=== PATIENT | male | born 1955 | race Caucasian/White ===

== ENCOUNTER 2016-09-02 18:46 | Emergency (ER) | payer OTHER ==
[~2016-09-02] VITALS: Ht 182.9 cm; Wt 95.1 kg
[~2016-09-02 18:46] MED LIST: EFFSR150 PO
[2016-09-02 18:52] VITALS: TEMP 36.8; Ht 182.9 cm; Wt 95.1 kg
[2016-09-02] MEDS ORDERED: VENL75CA73 PO (19:24)
[2016-09-02] MEDS ORDERED: GLCSR/500 PO (19:24)
[2016-09-02] MEDS ORDERED: IBUP-1050 PO (19:25)
--- NOTE | 2016-09-02 20:07 | DIAGNOSTIC IMAGING REPORT ---
RIGHT RIBS UNILATERAL WITH PA CHEST CLINICAL HISTORY: right posterior rib pain, injury Right COMPARISON STUDY: None. FINDINGS: No acute fractures within the right ribs. Old, healed right anterior ninth and 10th rib fractures. Bibasilar linear densities favor subsegmental atelectasis or scarring. The heart is borderline enlarged. No focal lung consolidations to suggest pneumonia. No evidence for pulmonary edema. No pleural effusions. No pneumothorax. IMPRESSION: No acute rib fractures. No pneumothorax. Electronically signed by: Hansel Willis M.D. 09/02/2016 8:06 PM Dictated Date/Time: 09/02/2016 8:04 PM
[2016-09-02] MEDS ORDERED: OXYCODONE HCL IR 5 MG TAB (IMMEDIATE RELEASE) PO STA (20:20)
[2016-09-02] MEDS ORDERED: OXYCODONE IR HOME PACK PO ONE (21:00)
[2016-09-02] MEDS ORDERED: OXYC1TAB3 PO (21:04)
--- NOTE | 2016-09-02 21:05 | EMERGENCY ROOM VISIT NOTE ---
History First contact with patient: 18:53 Chief Complaint: FLANK PAIN Stated Complaint: RIGHT SIDE, BAD PAIN History of Present Illness The patient is a 61 year old male who presents to the Emergency Room with complaints of right rib pain. The patient states that 2 days ago, a piece of steel slipped and hit him in the right side. He reports that he has had persistent pain since then. He states the pain increases with sneezing, coughing or laughing. The pain also increases with movement. He rates the discomfort an 8/10. He denies any difficulty breathing or abdominal pain. Review of Systems A complete 10 point review of systems was reviewed with the patient with pertinent positives and negatives as per history of present illness. All else were negative. Social History Smoking Status: Never Smoker Alcohol Use: none Marital Status: single Occupation Status: employed Current/Historical Medications Scheduled Hctz/Losartan (Hyzaar 25MG/100MG), 1 TAB PO DAILY Ibuprofen (Advil), 800 MG PO BID Metformin HCl (Metformin HCl ER), 500 MG PO DAILY Venlafaxine Hcl (Venlafaxine Extended Rel), 75 MG PO DAILY Scheduled PRN Oxycodone Ir (Roxicodone Ir), 1-2 TAB PO Q4H PRN for Pain Allergies Coded Allergies: Prochlorperazine (Unverified Allergy, Unknown, INCREASES ANXIETY, 04/12/09) Physical Exam Vital Signs Date Time Temp Pulse Resp B/P (MAP) Pulse Ox O2 Delivery O2 Flow Rate FiO2 09/02/16 21:14 72 18 149/90 98 09/02/16 18:52 36.8 78 16 156/93 97 Room Air Physical Exam VITALS: Vitals are noted on the nurse's note and reviewed by myself. Vital signs stable. GENERAL: This is a 61-year-old male, in no acute distress, nondiaphoretic, well- developed well-nourished. SKIN: No ecchymosis noted. HEART: Regular rate and rhythm without murmurs gallops or rubs. LUNGS: Clear to auscultation bilaterally without wheezes, rales or rhonchi. No retractions or accessory muscle use. ABDOMEN: Soft, nontender to palpation. MUSCULOSKELETAL: There is tenderness to palpation of the right lower posterior ribs. NEURO: Patient was alert and oriented to person place and time. Medical Decision & Procedures ER Provider Diagnostic Interpretation: RIGHT RIBS UNILATERAL WITH PA CHEST CLINICAL HISTORY: right posterior rib pain, injury Right COMPARISON STUDY: None. FINDINGS: No acute fractures within the right ribs. Old, healed right anterior ninth and 10th rib fractures. Bibasilar linear densities favor subsegmental atelectasis or scarring. The heart is borderline enlarged. No focal lung consolidations to suggest pneumonia. No evidence for pulmonary edema. No pleural effusions. No pneumothorax. IMPRESSION: No acute rib fractures. No pneumothorax. Medications Administered Medications (Trade) Dose Ordered Sig/Summer Route Start Time Stop Time Status Last Admin Dose Admin Oxycodone HCl (Roxicodone Immediate Rel Tab) 5 mg NOW STAT PO 09/02/16 20:20 09/02/16 20:21 DC 09/02/16 20:24 5 MG Oxycodone HCl (Roxicodone Immediate Rel 5MG Home Pack) 1 homepack UD ONCE PO 09/02/16 21:00 09/02/16 21:01 DC 09/02/16 21:10 1 HOMEPACK Medical Decision Differential diagnosis includes rib fracture, rib contusion, pneumothorax, hemothorax, pulmonary embolism, among others. The patient was evaluated as above. He presents with right rib pain after an injury a few days ago. Rib x-ray was performed and read by radiology with no acute findings. Conservative measures were discussed with the patient. He received 1 tablet of OxyIR in the emergency department for pain with relief of his symptoms. He will be discharged home with a prescription for OxyIR and to follow-up with primary care provider. The patient verbalized understanding of my assessment and treatment plan and was discharged home in good condition. Blood Pressure Screening: Patient was found to have a slightly elevated blood pressure due to circumstances. I do not believe that the patient requires hypertension monitoring. Medication reconciliation: I attest that I have personally reviewed the patient 's current medication list. [place] Drug Monitoring Program Search Results: patient reviewed within database, no issues identified Impression Primary Impression: Contusion of rib on right side Departure Information Dispostion Home / Self-Care Condition GOOD Prescriptions Oxycodone Ir (Roxicodone Ir) 5 Mg Tab 1-2 TAB PO Q4H Y for Pain, #15 TAB For Initial Treatment Prov: Amber Dawson ., LUZ-Cheli 09/02/16 Referrals Patrick Zhao M.D. (PCP) Patient Instructions My [facility] Additional Instructions You have been treated in the Emergency Department for Rib contusion. You have received pain medicine in the emergency department which impairs your ability to operate a vehicle. It is illegal for you to drive after receiving these medicines. You have been prescribed OxyIR to be used for pain control. This is a narcotic medication. You cannot drive or consume alcohol while on this medicine. This medicine should only be used for pain that cannot be controlled with over-the- counter pain medicines. For pain control, you can use the following [id number] medicines (if >12 yo): - Regular strength (325mg/tab) Tylenol (acetaminophen) 2 tabs every 4-6 hours as needed. Do not exceed 12 tablets in a 24 hour period. Avoid taking more than 4 grams (4000 mg) of Tylenol per day. This includes any other sources of acetaminophen you may take on a regular basis. - Regular strength (200 mg/tab) Advil (ibuprofen) 1-2 tabs every 4-6 hours as needed. Do not exceed a dose of 3200 mg per day. If this is an acute injury, ice can be applied to the area of pain for the first 3 days to help decrease pain and inflammation. After the first 3 days, a heating pad can be used over the area for continued soothing relief. To minimize your discomfort, you can hug a pillow while coughing or sneezing. Additionally, you should continue to force yourself to take nice, deep breaths. Full expansion of the lungs is necessary to prevent the accumulation of fluid in the lung tissue and development of pneumonia. You should schedule a follow-up appointment in 2-3 days with your Primary Care Provider for further evaluation and treatment of your back pain. Return to the Emergency Department if your current symptoms worsen despite treatment course outlined above, or if you develop any of the following symptoms : intractable pain despite aforementioned treatment course, development of a wet cough, bloody cough, fever, chills, or increased shortness of breath. Problem Qualifiers Primary Impression: Contusion of rib on right side Encounter type: initial encounter Qualified Codes: S20.211A - Contusion of right front wall of thorax, initial encounter
[2016-09-02 21:14] VITALS: BP 149/90; PULSE 72; O2SAT 98
[2016-09-02] MEDS ORDERED: HYZ/10015 PO (22:26)
== END 2016-09-02 21:23 | disposition home or self-care (01) ==
LOC: C.EDB 18:47 → C.EDA 21:23
DX: S20.211A Contusion of right front wall of thorax, initial encounter (principal); W01.0XXA Fall on same level from slipping, tripping and stumbling without subsequent striking against object, initial encounter; Z79.84 Long term (current) use of oral hypoglycemic drugs; Z79.899 Other long term (current) drug therapy; Z88.8 Allergy status to other drugs, medicaments and biological substances

== ENCOUNTER 2017-01-22 06:29 | Inpatient (IN) | payer OTHER ==
--- NOTE | 2017-01-21 14:07 | DIAGNOSTIC IMAGING REPORT ---
CHEST 2 VIEWS ROUTINE CLINICAL HISTORY: PRE OP TESTING COMPARISON STUDY: 09/02/2016 FINDINGS: The cardiac and mediastinal contours are normal. There is no evidence of focal pulmonary consolidation. There is no evidence of failure. No pleural effusions are visualized.[There are linear by basilar areas of atelectasis/scarring. IMPRESSION: No active disease in the chest. Electronically signed by: Ramon Brandon M.D. 01/21/2017 2:05 PM Dictated Date/Time: 01/21/2017 2:05 PM
[2017-01-21 14:46] LABS: BASO % 0.2 %; BASO ABS # 0.01 K/uL (0-0.2); COMPLETE YES; EOS % 0.9 %; HEMATOCRIT 37.4 % (42-52); IG% 0.3 %; LYMPH % 25.9 %; MEAN CELL VOLUME 92.8 fL (80-100); MEAN CORPUSCULAR HGB CONC 33.4 g/dl (32-36); MEAN PLATELET VOLUME 8.7 fL (7.4-10.4); MONO % 8.7 %; PLATELET COUNT 270 K/uL (130-400); RED BLOOD COUNT 4.03 M/uL (4.7-6.1); WHITE BLOOD COUNT 6.57 K/uL (4.8-10.8)
[2017-01-21 14:54] LABS: URINE APPEARANCE CLEAR (CLEAR); URINE BILIRUBIN NEG (NEG); URINE COLOR YELLOW; URINE NITRITE NEG (NEG); URINE PH 5.5 (4.5-7.5); URINE SPECIFIC GRAVITY 1.023 (1.000-1.030); UROBILINOGEN NEG (NEG)
[2017-01-21 14:57] LABS: INR 0.9 (0.9-1.1); PROTHROMBIN TIME (PATIENT) 10.1 SECONDS (9.0-12.0)
[2017-01-21 15:04] LABS: MANUAL MICROSCOPIC REQUIRED? NO; REVIEW REQ? NO
[2017-01-21 15:12] LABS: BLOOD UREA NITROGEN 18 mg/dl (7-18); BUN/CREATININE RATIO 18.4 (10-20); CALCIUM 9.4 mg/dl (8.5-10.1); CARBON DIOXIDE 27 mmol/L (21-32); CHLORIDE 103 mmol/L (98-107); GLUCOSE 122 mg/dl (70-99); POTASSIUM 4.1 mmol/L (3.5-5.1); SODIUM 139 mmol/L (136-145)
[2017-01-21 15:37] VITALS: BMI 28.0
[2017-01-22] VITALS (7 sets, daily range): BP systolic 112–137; BP diastolic 68–87; PULSE 76–106; TEMP 36.4–36.9; O2SAT 99–100; Ht 180.3 cm; Wt 90.9 kg
[~2017-01-22] VITALS: Ht 180.3 cm; Wt 90.9 kg
[2017-01-22 05:39] LABS: ESTIMATED AVERAGE GLUCOSE 154 mg/dl; HA1C FLAG Normal (Normal)
[~2017-01-22 06:29] MED LIST changes: +ACETAMINOPHEN 500 MG TAB PO SCH; +BUPIVACAINE 0.25% 30 ML VIAL ONE; +BUPIVACAINE 0.5 % 5 MG/1 ML PF 10ML VIAL ONE; +CEFAZOLIN 1000MG IV PUSH 5 ML IV SCH; +CEFAZOLIN 2000MG IV PUSH 10 ML IV SCH; +CeleBREX 200 MG CAP PO SCH; +DEXAMETHASONE 4 MG TAB PO SCH; -EFFSR150 PO; +FAMOTIDINE 20 MG TAB PO SCH; +GABAPENTIN 300 MG CAP PO SCH; +GLCSR/500 PO; +HYZ/10015 PO; +IBUP-1050 PO; +LACTATED RINGER'S 1000ML 1,000 ML IV SCH; +LACTATED RINGER'S 1000ML 500 ML IV ONE; +LACTATED RINGER'S 1000ML IV SCH; +METOCLOPRAMIDE HCL 10 MG TAB PO SCH; +PATIENT'S HEIGHT AND/OR WEIGHT NEEDED SCH; +ROPIVACAINE 5MG/ML 30 ML 150 MG, BUPIVACAINE 0.5% MPF INJ 30 ML, EpINEphrine HCL INJ 0.... INFIL SCH; +VENL75CA73 PO; +VNTHFA/IN INH
[2017-01-22] MEDS ORDERED: MIDAZOLAM HCL 1 MG/ML 2ML VIAL ONE ×2 (06:32→08:54)
[2017-01-22] MEDS ORDERED: FENTANYL CITRATE INJ 50 MCG/1 ML 2 ML VIAL ONE (06:32)
--- NOTE | 2017-01-22 07:30 | History & Physical Bridge Note ---
H&P Re-Evaluation Bridge Note: I have examined the patient, reviewed the History & Physical and in the interval since the performance of the History & Physical I have noted the following changes of clinical significance: No changes noted
--- NOTE | 2017-01-22 09:02 | History and Physical ---
History & Physical Date Jan 22, 2017. Chief Complaint Right knee pain History of Present Illness The patient is a 61 year old male with complaints of Additional History Hepatic Disease: No Endocrine Disorder: No Kidney Disease: No Hypertension: No Heart Disease: No Bleeding Tendencies: No Infectious Diseases: No Allergies Coded Allergies: Prochlorperazine (Unverified Allergy, Unknown, INCREASES ANXIETY, 01/21/17 ) Home Medications Scheduled Albuterol Hfa (Ventolin Hfa), 2 PUFFS INH PRN Hctz/Losartan (Hyzaar 25MG/100MG), 1 TAB PO QAM Ibuprofen (Advil), 800 MG PO PRN Metformin HCl (Metformin HCl ER), 500 MG PO BID Venlafaxine Hcl (Venlafaxine Extended Rel), 150 MG PO QAM Diagnosis DJD R knee ASA Classification: ASA Class I Plan of Treatment Right tka
[2017-01-22] MEDS ORDERED: ORTHO JOINT ANESTHETIC ONE (09:32)
[2017-01-22] MEDS ORDERED: BACITRACIN 50000 UNIT VIAL ONE (09:33)
[2017-01-22] MEDS ORDERED: POVIDONE-IODINE OP SOLN 30 ML BTL ONE (09:33)
--- NOTE | 2017-01-22 10:51 | [facility] Post Operative Brief Note ---
Immediate Operative Summary Operative Date Jan 22, 2017. Pre-Operative Diagnosis Right knee degenerative joint disease Post-Operative Diagnosis Right knee degenerative joint disease Procedure(s) Performed Right total knee arthroplasty Surgeon Dr. Harris Radiator Core Tester Surgeon(s) Bibi Canchola PA-C Estimated Blood Loss 10cc Findings OA Specimens A) right knee- bone & tissue Complication(s) None Disposition Recovery Room / PACU
[2017-01-22] MEDS ORDERED: ONDANSETRON INJ 2 MG/ML 2 ML VIAL IV PRN ×2 (11:15→11:30)
[2017-01-22] MEDS ORDERED: FENTANYL CITRATE INJ 50 MCG/1 ML 2 ML VIAL IV PRN (11:15)
[2017-01-22] MEDS ORDERED: LABETALOL HCL IV 5 MG/ML 20ML IV PRN (11:15)
[2017-01-22] MEDS ORDERED: MEPERIDINE HCL 25 MG/ML CARP IV PRN (11:15)
[2017-01-22] MEDS ORDERED: EpHEDrine SULFATE INJ 50 MG/ML AMP IV PRN (11:15)
[2017-01-22] MEDS ORDERED: ATROPINE SULFATE 0.1 MG/ML 5ML SYR IV PRN (11:15)
[2017-01-22] MEDS ORDERED: HYDROmorphone INJ 1 MG/ML SYR IV PRN (11:15)
[2017-01-22] MEDS ORDERED: OXYCODONE HCL IR 5 MG TAB (IMMEDIATE RELEASE) PO PRN (11:30)
[2017-01-22] MEDS ORDERED: BISACODYL 10 MG SUPP PR PRN (11:30)
[2017-01-22] MEDS ORDERED: MoRPHine SULFATE 2 MG/ML CARP IV PRN (11:30)
[2017-01-22] MEDS ORDERED: TAMSULOSIN HCL 0.4 MG CAP PO PRN (11:30)
[2017-01-22] MEDS ORDERED: ALUMINUM/MAGNESIUM/SIMETH (MAALOX MAX) 30 ML UDC PO PRN (11:30)
[2017-01-22] MEDS ORDERED: ALBUTEROL HFA 8 GM INHALER INH PRN (11:30)
[2017-01-22] MEDS ORDERED: MAGNESIUM HYDROXIDE SUSP 30 ML UDC PO PRN (11:30)
[2017-01-22] MEDS ORDERED: TRAMADOL HCL 50 MG TAB PO PRN (11:30)
--- NOTE | 2017-01-22 11:56 | Anesthesiology Progress Note ---
Anesthesia Post Op Note Date & Time Jan 22, 2017 at 11:56 Vital Signs Pain Intensity: 0 Vital Signs Past 12 Hours Date Time Temp Pulse Resp B/P (MAP) Pulse Ox O2 Delivery O2 Flow Rate FiO2 01/22/17 11:45 75 18 114/83 100 Oxymask 10 01/22/17 11:35 36. 63 18 119/79 100 Oxymask 10 01/22/17 11:25 36. 75 18 108/74 100 Oxymask 10 01/22/17 06:45 36.9 85 18 136/87 Notes Mental Status: alert / awake / arousable, participated in evaluation Pt Amnestic to Procedure: Yes Nausea / Vomiting: adequately controlled Pain: adequately controlled Airway Patency, RR, SpO2: stable & adequate BP & HR: stable & adequate Hydration State: stable & adequate Neuraxial Anesthesia: was administered, sensory block is resolving Anesthetic Complications: no major complications apparent
--- NOTE | 2017-01-22 12:05 | DIAGNOSTIC IMAGING REPORT ---
R KNEE 1 OR 2 VIEWS ROUTINE CLINICAL HISTORY: 61 years-old Male presenting with AP/LATERAL IN PACU RIGHT KNEE. TECHNIQUE: Frontal and lateral views of the right knee were obtained. COMPARISON: 12/17/2013. FINDINGS: There has been interval total right knee arthroplasty with patellar resurfacing. Intra-articular and soft tissue emphysema noted. Surgical drain in place. No malalignment. No acute fracture. No gross hardware complication. Degenerative related calcifications noted along the medial knee. Several screw tracks apparent in the proximal tibial metaphysis. IMPRESSION: Expected postsurgical appearance status post total right knee arthroplasty with patellar resurfacing. Electronically signed by: Rocky Dyson M.D. 01/22/2017 12:04 PM Dictated Date/Time: 01/22/2017 12:03 PM
[2017-01-22] MEDS ORDERED: MoRPHine SULFATE 10 MG/ML CARP/VIAL IV PRN (12:45)
[2017-01-22] MEDS ORDERED: MoRPHine SULFATE 4 MG/ML 1 ML CARP\\VIAL IV PRN (12:45)
[2017-01-22] MEDS: TRANEXAMIC ACID INJ 1,000 MG in SYRINGE 0 ML IV SCH ×2 (12:51→12:53)
[2017-01-22] MEDS ORDERED: GLUCOSE 40% GEL 15 GM TUBE PO PRN (13:00)
[2017-01-22] MEDS ORDERED: GLUCOSE 10 TABS/TUBE PO PRN (13:00)
[2017-01-22] MEDS ORDERED: DEXTROSE 50% 50 ML SYR IV PRN (13:00)
[2017-01-22] MEDS ORDERED: GLUCAGON FOR INJ 1 MG VIAL SQ PRN (13:00)
[2017-01-22] MEDS ORDERED: INFLUENZA ADMINISTRATION CHARGE ONE (14:45)
[2017-01-22] MEDS ORDERED: INFLUENZA VIRUS QUAD VACCINE 0.5 ML SYR IM. ONE (14:45)
[2017-01-22] MEDS: ACETAMINOPHEN 500 MG TAB PO SCH ×2 (17:03→23:26)
[2017-01-22] MEDS ORDERED: PHARMACY GLYCEMIC MGMT CONSULT SCH (17:58)
[2017-01-22] MEDS ORDERED: LANTUS PER UNIT CHARGE SQ ONE (18:15)
[2017-01-22] MEDS: INSULIN ASPART 100 UNITS/ML 3 ML PEN SC SCH (18:40)
[2017-01-22] MEDS: KETOROLAC TROMETHAMINE 30 MG/ML VIAL IV. SCH ×2 (18:42→23:26)
[2017-01-22] MEDS ORDERED: INSULIN IV INFUSION PROTOCOL SCH (18:52)
[2017-01-22] MEDS: CEFAZOLIN IV 2,000 MG in SYRINGE 0 ML IV SCH (18:54)
[2017-01-22] MEDS: FERROUS GLUCONATE 324 MG TAB PO SCH (18:54)
[2017-01-22] MEDS ORDERED: MODERATE STRESS LEVEL ONE (19:00)
[2017-01-22] MEDS ORDERED: INSULIN PROTOCOL GOAL RANGE ONE (19:00)
--- NOTE | 2017-01-22 19:01 | Pharmacy Progress Note ---
Glycemic Control Intl Consult Date of Service Jan 22, 2017. Scope Glycemic Pharmacist consulted by Lan NARANJO on 01/22/17 for glycemic control and to write orders per [facility] inpatient glycemic control protocol Objective Weight (Kilograms): 90.91 Accuchecks BSG (last 24hrs): Test 01/22/17 06:53 01/22/17 11:56 01/22/17 17:13 01/22/17 17:14 Bedside Glucose 128 mg/dl (70-99) 147 mg/dl (70-99) 360 mg/dl (70-99) 384 mg/dl (70-99) HbA1c Test 01/21/17 13:13 Hemoglobin A1c 7.0 % (4.5-5.6) H Recent Pertinent Medications Outpatient Anti-diabetic Regimen: * Metformin ER 500mg BID * A1c = 7 % 01/22/17 Risk Factors for Insulin Resistance: * Steroids: Dexamethasone 8mg PO pre-op x1; Dexamethasone 4mg in huy-articular injection x1 * Recent Surgery: POD # 0 s/p R TKA * Diet: ordered T2DM diet and tolerating dinner today Assessment & Plan ASSESSMENT: 01/22/17 * Well controlled type 2 diabetic admitted today for elective R TKA * A1c 7.0% on metformin monotherapy. Metformin currently on hold in the post- op setting until renal fxn assessed and patient tolerating diet * Patient states he is well controlled and rarely see's BSGs above 180's * Post-op hyperglycemia observed, BSGs in the 380's currently. Given infectious risks associated with severe hypoglycemia post-op, I feel it is best we initiate therapy w/ a IV insulin infusion to quickly and safely gain control of hyperglycemia. This plan was discussed and approved with on-call surgeon, Dr Moreno. Hospitalist has also been consulted. * Will give a single STAT dose of Lantus SQ on top of the insulin drip with hopes that this may help us transition off the drip overnight and possibly tomorrow. Dose will be based upon severe stress level and weight. * Will check PRP tonight to screen for e-lyte abnormalities while on insulin infusion, drip should be stopped if significant hypokalemia present (K < 3.3) * May be able to resume metformin tomorrow if renal fxn and diet permit. PLAN FOR INPATIENT GLYCEMIC CONTROL: * Starting IV insulin infusion per moderate stress protocol * Goal Range 120 - 200 mg/dl * Holding outpatient oral diabetes medications * Basal insulin with LANTUS 46 units SQ x 1 tonight * Please note that the plan above was derived based on current level of insulin resistance and hospital stress. These recommendations are appropriate for inpatient admission only. Plan of care upon discharge will need to be reassessed to avoid potential outpatient hypo/hyperglycemia. Thank you.
[2017-01-22] MEDS: SODIUM CHLORIDE 0.9% 1000ML 1,000 ML IV SCH ×2 (19:42→22:34)
[2017-01-22] MEDS: INSULIN REGULAR 250 UNITS in SODIUM CHLORIDE 0.9% 250ML 250 ML IV SCH ×2 (19:46→21:08)
[2017-01-22] MEDS ORDERED: SENNA 8.6 MG TAB PO SCH (21:00)
[2017-01-22] MEDS ORDERED: INSULIN ASPART 100 UNITS/ML 3 ML PEN SC SCH (21:00)
[2017-01-22] MEDS: ASPIRIN 81 MG ECTAB PO SCH (21:19)
[2017-01-22] MEDS: DOCUSATE SODIUM 100 MG CAP PO SCH (21:20)
[2017-01-22 22:36] LABS: BUN/CREATININE RATIO 20.6 (10-20); CALCIUM 8.2 mg/dl (8.5-10.1); CREATININE 1.25 mg/dl (0.60-1.40); POTASSIUM 3.9 mmol/L (3.5-5.1)
[2017-01-23] MEDS: INSULIN REGULAR 250 UNITS in SODIUM CHLORIDE 0.9% 250ML 250 ML IV SCH (01:09)
[2017-01-23] MEDS: CEFAZOLIN IV 2,000 MG in SYRINGE 0 ML IV SCH (02:27)
[2017-01-23 03:33] VITALS: BP 150/81; PULSE 80; TEMP 36.5; O2SAT 98
[2017-01-23] MEDS: SODIUM CHLORIDE 0.9% 1000ML 1,000 ML IV SCH ×2 (05:22→08:34)
[2017-01-23] MEDS: KETOROLAC TROMETHAMINE 30 MG/ML VIAL IV. SCH ×2 (05:23→11:44)
[2017-01-23] MEDS ORDERED: NURSING VERBAL MED ORDER ONE (05:30)
[2017-01-23 08:06] LABS: BUN/CREATININE RATIO 23.9 (10-20); CREATININE 0.92 mg/dl (0.60-1.40); POTASSIUM 3.9 mmol/L (3.5-5.1)
--- NOTE | 2017-01-23 08:12 | Orthopedic Progress Note ---
Orthopedic Progress Note Date of Service Jan 23, 2017. Subjective Post OP Day: 1 Reports: feeling well, Denies: chest pain, SOB, nausea / vomiting, light headedness, calf pain Objective calves soft nontender, N/V intact, capillary refill less than 2 sec., dressing C /D/I, A&O x3, toes mobile, hemovac drainage (100/150cc per shift) Date Time Temp Pulse Resp B/P (MAP) Pulse Ox O2 Delivery O2 Flow Rate FiO2 01/23/17 03:33 36.5 80 16 150/81 (104) 98 Room Air 01/22/17 23:34 36.5 94 16 121/68 (85) 99 Room Air 01/22/17 23:15 Room Air 01/22/17 19:17 36.9 90 18 137/77 (97) 99 Room Air 01/22/17 15:30 Room Air 01/22/17 15:02 36.6 106 18 129/80 (96) 99 Room Air 01/22/17 14:05 101 16 133/81 (98) 100 01/22/17 13:25 99 16 130/81 (97) 100 01/22/17 12:30 Nasal Cannula 2.0 01/22/17 12:05 Nasal Cannula 2.0 01/22/17 12:05 Nasal Cannula 01/22/17 12:05 36.4 76 18 112/76 (88) 99 Nasal Cannula 2.0 01/22/17 11:45 75 18 114/83 100 Oxymask 10 01/22/17 11:35 36. 63 18 119/79 100 Oxymask 10 01/22/17 11:25 36. 75 18 108/74 100 Oxymask 10 Laboratory Results 24 Hours: Test 01/23/17 06:49 Assessment & Plan Assessment: POD#1 sp right TKA Plan: PT/OT DVT PROPH- ASA 81MG BID PAIN MANAGEMENT- MAGEN, TYLENOL DC PLANNING- HOME TODAY WITH ADVANTAGE. KEEP DRESSING/DRAIN.
[2017-01-23] MEDS ORDERED: ASPEC81 PO (08:17)
[2017-01-23] MEDS ORDERED: SENN1TAB80 PO (08:17)
[2017-01-23] MEDS ORDERED: CLB200 PO (08:17)
[2017-01-23] MEDS ORDERED: RXC5 PO (08:17)
[2017-01-23] MEDS ORDERED: ONDA8TAB6 PO (08:17)
[2017-01-23] MEDS ORDERED: ACET-24 PO (08:17)
--- NOTE | 2017-01-23 08:19 | Discharge Instructions ---
Discharge Instructions Date of Service Jan 23, 2017. Admission Reason for Admission: Right Knee Osteoarthritis Discharge Discharge Diagnosis / Problem: SP RIGHT TKA Discharge Goals Goal(s): Decrease discomfort, Improve function, Increase independence Activity Recommendations Activity Limitations: per Instructions/Follow-up section . Instructions / Follow-Up Instructions / Follow-Up ACTIVITY RECOMMENDATIONS: SELF CARE INSTRUCTIONS AFTER TOTAL KNEE REPLACEMENT A. You may need to continue a physical therapy program after discharge from the hospital. There are several options available to you. Your doctor will assist you in selecting the best one for you. 1. An out-patient facility 2 to 3 times a week for therapy or home therapy. 2. Continue working on all exercises taught to you in the hospital. Your goals should be to increase bending of your knee to 90 degrees and beyond and to fully straighten your knee. B. You may progress at your own pace from walking with a walker or crutches to a cane; then to no assistive devices. C. Make walking a part of your daily routine. Be up as much as comfortable with rest periods throughout the day. Rest with leg elevation is very important. Use the ice wrap frequently for the first 3-4 weeks. D. There are no restrictions on activities. You may ride in a car, shop, participate in baby attendant and all social activities. E. Wear the long elastic stockings (IRAJ hose) 20 hours a day for 2 weeks after surgery. They can be removed several times a day for laundering and for a bath. F. You may shower, no tub baths until cleared by your doctor. SPECIAL CARE INSTRUCTIONS: VERY IMPORTANT TO READ AND REVIEW A. There are a few signs you need to watch for after you are home. Call [facility] if you notice any of the followin. Increased severe knee pain. Some pain is expected especially when you exercise. 2. Increased swelling in your leg or knee; pain or swelling of the calf muscle in either lower leg. 3. Any fluid drainage from the incision. 4. Shortness of breath or chest pain. B. Please call [facility] at if you have any concerns or questions about your operation or recovery. The doctor or his nurse will return your call promptly. C. You must take antibiotics before dental work, bladder, bowel or other surgery. Your doctor will provide you with a permanent care to carry describing this precaution. IMPORTANT: * REMEMBER TO TAKE ASPIRIN, 81 MG, TWICE DAILY FOR 4 WEEKS UNLESS OTHERWISE DIRECTED. THIS IS YOUR BLOOD THINNER. * HIGH RISK PATIENTS MAY BE PRESCRIBED A STRONGER BLOOD THINNER. THIS WILL BE PROVIDED AT DISCHARGE. * CALL IF INCREASED PAIN, REDNESS, DRAINAGE OR FEVER GREATER THAT 101. * WEAR IRAJ HOSE 20 HOURS PER DAY FOR 2 WEEKS. * YOU HAVE A ZIPLINE CLOSURE. THIS IS IN PLACE OF [place]. DO NOT REMOVE. YOU MAY COVER WITH A LIGHT DRESSING TO PREVENT SNAGGING. THIS WILL BE RMEOVED AT YOUR 2 WEEK VISIT. SURGICAL DRESSING AND DRAIN WILL BE REMOVED ON WEDNESDAY BY HOME NURSING. FOLLOW UP VISIT: If appointment is not already scheduled: Please call [facility] to make a follow-up appointment for 2 weeks after your surgery at . Current Hospital Diet Patient's current hospital diet: Diabetes Type 2 Diet Discharge Diet Recommended Diet: Regular Diet Procedures Procedures Performed: Right total knee arthroplasty Pending Studies Studies pending at discharge: no Laboratory Results Hemoglobin A1c Test 01/21/17 13:13 Range/Units Estimated Average Glucose 154 mg/dl Hemoglobin A1c 7.0 H 4.5-5.6 % Medical Emergencies . Who to Call and When: Medical Emergencies: If at any time you feel your situation is an emergency, please call 911 immediately. . Non-Emergent Contact Non-Emergency issues call your: Surgeon . "Provider Documentation" section prepared by Mayi Calhoun. . VTE Core Measure Inpt VTE Proph given/why not?: Other Anticoagulation, T.E.D. Stockings, SCD's
[2017-01-23] MEDS: FERROUS GLUCONATE 324 MG TAB PO SCH ×2 (08:43→12:54)
[2017-01-23] MEDS: ACETAMINOPHEN 500 MG TAB PO SCH (08:43)
[2017-01-23] MEDS: DOCUSATE SODIUM 100 MG CAP PO SCH (08:44)
[2017-01-23] MEDS: ASPIRIN 81 MG ECTAB PO SCH (08:44)
[2017-01-23] MEDS ORDERED: METFORMIN HCL 500 MG TABCR PO ONE (08:45)
[2017-01-23] MEDS: INSULIN ASPART 100 UNITS/ML 3 ML PEN SC SCH ×2 (08:54→12:00)
[2017-01-23] MEDS ORDERED: PANTOprazole SOD 40 MG TAB PO SCH (09:00)
[2017-01-23] MEDS ORDERED: LOSARTAN/HCTZ 50-12.5 EA TAB PO SCH (09:00)
[2017-01-23] MEDS ORDERED: VENLAFAXINE HCL XR 150 MG CAPXR PO SCH (09:00)
[2017-01-23] MEDS ORDERED: MULTIVITAMIN TAB PO SCH (09:00)
[2017-01-23 09:27] LABS: HEMATOCRIT 24.7 % (42-52); MEAN CELL VOLUME 90.8 fL (80-100); MEAN CORPUSCULAR HEMOGLOBIN 30.9 pg (25-34); MEAN PLATELET VOLUME 8.1 fL (7.4-10.4); PLATELET COUNT 224 K/uL (130-400); RED BLOOD COUNT 2.72 M/uL (4.7-6.1); WHITE BLOOD COUNT 9.95 K/uL (4.8-10.8)
[2017-01-23 10:28] VITALS: BP 150/81; PULSE 80; TEMP 36.5; O2SAT 98
[2017-01-23] MEDS ORDERED: METFORMIN HCL 500 MG TABCR PO SCH (17:45)
[2017-01-23] MEDS ORDERED: CeleBREX 200 MG CAP PO SCH (21:00)
--- NOTE | 2017-01-25 13:50 | DISCHARGE SUMMARY ---
DISCHARGE DIAGNOSIS: Degenerative joint disease, right knee. CONSULTATIONS: None. COMPLICATIONS: None. PROCEDURES: Right total knee arthroplasty performed by Dr. Harris on 01/22/2017. BRIEF HISTORY: As dictated in history and physical. HOSPITAL SUMMARY: The patient was admitted on the above noted date and had the above-noted surgery performed which he tolerated well. On the first postoperative day, he was feeling well and had no complaints. Calves were soft and nontender. Neurovascularly intact. Capillary refill was less than 2 seconds. Dressings were clean, dry and intact. Toes were mobile. Vital signs were stable. He was afebrile and hemoglobin was 8.4. He was otherwise remaining stable and progressing well with his physical therapy and by 01/23/2017, it was felt he could be discharged to home. For further review, please see chart. LABORATORY AND X-RAY DATA: As per chart. DISCHARGE INSTRUCTIONS: The patient was discharged to home in satisfactory condition on 01/23/2017. DIET: Diabetic. ACTIVITY: Follow TK instruction sheets and special care instructions as noted. Follow up with Dr. Harris in 2 weeks. The patient to call for appointment if one has not been made for you. DISCHARGE MEDICATIONS: Acetaminophen 1000 mg p.o. q. 8 hours for 30 days, aspirin 81 mg p.o. b.i.d. for 30 days, Celebrex 200 mg p.o. b.i.d., Zofran 8 mg p.o. q. 8 hours p.r.n. nausea, oxycodone 5-10 mg p.o. q. 4 hours p.r.n., senna laxative 17.2 mg at bedtime. Resume home meds as listed and stop taking ibuprofen.
--- NOTE | 2017-03-02 07:08 | OPERATIVE REPORT ---
DATE OF OPERATION: PREOPERATIVE DIAGNOSIS: Osteoarthritis, right knee. POSTOPERATIVE DIAGNOSIS: Osteoarthritis, right knee. PROCEDURE: Right total knee arthroplasty. SURGEON: Dr. Harris. STRIPER MACHINE: Alexandre Canchola PA-C. ANESTHESIA: Spinal. COMPLICATIONS: None. IMPLANTS USED: Femoral size 6, tibia size 6, patella size 39, tibial insert none. OPERATION AND FINDINGS: Following induction of spinal anesthesia, the patient's right leg was prepped and draped in the usual sterile manner. Limb was exsanguinated with an Esmarch bandage and tourniquet was inflated to 350 mmHg. A longitudinal incision was made anteriorly. Subcutaneous tissue was sharply dissected. Electrocautery was used for hemostasis. Prepatellar bursa was incised and median parapatellar incision was performed. Patella was everted and the knee was flexed. Fat pad was removed to aid in visualization and the anterior and posterior cruciate ligaments were removed. The medial face of the tibia was cleared of soft tissue first with a Bovie and a Morelos elevator. This tissue was retracted posteriorly using a blunt Hohmann. A Rodríguez retractor was used to expose the synovium above on the anterior aspect of the femur and this was removed down to bone. The PSI guide was placed on the distal femur and two pins were placed anteriorly and kept in position and two additional pins were placed distally and removed. The distal femoral cutting block was placed in position and the distal femoral cut was used in the +0 setting. Next, the cutting block was removed and the femoral 6 block was placed in the distal end of the femur. Care was taken to ensure appropriate external rotation and feeler gauge was used to ensure no notching would occur. The femoral block was centered on the distal femur and in the medial and lateral direction and was fixed using two bone screws. The gold pins were then removed. The oscillating saw was used to create the bone cuts and the distal femoral cutting block was removed and the reciprocating saw was used to further trim the femoral cuts as well as a deep in the area for the trochlear groove. Next, posterior condyle remnants were removed. Following this, a meniscal clamp and knife were utilized to remove the anterior portion of both medial and lateral meniscus. The proximal tibia PSI guide was placed into position and the proximal tibial cutting guide was screwed into position. The extra medullary alignment guide was utilized to ensure appropriate alignment. The proximal tibia was cut and the proximal tibial cutting block was removed and this bone fragment was removed. The appropriate guide was used to perform the notch cut on the distal femur and a lamina arterial embalmer and a cochlear knife were utilized to finish both medial and lateral meniscectomies to remove any remnants of the posterior or anterior cruciate ligaments. Following this, the distal femoral component was impacted into position and blunt Brandon was used to sublux the tibia anteriorly. The proximal tibia was sized and a size 6 tibial tray was chosen as the size to be used. This was put into position and appropriate external rotation and a double check with extramedullary alignment guide was performed. The canal for the tibial stem was prepared first with a 17 mm drill and then the punch and a mallet and the trial tibial poly was placed. A patella size 39 was chosen the size to be used. It was brought to extension and the patella was prepared with the patellar reamer. A component was chosen the size to be used. The trial component was placed and knee was taken through a full range of motion and there was found to be no lateral subluxation of the tibia. No lateral release was required. The trials were all removed. The final components were obtained and assembled. Cement was mixed. The knee was thoroughly irrigated and the ortho mix was injected about the knee joint. The final components were cemented into position. After thoroughly suctioning and drying the bone ends, all excess cement was removed. The knee was held in extension while the cement hardened. The wound was irrigated and closed over a Hemovac drain. #1 Vicryl was used to close the extensor mechanism. Subcutaneous tissues closed using 0 Dexon. Skin was closed with edgardo. Sterile dressing of Adaptic, 4 x 4's, sterile Webril, and Juvencio was applied. The patient tolerated the procedure well. Due to the complex nature of the procedure, the entire surgery was performed with the operational assistance of Alexandre Canchola PA-C. The kindergarten instructional assistant, under direct supervision, was involved in the actual performance of all aspects of the surgical procedure including hemostasis, tissue retraction and incision, instrument management, patient positioning, and wound closure. DISPOSITION: Recovery room stable. I attest to the content of the Intraoperative Record and any orders documented therein. Any exceptions are noted below. JAZ
== END 2017-01-23 15:00 | disposition home health service (06) | DRG 470 ==
LOC: C.ACU 06:29 → C.3E 11:29 → ENRESERV 11:44
PROC: 0SRC0J9 Replacement of Right Knee Joint with Synthetic Substitute, Cemented, Open Approach (ICD-10-PCS; principal; 2017-01-22 09:05)
DX: M17.11 Unilateral primary osteoarthritis, right knee (principal); E11.9 Type 2 diabetes mellitus without complications; I10 Essential (primary) hypertension; F32.9 Major depressive disorder, single episode, unspecified; Z79.84 Long term (current) use of oral hypoglycemic drugs; Z79.899 Other long term (current) drug therapy

== ENCOUNTER 2024-05-17 20:36 | Inpatient (IN) ==
[2024-05-17] MEDS: SODIUM CHLORIDE 0.9% 1,000 ML IV ONE (21:09)
[2024-05-17] MEDS: ONDANSETRON INJ 2 MG/ML 2 ML VIAL IV STA (21:26)
--- NOTE | 2024-05-17 21:31 | Emergency Department Note ---
Impression & Plan Pneumonia, Influenza A, Nausea & vomiting ED Provider Note NAME: TRINIDAD GAMBOA AGE: 68 SEX: M : 1955 ARRIVES VIA: Walk-In INFORMANT: Patient, ED PROVIDER(S): Elvin Pinedo DO CHIEF COMPLAINT: Vomiting HPI: The patient is a 68-year-old male who presented to the emergency department for an evaluation of nausea vomiting. The patient has had flu symptoms over the course the last week. He complains of headache and just not feeling well. He notices a sore throat as well as a cough. He then started having nausea and vomiting today. The patient was seen at an urgent care and diagnosed with pneumonia. He was sent home on antibiotics but he decided to come to the emergency department because of the vomiting and he just was not feeling much better. ROS: See above HPI for pertinent positives & negatives. A total of 10 systems reviewed and were otherwise negative. PAST MEDICAL HISTORY: See Below PAST SURGICAL HISTORY: See Below FAMILY HISTORY: See Below SOCIAL HISTORY: See Below HOME MEDICATIONS: See Below ALLERGIES: See Below VITALS: See Below PHYSICAL EXAMINATION: GENERAL: Patient is awake alert in no acute distress patient is resting comfortably and showing no signs of anxiety EYES: The conjunctivae are clear. The pupils are round and reactive. EARS, NOSE, MOUTH AND THROAT: The nose is without any evidence of any deformity. NECK: The neck is nontender and supple. RESPIRATORY: The breath sounds are noted at the right base. There is no tachypnea or conversational dyspnea. CARDIOVASCULAR: Regular rate and rhythm noted there no murmurs rubs or gallops normal S1 normal S2. GASTROINTESTINAL: The abdomen is soft. Abdomen is nontender. MUSCULOSKELETAL/EXTREMITIES: There is no evidence of gross deformity full range of motion is noted in the hips and shoulders. SKIN: There is no obvious evidence of any rash. There are no petechiae, pallor or cyanosis noted. NEUROLOGIC: Patient is awake alert and oriented x3 MEDICAL DECISION MAKING: The patient is a 68-year-old male who presented to the emergency department for an evaluation of difficulty breathing. He started having nausea and vomiting as well. The patient was found to have influenza positive. He also may have a chest x-ray that shows a possible left-sided infiltrate. The patient was treated with IV fluids IV antiemetics and IV antibiotics. He was reevaluated multiple times. He continued to have episodes of tachycardia as well as tachypnea. Oxygen saturation was acceptable but borderline. Given his findings I discussed his condition with the on-call [facility] hospitalist. I do feel the patient would be a better candidate for inpatient management. Triage Nursing notes reviewed. Prior medical records reviewed Vital Signs: reviewed and remarkable for tachycardia cardia. Differential diagnosis: Gastroenteritis, food borne illness, infections, appendicitis, diverticulitis, inflammatory bowel disease, obstruction, GI bleed, biliary pathology, volvulus, as well as other pathologies. ER treatment provided: See below Diagnostics interpreted by me: ECG: EKG was obtained in the emergency department. My interpretation is normal sinus rhythm at 102 bpm. There is no ectopy. Early transition was noted with nonspecific ST abnormalities. This was compared to a tracing from February 23, 2019. No changes were noted. Cardiac Monitoring: An order was placed for continuous cardiac monitoring. The monitor shows a rate of 115 bpm with sinus tachycardia. Laboratory studies: As stated above and show below. Imaging studies: See below. Radiographic imaging was reviewed by myself Consultation(s): I discussed this case with Dr. Brooke who is on-call for the [facility] hospitalist group. Past Med/Surg History Problem List (Updated 05/17/24 @ 23:42 by Elvin Pinedo DO) Nausea & vomiting (Acute) Influenza A (Acute) Pneumonia (Acute) Multiple myeloma (Chronic) High cholesterol Diabetes HTN (hypertension) No pertinent past surgical history Contusion of rib on right side (Acute) Corneal abrasion, left (Acute) Knee pain (Acute) Knee pain (Acute) Right knee DJD Medical History Diverticulitis Depression Migraines Surgical History History of total right knee replacement (TKR) Hx of appendectomy Family History Father Cancer Lung cancer Uncle Cancer Mother Diabetes Other Family history non-contributory Social History Smoking Status: Former smoker Tobacco Type: Cigarettes and Smokeless Tobacco (Dip or Chew) Hx Alcohol Use: No Hx Substance Use: No Preferred Language: Guyanese Beliefs That Will Affect Care: None marital status: Single Current Living Situation: Alone current occupational status: employed 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 Feels Safe at Home: Yes during the past year weight has: remained stable Assistive Devices: Glasses Allergies Allergies Allergy/AdvReac Type Severity Reaction Status Date / Time prochlorperazine Allergy Unknown INCREASES Unverified 06/29/23 14:27 ANXIETY Home Meds Home Medications Medication Instructions Recorded Confirmed famotidine 20 mg tablet 20 mg PO DAILY PRN Heartburn 03/04/23 05/17/24 lorazepam 1 mg tablet 1 mg PO HS 03/04/23 05/17/24 semaglutide 0.25 mg or 0.5 mg (2 0.5 mg subcut WK 03/04/23 05/17/24 mg/3 mL) subcutaneous pen injector (OzReSnap) atorvastatin 20 mg tablet 20 mg PO DAILY 03/22/23 05/17/24 calcium 600 mg (as 1 tab PO BID 12/31/23 05/17/24 carbonate)-vitamin D3 10 mcg (400 unit) tablet (Calcium with Vitamin D) loperamide 2 mg capsule (Imodium 2 mg PO QID PRN Diarrhea 12/31/23 05/17/24 A-D) loratadine 10 mg tablet (Claritin) 10 mg PO QAM 12/31/23 05/17/24 olmesartan 40 mg tablet 40 mg PO QAM 12/31/23 05/17/24 ondansetron HCl 8 mg tablet 8 mg PO Q8H PRN Nausea 12/31/23 05/17/24 acyclovir 800 mg tablet 800 mg PO AMHS 05/17/24 05/17/24 albuterol sulfate 90 mcg/actuation 2 puff inhalation Q4 PRN DYPNEA OR 05/17/24 05/17/24 aerosol inhaler WHEEZING aspirin 81 mg capsule 81 mg PO QAM 05/17/24 05/17/24 azithromycin 250 mg tablet 0 mg PO .COMPLEX 05/17/24 05/17/24 oseltamivir 75 mg capsule (Tamiflu) 75 mg PO UD 05/17/24 05/17/24 prednisone 20 mg tablet 20 mg PO UD 05/17/24 05/17/24 propranolol 20 mg tablet 20 mg PO TID 05/17/24 05/17/24 sertraline 50 mg tablet 25 mg PO QAM 05/17/24 05/17/24 Results & Data (ED) Vital Signs Vital Signs - 24 hr 05/17/24 20:39 05/17/24 21:51 05/17/24 22:11 Temperature 36.6 C Temperature Source Oral Pulse Rate 99 H 110 H Pulse Rate [Apical] 115 H Respiratory Rate 20 26 H Respiratory Effort / Characteristics Non-Labored Spontaneous Respiratory Depth Normal Respiratory Pattern Regular Blood Pressure 141/60 H Blood Pressure [Right Arm] 131/86 Blood Pressure Mean 87 Blood Pressure Mean [Right Arm] 101 Blood Pressure Position Sitting Blood Pressure Position [Right Arm] Semi-fowlers Pulse Oximetry 96 92 Oxygen Delivery Method Room Air Room Air Sepsis Recent Fever Within 48 Hours Yes Sepsis New/Unexplained Change in Mental Status N/A Sepsis Action Taken by Nursing No Action Required Home Medications Current Medication List: was personally reviewed by me Laboratory Data Attestation: I reviewed the patient's lab results. 05/17/24 21:05 05/17/24 21:05 Lab Results 05/17/24 05/17/24 Range/Units 21:05 22:40 WBC 7.53 (4.8-10.8) K/ul RBC 3.86 L (4.70-6.10) M/uL Hgb 12.4 L (14.0-18.0) g/dl Hct 35.2 L (42.0-52.0) % MCV 91.2 (80.0-100.0) fL MCH 32.1 (25.0-34.0) pg MCHC 35.2 (32.0-36.0) g/dL RDW Std Deviation 46.0 (36.4-46.3) fL RDW Coeff of Audie 13.8 (11.5-14.5) % Plt Count 117 L (130-400) K/uL MPV 8.8 L (9.4-12.4) fL Immature Gran % (Auto) 0.4 % Neut % (Auto) 73.7 % Lymph % (Auto) 13.9 % Martin % (Auto) 10.2 % Eos % (Auto) 1.5 % Baso % (Auto) 0.3 % Neut # (Auto) 5.55 (1.40-6.50) K/uL Lymph # (Auto) 1.05 L (1.20-3.40) K/uL Martin # (Auto) 0.77 H (0.11-0.59) K/uL Eos # (Auto) 0.11 (0.00-0.50) K/uL Baso # (Auto) 0.02 (0.00-0.20) K/uL Immature Gran # (Auto) 0.03 (0.01-0.20) K/uL Sodium 138 (136-145) mmol/L Potassium 3.9 (3.5-5.1) mmol/L Chloride 106 (98-107) mmol/L Carbon Dioxide 19 L (21-32) mmol/L Anion Gap 13 H (3-11) BUN 15 (6-23) mg/dl Creatinine 1.14 (0.6-1.4) mg/dl Est Cr Clr Drug Dosing 74.0 ml/min eGFR 70.49 BUN/Creatinine Ratio 13.2 (10-20) Glucose 198 H (70-99(Fasting)) mg/dl Calcium 9.9 (8.6-10.3) mg/dl Total Bilirubin 0.6 (0.2-1.0) mg/dl AST 17 (13-39) U/L ALT 28 (7-52) U/L Alkaline Phosphatase 68 (34-104) U/L Troponin I High Sens < 2.3 (0-20) pg/ml Total Protein 7.4 (6.0-8.3) gm/dl Albumin 4.6 (3.4-5.0) gm/dl Globulin 2.8 (2.5-4.0) gm/dl Albumin/Globulin Ratio 1.6 (0.9-2) Lipase 15 (11-82) U/L Procalcitonin 0.14 (0-0.5) ng/ml Urine Color Yellow Urine Appearance Clear (Clear) Urine pH 5.0 (4.5-7.5) Ur Specific Haywood 1.020 (1.000-1.030) Urine Protein 1+ H (Negative) Urine Glucose (UA) 2+ H (Negative) Urine Ketones 2+ H (Negative) Urine Blood Negative (Negative) Urine Nitrite Negative (Negative) Urine Bilirubin Negative (Negative) Urine Urobilinogen Negative (Negative) Ur Leukocyte Esterase Negative (Negative) Urine WBC (Auto) 0-5 (0-5) /hpf Urine RBC (Auto) 0-2 (0-2) /hpf U Hyaline Cast (Auto) 0-2 (0-2) /lpf U Epithel Cells (Auto) 0-2 (0-2) /hpf Urine Bacteria (Auto) None Seen (None Seen) Adenovirus (PCR) Not Detected (NotDetected) B. pertussis DNA (PCR) Not Detected (NotDetected) B.parapertussis DNA PCR Not Detected (NotDetected) C. pneumoniae DNA (PCR) Not Detected (NotDetected) Coronavirus OC43 (PCR) Not Detected (NotDetected) Coronavirus HKU1 (PCR) Not Detected (NotDetected) Coronavirus 229E (PCR) Not Detected (NotDetected) SARS-CoV-2 (PCR) Not Detected (NotDetected) Coronavirus NL63 (PCR) Not Detected (NotDetected) Human Metapneumovir PCR Not Detected (NotDetected) Influenza A (H3) PCR DETECTED A (NotDetected) Influenza Type B (PCR) Not Detected (NotDetected) M. pneumoniae (PCR) Not Detected (NotDetected) Parainfluenza 1 (PCR) Not Detected (NotDetected) Parainfluenza 2 (PCR) Not Detected (NotDetected) Parainfluenza 3 (PCR) Not Detected (NotDetected) Parainfluenza 4 (PCR) Not Detected (NotDetected) RSV (PCR) Not Detected (NotDetected) Entero/Rhino (PCR) Not Detected (NotDetected) Administered Medications Discontinued Medications Sodium Chloride (Nss) 1,000 mls @ 999 mls/hr IV .Q1H1M ONE Stop: 05/17/24 21:54 Last Infusion: 05/17/24 22:11 Dose: Infused Documented By: Admin: 05/17/24 21:09 Dose: 999 mls/hr Documented By: LORENA Ceftriaxone Sodium (Rocephin) 2,000 mg in 50 mls @ 100 mls/hr IV NOW STA Stop: 05/17/24 22:49 Last Admin: 05/17/24 22:50 Dose: 100 mls/hr Documented By: LORENA Sodium Chloride (Nss) 500 mls @ 999 mls/hr IV .Q31M ONE Stop: 05/17/24 22:50 Last Admin: 05/17/24 22:44 Dose: 999 mls/hr Documented By: EMB Ondansetron HCl (Ondansetron Inj 2 Mg/Ml 2 Ml Vial) 4 mg IV NOW STA Stop: 05/17/24 20:55 Last Admin: 05/17/24 21:26 Dose: 4 mg Documented By: CTK Imaging Data Attestation: I personally reviewed and interpreted this imaging study as follows: My Impression: KUB was obtained in the emergency department. My interpretation is no free air or signs of bowel obstruction, final report pending. X-ray of the chest was obtained in the emergency department. My interpretation is no free air. There is a questionable left-sided infiltrate noted. Final report pending. Discharge Plan Visit Data Chief Complaint: Flu Like Symptoms Stated Complaint: REF BY URGENT CARE FOR FLU AND PNEUMONIA ED Provider: Elvin Pinedo Discharge Problem: Pneumonia, Influenza A, Nausea & vomiting Patient Disposition: Being Evaluated by Hospitalist Forms Stand Alone Forms: [facility] Prescriptions Prescriptions: No Action Ozempic 0.25 mg or 0.5 mg (2 mg/3 mL) pen injector 0.5 mg subcut WK famotidine 20 mg tablet 20 mg PO DAILY PRN (Reason: Heartburn) lorazepam 1 mg tablet 1 mg PO HS Rx Instructions: MAY TAKE 1/2-1 TAB DURING DAY IF NEEDED olmesartan 40 mg tablet 40 mg PO QAM calcium carbonate-vitamin D3 [Calcium with Vitamin D] 600 mg-10 mcg (400 unit) tablet 1 tab PO BID loperamide [Imodium A-D] 2 mg capsule 2 mg PO QID PRN (Reason: Diarrhea) loratadine [Claritin] 10 mg tablet 10 mg PO QAM atorvastatin 20 mg tablet 20 mg PO DAILY ondansetron HCl 8 mg tablet 8 mg PO Q8H PRN (Reason: Nausea) propranolol 20 mg Tablet 20 mg PO TID sertraline 50 mg tablet 25 mg PO QAM Rx Instructions: WEANING OFF...HAS 1 WEEK LEFT ON 25 MG HOPEFULLY albuterol sulfate 90 mcg/actuation HFA aerosol inhaler 2 puff INHALATION Q4 PRN (Reason: DYPNEA OR WHEEZING) acyclovir 800 mg tablet 800 mg PO AMHS aspirin 81 mg Capsule 81 mg PO QAM prednisone 20 mg tablet 20 mg PO UD Rx Instructions: ORDERED 05/17/24 Q AM FOR 5 DAYS BUT PT HAS NOT STARTED YET oseltamivir [Tamiflu] 75 mg Capsule 75 mg PO UD Rx Instructions: ORDERED 05/17/24 AMHS BUT HAS NOT STARTED YET azithromycin 250 mg Tablet 0 mg PO .COMPLEX Rx Instructions: For 250 mg dose pack: take 500 mg today (day 1), then 250 mg for 4 days (days 2-5) HAS NOT STARTED YET ORDERED ON 05/17/24 Referrals Referrals: Patrick Zhao MD [Primary Care Provider] -
[2024-05-17 21:41] LABS: Alanine Aminotransferase 28 U/L (7-52); Albumin Globulin Ratio 1.6 (0.9-2); Albumin Level 4.6 gm/dl (3.4-5.0); Alkaline Phosphatase 68 U/L (34-104); Anion Gap 13 (3-11); Aspartate Aminotransferase 17 U/L (13-39); BUN Creatinine Ratio 13.2 (10-20); Bilirubin,Total 0.6 mg/dl (0.2-1.0); Blood Urea Nitrogen 15 mg/dl (6-23); Calcium 9.9 mg/dl (8.6-10.3); Carbon Dioxide 19 mmol/L (21-32); Chloride 106 mmol/L (98-107); Globulin 2.8 gm/dl (2.5-4.0); Glucose 198 mg/dl (70-99(Fasting)); Lipase 15 U/L (11-82); Potassium 3.9 mmol/L (3.5-5.1); Sodium 138 mmol/L (136-145); Total Protein 7.4 gm/dl (6.0-8.3)
[2024-05-17 21:42] LABS: Basophils # (auto) 0.02 K/uL (0.00-0.20); Basophils % (auto) 0.3 %; Eosinophils # (auto) 0.11 K/uL (0.00-0.50); Eosinophils % (auto) 1.5 %; Hematocrit (blood only) 35.2 % (42.0-52.0); Hemoglobin 12.4 g/dl (14.0-18.0); Immature Granulocytes # (auto) 0.03 K/uL (0.01-0.20); Immature Granulocytes % (auto) 0.4 %; Lymphocytes # (auto) 1.05 K/uL (1.20-3.40); Lymphocytes % (auto) 13.9 %; Mean Corpuscular Hemoglobin 32.1 pg (25.0-34.0); Mean Corpuscular Hgb Conc 35.2 g/dL (32.0-36.0); Mean Corpuscular Volume 91.2 fL (80.0-100.0); Mean Platelet Volume 8.8 fL (9.4-12.4); Monocytes # (auto) 0.77 K/uL (0.11-0.59); Monocytes % (auto) 10.2 %; Neutrophils # (auto) 5.55 K/uL (1.40-6.50); Neutrophils % (auto) 73.7 %; Platelet Count 117 K/uL (130-400); RDW Coefficient of Variation 13.8 % (11.5-14.5); Red Blood Count 3.86 M/uL (4.70-6.10); White Blood Count 7.53 K/ul (4.8-10.8)
[2024-05-17 21:47] LABS: Troponin I High Sensitivity < 2.3 pg/ml (0-20)
[2024-05-17 22:40] LABS: Adenovirus PCR Not Detected (NotDetected); Bordetella parapertussis PCR Not Detected (NotDetected); Bordetella pertussis PCR Not Detected (NotDetected); Chlamydia pneumoniae PCR Not Detected (NotDetected); Coronavirus 229E PCR Not Detected (NotDetected); Coronavirus CoV-2 (COVID19)PCR Not Detected (NotDetected); Coronavirus HKU1 PCR Not Detected (NotDetected); Coronavirus NL63 PCR Not Detected (NotDetected); Coronavirus OC43PCR Not Detected (NotDetected); Human Metapneumovirus PCR Not Detected (NotDetected); Influenza A (H3) PCR DETECTED (NotDetected); Influenza B PCR Not Detected (NotDetected); Mycoplasma pneumoniae PCR Not Detected (NotDetected); Parainfluenza Virus 1 PCR Not Detected (NotDetected); Parainfluenza Virus 2 PCR Not Detected (NotDetected); Parainfluenza Virus 3 PCR Not Detected (NotDetected); Parainfluenza Virus 4 PCR Not Detected (NotDetected); Respiratory Syncytial VirusPCR Not Detected (NotDetected); Rhinovirus/Enterovirus PCR Not Detected (NotDetected)
[2024-05-17] MEDS: SODIUM CHLORIDE 0.9% 500 ML IV ONE (22:44)
[2024-05-17] MEDS: cefTRIAXone SODIUM 2,000 MG/50 ML BAG IV STA (22:50)
[2024-05-17 23:12] LABS: Appearance Urine Clear (Clear); Bacteria Urine Automated None Seen (None Seen); Bilirubin Urine Negative (Negative); Blood Urine Negative (Negative); Cast Urine Automated 0-2 /lpf (0-2); Color Urine Yellow; Epithelial Cell Urine Auto 0-2 /hpf (0-2); Glucose Urine UA 2+ (Negative); Ketones Urine 2+ (Negative); Leukocyte Esterase Urine Negative (Negative); Nitrite Urine Negative (Negative); Protein Urine 1+ (Negative); RBC Urine Automated 0-2 /hpf (0-2); Urobilinogen Urine Negative (Negative); WBC Urine Automated 0-5 /hpf (0-5)
--- NOTE | 2024-05-17 23:47 | XRay Report ---
Exam(s): XR CXR 1 VIEW EXAM: XR Chest, 1 View CLINICAL HISTORY: Reason for exam: Fever. TECHNIQUE: Frontal view of the chest. COMPARISON: 01/21/2017. FINDINGS: There is a poor inspiratory effort. Lungs: There are some increased opacity at the lung bases.. Pleural space: No pleural effusion is seen No pneumothorax. Heart: The heart is normal in size.. Mediastinum: Unremarkable.. IMPRESSION: Poor inspiratory effort. There is some mild infiltrate and/or atelectasis at the lung bases. Electronically signed by: Marcio Odell MD 05/17/24 23:46 PM
--- NOTE | 2024-05-17 23:49 | XRay Report ---
Exam(s): XR KUB EXAM: XR Abdomen, 1 View CLINICAL HISTORY: Reason for exam: vomiting. TECHNIQUE: Frontal supine views of the abdomen/pelvis. COMPARISON: No relevant prior studies available. FINDINGS: Gastrointestinal tract: There is an unremarkable bowel gas pattern.. Intra-abdominal: Surgical clips are seen. Bones/joints: There are degenerative changes in the spine.. IMPRESSION: Unremarkable bowel gas pattern.. Electronically signed by: Marcio Odell MD 05/17/24 23:48 PM
[2024-05-17] MEDS: LIDOCAINE VISCOUS 2% 15 ML UDC MT ONE (23:50)
[2024-05-17] MEDS: COUGH DROP (SUGAR FREE) LOZ 24 LOZ/1 BOX BUCCAL STA (23:50)
[2024-05-18] MEDS: ACETAMINOPHEN 1,000 MG/100 ML VIAL IV STA (00:07)
[2024-05-18] MEDS: KETOROLAC TROMETHAMINE 15 MG/ML VIAL IV ONE (00:08)
[2024-05-18 00:59] LABS: C Reactive Protein 7.27 mg/dl (0-0.5)
--- NOTE | 2024-05-18 04:04 | History & Physical Report ---
Date of Service May 18, 2024 Assessment & Plan (1) Influenza A: Plan: 68-year-old male with past medical history significant for type 2 diabetes, hyperlipidemia, hypertension, chemotherapy-induced diarrhea, cervicalgia, history of schwannoma of cranial nerve, migraine, benign paroxysmal positional vertigo, chemotherapy-induced peripheral neuropathy, history of multiple myeloma, history of autologous stem cell transplant, mucositis due to chemotherapy, diverticulitis, anxiety and depression, presents with not feeling well and found to have flu and possible pneumonia. Patient was having cough, sore throat, chest pain from cough, dizziness, imbalance and runny nose and went to urgent care and was positive for flu and chest x-ray showed possible pneumonia he was prescribed Tamiflu and azithromycin and short course of steroids but patient has not started taking them. As the symptoms are getting worse and was feeling weak and not able to walk today came to the ER. In the ER he was saturating 89% on room air and requiring oxygen. Patient states he is feeling somewhat better now. Shortness of breath symptoms improved. Had abdominal pain but that is improved now. Vision is somewhat blurry. Had several episodes of vomiting today. Denies diarrhea. Micturating okay. No rash. Currently resting comfortably. Somewhat hard of hearing. Influenza A Hypoxia Presents with runny nose sore throat cough dizziness Requiring oxygen Will place on Tamiflu Droplet precautions Supportive care Possible pneumonia Chest x-ray done as outpatient Will follow CTA chest Empiric Rocephin and doxycycline History of multiple myeloma Patient received radiation therapy to left third rib area Status post chemotherapy Patient Also Underwent High-Dose Chemotherapy Followed by stem cell transplant on 07/2023 Was on Revlimid maintenance but was recently discontinued and closely following with heme-onc Diabetes Hold Ozempic Sliding scale Will monitor Hyperlipidemia On statin Hypertension On olmesartan and propranolol Will monitor Diarrhea chemo induced/ Patient thinks Zoloft causing it Will hold Zoloft for now Thrombocytopenia Platelets 117 We will follow labs DVT prophylaxis Lovenox Monitor platelets Disposition Medical floor Full code History of Present Illness Chief Complaint: Influenza and possible pneumonia Primary Care Provider: Patrick Zhao MD 68-year-old male with past medical history significant for type 2 diabetes, hyperlipidemia, hypertension, chemotherapy-induced diarrhea, cervicalgia, history of schwannoma of cranial nerve, migraine, benign paroxysmal positional vertigo, chemotherapy-induced peripheral neuropathy, history of multiple myeloma, history of autologous stem cell transplant, mucositis due to chemotherapy, diverticulitis, anxiety and depression, presents as was not feeling well and found to have flu and possible pneumonia. Patient was having cough, sore throat, chest pain from cough, dizziness, imbalance and runny nose and went to urgent care and was positive for flu and chest x-ray showed possible pneumonia he was prescribed Tamiflu and azithromycin and short course of steroids but patient has not started taking them. As the symptoms are getting worse and was feeling weak and not able to walk today came to the ER. In the ER he was saturating 89% on room air and requiring oxygen. Patient states he is feeling somewhat better now. Shortness of breath symptoms improved. Had abdominal pain but that is improved now. Vision is somewhat blurry. Had several episodes of vomiting today. Denies diarrhea. Micturating okay. No rash. Currently resting comfortably. Somewhat hard of hearing. Past medical history. As mentioned above Past surgical history. Right total knee arthroplasty. Colonoscopy. Had surgery. IR biopsy. Appendectomy. Social history. No smoking. No alcohol use. No drug use. Family history. Mother had diabetes, hypertension. Father had lung cancer. Sister has arthritis. Allergies Allergy/AdvReac Type Severity Reaction Status Date / Time prochlorperazine Allergy Unknown INCREASES Unverified 06/29/23 14:27 ANXIETY Home Medications Medication Instructions Recorded Confirmed Type famotidine 20 mg tablet 20 mg PO DAILY PRN Heartburn 03/04/23 05/17/24 History lorazepam 1 mg tablet 1 mg PO HS 03/04/23 05/17/24 History semaglutide 0.25 mg or 0.5 mg (2 0.5 mg subcut WK 03/04/23 05/17/24 History mg/3 mL) subcutaneous pen injector (Ozempic) atorvastatin 20 mg tablet 20 mg PO DAILY 03/22/23 05/17/24 History calcium 600 mg (as 1 tab PO BID 12/31/23 05/17/24 History carbonate)-vitamin D3 10 mcg (400 unit) tablet (Calcium with Vitamin D) loperamide 2 mg capsule (Imodium 2 mg PO QID PRN Diarrhea 12/31/23 05/17/24 History A-D) loratadine 10 mg tablet (Claritin) 10 mg PO QAM 12/31/23 05/17/24 History olmesartan 40 mg tablet 40 mg PO QAM 12/31/23 05/17/24 History ondansetron HCl 8 mg tablet 8 mg PO Q8H PRN Nausea 12/31/23 05/17/24 History acyclovir 800 mg tablet 800 mg PO AMHS 05/17/24 05/17/24 History albuterol sulfate 90 mcg/actuation 2 puff inhalation Q4 PRN DYPNEA OR 05/17/24 05/17/24 History aerosol inhaler WHEEZING aspirin 81 mg capsule 81 mg PO QAM 05/17/24 05/17/24 History azithromycin 250 mg tablet 0 mg PO .COMPLEX 05/17/24 05/17/24 History oseltamivir 75 mg capsule (Tamiflu) 75 mg PO UD 05/17/24 05/17/24 History prednisone 20 mg tablet 20 mg PO UD 05/17/24 05/17/24 History propranolol 20 mg tablet 20 mg PO TID 05/17/24 05/17/24 History sertraline 50 mg tablet 25 mg PO QAM 05/17/24 05/17/24 History Past Med/Surg History Problem List (Updated 05/17/24 @ 23:42 by Elvin Pinedo DO) Nausea & vomiting (Acute) Influenza A (Acute) Pneumonia (Acute) Multiple myeloma (Chronic) High cholesterol Diabetes HTN (hypertension) No pertinent past surgical history Contusion of rib on right side (Acute) Corneal abrasion, left (Acute) Knee pain (Acute) Knee pain (Acute) Right knee DJD Medical History Diverticulitis Depression Migraines Surgical History History of total right knee replacement (TKR) Hx of appendectomy Family History Father Cancer Lung cancer Uncle Cancer Mother Diabetes Other Family history non-contributory Social History Smoking Status: Former smoker Tobacco Type: Smokeless Tobacco (Dip or Chew) Hx Alcohol Use: No Hx Substance Use: No Preferred Language: Ukrainian Communication Ability: Effective Bus Girl Required: No Beliefs That Will Affect Care: None marital status: Single Current Living Situation: Alone current occupational status: employed 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 Head- atraumatic Eyes- PERRL. ENT- oropharynx clear Neck- supple, no JVD. Lungs- clear to auscultation no wheezing or crackles. Heart- regular rhythm; no murmur, no gallop. Abdomen- normal bowel sounds, soft, nontender, no distension Extremities- no pretibial edema, no erythema seen Neuro- alert, oriented PERRL, no facial palsy; no dysarthria; moves extremities Results & Data Results & Data Vital Signs (Past 12 Hours) Vital Signs Temp Pulse Pulse Resp BP BP Pulse Ox 05/18/24 02:46 05/18/24 02:46 36.8 C 104 H 24 147/106 H 97 05/18/24 02:03 36.8 C 108 H 24 139/90 95 05/18/24 01:43 110 H 05/18/24 01:00 89 L 05/18/24 00:00 119 H 22 137/103 H 97 05/17/24 22:11 115 H 26 H 131/86 92 05/17/24 21:51 110 H 05/17/24 20:39 36.6 C 99 H 20 141/60 H 96 O2 Del Method O2 Flow Rate 05/18/24 02:46 Nasal Cannula 1.5 05/18/24 02:46 Nasal Cannula 1.5 05/18/24 02:03 Nasal Cannula 1.5 05/18/24 01:43 05/18/24 01:00 Room Air, Nasal Cannula 0 05/18/24 00:00 Room Air 05/17/24 22:11 Room Air 05/17/24 21:51 05/17/24 20:39 Room Air Diagnostic Findings Laboratory Results WBC 7.53 K/ul (4.8-10.8) 05/17/24 21:05 RBC 3.86 M/uL (4.70-6.10) L 05/17/24 21:05 Hgb 12.4 g/dl (14.0-18.0) L 05/17/24 21:05 Hct 35.2 % (42.0-52.0) L 05/17/24 21: MCV 91.2 fL (80.0-100.0) 05/17/24 21: MCH 32.1 pg (25.0-34.0) 05/17/24 21: MCHC 35.2 g/dL (32.0-36.0) 05/17/24: RDW Std Deviation 46.0 fL (36.4-46.3) 05/17/24 21: RDW Coeff of Audie 13.8 % (11.5-14.5) 05/17/24: Plt Count 117 K/uL (130-400) L 05/17/24: MPV 8.8 fL (9.4-12.4) L 05/17/24 21: Immature Gran % (Auto) 0.4 % 05/17/24: Neut % (Auto) 73.7 % 05/17/24 21: Lymph % (Auto) 13.9 % 05/17/24 21: [place] % (Auto) 10.2 % 05/17/24 21: Eos % (Auto) 1.5 % 05/17/24 21: Baso % (Auto) 0.3 % 05/17/24: Neut # (Auto) 5.55 K/uL (1.40-6.50) 05/17/24 21: Lymph # (Auto) 1.05 K/uL (1.20-3.40) L 05/17/24: [place] # (Auto) 0.77 K/uL (0.11-0.59) H 05/17/24 21:05 Eos # (Auto) 0.11 K/uL (0.00-0.50) 05/17/24: Baso # (Auto) 0.02 K/uL (0.00-0.20) 05/17/24 21: Immature Gran # (Auto) 0.03 K/uL (0.01-0.20) 05/17/24 21: Sodium 138 mmol/L (136-145) 05/17/24 21: Potassium 3.9 mmol/L (3.5-5.1) 05/17/24 21:05 Chloride 106 mmol/L (98-107) 05/17/24 21:05 Carbon Dioxide 19 mmol/L (21-32) L 05/17/24 21:05 Anion Gap 13 (3-11) H 05/17/24 21:05 BUN 15 mg/dl (6-23) 05/17/24 21:05 Creatinine 1.14 mg/dl (0.6-1.4) 05/17/24 21:05 Est Cr Clr Drug Dosing 74.0 ml/min 05/17/24 21:05 eGFR 70.49 05/17/24 21:05 BUN/Creatinine Ratio 13.2 (10-20) 05/17/24 21:05 Glucose 198 mg/dl (70-99(Fasting)) H 05/17/24 21:05 Lactate 0.8 mmol/L (0.4-2.0) 05/17/24 23:54 Calcium 9.9 mg/dl (8.6-10.3) 05/17/24 21:05 Total Bilirubin 0.6 mg/dl (0.2-1.0) 05/17/24 21:05 AST 17 U/L (13-39) 05/17/24 21:05 ALT 28 U/L (7-52) 05/17/24 21:05 Alkaline Phosphatase 68 U/L (34-104) 05/17/24 21:05 Troponin I High Sens < 2.3 pg/ml (0-20) 05/17/24 21:05 C-Reactive Protein 7.27 mg/dl (0-0.5) H 05/17/24 21:05 Total Protein 7.4 gm/dl (6.0-8.3) 05/17/24 21:05 Albumin 4.6 gm/dl (3.4-5.0) 05/17/24 21:05 Globulin 2.8 gm/dl (2.5-4.0) 05/17/24 21:05 Albumin/Globulin Ratio 1.6 (0.9-2) 05/17/24 21:05 Lipase 15 U/L (11-82) 05/17/24 21:05 Procalcitonin 0.14 ng/ml (0-0.5) 05/17/24 21:05 Urine Color Yellow 05/17/24 22:40 Urine Appearance Clear (Clear) 05/17/24 22:40 Urine pH 5.0 (4.5-7.5) 05/17/24 22:40 Ur Specific [place] 1.020 (1.000-1.030) 05/17/24 22:40 Urine Protein 1+ (Negative) H 05/17/24 22:40 Urine Glucose (UA) 2+ (Negative) H 05/17/24 22:40 Urine Ketones 2+ (Negative) H 05/17/24 22:40 Urine Blood Negative (Negative) 05/17/24 22:40 Urine Nitrite Negative (Negative) 05/17/24 22:40 Urine Bilirubin Negative (Negative) 05/17/24 22:40 Urine Urobilinogen Negative (Negative) 05/17/24 22:40 Ur Leukocyte Esterase Negative (Negative) 05/17/24 22:40 Urine WBC (Auto) 0-5 /hpf (0-5) 05/17/24 22:40 Urine RBC (Auto) 0-2 /hpf (0-2) 05/17/24 22:40 U Hyaline Cast (Auto) 0-2 /lpf (0-2) 05/17/24 22:40 U Epithel Cells (Auto) 0-2 /hpf (0-2) 05/17/24 22:40 Urine Bacteria (Auto) None Seen (None Seen) 05/17/24 22:40 Adenovirus (PCR) Not Detected (NotDetected) 05/17/24 21:05 B. pertussis DNA (PCR) Not Detected (NotDetected) 05/17/24 21:05 B.parapertussis DNA PCR Not Detected (NotDetected) 05/17/24 21:05 C. pneumoniae DNA (PCR) Not Detected (NotDetected) 05/17/24 21:05 Coronavirus OC43 (PCR) Not Detected (NotDetected) 05/17/24 21:05 Coronavirus HKU1 (PCR) Not Detected (NotDetected) 05/17/24 21:05 Coronavirus 229E (PCR) Not Detected (NotDetected) 05/17/24 21:05 SARS-CoV-2 (PCR) Not Detected (NotDetected) 05/17/24 21:05 Coronavirus NL63 (PCR) Not Detected (NotDetected) 05/17/24 21:05 Human Metapneumovir PCR Not Detected (NotDetected) 05/17/24 21:05 Influenza A (H3) PCR DETECTED (NotDetected) A 05/17/24 21:05 Influenza Type B (PCR) Not Detected (NotDetected) 05/17/24 21:05 M. pneumoniae (PCR) Not Detected (NotDetected) 05/17/24 21:05 Parainfluenza 1 (PCR) Not Detected (NotDetected) 05/17/24 21:05 Parainfluenza 2 (PCR) Not Detected (NotDetected) 05/17/24 21:05 Parainfluenza 3 (PCR) Not Detected (NotDetected) 05/17/24 21:05 Parainfluenza 4 (PCR) Not Detected (NotDetected) 05/17/24 21:05 RSV (PCR) Not Detected (NotDetected) 05/17/24 21:05 Entero/Rhino (PCR) Not Detected (NotDetected) 05/17/24 21:05 Impressions Chest X-Ray 05/17/24 20:54 Exam(s): XR CXR 1 VIEW EXAM: XR Chest, 1 View CLINICAL HISTORY: Reason for exam: Fever. TECHNIQUE: Frontal view of the chest. COMPARISON: 01/21/2017. FINDINGS: There is a poor inspiratory effort. Lungs: There are some increased opacity at the lung bases.. Pleural space: No pleural effusion is seen No pneumothorax. Heart: The heart is normal in size.. Mediastinum: Unremarkable.. IMPRESSION: Poor inspiratory effort. There is some mild infiltrate and/or atelectasis at the lung bases. Electronically signed by: Marcio Odell MD 05/17/24 23:46 PM KUB X-Ray 05/17/24 20:54 Exam(s): XR KUB EXAM: XR Abdomen, 1 View CLINICAL HISTORY: Reason for exam: vomiting. TECHNIQUE: Frontal supine views of the abdomen/pelvis. COMPARISON: No relevant prior studies available. FINDINGS: Gastrointestinal tract: There is an unremarkable bowel gas pattern.. Intra-abdominal: Surgical clips are seen. Bones/joints: There are degenerative changes in the spine.. IMPRESSION: Unremarkable bowel gas pattern.. Electronically signed by: Marcio Odell MD 05/17/24 23:48 PM ECG Additional Comments: ECG. Sinus tachycardia with first-degree AV block rate of 102. No significant changes found. Code Status & VTE Plan VTE Prophylaxis Plan VTE Prophylaxis will be ordered: Yes
[2024-05-18] MEDS ORDERED: GLUCOSE 40% GEL 15 GM TUBE PO PRN (04:56)
[2024-05-18] MEDS ORDERED: GLUCAGON FOR INJ 1 MG VIAL SQ PRN (04:56)
[2024-05-18] MEDS ORDERED: GLUCOSE 10 TAB/TUBE PO PRN (04:56)
[2024-05-18] MEDS ORDERED: FAMOTIDINE 20 MG TAB PO PRN (04:56)
[2024-05-18] MEDS ORDERED: ALBUT/IPRATROP 3MG/0.5MG NEB 3 ML VIAL NEB PRN (04:56)
[2024-05-18] MEDS ORDERED: DEXTROSE 50% 50 ML SYRINGE IV PRN (04:56)
[2024-05-18] MEDS ORDERED: CARBOHYDRATES FOR HYPOGLYCEMIA PO PRN (04:56)
[2024-05-18] MEDS ORDERED: ALBUTEROL HFA 8 GM INHALER INH PRN (04:56)
[2024-05-18] MEDS: OPTIRAY 320 125ml IV ONE (05:45)
[2024-05-18] MEDS: SODIUM CHLORIDE 0.9% 1,000 ML IV SCH (05:54)
--- NOTE | 2024-05-18 07:07 | CT Scan Report ---
EXAM: CT angio chest PE protocol CLINICAL HISTORY: PE. TECHNIQUE: Contiguous 3.[address] angiographic images of the chest were acquired with the administration of intravenous contrast. Coronal and sagittal reconstructions were obtained.18 ml Optiray 320 was administered for post-contrast images. One of these 3D techniques was utilized: Maximum Intensity Pixel (MIP), 3D Reconstructed Images, Volume Rendered Images, Surface Shaded Rendering. One of the following dose reduction techniques were utilized for this exam: Automated exposure control, adjustment of the mA and/or kV according to patient size, and use of iterative reconstruction. COMPARISON: 10/19/2023 and 03/09/2023 CT. FINDINGS: Aorta: The thoracic aorta is normal in caliber. No evidence of aneurysm, dissection, or significant atherosclerotic changes. Aortic arch and descending thoracic aorta are unremarkable. Pulmonary Arteries: Pulmonary arteries are normal in size and opacification. No evidence of pulmonary embolism. No stenosis or filling defects. Superior Vena Cava (SVC) : Normal opacification and caliber. No evidence of thrombus or obstruction. Mediastinum: No mediastinal mass or lymphadenopathy. Normal appearance of the thymus. Heart: Normal size and morphology of the heart. No pericardial effusion. Lungs: Right lower lobe consolidtive patches, and to a lesser extent involving both lung rush Bilateral thickened parenchymal bands, reticulations with secondary architectural distortion and traction bronchiectasis seen at left upper lobeLungs are clear with no evidence of consolidation, nodules, or masses. No pleural effusion or thickening. Bones: Lytic expansile lesion involving left 3rd rib anterior T6 and T9 vertebral body mixed lytic and sclerotic lesions with reduced T6 vertebral height seen Normal alignment and bone density. Soft Tissues: Normal appearance of the visualized soft tissues. No abnormal masses or fluid collections. IMPRESSION: 1. No evidence of pulmonary embolism. 2. Right lower lobe consolidative patches, and to a lesser extent involving both lung rush (new finding), could be infectious. 3. Bilateral thickened parenchymal bands, reticulations with secondary architectural distortion and traction bronchiectasis seen at left upper lobe (unchanged). 4. Lytic expansile lesion involving left 3rd rib anterior (unchanged). 5. T6 and T9 vertebral body mixed lytic and sclerotic lesions with reduced T6 vertebral height seen (unchanged). Electronically signed by Neftaly Mcdonnell 05-18-2024 07:06 AM
--- OUTSIDE RECORDS SUMMARY | 2024-05-18 07:14 | External Medical Summary | Summary of Care ---
Author Name Unknown Organization [facility] Address [address] [place] [address] Phone [phone] Care Team Providers Care Camera Assembler Name Role Phone Patrick Zhao MD Primary Care Provider [phone] Reason for Visit * Reason Onset Date Comments Test Results 05/17/2024 Unexpected or In determinate Result Encounter Details Date Type Department Care Team (Late st Contact Info) Description 05/17/2024 Telephone Laboratory, [place] [address] [place] [address] Jose Antonio Benavides PA-C [address] [place] [id number] Test Results (Unexpected or Indeterminate ... Allergies Active Allergy Reactions Criticality Noted Date Comments Celecoxib Medium 02/01/2017 Metformin Diarrhea 02/18/2023 Prochlorperazine 11/18/1998 Intol,compazine documented as of this encounter (statuses as of 05/17/2024) Medications OneTouch Delica Plus [id number] USE TO TEST BLOOD SUGAR 2 TIMES DAILY DX E11.9 200 Each 3 12/05/19 23 Active Calcium Carb-Cholecalcifer ol 600-20 MG-MCG Oral Tablet (Calcium 600+D3) Take by mouth 2 times a day. Patient reported Active Loperamide HCl 2 MG Oral Tablet (Imodium A-D) Take 1 Tablet by mouth 4 times a day as needed for Diarrhea. 30 Tablet 08/07/19 24 Active Ondansetron HCl 8 MG Oral Tablet (Zofran) Take 1 Tablet by mouth every 8 hours as needed for Nausea. 30 Tablet 2 08/09/19 24 Active Aspirin 81 MG Oral Capsule Take by mouth. Activ e Polyethylene Glycol 3350 17 GM Oral Packet (MiraLax) Take 1 Packet by mouth in the morning. Active Olmesartan Medoxomil 40 MG Oral Tablet (Benicar) Take 1 Tablet by mouth in the morning. 90 Tablet 3 10/13/19 24 Active Acyclovir 800 MG Oral Tablet (Zovirax)Indicatio ns:Multiple myeloma in remission (HCC),History of autologous stem cell transplant (HCC) Take 1 Tablet by mouth in the morning and 1 Tablet before bedtime. 180 Tablet 1 03/04/2024 8:58 AM EST 12/16/19 24 Active OneTouch Verio In Vitro Strip (Glucose Blood)Indications: Type 2 diabetes mellitus with hemoglobin A1c goal of less than 7.0% ([facility]) USE TO TEST BLOOD SUGAR 2 TIMES DAILY DX E11.9 200 Strip 3 12/17/19 24 Active Zoster Vac Recomb Adjuvanted 50 MCG/0.5ML Intramuscular Suspension Reconstituted (Shingrix)Indicati ons:History of autologous stem cell transplant (HCC),Multiple myeloma not having achieved remission (HCC) Inject 0.5 mL into a large muscle now and repeat dose in 60 to 180 days 0.5 mL 01/21/20 24 Active Additional Information Patient not taking.Reported on 02/28/2024 Ozempic (0.25 or 0.5 MG/DOSE) 2 MG/3ML Solution Pen-injector (Semaglutide(0.25 or 0.5MG/DOS))Indicat ions:Type 2 diabetes mellitus with hemoglobin A1c goal of less than 7.0% ([facility]) INJECT 0.25 MG UNDER THE SKIN ONCE A WEEK. THEN INCREASE TO 0.5 MG IF TOLERATED. 9 mL 3 01/31/20 24 Active Famotidine 20 MG Oral Tablet (Pepcid)Indication s:Gastroesophageal reflux disease, unspecified whether esophagitis present TAKE 1 TABLET BY MOUTH EVERY DAY 30 Tablet 5 02/18/20 24 Active Loratadine 10 MG Oral Tablet (Claritin) Take 1 Tablet by mouth in the morning. 12/31/19 24 Active Triamcinolone Acetonide 0.1 % External Cream (Aristocort)Indica tions:Eczema, unspecified type Apply topically to affected area 2 times a day. To affected area. 453 g 3 02/21/20 24 Active Hydrocortisone 2.5 % External CreamIndications:E czema, unspecified type Apply topically to affected area 3 times a day. To affected area. 84 g 3 02/21/20 24 Active NovoFine Plus Pen Needle 32G X 4 MM (Insulin Pen Needle) Use to inject Ozempic once weekly 100 Each 3 02/25/20 24 Active traZODone HCl 50 MG Oral Tablet (Desyrel)Indicatio ns:Insomnia, unspecified type Take 1 Tablet by mouth at bedtime. 30 Tablet 2 03/09/19 25 Active Additional Information Patient not taking.Reported on 05/15/2024 Propranolol HCl 20 MG Oral Tablet (Inderal)Indicatio ns:Primary hypertension,Tremo r,Anxiety and depression Take 1 Tablet by mouth in the morning and 1 Tablet before bedtime. 03/22/19 25 Active Zoster Vac Recomb Adjuvanted 50 MCG/0.5ML Intramuscular Suspension Reconstituted (Shingrix)Indicati ons:History of autologous stem cell transplant ([facility]) Inject 0.5 mL into a large muscle now and repeat dose in 60 to 180 days 0.5 mL 03/22/2024 2:47 PM EST 03/22/19 25 Active Sertraline HCl 50 MG Oral Tablet (Zoloft)Indication s:Anxiety Take 1 Tablet by mouth in the morning. 30 Tablet 3 03/23/19 25 Active BD Pen Needle Yecenia U/F 32G X 4 MM (Insulin Pen Needle)Indications :Type 2 diabetes mellitus with hemoglobin A1c goal of less than 7.0% ([facility]) Use to inject Ozempic once weekly 100 Each 3 03/28/19 25 Active LORazepam 1 MG Oral Tablet (Ativan)Indication s:Anxiety state,Insomnia, unspecified type Take one at bedtime . May take 1/2- 1 tab during day as needed 45 Tablet 1 04/13/19 25 Active Atorvastatin Calcium 20 MG Oral Tablet (Lipitor)Indicatio ns:Other hyperlipidemia TAKE 1 TABLET BY MOUTH EVERY DAY 100 Tablet 1 04/14/19 25 Active predniSONE 20 MG Oral Tablet (Deltasone)Indicat ions:Viral URI with cough Take 1 Tablet by mouth in the morning for 5 days. 5 Tablet 05/18/19 25 025 Active Albuterol Sulfate HFA 108 (90 Base) MCG/ACT Inhalation Aerosol SolutionIndication s:Viral URI with cough Inhale 2 Puffs by mouth every 4 hours as needed for Dyspnea or Wheezing. 6.7 g 05/18/19 25 Active Azithromycin 250 MG Oral Tablet (Zithromax Z-Ej)Indications: Pneumonia of left upper lobe due to infectious organism Take two tablets by mouth on first day, then 1 tablet daily until gone 6 Tablet 05/18/19 25 Active documented as of this encounter (statuses as of 05/17/2024) Active Problems Patient Care Coordination No te Formatting of this note migh t be different from the original. Date of Admission: 07/20/23 Date of Transplant: 07/21/23 Total to be infused: 2.56 CD34+Cells/kg(x10e6) in 6 bags to be reinfused. Chemotherapy: Melphalan 200mg/m2 Transplant Physician: Dr. Moore Problem Noted Date Diagnosed Date Chemotherapy-induced peripheral neuropathy 05/15 Abrasion of left cornea 05/10/2024 Acute chest wall pain 05/10/2024 Benign paroxysmal positional vertigo 05/10/2024 Contusion of rib on right side 05/10/2024 Diverticulitis 05/10/2024 Fall 05/10/2024 Fracture of multiple ribs 05/10/2024 History of total right knee replacement (TKR) Hx of appendectomy 05/10/2024 Osteoarthritis of right knee 05/10/2024 Anxiety and depression 09/14/2023 Migraine without status migrainosus, not intract able 08/17/2023 Antineoplastic chemotherapy induced pancytopenia 07/31/2023 CINV (chemotherapy-induced nausea and vomiting) 07/31/2023 Mucositis due to chemotherapy 07/31/2023 Chemotherapy induced diarrhea 07/31/2023 Constipation due to slow transit 07/24/2023 Encounter for antineoplastic chemotherapy 2023 History of autologous stem cell transplant 07/20 Overview (07/21/2023): Date of Admission: 07/20/23 Date of Transplant: 07/21/23 Total to be infused: 2.56 CD34+Cells/kg(x10e6) in 6 bags reinfused. Chemotherapy: Melphalan 200mg/m2 Transplant Physician: Dr. 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 Other secondary cataract, bilateral 06/28/2020 Double vision with both eyes open 03/03/2019 Pseudophakia 12/20/2018 Other hyperlipidemia 10/27/2017 Rosacea 06/01/2017 Primary hypertension 01/24/2017 Type 2 diabetes mellitus wit h hemoglobin A1c goal of less than 7.0% 06/12/2016 ACUTE STRESS 07/21/2004 Cervicalgia 06/13/2001 BACKACHE NOS 06/13/2001 Enthesopathy of knee 06/13/2001 Elevated blood pressure, situational 03/15/2001 PLANTAR FASCIITIS 08/18/1999 DIVERTICULITIS SM INTEST documented as of this encounter (statuses as of 05/17/2024) Resolved Problems Problem Noted Date Diagnosed Date Resolved Date Stem cell transplant candidate 05/07/2023 07/21/2023 Migraine 02/05/2023 02/05/2023 ADVANCE DIRECTIVE INFORMATION 09/22/2004 01/10/2024 Overview (09/22/2004): No, Advance Directive brochure given to patient. Major depressive disorder, r ecurrent episode, moderate 07/21/2004 02/05/2023 ACUTE SINUSITIS NOS 03/15/2001 04/26/19 09 Overview (04/26/2008): Resolved per Benign Acute Dxs Protocol #3 ACUTE URI NOS 03/15/2001 04/26/2008 Overview (04/26/2008): Resolved per Benign Acute Dxs Protocol #3 Sunburn 08/18/1999 07/10/2022 PAIN IN FOOT 08/18/1999 12/15/2022 Major depressive disorder 01/08/1999 Overview (12/29/2016): ICD-10 update of inactive term Anxiety 12/17/1998 09/22/2023 documented as of this encounter (statuses as of 05/17/2024) Immunizations Name Administration Dates Next Due COVID-19 mRNA, LNP-s, No Pre serve, 2-Dose Series (Moderna) 07/23/2020,06/18/2020 COVID-19 mRNA, LNP-s, No Pre serve, 2-Dose Series (Pfizer) 03/03/2021 Diptheria/Tetanus (Adult) 05/06/1998 HEPATITIS B VACCINE, RECOMB, 20 MCG/ML, ADULT (HEPLISAV-B) 03/22/2024,01/21/2024 HIB Booster (Hiberix) 03/22/2024,01/21/2024 Pneumococcal Conjugate Vacc, 13 Valent (Prevnar) 03/16/2019 Pneumococcal Conjugate Vacci ne, 20-valent ([id number]) 03/22/2024,01/21/2024,02/08/2023(Defe rred: Patient Refused - Pt thinks he already had this; will discuss with his PCP.) Pneumococcal Polysaccharide PPV23 (Pneumovax) 07/09/2016 Seasonal Influenza Vac., MDV , IM, 0.5 mL (Fluzone) 02/20/2017,01/08/1999 Seasonal Influenza, High Dos e, Trivalent, PF, IM (Fluzone HD) 11/17/2023 Seasonal Influenza, PF, 6 M & above, IM , (FluLaval or Fluzone) 01/10/2021,12/05/2019,02/08/2019,02/0502/02/2019 Seasonal Influenza, Quadriva lent Hd (Fluzone Hd) 11/25/2022,12/26/2021 TDAP (age 10 and older)(Boostrix) 12/06/2014 Zoster Vaccine Recombinant (Shingrix) ,01/21/2024,08/09/2019,04/08 documented as of this encounter Social History Tobacco Use Types Packs/Day Years Used Date Smoking Tobacco: Never Passive Smoke Exposure: Never Smokeless Tobacco: Former Snuff Alcohol Use Standard Drinks/Week Comments Not Currently 0 (1 standard drink = 0.6 oz pur e alcohol) PHQ-2 Answer Date Recorded PHQ Adult Total Score 11 09/13/2023 Hunger Vital Sign Answer Date Recorded Within the past 12 months, y ou worried that your food would run out before you got the money to buy more. Never true 09/13/19 24 Within the past 12 months, t he food you bought just didn't last and you didn't have money to get more. Never true 09/13/2023 Childcare Answer Date Recorded Do you feel overwhelmed with taking care of a child, family member or friend? No 09/13/2023 Does your family need help f inding childcare? (Household - for ages 0-17 years) Not on file 09/13/2023 Clothing Answer Date Recorded Have you been unable to get clothing when it was really needed? No 09/13/2023 Is your family able to get c lothes or diapers when needed? (Household - for ages 0-17 years) Not on file 09/13/2023 Personal Safety Answer Date Recorded Do you feel unsafe or have concerns for your saf ety? No 09/13/2023 Do you have concerns for you r family's safety? (Household - for ages 0-17 years) Not on file 09/13/2023 Utilities Answer Date Recorded Do you have trouble paying y our heating, water, or electric bill? No 09/13/2023 Is your family able to pay t he heat, water, or electric bill? (Household - for ages 0-17 years) Not on file 09/13/2023 Does your family have access to good internet? (Household - for ages 0-17 years) Not on file 09/13/2023 Employment Status Answer Date Recorded Are you unemployed or without regular income? No 09/13/2023 Does the household have a re gular source of income? (Household - for ages 0-17 years) Not on file 09/13/2023 Social Connections Answer Date Recorded How often do you feel lonely or isolated from those around you? Sometimes 09/13/2023 Financial Resource Strain Answer Date R ecorded Do you have any trouble payi ng for your medications, or do you think you might in the future? No 09/13/2023 Does your family have troubl e paying for medicine? (Household - for ages 0-17 years) Not on file 09/13/2023 Transportation Needs Answer Date Record ed READ ONLY Do you have troubl e getting a ride to medical visits or work? Never True 09/13/2023 Does your family have a hard time getting a ride to doctors visits? (Household - for ages 0-17 years) Not on file 09/13/2023 Has lack of transportation k ept you from medical appointments, meetings, work, or from getting things needed for daily living? Check all that apply. No 09/13/2023 Do you (or your family) have trouble finding or paying for a ride (transportation)? (Household - for ages 0-17 years) Not on file 09/13/2023 Housing Stability Answer Date Recorded Do you currently live in a s helter or have no steady place to sleep at night? No 09/13/2023 READ ONLY Do you think you a re at risk of becoming homeless? No 09/13/2023 Does your family worry about paying for your home or becoming homeless? (Household - for ages 0-17 years) Not on file 0 09/13/2023 Are you homeless or worried that you might be in the future? No 09/13/2023 Are you (or your family) jeanne eless or worried that you might be in the future? (Household - for ages 0-17 years) Not on file Food Insecurity Answer Date Recorded Do you need food for this week? No 09/13/2023 Are you able to get enough f ood for your family? (Household - for ages 0-17 years) Not on file 09/13/2023 Does your family need food t his week? (Household - for ages 0-17 years) Not on file 09/13/2023 Do you always have enough fo od for your family? (Household - for ages 0-17 years) Not on file 09/13/2023 Food Insecurity Answer Date Recorded Within the past 12 months, y ou worried that your food would run out before you got the money to buy more. Never true 09/13/19 24 Within the past 12 months, t he food you bought just didn't last and you didn't have money to get more. Never true 09/13/2023 Do you need food for this week? No 09/13/2023 Sex and Gender Information Value Date Recorded Sex Assigned at Male 08/02/2018 7:28 AM EDT Legal Sex Male 5:11 AM EST Gender Identity Male 08/02/2018 7:28 AM EDT Sexual Orientation Straight 08/02/2018 7: 28 AM EDT documented as of this encounter Functional Status * Are you deaf or do you have serious difficulty hearing? Answer Date of Assessment Author No 07/20/2023 8:11 AM EDT Melinda Vargas RN * Are you blind or do you have serious difficulty seeing, even when wearing glasses? Answer Date of Assessment Author No 07/20/2023 8:11 AM EDT Melinda Vargas RN * Do you have serious difficulty walking or climbing stairs? (5 years old or older) Answer Date of Assessment Author No 07/20/2023 8:11 AM EDT Melinda Vargas RN * Do you have difficulty dressing or bathing? (5 years old or older) Answer Date of Assessment Author No 07/20/2023 8:11 AM EDT Melinda Vargas RN * Because of a physical, mental, or emotional condition, do you have difficulty doing errands alone such as visiting a doctors office or shopping? (15 years old or older) Answer Date of Assessment Author No 07/20/2023 8:11 AM EDT Melinda Vargas RN documented as of this encounter Mental Status * Because of a physical, mental, or emotional condition, do you have serious difficulty concentrating, remembering, or making decisions? (5 years old or older) Answer Entry Date Author No 07/20/2023 8:11 AM EDT Melinda Vargas RN documented in this encounter Miscellaneous Notes * Addendum Note - Jose Antonio Benavides PA-C - 05/17/2024 2:08 PM EDTAddended by: JOSE ANTONIO BENAVIDES on: 05/17/2024 02:08 PM Modules accepted: Orders * Telephone Encounter - Jose Antonio Benavides PA-C - 05/17/2024 2:07 PM EDT Thank you. Sent abx. Pt aware via MyG * Telephone Encounter - Li Mclean OSA - 05/17/2024 11:34 AM EDT Hello- The radiologist discovered an unexpected or indeterminate finding on Hernan Rodriguez ([id number]) and asksthat you review the following report. IMPRESSION IMPRESSION 1. Left upper lobe consolidation concerning for pneumonia. Follow-up two view chest radiography in 6-12 weeks recommended. 2. If there is at least 20 pack years smoking history, consider counseling with regards to low doselung cancer screening CT. Lung cancer screening CT exams are typically provided free or at low costto qualifying patients. 3. Additional findings as above. Study Type: XR CHEST 2 VIEWS Date of Study: 05/17/2024 Please respond to this encounter to acknowledge receipt of this message and take responsibility to ensure this report is reviewed. Thank you, RUSS Wang Client Service Rep [facility] documented in this encounter Plan of Treatment Upcoming Encounters Date Type Department Care Team (Late st Contact Info) Description 05/22/2024 8:00 AM EDT Laboratory Laboratory, [facility] [address] [facility] [place] [facility] [place] [phone] [facility] [address] [place] [address] 05/24/2024 9:00 AM EDT Telemedicine Psychology [facility], [place] [address] [place] [address] Quentin Gupta PsyD [address] [place] [address] 05/24/2024 10:00 AM EDT Immunization/Injection Hematology/Oncology Treatment, [place] [address] [place] [phone] Kandice, Chair 10 Hem Onc [facility] [address] [place] [place] [address] 06/07/2024 8:00 AM EDT Laboratory Laboratory, [facility] [address] [place] [phone] [facility] [address] [place] [address] 06/12/2024 10:00 AM EDT Office Visit Hematology/Oncology [facility] [address] [facility] [place] [phone] Rae Berrios MD [address] [facility] [place] [address] 06/22/2024 8:20 AM EDT Office Visit [facility], [place] [address] [place] [phone] Patrick Zhao MD [address] [facility] [place] [address] 07/20/2024 10:30 AM EDT Office Visit Hematology Oncology [facility] [address] [place] [phone] Nick Moore MD [address] [place] [address] 07/20/2024 11:00 AM EDT Immunization/Injection Hematology Oncology [facility] [address] [place] [address] Nurse, Med [address] [place], [place] [id number] 08/15/2024 7:00 AM EDT Office Visit Neurology [facility] [address] [place] [address] Yvonne Panchal PA-C [address] [facility] [place] [address] 08/25/2024 9:00 AM EDT Office Visit Pharmacy, [address] [place] [address] [place] [address] 09/05/2024 10:20 AM EDT Office Visit Dermatology, [place] [facility] [facility] [place] [phone] Linda Mejia PA-C [address] [place] [address] [place] [address] 01/15/2025 9:00 AM EST Office Visit Nephrology, [address] [place] [phone] Addison Salas MD [address] [place] [address] [place] [address] Health Maintenance Due Date Last Done Comments Cologuard 2001 Fecal Occult Blood Test 2001 Sigmoidoscopy 2001 Adult Wellness Visit 2022 COVID-19 Vaccine ( season) 2023 03/03/2021, 07/23/2020, 06/18/2020 Albumin/Creatinine Ratio 01/20/2024 023, 01/05/2022, 02/02/2018 HbA1c 08/07/2024 02/07/2024, 10/06, 05/19/2023, Additional history exists Diabetic Eye Exam 08/26/2024 08/27/2023 (Do ne elsewhere), 12/16/2022, 03/10/2021, Additional history exists Depression Monitoring 09/12/2024 09/13/2023 Diabetic Foot Exam 09/13/2024 09/14/2023, 0 05/02/2020, 02/08/2019, Additional history exists DTap/Tdap Vaccines (2 - Td or Tdap) 12/06/2024 12/06/2014, 05/06/1998 GFR 04/25/2025 04/25/2024, 04/08, 04/04/2024, Additional history exists Colonoscopy 03/11/2028 03/11/2018 Colorectal Cancer Screening 03/11/2028 Lipid Panel 10/24/2028 10/25/2023, 01/06, 01/05/2022, Additional history exists Hepatitis B Vaccine Completed 03/22/2024, Pneumococcal Vaccine: 50+ Years Completed 03/22/2024, 01/21/2024, 03/16/2019, Additional history exists Zoster Vaccines Completed 03/22/2024, 01/06, 08/09/2019, Additional history exists HPV (Gardasil) Vaccine Aged Out No lo nger eligible based on patient's age to complete this topic MENINGOCOCCAL (MENACTRA/MENVEO) Aged Out No longer eligible based on patient's age to complete this topic Meningitis B Vaccine (Bexsero/Trumemba) Aged Out No longer eligible based on patient's age to complete this topic documented as of this encounter Medical Devices Not on filedocumented as of this encounter Visit Diagnoses Diagnosis Pneumonia of left upper lobe due to infectious organism- Primary documented in this encounter Advance Directives * Full Code (Latest Code Status on File) Date Activated Date Inactivated Comments 07/20/2023 8:15 AM 08/05/2023 5:03 PM This order r eflects the patients wishes and were consensually agreed upon. Question Answer Comments Discussion of Advance Directives occurred with: Patient Healthcare Agents on File Name Relationship Healthcare Agent Relationshi p Communication Dori Hoover Adult Child Health Care Repr esentative (appointed verbally by patient or by statute hierarchy) Care Teams Camera Assembler Relationship Specialty Start Date End Date Patrick Zhao MD [address] [place] [id number] PCP - General Family Medicine 02/28/24 documented as of this encounter
--- OUTSIDE RECORDS SUMMARY | 2024-05-18 07:14 | External Medical Summary | Summary of Care ---
Author Name Unknown Organization [facility] Address [address] [facility] [place] [address] Phone [phone] Care Team Providers Care Investigator Internal Affairs Name Role Phone Patrick Zhao MD Primary Care Provider [phone] Reason for Visit * Reason Onset Date Comments Sinus Problem Cough Congestion Sore Throat Respiratory Infection 05/17/2024 Encounter Details Date Type Department Care Team (Latest Contact Info) Description 05/17/2024 10:10 AM EDT Convenient Care Visit [facility] [address] [place] [phone] Jose Antonio Le PA-C [address] [place] [address] Viral URI with cough* Allergies Active Allergy Reactions Criticality Noted Date Comments Celecoxib Medium 02/01/2017 Metformin Diarrhea 02/18/2023 Prochlorperazine 11/18/1998 Intol,compazine documented as of this encounter (statuses as of 05/17/2024) Medications OneTouch Delica Plus [id number] USE TO TEST BLOOD SUGAR 2 TIMES [...] Tablet 1 03/04/2024 8:58 AM EST 12/16/19 Active OneTouch Verio In Vitro Strip (Glucose Blood)Indications: Type 2 diabetes mellitus with hemoglobin A1c goal of less than 7.0% ([facility]) USE TO TEST BLOOD SUGAR 2 TIMES DAILY DX E11.9 200 Strip 3 12/17/19 Active Zoster Vac Recomb Adjuvanted 50 MCG/0.5ML Intramuscular Suspension Reconstituted (Shingrix)Indicati ons:History of autologous stem cell transplant (HCC),Multiple myeloma not having achieved remission (HCC) Inject 0.5 mL into a large muscle now and repeat dose in 60 to 180 days 0.5 mL 01/21/20 Active Additional Information Patient not taking.Reported on 02/28/2024 Ozempic (0.25 or 0.5 MG/DOSE) 2 MG/3ML Solution Pen-injector (Semaglutide(0.25 or 0.5MG/DOS))Indicat ions:Type 2 diabetes mellitus with hemoglobin A1c goal of less than 7.0% ([facility]) INJECT 0.25 MG UNDER THE SKIN ONCE [...] (Shingrix)Indicati ons:History of autologous stem cell transplant ([facility]) Inject 0.5 mL into a large muscle [...] hemoglobin A1c goal of less than 7.0% ([facility]) Use to inject Ozempic once weekly 100 [...] or Wheezing. 6.7 g 05/18/19 25 Active documented as of this [...] (Prevnar) 03/16/2019 Pneumococcal Conjugate Vacci ne, 20-valent ([id number]) 03/22/2024,01/21/2024,02/08/2023(Defe rred: Patient Refused - Pt thinks [...] AM EDT documented as of this encounter Last Filed Vital Signs Vital Sign Reading Time Taken Comments Blood Pressure 122/78 05/17/2024 10:10 AM EDT Pulse 101 05/17/2024 10:10 AM EDT Temperature 37 C (98.6 F) 05/17/2024 10: 10 AM EDT Respiratory Rate 20 05/17/2024 10:1 0 AM EDT Oxygen Saturation 94% 05/17/2024 10: 10 AM EDT Inhaled Oxygen Concentration - - Weight 90.2 kg (198 lb 14.4 oz) 025 10:10 AM EDT Height 177.8 cm (5' 10") 05/17/2024 10: 10 AM EDT Body Mass Index 28.54 05/17/2024 10:10 AM EDT documented in this encounter Functional Status * Are you deaf or do you have serious difficulty hearing? Answer Date of Assessment Author No 07/20/2023 8:11 AM EDT VargasMelinda RN * Are you blind or do [...] Assessment Author No 07/20/2023 8:11 AM EDT VargasMelinda RN * Because of a physical, mental, or emotional condition, do you have difficulty doing errands alone such as visiting a doctors office or shopping? (15 years old or older) Answer Date of Assessment Author No 07/20/2023 8:11 AM EDT VargasMelinda RN documented as of this encounter Mental Status * Because of a physical, mental, or emotional condition, do you have serious difficulty concentrating, remembering, or making decisions? (5 years old or older) Answer Entry Date Author No 07/20/2023 8:11 AM EDT Melinda Vargas RN documented in this encounter Patient Instructions * Patient Instructions* Jose Antonio Le PA-C - 05/17/2024 10:53 AM EDT Start a daily nasal spray such as Flonase, Nasacort, OR Nasonex. They work best if used consistently. In addition to one of these medicated nasal sprays use saline nasal spray to avoid dryness and thinout mucous Over the Counter (OTC) antihistamine (claritin, zyrtec, xyzal or melo) can also be helpful for sinus symptoms. OTC decongestants: Sudafed, Mucinex-D (may have to get from behind pharmacy counter; you have to show your ID) can be used for nasal/sinus congestion for just a few days. If you have high blood pressure, you can use Coricidin. OTC cough suppressants as needed, including delsym, robitussin, cough drops, honey. Continue supportive measures: Increase clear, non-sugary fluid intake. Get plenty of rest Use a cool mist vaporizer or humidifier daily and you can take hot showers for steam therapy. Do warm salt water gargles and/or chloraseptic throat spray, throat lozenges (Cepacol) for any sorethroat. Honey, if not concerned about diabetes or elevated blood sugar levels, can also be very helpful forsorethroat. You may also use ibuprofen or acetaminophen OTC for relief of pain or fevers. If you had a negative rapid strep test, we will inform you if your PCR ("the send out") comes back positive, and start you on antibiotics. Otherwise, you may assume the PCR was also negative. If you had a viral swab (e.g. COVID, Flu, RSV, or otherwise), we will notify you if you test positive. If you do not hear from us, assume your test was negative. Follow up with PCP or return if no improvement in a week, or sooner if worse. Go to the ED if any severe symptoms appear acutely documented in this encounter Progress Notes * Jose Atnonio Le PA-C - 05/17/2024 10:50 AM EDT Nursing Notes: Tamy Porter LPN 05/17/24 1012 Signed Hernan Rodriguez is a 68 year old male who presents to walk-in clinic today complaining of Chief Complaint Patient presents with Sinus Problem Cough Congestion Sore Throat Brief history:sinus sx, cough, congestion,sore throat Onset/duration: 2 days. OTC treatments tried:robitussin, tylenol Patient is accompanied by no one for today's visit. Hernan Rodriguez is a 68 year old male with a PMH of DM2, Mult Myeloma in remission, h/o stem cell transplant, who presents with upper and lower respiratory symptoms for 2 day(s) Patient was accompanied by Self. HPI Severity of Symptoms: Moderate Modifying Factors (what was done since onset of symptoms): see nurse note Timing (how often does it occur): constant Quality (feels like): wheezing today, sinus, cough Other associated Signs and Symptoms: nc, rhinorrhea, pnd, st, cough, malaise, fatigue, body aches. Was a little SOB today. Was wheezy today. Denies n/v/d/c Denies CP, Palp ROS See HPI HISTORY Past Medical History: Diagnosis Date Depression Diverticulitis of small intestine HTN (hypertension) Migraine without aura Past Surgical History: Procedure Laterality Date ARTHROPLASTY KNEE TOTAL Right COLONOSCOPY, DIAGNOSTIC (RECTUM) 03/11/2018 COLONOSCOPY FLEXIBLE PROXIMAL DIAGNOSTIC performed by Nicole Olvera DO at ENDOSCOPY [facility] HEAD SURGERY PROCEDURE NEC Cluster headache nerve/blood vessel seperation INSERTION OF LENS PROSTHESIS Bilateral IR BIOPSY 02/08/2023 IR BIOPSY 06/28/2023 IR BIOPSY 10/25/2023 IR VENOUS ACCESS NON-MEDIPORT 07/12/2023 IR VENOUS ACCESS NON-MEDIPORT 08/09/2023 KNEE ARTHROSCOPY/SURGERY Right OTHER right knee surgery OTHER surgery for cluster headaches REMOVAL OF APPENDIX Social History Tobacco Use Smoking status: Never Passive exposure: Never Smokeless tobacco: Former Types: Snuff Substance Use Topics Alcohol use: Not Currently Vaping/E-Cigarette Use Vaping/E-Cigarette Use Never User Vaping/E-Cigarette Substances Vaping/E-Cigarette Devices Current Outpatient Medications Medication Sig Dispense Refill OneTouch Delica Plus [id number] USE TO TEST BLOOD SUGAR 2 TIMES DAILY DX E11.9 200 Each 3 Calcium Carb-Cholecalciferol 600-20 MG-MCG Oral Tablet (Calcium 600+D3) Take by mouth 2 times a day. Patient reported Loperamide HCl 2 MG Oral Tablet (Imodium A-D) Take 1 Tablet by mouth 4 times a day as needed for Diarrhea. 30 Tablet 0 Ondansetron HCl 8 MG Oral Tablet (Zofran) Take 1 Tablet by mouth every 8 hours as needed for Nausea. 30 Tablet 2 Aspirin 81 MG Oral Capsule Take by mouth. Olmesartan Medoxomil 40 MG Oral Tablet (Benicar) Take 1 Tablet by mouth in the morning. 90 Tablet 3 Acyclovir 800 MG Oral Tablet (Zovirax) Take 1 Tablet by mouth in the morning and 1 Tablet before bedtime. 180 Tablet 1 OneTouch Verio In Vitro Strip (Glucose Blood) USE TO TEST BLOOD SUGAR 2 TIMES DAILY DX E11.9 200 Strip 3 Ozempic (0.25 or 0.5 MG/DOSE) 2 MG/3ML Solution Pen-injector (Semaglutide(0.25 or 0.5MG/DOS)) INJECT 0.25 MG UNDER THE SKIN ONCE A WEEK. THEN INCREASE TO 0.5 MG IF TOLERATED. 9 mL 3 Famotidine 20 MG Oral Tablet (Pepcid) TAKE 1 TABLET BY MOUTH EVERY DAY 30 Tablet 5 Loratadine 10 MG Oral Tablet (Claritin) Take 1 Tablet by mouth in the morning. Triamcinolone Acetonide 0.1 % External Cream (Aristocort) Apply topically to affected area 2 times a day. To affected area. 453 g 3 Hydrocortisone 2.5 % External Cream Apply topically to affected area 3 times a day. To affected area. 84 g 3 NovoFine Plus Pen Needle 32G X 4 MM (Insulin Pen Needle) Use to inject Ozempic once weekly 100 Each3 Propranolol HCl 20 MG Oral Tablet (Inderal) Take 1 Tablet by mouth in the morning and 1 Tablet before bedtime. Zoster Vac Recomb Adjuvanted 50 MCG/0.5ML Intramuscular Suspension Reconstituted (Shingrix) Inject 0.5 mL into a large muscle now and repeat dose in 60 to 180 days 0.5 mL 0 Sertraline HCl 50 MG Oral Tablet (Zoloft) Take 1 Tablet by mouth in the morning. 30 Tablet 3 BD Pen Needle Yecenia U/F 32G X 4 MM (Insulin Pen Needle) Use to inject Ozempic once weekly 100 Each 3 LORazepam 1 MG Oral Tablet (Ativan) Take one at bedtime . May take 1/2- 1 tab during day as needed 45 Tablet 1 Atorvastatin Calcium 20 MG Oral Tablet (Lipitor) TAKE 1 TABLET BY MOUTH EVERY DAY 100 Tablet 1 predniSONE 20 MG Oral Tablet (Deltasone) Take 1 Tablet by mouth in the morning for 5 days. 5 Tablet0 Albuterol Sulfate HFA 108 (90 Base) MCG/ACT Inhalation Aerosol Solution Inhale 2 Puffs by mouth every 4 hours as needed for Dyspnea or Wheezing. 6.7 g 0 Polyethylene Glycol 3350 17 GM Oral Packet (MiraLax) Take 1 Packet by mouth in the morning. (Patient not taking: Reported on 05/15/2024) Zoster Vac Recomb Adjuvanted 50 MCG/0.5ML Intramuscular Suspension Reconstituted (Shingrix) Inject 0.5 mL into a large muscle now and repeat dose in 60 to 180 days (Patient not taking: Reported on 02/28/2024) 0.5 mL 0 traZODone HCl 50 MG Oral Tablet (Desyrel) Take 1 Tablet by mouth at bedtime. (Patient not taking: Reported on 05/15/2024) 30 Tablet 2 No current facility-administered medications for this visit. Review of patient's allergies indicates: Allergen Reactions Celecoxib Metformin Diarrhea Prochlorperazine Intol,compazine Family History Problem Relation Name Age of Onset Hypertension Mother Diabetes Mother Lung cancer Father Arthritis Sister neck No Known Problems Daughter No Known Problems Daughter OBJECTIVE BP 122/78 | Pulse 101 | Temp 37 C (98.6 F) (Tympanic) | Resp 20 | Ht 1.778 m (5' 10") | Wt 90.2kg (198 lb 14.4 oz) | SpO2 94% | BMI 28.54 kg/m | BSA 2.11 m Wt Readings from Last 1 Encounters: 05/17/24 90.2 kg (198 lb 14.4 oz) General Appearance: awake, alert, no apparent distress HEENT: perrl and eomi tms - clear, normal light reflex, no erythema + red and irritated pharynx No sinus tenderness or facial pain to percussion + turbinate engorgement and discharge Neck: normal, supple, no adenopathy Respiratory: clear to auscultation, no rhonchi, no wheezes, and no crackles Heart: regular rhythm, no murmurs , no rubs, no gallops, and +tachycardia Skin: skin color, texture, turgor are normal, no rashes or significant lesions Patient Instructions Start a daily nasal spray such as Flonase, Nasacort, OR Nasonex. They work best if used consistently. In addition to one of these medicated nasal sprays use saline nasal spray to avoid dryness and thinout mucous Over the Counter (OTC) antihistamine (claritin, zyrtec, xyzal or melo) can also be helpful for sinus symptoms. OTC decongestants: Sudafed, Mucinex-D (may have to get from behind pharmacy counter; you have to show your ID) can be used for nasal/sinus congestion for just a few days. If you have high blood pressure, you can use Coricidin. OTC cough suppressants as needed, including delsym, robitussin, cough drops, honey. Continue supportive measures: Increase clear, non-sugary fluid intake. Get plenty of rest Use a cool mist vaporizer or humidifier daily and you can take hot showers for steam therapy. Do warm salt water gargles and/or chloraseptic throat spray, throat lozenges (Cepacol) for any sorethroat. Honey, if not concerned about diabetes or elevated blood sugar levels, can also be very helpful forsorethroat. You may also use ibuprofen or acetaminophen OTC for relief of pain or fevers. If you had a negative rapid strep test, we will inform you if your PCR ("the send out") comes back positive, and start you on antibiotics. Otherwise, you may assume the PCR was also negative. If you had a viral swab (e.g. COVID, Flu, RSV, or otherwise), we will notify you if you test positive. If you do not hear from us, assume your test was negative. Follow up with PCP or return if no improvement in a week, or sooner if worse. Go to the ED if any severe symptoms appear acutely ASSESSMENT AND PLAN Viral URI with cough (Primary) - XR CHEST 2 VIEWS - predniSONE 20 MG Oral Tablet (Deltasone); Take 1 Tablet by mouth in the morning for 5 days. - Albuterol Sulfate HFA 108 (90 Base) MCG/ACT Inhalation Aerosol Solution; Inhale 2 Puffs by mouth every 4 hours as needed for Dyspnea or Wheezing. - INFLUENZA A/B RSV SARS-COV2,PCR Suspicious for Left sided consolidation. Patient notes "I always have this, because I had radiationwith my MM." Will follow radiologist read Consistent with viral etiology u Follow Up: Return for Patient to follow up with Primary Care Provider as directed. | For: Patient to follow up with Primary Care Provider as directed Patient goals for plan of care were discussed Jose Antonio Le PA-C [facility] [address] [facility] [phone] documented in this encounter Nursing Notes * Tamy Porter LPN - 05/17/2024 10:09 AM EDT Hernan Rodriguez is a 68 year old male who presents to walk-in clinic today complaining of Chief Complaint Patient presents with Sinus Problem Cough Congestion Sore Throat Brief history:sinus sx, cough, congestion,sore throat Onset/duration: 2 days. OTC treatments tried:robitussin, tylenol Patient is accompanied by no one for today's visit. documented in this encounter Plan of Treatment Upcoming Encounters Date Type Department Care Team (Late st Contact Info) Description 05/22/2024 8:00 AM EDT Laboratory Laboratory, [facility] [address] [place] [phone] Mohan Hernandez [address] [address] 05/24/2024 9:00 AM EDT Telemedicine [address] [address] Quentin Gupta PsyD [address] [place] [address] 05/24/2024 10:00 AM EDT Immunization/Injection Hematology/Oncology Treatment, [place] [address] [place] [phone] Kandice, Chair 10 Hem Onc [facility] [address] [facility] [place] [address] 06/07/2024 8:00 AM EDT Laboratory Laboratory, [address] [phone] [place], [address] [phone] 06/12/2024 10:00 AM EDT Office Visit Hematology/Oncology [facility] [address] [facility] [place] [phone] Rae Berrios MD [address] [facility], [place] [phone] 06/22/2024 8:20 AM EDT Office Visit [facility], [address] [phone] Patrick Zhao MD [address] [place] [address] 07/20/2024 10:30 AM EDT Office Visit [facility]ology [facility] [place] [address] [place] [address] Nick Moore MD [address], [place] [id number] 07/20/2024 11:00 AM EDT Immunization/Injection Hematology Oncology [facility] [address] [place], [place] [id number] Nurse, Med 4 [address] [facility] [address] 08/15/2024 7:00 AM EDT Office Visit Neurology [facility] [place] [address] [facility] [place] [address] Yvonne Panchal, PAKaileyC [address] [facility] [place] [phone] 08/25/2024 9:00 AM EDT Office Visit Pharmacy, [address] [place] [address] [address] [place] [address] 09/05/2024 10:20 AM EDT Office Visit Dermatology, [facility] [address] [facility] [address] Linda Mejia PA-C [address] [place] [address] [place] [address] 01/15/2025 9:00 AM EST Office Visit Nephrology, [facility] 200 [facility] [place] [address] Addison Salas MD [address] [facility] [place] [phone] Health Maintenance Due Date Last Done Comments Cologuard 2001 Fecal Occult Blood Test 2001 Sigmoidoscopy 2001 Adult Wellness Visit 2022 COVID-19 Vaccine ( season) 2023 03/03/2021, 07/23/2020, 06/18/2020 Albumin/Creatinine Ratio 01/20/202401/19/ 023, 01/05/2022, 02/02/2018 HbA1c 08/07/2024 02/07/2024, 10/06, [...] Not on filedocumented as of this encounter Procedures Procedure Name Priority Date/Time Associated Diagnosis Comments INFLUENZA A/B RSV SARS-COV2,PCR STAT 05/17/2024 11:12 AM EDT Viral URI with cough XR CHEST 2 VIEWS STAT 05/17/2024 11:0 8 AM EDT Viral URI with cough documented in this encounter Results * (ABNORMAL) INFLUENZA A/B RSV SARS-COV2,PCR (05/17/2024 11:12 AM EDT) Pathologist [facility] [place] SARS-CoV-2 (COVID-19) Result Negative Negative 05/17/2024 3:08 PM EDT [facility] Comment: No SARS-CoV2 Coronavirus RNA detected by PCR (amplified probe). This express test was developed and its performance characteristics determined by [facility]. It has not been cleared or approved by the U.S. Food and Drug Administration (FDA). FDA does not require this test to go thru premarket FDA review. This test is used for clinical purposes. It should not be regarded as investigational or for research. This laboratory is certified under the Clinical Laboratory Improvement Amendments (CLIA) as qualified to perform high complexity clinical laboratory testing. This test is a nucleic acid amplification test (NAAT), a reverse transcriptase polymerase chain reaction (RT-PCR) test, or a Centers for Disease Control- acceptable equivalent. The test is performed in a high complexity Clinical Laboratory Improvement Amendments-(CLIA) certified laboratory. The test is acceptable for SARS-CoV-2 diagnosis, surveillance, and travel within the [place] [facility] and to most countries. Please check with local testing authorities about requirements before travel. The validation of bronchial specimens, tracheal aspirates, and sputum for this assay was developed and performance characteristics determined by [facility]. The validation of alternate specimen types has not been cleared or approved by the U.S. Food and Drug Administration (FDA). It has been determined that such clearance is not necessary. Influenza A PCR Result Positive(A) Negative 05/17/2024 3:08 PM EDT [facility] Comment:Influenza A RNA dete cted by PCR (amplified probe). Test results reported to [facility]. Influenza B PCR Result Negative Negative 05/17/2024 3:08 PM EDT [facility] Comment:No Influenza B RNA d etected by PCR (amplified probe) RSV PCR Result Negative Negative 05/17/2024 3:08 PM EDT [facility] Comment:No Respiratory Syncy tial Virus RNA detected by PCR (amplified probe) Upper Respiratory Mid-turbinate nasal swab / Unknown Non-blood Collection / Unknown 05/17/2024 11:12 AM EDT 05/17/2024 11:12 AM EDT Jose Antonio Le PA-C LAB MICRO - GENERAL ORDERABLES Final Result [facility] [address] [place] [address] * XR CHEST 2 VIEWS (05/17/2024 11:08 AM EDT) Anatomical Region Laterality Modality Chest Digital Radiogra phy 05/17/2024 11:3 0 AM EDT Impressions 05/17/2024 11:28 AM EDT IMPRESSION 1. Left upper lobe consolidation concerning for pneumonia. Follow-up two view chest radiography in 6-12 weeks recommended. 2. If there is at least 20 pack years smoking history, consider counseling with regards to low dose lung cancer screening CT. Lung cancer screening CT exams are typically provided free or at low cost to qualifying patients. 3. Additional findings as above. Added to radiology results pathway communication system in accordance with [place] ACT 112 at 11:28 am on 05/17/2024. Narrative 05/17/2024 11:28 AM EDT EXAM XR CHEST 2 VIEWS-05/17/2024 11:08 am HISTORY wheezing, sob, r/o PNA COMPARISON No Comparison. TECHNIQUE Radiography of the chest. XR CHEST 2 VIEWS FINDINGS Left upper lobe consolidation concerning for pneumonia. Follow-up two view chest radiography in 6-12 weeks recommended. No pneumothorax or pleural effusion observed. Unremarkable cardiomediastinal silhouette.No acute osseous abnormality. Procedure Note Scott Arias MD - 05/17/2024 EXAM XR CHEST 2 VIEWS-05/17/2024 11:08 am HISTORY wheezing, sob, r/o PNA COMPARISON No Comparison. TECHNIQUE Radiography of the chest. XR CHEST 2 VIEWS FINDINGS Left upper lobe consolidation concerning for pneumonia. Follow-up twoview chest radiography in 6-12 weeks recommended. No pneumothorax orpleural effusion observed. Unremarkable cardiomediastinal silhouette.Noacute osseous abnormality. IMPRESSION IMPRESSION 1. Left upper lobe consolidation concerning for pneumonia. Follow-up twoview chest radiography in 6-12 weeks recommended. 2. If there is at least 20 pack years smoking history, consider counselingwith regards to low dose lung cancer screening CT. Lung cancer screeningCT exams are typically provided free or at low cost to qualifyingpatients. 3. Additional findings as above. Added to radiology results pathway communication system in accordance withPA ACT 112 at 11:28 am on 05/17/2024. Jose Antonio Le PA-C RADIOLOGY (RAD GENER AL) Final Result documented in this encounter Visit Diagnoses Diagnosis Viral URI with cough- Primary Acute upper respiratory infections of unspecified site documented in this encounter Advance Directives * [...] patient or by statute hierarchy) Care Teams Investigator Internal Affairs Relationship Specialty Start Date End Date Patrick Zhao MD [address] [facility] [place] [address] PCP - General Family Medicine 02/28/24 documented as of this encounter
--- OUTSIDE RECORDS SUMMARY | 2024-05-18 07:14 | External Medical Summary | Summary of Care ---
Author Name Unknown Organization [facility] Address [address] [place] [address] Phone [phone] Care Team Providers Care Donkey Doctor Name Role Phone Patrick Zhao MD Primary Care Provider [phone] Reason for Visit * Reason Onset Date Comments Test Results 05/17/2024 Unexpected or In determinate Result Encounter Details Date Type Department Care Team (Late st Contact Info) Description 05/17/2024 Telephone Laboratory, [place] [address] [place] [address] Jose Antonio Benavides PA-C [address] [place] [address] Test Results (Unexpected or Indeterminate ... Allergies Active Allergy Reactions Criticality Noted Date Comments Celecoxib Medium 02/01/2017 Metformin Diarrhea 02/18/2023 Prochlorperazine 11/18/1998 Intol,compazine documented as of this encounter (statuses as of 05/17/2024) Medications OneTouch Delica Plus [id number] USE TO TEST BLOOD SUGAR 2 TIMES [...] hemoglobin A1c goal of less than 7.0% ([facility]) USE TO TEST BLOOD SUGAR 2 TIMES [...] hemoglobin A1c goal of less than 7.0% ([facility]) INJECT 0.25 MG UNDER THE SKIN ONCE [...] (Shingrix)Indicati ons:History of autologous stem cell transplant ([facility]) Inject 0.5 mL into a large muscle [...] hemoglobin A1c goal of less than 7.0% ([facility]) Use to inject Ozempic once weekly 100 [...] (Prevnar) 03/16/2019 Pneumococcal Conjugate Vacci ne, 20-valent ([id number]) 03/22/2024,01/21/2024,02/08/2023(Defe rred: Patient Refused - Pt thinks [...] unexpected or indeterminate finding on Hernan Rodriguez ([id number]) and asksthat you review the following report. [...] Thank you, RUSS Wang Client Service Rep [facility] documented in this encounter Plan of Treatment Upcoming Encounters Date Type Department Care Team (Late st Contact Info) Description 05/22/2024 8:00 AM EDT Laboratory Laboratory, [facility] 226 [facility] [place] [phone] [facility] [address] [place] [address] 05/24/2024 9:00 AM EDT Telemedicine Psychology [facility], [place] [address] [place] [address] Quentin Gupta PsyD [address] [place] [address] 05/24/2024 10:00 AM EDT Immunization/Injection Hematology/Oncology Treatment, [place] 200 [place] [phone] Kandice, Chair 10 Hem Onc [facility] [address] [place] [address] 06/07/2024 8:00 AM EDT Laboratory Laboratory, Mary [place] [address] [place] [phone] [facility] [address] [place] [address] 06/12/2024 10:00 AM EDT Office Visit Hematology/Oncology [facility] 200 [place] [address] Rae Berrios MD 200 [facility] [place] [address] 06/22/2024 8:20 AM EDT Office Visit [facility], Mary [place] [address] [place] [address] Patrick Zhao MD 226 [facility] [place] [address] 07/20/2024 10:30 AM EDT Office Visit Hematology Oncology [facility] [address] [place] [phone] Nick Moore MD [address] [place] [address] 07/20/2024 11:00 AM EDT Immunization/Injection Hematology Oncology [facility] [address] [place] [address] Nurse, Med 4 [address] [place], [place] [address] 08/15/2024 7:00 AM EDT Office Visit Neurology [facility] [address] [place] [address] Yvonne Panchal PA-C [facility] [place] [address] 08/25/2024 9:00 AM EDT Office Visit Pharmacy, [address] [place] [address] [place] [address] 09/05/2024 10:20 AM EDT Office Visit Dermatology, [place] [facility] [address] [facility] [place] [phone] Linda Mejia PA-C [address] [place] [address] [place] [address] 01/15/2025 9:00 AM EST Office Visit Nephrology, [address] [place] [address] Addison Salas MD [address] [place] [address] [place] [address] Health Maintenance Due Date Last Done Comments [...] patient or by statute hierarchy) Care Teams Donkey Doctor Relationship Specialty Start Date End Date Patrick Zhao MD [address] [place] [address] PCP - General Family Medicine 02/28/24 documented as of this encounter
--- OUTSIDE RECORDS SUMMARY | 2024-05-18 07:15 | External Medical Summary | Summary of Care ---
Author Name Unknown Organization [facility] Address [address] [facility] [place] [address] Phone [phone] Care Team Providers Care Loom Repairer Name Role Phone Patrick Zhao MD Primary Care Provider [phone] Reason for Visit * Reason Onset Date Comments Advice 05/17/2024 Encounter Details Date Type Department Care Team (Late st Contact Info) Description 05/17/2024 Telephone Hematology/Oncology [facility] [place] [address] [place] [address] Rae Berrios MD [address] [place] [address] Advice Allergies Active Allergy Reactions Criticality Noted Date Comments Celecoxib Medium 02/01/2017 Metformin Diarrhea 02/18/2023 Prochlorperazine 11/18/1998 Intol,compazine documented as of this encounter (statuses as of 05/17/2024) Medications OneTouch Delica Plus [id number] USE TO TEST BLOOD SUGAR 2 TIMES [...] goal of less than 7.0% ([facility]) USE TO TEST BLOOD SUGAR 2 TIMES [...] goal of less than 7.0% ([facility]) INJECT 0.25 MG UNDER THE SKIN ONCE [...] (Shingrix)Indicati ons:History of autologous stem cell transplant (HCC) Inject 0.5 mL into a large [...] goal of less than 7.0% ([facility]) Use to inject Ozempic once weekly 100 [...] DAY 100 Tablet 1 04/14/19 25 Active documented as of this encounter [...] No Pre serve, 2-Dose Series (Pfizer) 03/03/2021 HEPATITIS B VACCINE, RECOMB, 20 MCG/ML, ADULT (HEPLISAV-B) 03/22/2024,01/21/2024 HIB Booster (Hiberix) 03/22/2024,01/21/2024 Pneumococcal Conjugate Vacc, 13 Valent (Prevnar) 03/16/2019 Pneumococcal Conjugate Vacci ne, 20-valent ([id number]) 03/22/2024,01/21/2024,02/08/2023(Defe rred: Patient Refused - Pt thinks he already had this; will discuss with his PCP.) Pneumococcal Polysaccharide PPV23 (Pneumovax) 07/09/2016 Seasonal Influenza Vac., MDV , IM, 0.5 mL (Fluzone) 02/20/2017 Seasonal Influenza, High Dos e, Trivalent, PF, [...] No 09/13/2023 Does the household have a [facility] source of income? (Household - for ages [...] documented in this encounter Miscellaneous Notes * Telephone Encounter - Hansel Walton RN - 05/17/2024 8:19 AM EDT Called patient back, states that his temp this morning was 99.5, he took 2 tylenol and some robitussin to help with cough. Denies shortness of breath but can "feel phlegm in my lungs." Advised him to call PCP office to make an appointment and or to be seen at urgent care for evaluation. He was agreeable to this. If he has any worsening shortness of breath, uncontrolled fevers, or worsening dizziness- should goto ER. Pt agreeable to this if this occurs. * Telephone Encounter - Chris Shepherd OSA - 05/17/2024 7:15 AM EDT Pt calling stating he is having runny nose, sore throat, hurts in chest when he coughs, and coughing up mucus. Pt states he had a stem cell transplant. Pt is worried because his symptoms are getting worse. Pt is asking medication can be prescribed. Pt also asking if he should go to the ER. Please advise pt at [phone]. Or call pt's sister Zuleyka Page at [phone] documented in this encounter Plan of Treatment Upcoming Encounters Date Type Department Care Team (Late st Contact Info) Description 05/22/2024 8:00 AM EDT Laboratory Laboratory, [address] [place] [phone] Mary Laboratory [address] [place] [address] 05/24/2024 9:00 AM EDT Telemedicine Psychology [facility] [address] [place], [place] [phone] Quentin Gupta [facility] [address] [place] [address] 05/24/2024 10:00 AM EDT Immunization/Injection Hematology/Oncology Treatment, [place] [facility] [address] Kandice, Chair 10 Hem Onc [facility] 200 [facility] [place] [address] 06/07/2024 8:00 AM EDT Laboratory Laboratory, [address] [place] [phone] Mary [facility] [address] [place] [address] 06/12/2024 10:00 AM EDT Office Visit Hematology/Oncology [facility] [place] 200 [facility] [place] [address] Rae Berrios MD 200 [facility] [place] [address] 06/22/2024 8:20 AM EDT Office Visit Family Mary [place] [address] [place] [phone] Patrick Zhao MD 226 [facility] [place] [address] 07/20/2024 10:30 AM EDT Office Visit Hematology Oncology [facility], [place] [address] [place] [address] Nick Moore MD [address] [place] [address] 07/20/2024 11:00 AM EDT Immunization/Injection Hematology Oncology [facility] [address] [place], [place] [phone] Nurse, [facility] [address] [place], [place] [phone] 08/15/2024 7:00 AM EDT Office Visit Neurology [facility] 200 [facility] [place] [address] Yvonne Panchal PA-C 21 [place] [address] 08/25/2024 9:00 AM EDT Office Visit Pharmacy, [address] [place] [address] [place] [address] 09/05/2024 10:20 AM EDT Office Visit [place]atology, [place] [address] [place] [address] Linda Mejia PA-C [address] [place] [address] [place] [address] 01/15/2025 9:00 AM EST Office Visit Nephrology, [facility] [address] [facility] [place] [address] Addison Salas MD [address] [place] [place] [address] [place] [address] Health Maintenance Due Date Last Done Comments [...] Not on filedocumented as of this encounter Advance Directives * Full Code [...] patient or by statute hierarchy) Care Teams Loom Repairer Relationship Specialty Start Date End Date Patrick Zhao MD [address] [facility] [place] [address] PCP - General Family Medicine 02/28/24 documented as of this encounter
--- OUTSIDE RECORDS SUMMARY | 2024-05-18 07:15 | External Medical Summary | Summary of Care ---
Author Name Unknown Organization [facility] Address [address] [facility] [address] Phone [phone] Care Team Providers Care Fixed Wing Pilot Name Role Phone Patrick Zhao MD Primary Care Provider [phone] Reason for Visit * Reason Onset Date Comments [facility]: Screening 05/10/2024 Encounter Details Date Type Department Care Team (Late st Contact Info) Description 05/10/2024 Telephone [facility], [facility] [address] [address] Caryn Denney, [employer] LIVESTOCK FARM MANAGER [address] [place] [address] [facility]: Screening Allergies Active Allergy Reactions Criticality Noted Date Comments Celecoxib Medium 02/01/2017 Metformin Diarrhea 02/18/2023 Prochlorperazine 11/18/1998 Intol,compazine documented as of this encounter (statuses as of 05/10/2024) Medications OneTouch Delica Plus [id number] USE TO TEST BLOOD SUGAR 2 TIMES [...] bedtime. 30 Tablet 2 03/09/19 25 Active Propranolol HCl 20 MG Oral Tablet (Inderal)Indicatio [...] as of this encounter (statuses as of 05/10/2024) Active Problems Patient Care Coordination No te Formatting of this note migh t be different from the original. Date of Admission: 07/20/23 Date of Transplant: 07/21/23 Total to be infused: 2.56 CD34+Cells/kg(x10e6) in 6 bags to be reinfused. Chemotherapy: Melphalan 200mg/m2 Transplant Physician: Dr. Moore Problem Noted Date Diagnosed Date Abrasion of left cornea 05/10/2024 Acute chest [...] as of this encounter (statuses as of 05/10/2024) Resolved Problems Problem Noted Date Diagnosed Date [...] as of this encounter (statuses as of 05/10/2024) Immunizations Name Administration Dates Next Due COVID-19 mRNA, LNP-s, No Pre serve, 2-Dose Series (Moderna) 07/23/2020,06/18/2020 COVID-19 mRNA, LNP-s, No Pre serve, 2-Dose Series (Pfizer) 03/03/2021 HEPATITIS B VACCINE, RECOMB, 20 MCG/ML, ADULT (HEPLISAV-B) 03/22/2024,01/21/2024 HIB Booster (Hiberix) 03/22/2024,01/21/2024 Pneumococcal Conjugate Vacc, 13 Valent (Prevnar) 03/16/2019 Pneumococcal Conjugate Vacci ne, 20-valent ([id number]) 03/22/2024,01/21/2024,02/08/2023(Defe rred: Patient Refused - Pt thinks [...] 09/13/2023 Does the household have a re lar source of income? (Household - for ages [...] encounter Miscellaneous Notes * Telephone Encounter - Caryn Denney LPN - 05/10/2024 11:55 AM EST Hernan Rodriguez was referred as a potential candidate for enrollment for [facility]. A review of this chart was completed and: Hernan does not meet criteria for enrollment into [facility]. Referral Source: Monthly Proactive Eligibility List Criteria for Ineligibility: Not Located in Service Area Referring care team was notified via : [facility] communication Patient is located in service area however does not have the multiple chronic conditions needed forGAH enrollment documented in this encounter Plan of Treatment Upcoming Encounters Date Type Department Care Team (Late st Contact Info) Description 05/22/2024 8:00 AM EDT Laboratory Laboratory, Mary [place] [address] [place] [address] Mohan Hernandez [address] [place] [address] 05/24/2024 9:00 AM EDT Telemedicine Psychology [address] [phone] Quentin Gupta PsyD [address] [place] [address] 05/24/2024 10:00 AM EDT Immunization/Injection Hematology/Oncology [facility], [place] 200 [place] [address] Kandice, Chair 10 Hem Onc [facility] 200 [place] [address] 06/07/2024 8:00 AM EDT Laboratory Laboratory, [facility] 226 [place] [address] [facility], [facility] 226 [place] [address] 06/12/2024 10:00 AM EDT Office Visit Hematology/Oncology [facility] 200 [facility] [place] [address] Rae Berrios MD 200 [facility] [place] [address] 06/22/2024 8:20 AM EDT Office Visit Family Practice, [place] [place] [address] [place] [address] Patrick Zhao MD 226 [place] [address] 07/20/2024 10:30 AM EDT Office Visit Hematology Oncology [facility] [address] [place] [phone] Nick Moore MD [address] [place], [place] [phone] 07/20/2024 11:00 AM EDT Immunization/Injection Hematology Oncology [facility] [address] [place] [address] Nurse, Med [address] [place], [place] [address] 08/15/2024 7:00 AM EDT Office Visit Neurology [facility] [place] [address] [facility] [address] [place] [address] Yvonne Panchal PA-C [facility] [place] [address] 08/25/2024 9:00 AM EDT Office Visit Pharmacy, [address] [place] [address] [place] [address] 09/05/2024 10:20 AM EDT Office Visit Dermatology, [facility] [address] Linda Mejia PA-C [address] [place] [address] [place] [address] 01/15/2025 9:00 AM EST Office Visit Nephrology, [facility] 200 [facility] [place] [address] Addison Salas MD 400 [facility] [place] [address] Health Maintenance Due Date Last Done Comments [...] patient or by statute hierarchy) Care Teams Fixed Wing Pilot Relationship Specialty Start Date End Date Patrick Zhao MD [address] [place] [address] PCP - General Family Medicine 02/28/24 documented as of this encounter
--- OUTSIDE RECORDS SUMMARY | 2024-05-18 07:15 | External Medical Summary | Summary of Care ---
Author Name Unknown Organization [facility] Address [address] [facility] [place] [address] Phone [phone] Care Team Providers Care Hospitality Manager Name Role Phone Patrick Zhao MD Primary Care Provider [phone] Reason for Visit * Reason Comments Medication Administration Xgeva * Episode Based Medications (Routine) - Authorized Specialty Diagnoses / Procedures Referred By Contjacinda t Referred To Contact Diagnoses Multiple myeloma not having achieved remission (HCC) Procedures UT DENOSUMAB INJECTION Li Yip CRNP 400 [facility] [place] [address] Phone: tel: fax: Hematology/Oncology Treatment, [address] [place] [address] Phone: tel: fax: Referral ID Status Reason Start Date Expiration Date V isits Requested Visits Authorized [id number] Authorized 04/14/2024 04/15/[phone] Encounter Details Date Type Department Care Team (Late st Contact Info) Description 04/26/2024 10:00 AM EST Immunization/I njection Hematology/Oncology Treatment, [address] [place] [address] Multiple myeloma not having achieved remission (HCC)* Allergies Active Allergy Reactions Criticality Noted Date Comments Celecoxib Medium 02/01/2017 Metformin Diarrhea 02/18/2023 Prochlorperazine 11/18/1998 Intol,compazine documented as of this encounter (statuses as of 04/26/2024) Medications OneTouch Delica Plus [id number] USE TO TEST BLOOD SUGAR 2 TIMES [...] 03/04/2024 8:58 AM EST 12/16/19 24 Active IshmaelTouch Verio In Vitro Strip (Glucose Blood)Indications: Type 2 diabetes mellitus with hemoglobin A1c goal of less than 7.0% ([facility]) USE TO TEST BLOOD SUGAR 2 TIMES [...] hemoglobin A1c goal of less than 7.0% ([facility]) INJECT 0.25 MG UNDER THE SKIN ONCE [...] hemoglobin A1c goal of less than 7.0% ([facility]) Use to inject Ozempic once weekly 100 Each 3 03/28/19 25 Active LORazepam 1 MG Oral Tablet (Ativan)Indication s:Anxiety state,Insomnia, unspecified type Take one at bedtime . May take 1/2- 1 tab during day as needed 45 Tablet 1 04/13/19 Active Atorvastatin Calcium 20 MG Oral Tablet (Lipitor)Indicatio ns:Other hyperlipidemia TAKE 1 TABLET BY MOUTH EVERY DAY 100 Tablet 1 04/14/19 Active documented as of this encounter (statuses as of 04/26/2024) Active Problems Patient Care Coordination No te Formatting of this note migh t be different from the original. Date of Admission: 07/20/23 Date of Transplant: 07/21/23 Total to be infused: 2.56 CD34+Cells/kg(x10e6) in 6 bags to be reinfused. Chemotherapy: Melphalan 200mg/m2 Transplant Physician: Dr. 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 Pseudophakia 12/20/2018 Other hyperlipidemia 10/27/2017 Rosacea 06/01/2017 Primary hypertension 01/24/2017 Type 2 diabetes mellitus wit h hemoglobin A1c goal of less than 7.0% 06/12/2016 ACUTE STRESS 07/21/2004 Cervicalgia 06/13/2001 BACKACHE NOS 06/13/2001 Enthesopathy of knee 06/13/2001 Elevated blood pressure, situational 03/15/2001 PLANTAR FASCIITIS 08/18/1999 DIVERTICULITIS SM INTEST documented as of this encounter (statuses as of 04/26/2024) Resolved Problems Problem Noted Date Diagnosed Date [...] as of this encounter (statuses as of 04/26/2024) Immunizations Name Administration Dates Next Due COVID-19 mRNA, LNP-s, No Pre serve, 2-Dose Series (Moderna) 07/23/2020,06/18/2020 COVID-19 mRNA, LNP-s, No Pre serve, 2-Dose Series (Pfizer) 03/03/2021 HEPATITIS B VACCINE, RECOMB, 20 MCG/ML, ADULT (HEPLISAV-B) 03/22/2024,01/21/2024 HIB Booster (Hiberix) 03/22/2024,01/21/2024 Pneumococcal Conjugate Vacc, 13 Valent (Prevnar) 03/16/2019 Pneumococcal Conjugate Vacci ne, 20-valent ([id number]) 03/22/2024,01/21/2024,02/08/2023(Defe rred: Patient Refused - Pt thinks [...] Melinda Vargas RN documented in this encounter Nursing Notes * Liberty Anna RN - 04/26/2024 10:51 AM EST Chair 2. Patient here for xgeva injection. Phos 2.5, Calcium 9.2 on 04/24/24. Denies jaw pain and recent/upcoming dental work. Continues to take calcium and vit D supplement at home. Xgeva given into R posterior upper arm. Patient denies further needs. Ambulatory from treatment room in stable condition. documented in this encounter Plan of Treatment Upcoming Encounters Date Type Department Care Team (Late st Contact Info) Description 05/22/2024 8:00 AM EDT Laboratory Laboratory, Mary Hebert 226 [place] [phone] Mary Laboratory 226 [facility] [place] [address] 05/24/2024 9:00 AM EDT Telemedicine Psychology [place] [address] [place] [address] Quentin Gupta PsyD [address] [place] [address] 05/24/2024 10:00 AM EDT Immunization/Injection Hematology/Oncology Treatment, [place] [address] [place], [place] [address] Kandice, Chair 10 Hem Onc [facility] 200 [facility] [place] [address] 06/07/2024 8:00 AM EDT Laboratory Laboratory, [place] [address] [place] [address] [place], Laboratory [facility] [place] [address] 06/12/2024 10:00 AM EDT Office Visit Hematology/Oncology [facility] Kandice [place] [address] [place] [phone] Rae Berrios MD 200 [facility] [place], [place] [address] 06/22/2024 8:20 AM EDT Office Visit Family Practice, [place] 226 [place] [address] Patrick Zhao MD 226 [place] [address] 07/20/2024 10:30 AM EDT Office Visit Hematology Oncology [place] [address] [place] [address] Nick Moore MD [address] [place] [address] 07/20/2024 11:00 AM EDT Immunization/Injection Hematology Oncology [place] [address] [place] [address] Nurse, Med 4 [address] [place] [address] 08/15/2024 7:00 AM EDT Office Visit Neurology [facility] [place] 200 [facility] [place] [address] Yvonne Panchal PA-C 21 [facility] [place] [address] 08/25/2024 9:00 AM EDT Office Visit Pharmacy, [address] [place] [address] [place] [address] 09/05/2024 10:20 AM EDT Office Visit Dermatology, [facility] 226 [facility] [place] [address] Linda Mejia PA-C [address] [place] [address] [place] [address] 01/15/2025 9:00 AM EST Office Visit Nephrology, [facility] 200 [facility] [place] [address] Addison Salas MD 400 [facility] [place] [address] Health Maintenance Due Date Last Done Comments Cologuard 2001 Fecal Occult Blood Test 2001 Sigmoidoscopy 2001 Adult Wellness Visit 2022 COVID-19 Vaccine ( season) 2023 03/03/2021, 07/23/2020, 06/18/2020 Albumin/Creatinine Ratio 01/20/202401/19/2 023, 01/05/2022, 02/02/2018 HbA1c 08/07/2024 02/07/2024, 10/06, [...] as of this encounter Visit Diagnoses Diagnosis Multiple myeloma not having achieved remission (HCC)- Primary Multiple myeloma, without mention of having achieved remission documented in this encounter Administered Medications Inactive Administered Medications - up to 3 most recent administrations Medication Order MAR Action Action Date Dose Rate Site Denosumab (Xgeva) subcut inj 120 mg 120 mg, Subcutaneous, ONCE, On Wed04/26/24 at 1115, For 1 doseIndications:Multiple myeloma not having achieved remission (HCC) Given 04/26/2024 10:36 AM EST 120 mg Arm Right Upper documented in this encounter Advance Directives * [...] patient or by statute hierarchy) Care Teams Hospitality Manager Relationship Specialty Start Date End Date Patrick Zhao MD [address] [facility] [place] [address] PCP - General Family Medicine 02/28/24 documented as of this encounter
--- OUTSIDE RECORDS SUMMARY | 2024-05-18 07:15 | External Medical Summary | Summary of Care ---
Author Name Unknown Organization [facility] Address [address] [facility] [place] [address] Phone [phone] Care Team Providers Care Character Artist Name Role Phone Patrick Zhao MD Primary Care Provider [phone] Reason for Visit * Reason Comments Follow Up Was recently started on Zoloft by Dr. Berrios's office (started feeling worsening depression, more jittery) , also wants to discuss his Ozempic dose (blurry vision, dizziness, nausea) Encounter Details Date Type Department Care Team (Late st Contact Info) Description 05/15/2024 4:20 PM EDT Office Visit [facility] [address] [address] Anthony Obando MD [address] [phone] Type 2 diabetes mellitus with hemoglobin A1c goal of less than 7.0% ([facility])*; Anxiety and depression; Type 2 diabetes mellitus with diabetic dermatitis, without long-term current use of insulin (HCC); Chemotherapy-induced peripheral neuropathy (HCC); Migraine without status migrainosus, not intractable, unspecified migraine type; Other hyperlipidemia Allergies Active Allergy Reactions Criticality Noted Date Comments Celecoxib Medium 02/01/2017 Metformin Diarrhea 02/18/2023 Prochlorperazine 11/18/1998 Intol,compazine documented as of this encounter (statuses as of 05/16/2024) Medications OneTouch Delica Plus [id number] USE TO TEST BLOOD SUGAR 2 TIMES [...] 1 Tablet before bedtime. 180 Tablet 1 4 8:58 AM EST 12/16/19 24 Active IshmaelTouch Verio In Vitro Strip (Glucose Blood)Indications: Type 2 diabetes mellitus with hemoglobin A1c goal of less than 7.0% ([facility]) USE TO TEST BLOOD SUGAR 2 TIMES [...] hemoglobin A1c goal of less than 7.0% ([facility]) INJECT 0.25 MG UNDER THE SKIN ONCE [...] (Shingrix)Indicati ons:History of autologous stem cell transplant ([facility]) Inject 0.5 mL into a large muscle now and repeat dose in 60 to 180 days 0.5 mL 5 2:47 PM EST 03/22/19 25 Active Sertraline HCl 50 MG Oral Tablet (Zoloft)Indication s:Anxiety Take 1 Tablet by mouth in the morning. 30 Tablet 3 03/23/19 25 Active BD Pen Needle Yecenia U/F 32G X 4 MM (Insulin Pen Needle)Indications :Type 2 diabetes mellitus with hemoglobin A1c goal of less than 7.0% ([facility]) Use to inject Ozempic once weekly 100 [...] DAY 100 Tablet 1 04/14/19 25 Active Haemophilus B Polysac Conj Vac 10 MCG Injection Solution Reconstituted (Hiberix)Indicatio ns:History of autologous stem cell transplant (HCC),Multiple myeloma not having achieved remission (HCC) Inject 0.5 mL into a large muscle once for 1 dose. 0.5 mL 01/21/20 025 Discontin ued(Medic ation List Clean Up) Haemophilus B Polysac Conj Vac 10 MCG Injection Solution Reconstituted (Hiberix)Indicatio ns:History of autologous stem cell transplant (HCC) Inject 0.5 mL into a large muscle once for 1 dose. 0.5 mL 5 2:47 PM EST 03/22/19 025 Discontin ued(Medic ation List Clean Up) documented as of this encounter (statuses as of 05/16/2024) Active Problems Patient Care Coordination No te [...] as of this encounter (statuses as of 05/16/2024) Resolved Problems Problem Noted Date Diagnosed Date [...] as of this encounter (statuses as of 05/16/2024) Immunizations Name Administration Dates Next Due COVID-19 mRNA, LNP-s, No Pre serve, 2-Dose Series (Moderna) 07/23/2020,06/18/2020 COVID-19 mRNA, LNP-s, No Pre serve, 2-Dose Series (Pfizer) 03/03/2021 HEPATITIS B VACCINE, RECOMB, 20 MCG/ML, ADULT (HEPLISAV-B) 03/22/2024,01/21/2024 HIB Booster (Hiberix) 03/22/2024,01/21/2024 Pneumococcal Conjugate Vacc, 13 Valent (Prevnar) 03/16/2019 Pneumococcal Conjugate Vacci ne, 20-valent ([id number]) 03/22/2024,01/21/2024,02/08/2023(Defe rred: Patient Refused - Pt thinks [...] Sign Reading Time Taken Comments Blood Pressure 152/92 05/15/2024 4:04 PM EDT Pulse 70 05/15/2024 4:04 PM EDT Temperature 36.5 C (97.7 F) 05/15/2024 4:04 PM ED T Respiratory Rate 16 05/15/2024 4:04 PM EDT Oxygen Saturation - - Inhaled Oxygen Concentration - - Weight 90.3 kg (199 lb) 05/15/2024 4:04 PM EDT Height - - Body Mass Index 28.55 02/21/2024 7:27 AM EST documented in this encounter Functional Status * [...] Melinda Vargas RN documented in this encounter Progress Notes * Anthony Obando MD - 05/15/2024 4:31 PM EDT Images from the original note were not included. Subjective Hernan Rodriguez is a 68 year old male that presents for Follow Up (Was recently started on Zoloft by Dr. Berrios's office (started feeling worsening depression, more jittery) , also wants to discuss his Ozempic dose (blurry vision, dizziness, nausea) ) History of Present Illness A 68-year-old patient with a past medical history of type two diabetes, migraine, multiple myeloma,anxiety, and depression presents for a follow-up visit. The patient reports experiencing dizziness,diarrhea, and increased anxiety, which he attributes to his current medications, Zoloft and Ozempic. The patient also mentions having tremors, for which he is taking propranolol. The patient has beenon Zoloft for six weeks and has been experiencing side effects such as dizziness and diarrhea. The patient also reports that his tremors have worsened since starting Zoloft. The patient has been on Ozempic for his diabetes but reports having issues with this medication as well. The patient is consid ering stopping Zoloft and Ozempic due to the side effects and is open to trying metformin for his diabetes. Objective BP 152/92 | Pulse 70 | Temp 97.7 F (36.5 C) | Resp 16 | Wt 199 lb (90.3 kg) | BMI 28.55 kg/m | BSA 2.11 m Physical Exam Physical Exam Vitals reviewed. Constitutional: General: He is not in acute distress. Pulmonary: Effort: Pulmonary effort is normal. No respiratory distress. Neurological: Mental Status: He is alert. Comments: Restring tremor. Results LABS HbA1c: 6.8% Assessment and Plan Assessment & Plan Anxiety and Depression Sertraline ineffective with adverse effects. Lorazepam used cautiously due to dependency risk. Sensitivity to medications noted. - Taper sertraline: 25 mg daily until Wednesday, then discontinue. - Continue lorazepam as needed, monitor for dependency. - Consider increasing propranolol for tremors post-sertraline. Type 2 Diabetes Mellitus Ozempic discontinued due to adverse effects. Transition to metformin discussed next week per patient preference. He will continue to monitor blood sugars daily. A1c at 6.8 indicates good control. - Discontinue Ozempic. - Start metformin 500 mg extended release daily post-sertraline. - Monitor blood glucose daily. - Hold Ozempic if metformin not tolerated. Multiple Myeloma Not on chemotherapy due to rash and itching. Bone-strengthening injection scheduled. Cost concerns noted. - Proceed with bone-strengthening injection. Migraine No issues or changes discussed. Follow-up Monitor condition and blood sugar post-sertraline discontinuation. Consider metformin if tolerated. - Send message next week to report condition and blood sugar levels. - Consider metformin if sertraline discontinuation well tolerated. 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 Text in this note was generated using an [employer] documentation service. I discussed the use of a device to record and summarize our discussion today. All persons present during the encounter consented to its use. documented in this encounter Nursing Notes * Marilyn Carroll LPN - 05/15/2024 4:04 PM EDT The patient has been properly identified by confirmation of name and date of . Chief Complaint Patient presents with Follow Up Was recently started on Zoloft by Dr. Berrios's office (started feeling worsening depression, more jittery) , also wants to discuss his Ozempic dose (blurry vision, dizziness, nausea) documented in this encounter Plan of Treatment Upcoming Encounters Date Type Department Care Team (Late st Contact Info) Description 05/22/2024 8:00 AM EDT Laboratory Laboratory, Mary Hebert [address] [phone] Mary [facility] [address] [address] 05/24/2024 9:00 AM EDT Telemedicine Psychology [facility] [address], [place] [phone] Qunetin Gupta [facility] [address] [place] [address] 05/24/2024 10:00 AM EDT Immunization/Injection Hematology/Oncology Treatment, [place] [address] [facility] [phone] Kandice, Chair 10 Hem Onc [facility] 200 [facility] [place] [address] 06/07/2024 8:00 AM EDT Laboratory Laboratory, Mary Hebert [address] [address] Mary [facility] [address] [address] 06/12/2024 10:00 AM EDT Office Visit Hematology/Oncology [facility] Kandice [place] 200 [facility] [place] [phone] Rae Berrios MD [address] [place] [address] 06/22/2024 8:20 AM EDT Office Visit Family PracticeMary [address] [address] Patrick Zhao MD 226 [place] [address] 07/20/2024 10:30 AM EDT Office Visit Hematology Oncology [facility] [place] [address] [place] [address] Nick Moore MD [address] [place] [address] 07/20/2024 11:00 AM EDT Immunization/Injection Hematology Oncology [facility] [address] [place] [address] Nurse, Med [address] [place] [address] 08/15/2024 7:00 AM EDT Office Visit Neurology [facility] 200 [facility] [place] [address] Yvonne Panchal PA-C [address] [facility] [place] [address] 08/25/2024 9:00 AM EDT Office Visit Pharmacy, [address] [place] [address] [place] [address] 09/05/2024 10:20 AM EDT [facility] 226 [facility] [place] [address] Linda Mejia PA-C [address] [place] [address] [place] [address] 01/15/2025 9:00 AM EST Office Visit Nephrology, [facility] 200 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
--- OUTSIDE RECORDS SUMMARY | 2024-05-18 07:15 | External Medical Summary ---
Author Name Unknown Address Unknown Organization K01:LABORATORY [facility] - [address] [facility] [address] Laboratory Report Ordering Provider Test Date Status KENNEDY CAZARES 05/17/2024 11:12:02 Final Observation Date Value Abnormality Reference (Units ) Status SARS Coronavirus 2 05/17/2024 11:12:02 Negative N egative Final No SARS-CoV2 Coronavirus RNA detected by PCR (amplified probe).
This express test was developed and its performance characteristics determined by [facility]. It has not been cleared or approved [...] (RT-PCR) test, or a Centers for Disease Control-acceptable equivalent. The test is performed in a high complexity Clinical Laboratory Improvement Amendments-(CLIA) certified laboratory. The test is acceptable for SARS-CoV-2 diagnosis, surveillance, and travel within the [facility] and to most countries. Please check with local testing authorities about requirements before travel.

The validation of bronchial specimens, tracheal aspirates, and sputum for this assay was developed and performance characteristics determined by [facility]. The validation of alternate specimen types has not been cleared or approved by the U.S. Food and Drug Administration (FDA). It has been determined that such clearance is not necessary. Influenza virus A RNA [Prese nce] in Specimen by [facility] with probe detection 05/17/2024 11:12:02 Positive Abnormal Negative Final Influenza A RNA detected by PCR (amplified probe). Test results reported to [facility]. Influenza virus B RNA [Prese nce] in Specimen by [facility] with probe detection 05/17/2024 11:12:02 Negative Negative Final No Influenza B RNA detected by PCR (amplified probe) Respiratory syncytial virus RNA [Identifier] in Specimen by [facility] with probe detection 05/17/2024 11:12:02 Negative Negative Final No Respiratory Syncytial Vir us RNA detected by PCR (amplified probe) Performing Location LABORATORY [address] Chirag Mckeon. [facility] [address]
--- OUTSIDE RECORDS SUMMARY | 2024-05-18 07:15 | External Medical Summary | Summary of Care ---
Author Name Unknown Organization [facility] Address [address] [place] [facility] [place] [address] Phone [phone] Care Team Providers Care [facility] Name Role Phone Patrick Zhao MD Primary Care Provider [phone] Reason for Visit * Reason Comments Medication Administration Xgeva * Episode Based Medications (Routine) - Authorized Specialty Diagnoses / Procedures Referred By Contjacinda t Referred To Contact Diagnoses Multiple myeloma not having achieved remission (HCC) Procedures GA DENOSUMAB INJECTION Li Yip CRNP 400 [facility] [place] [address] Phone: tel: fax: Hematology/Oncology Treatment, [address] [place] [address] Phone: tel: fax: Referral ID Status Reason Start Date Expiration Date V isits Requested Visits Authorized [id number] Authorized 04/14/2024 04/15/2025 [id number] Encounter Details Date Type Department Care Team (Late st Contact Info) Description 04/26/2024 10:00 AM EST Immunization/I njection Hematology/Oncology Treatment, [address] [place] [address] Multiple myeloma not having achieved remission (HCC)* Allergies Active Allergy Reactions Criticality Noted Date Comments Celecoxib Medium 02/01/2017 Metformin Diarrhea 02/18/2023 Prochlorperazine 11/18/1998 Intol,compazine documented as of this encounter (statuses as of 05/15/2024) Medications OneTouch Delica Plus [id number] USE TO TEST BLOOD SUGAR 2 TIMES [...] hemoglobin A1c goal of less than 7.0% ([facility]) USE TO TEST BLOOD SUGAR 2 [...] hemoglobin A1c goal of less than 7.0% ([facility]) INJECT 0.25 MG UNDER THE SKIN [...] hemoglobin A1c goal of less than 7.0% ([facility]) Use to inject Ozempic once weekly [...] (Hiberix)Indicatio ns:History of autologous stem cell transplant ([facility]) Inject 0.5 mL into a large muscle once for 1 dose. 0.5 mL 2:47 PM EST 03/22/19 025 Discontin ued(Medic ation List Clean Up) documented as of this encounter (statuses as of 05/15/2024) Active Problems Patient Care Coordination No te [...] as of this encounter (statuses as of 05/15/2024) Resolved Problems Problem Noted Date Diagnosed Date [...] as of this encounter (statuses as of 05/15/2024) Immunizations Name Administration Dates Next Due COVID-19 mRNA, LNP-s, No Pre serve, 2-Dose Series (Moderna) 07/23/2020,06/18/2020 COVID-19 mRNA, LNP-s, No Pre serve, 2-Dose Series (Pfizer) 03/03/2021 HEPATITIS B VACCINE, RECOMB, 20 MCG/ML, ADULT (HEPLISAV-B) 03/22/2024,01/21/2024 HIB Booster (Hiberix) 03/22/2024,01/21/2024 Pneumococcal Conjugate Vacc, 13 Valent (Prevnar) 03/16/2019 Pneumococcal Conjugate Vacci ne, 20-valent ([id number]) 03/22/2024,01/21/2024,02/08/2023(Defe rred: Patient Refused - Pt thinks [...] 07/20/2023 8:11 AM EDT VargasMelinda RN * Do you have serious difficulty [...] Laboratory, Mary [facility]bert [address] [phone] Mohan Hernandez [address] [phone] 05/24/2024 9:00 AM EDT Telemedicine Psychology [place] [address] [place] [address] [place] [address] [place], [place] [phone] 05/24/2024 10:00 AM EDT Immunization/Injection Hematology/Oncology Treatment, [place] [facility] [address] Kandice, Chair 10 Hem Onc [facility] 200 [facility] [place] [address] 06/07/2024 8:00 AM EDT Laboratory Laboratory, Mary Hebert [address] [address] Mary Laboratory [address] [address] 06/12/2024 10:00 AM EDT Office Visit Hematology/Oncology [facility] Kandice [place] 200 [facility] [place] [address] Rae Berrios MD 200 [facility] [place] [address] 06/22/2024 8:20 AM EDT Office Visit Family [facility], Mary Martinez [address] [address] Patrick Zhao MD [address] [address] 07/20/2024 10:30 AM EDT Office Visit Hematology Oncology [facility] [place] [address] [place] [address] Nick Moore MD [address] [place] [address] 07/20/2024 11:00 AM EDT Immunization/Injection Hematology Oncology [facility] [place] [address] [place] [address] Nurse, Med 4 [address] [place], [place] [phone] 08/15/2024 7:00 AM EDT Office Visit Neurology [facility] [place] 200 [facility] [place] [address] Yvonne Panchal PA-C 21 [facility] [place] [address] 08/25/2024 9:00 AM EDT Office Visit Pharmacy, [address] [place] [address] [place] [address] 09/05/2024 10:20 AM EDT [facility] [address] [facility] [place] [phone] Linda Mejia PA-C [address] [place] [address] [place] [address] 01/15/2025 9:00 AM EST Office Visit Nephrology, [facility] 200 [facility] [place] [address] Addison Salas MD 400 [facility] [phone] Health Maintenance Due Date Last Done Comments [...] patient or by statute hierarchy) Care Teams [facility] Relationship Specialty Start Date End Date Patrick Zhao MD [address] [address] PCP - General Family Medicine 02/28/24 documented as of this encounter
--- OUTSIDE RECORDS SUMMARY | 2024-05-18 07:15 | External Medical Summary | Summary of Care ---
Author Name Unknown Organization [facility] Address [address] [facility] [place] [address] Phone [phone] Care Team Providers Care Flooring Installer Name Role Phone Patrick Zhao MD Primary Care Provider [phone] Reason for Visit * Reason Onset Date Comments Sinus Problem Cough Congestion Sore Throat Respiratory Infection 05/17/2024 Encounter Details Date Type Department Care Team (Latest Contact Info) Description 05/17/2024 10:10 AM EDT [facility] [place] [phone] Jose Antonio Le PA-C [address] [employer] [place] [address] Viral URI with cough* Allergies Active Allergy Reactions Criticality Noted Date Comments Celecoxib Medium 02/01/2017 Metformin Diarrhea 02/18/2023 Prochlorperazine 11/18/1998 Intol,compazine documented as of this encounter (statuses as of 05/17/2024) Medications OneTouch Delica Plus [id number] USE TO TEST BLOOD SUGAR 2 TIMES [...] hemoglobin A1c goal of less than 7.0% ([facility]) USE TO TEST BLOOD SUGAR 2 TIMES [...] hemoglobin A1c goal of less than 7.0% ([facility]) INJECT 0.25 MG UNDER THE SKIN ONCE [...] (Shingrix)Indicati ons:History of autologous stem cell transplant ([facility]) Inject 0.5 mL into a large muscle [...] hemoglobin A1c goal of less than 7.0% ([facility]) Use to inject Ozempic once weekly 100 [...] (Prevnar) 03/16/2019 Pneumococcal Conjugate Vacci ne, 20-valent ([id number]) 03/22/2024,01/21/2024,02/08/2023(Defe rred: Patient Refused - Pt thinks [...] in this encounter Progress Notes * Jose Antonio Le PA-C - 05/17/2024 10:50 AM EDT [...] performed by Nicole Olvera DO at [facility] HEAD SURGERY PROCEDURE NEC Cluster headache nerve/blood [...] Medication Sig Dispense Refill OneTouch Delica Plus [id number] USE TO TEST BLOOD SUGAR 2 TIMES [...] care were discussed Jose Antonio Le PA-C [facility] 226 [facility] [address] documented in this encounter Nursing Notes * [...] Laboratory Laboratory, Mary Hebert [address] [phone] Mohan Hernandez [address] [address] 05/24/2024 9:00 AM EDT Telemedicine [address] [address] Quentin Gupta PsyD [address] [place] [address] 05/24/2024 10:00 AM EDT Immunization/Injection Hematology/Oncology Treatment, [place] [address] [place] [phone] Kandice, Chair 10 Hem Onc [facility] 200 [place] [address] 06/07/2024 8:00 AM EDT Laboratory Laboratory, [address] [address] [place], [address] [id number] 06/12/2024 10:00 AM EDT Office Visit Hematology/Oncology [facility] 200 [place] [phone] Rae Berrios MD 200 [facility], [place] [phone] 06/22/2024 8:20 AM EDT Office Visit [facility][1], [address] [address] Patrick Zhao MD 226 [place] [address] 07/20/2024 10:30 AM EDT Office Visit Hematology Oncology [place] [address] [place] [address] Nick Moore MD [address] [place], [place] [phone] 07/20/2024 11:00 AM EDT Immunization/Injection Hematology Oncology [facility] [place] [address] [place], [place] [phone] Nurse, Med 4 [address] [facility] [place] [address] 08/15/2024 7:00 AM EDT Office Visit Neurology [facility] 200 [facility] [place] [address] Yvonne Panchal, SUNNI [facility] [place] [phone] 08/25/2024 9:00 AM EDT Office Visit Pharmacy, [address] [place] [address] [place] [address] 09/05/2024 10:20 AM EDT Office Visit Dermatology, [facility] 226 [place] [address] Linda Mejia PA-C [address] [place] [address] [place] [address] 01/15/2025 9:00 AM EST Office Visit Nephrology, [facility] 200 [facility] [place] [address] Addison Salas MD 400 [facility] [place] [phone] Pending Results Name Type Priority Associated Diagnoses Date /Time INFLUENZA A/B RSV SARS-COV2,PCR Lab STAT Viral URI with cough 05/17/2024 11:12 AM EDT Health Maintenance Due Date Last Done Comments [...] Procedure Name Priority Date/Time Associated Diagnosis Comments XR CHEST 2 VIEWS STAT 05/17/2024 11:0 8 AM EDT Viral URI with cough documented in this encounter Results * XR CHEST 2 VIEWS (05/17/2024 11:08 [...] patient or by statute hierarchy) Care Teams Flooring Installer Relationship Specialty Start Date End Date Patrick Zhao MD [address] [facility] [place] [address] PCP - General Family Medicine 02/28/24 documented as of this encounter
--- OUTSIDE RECORDS SUMMARY | 2024-05-18 07:16 | External Medical Summary ---
Author Name Unknown Address Unknown Organization K01:LABORATORY [facility] [place] - [address] [place] [address] Laboratory Report Ordering Provider Test Date Status ADALBERTO ALEGRE 04/25/2024 07:38:09 Final Observation Date Value Abnormality Reference (Units ) Status Bilirubin, Direct 04/25/2024 07:38:09 0.1 0. 0-0.3 (mg/dL) Final Performing Location LABORATORY C - [address] [place] [address]
--- OUTSIDE RECORDS SUMMARY | 2024-05-18 07:16 | External Medical Summary | Summary of Care ---
Author Name Unknown Organization [facility] Address [address] [place] [place] [address] Phone [phone] Care Team Providers Care Financial Management Name Role Phone Patrick Zhao MD Primary Care Provider [phone] Encounter Details Date Type Department Care Team (Late st Contact Info) Description 04/24/2024 Orders Only Hematology/Oncology Treatment, [place] [address] [place] [address] Rae Berrios MD [address] [place] [address] Multiple myeloma not having achieved remission (HCC)*; Thrombocytopenia, congenital and hereditary (HCC); Erythrocytosis Allergies Active Allergy Reactions Criticality Noted Date Comments Celecoxib Medium 02/01/2017 Metformin Diarrhea 02/18/2023 Prochlorperazine 11/18/1998 Intol,compazine documented as of this encounter (statuses as of 04/24/2024) Medications OneTouch Delica Plus [id number] USE TO TEST BLOOD SUGAR 2 TIMES [...] as of this encounter (statuses as of 04/24/2024) Active Problems Patient Care Coordination No te [...] as of this encounter (statuses as of 04/24/2024) Resolved Problems Problem Noted Date Diagnosed Date [...] as of this encounter (statuses as of 04/24/2024) Immunizations Name Administration Dates Next Due COVID-19 mRNA, LNP-s, No Pre serve, 2-Dose Series (Moderna) 07/23/2020,06/18/2020 COVID-19 mRNA, LNP-s, No Pre serve, 2-Dose Series (Pfizer) 03/03/2021 HEPATITIS B VACCINE, RECOMB, 20 MCG/ML, ADULT (HEPLISAV-B) 03/22/2024,01/21/2024 HIB Booster (Hiberix) 03/22/2024,01/21/2024 Pneumococcal Conjugate Vacc, 13 Valent (Prevnar) 03/16/2019 Pneumococcal Conjugate Vacci ne, 20-valent ([id number]) 03/22/2024,01/21/2024,02/08/2023(Defe rred: Patient Refused - Pt thinks [...] Melinda Vargas RN documented in this encounter Plan of Treatment Upcoming Encounters Date Type Department Care Team (Late st Contact Info) Description 04/25/2024 8:00 AM EST Laboratory Laboratory, [address] [place] [address] [facility] [address] [place] [address] 04/26/2024 9:15 AM EST Pharmacy Pharmacy Hematology Oncology [address] [address] [facility] Hem/Onc [facility] [place] [place] [address] Multiple myeloma not having achieved remission (HCC)* 04/26/2024 10:00 AM EST Immunization/Injecti on Hematology/Oncolog y Treatment, [place] [address] [place] [address] 05/24/2024 9:00 AM EDT Telemedicine Psychology [place] [address] [place], [place] [phone] Quentin Gupta PsyD [facility] [place] [place] [address] 06/07/2024 8:00 AM EDT Laboratory Laboratory, [address] [place] [address] Mohan Hernandez [address] [address] 06/12/2024 10:00 AM EDT Office Visit Hematology/Oncolog y [facility] [address] [place] [address] Rae Berrios MD [address] [place] [address] 06/22/2024 8:20 AM EDT Office Visit Family [facility] [place] [facility] [place] [address] [place] [phone] Patrick Zhao MD [address] [place] [address] 07/20/2024 10:30 AM EDT Office Visit Hematology Oncology [facility] [address] [place] [address] Nick Moore MD [address] [place] [address] 07/20/2024 11:00 AM EDT Immunization/Injecti on Hematology Oncology [facility] [address] [place], [place] [phone] Nurse, Med [address], [place] [id number] 08/15/2024 7:00 AM EDT Office Visit Neurology [facility] [address] [place] [address] Yvonne Panchal PA-C [address] [place] [address] 08/25/2024 9:00 AM EDT Office Visit Pharmacy, [address] [place] [address] [place] [address] 09/05/2024 10:20 AM EDT Office Visit [facility]atology, [place] [facility] [address] [facility] [place] [address] Linda Mejia PAKaileyC [address] [place] [address] [place] [address] 01/15/2025 9:00 AM EST Office Visit Nephrology, [facility] [address] [facility] [place] [address] Addison Salas MD [address] [facility] [place] [id number] Scheduled Orders Name Type Priority Associated Diagnoses Orde r Schedule CBC WITH WBC DIFFERENTIAL Lab STAT Multiple myeloma not having achieved remission (HCC) Every Month for 12 Occurrences starting 04/24/2024 until 04/24/2025 COMPREHENSIVE METABOLIC PANEL Lab STAT Multiple myeloma not having achieved remission (HCC) Every Month for 12 Occurrences starting 04/24/2024 until 04/24/2025 PHOSPHORUS Lab Routine Multiple myeloma not having achieved remission (HCC) Every Month for 12 Occurrences starting 04/24/2024 until 04/24/2025 Health Maintenance Due Date Last Done Comments [...] Td or Tdap) 12/06/2024 12/06/2014, 05/06/1998 GFR 04/18/2025 04/18/2024, 03/09, 03/21/2024, Additional history exists Colonoscopy 03/11/2028 03/11/2018 Colorectal [...] myeloma, without mention of having achieved remission Thrombocytopenia, congenital and hereditary (HCC) Congenital and hereditary thrombocytopenic purpura Erythrocytosis Polycythemia, secondary Multiple myeloma not having achieved remission (HCC)- Primary Multiple myeloma, without mention of having achieved remission documented in this encounter Advance Directives * [...] patient or by statute hierarchy) Care Teams Financial Management Relationship Specialty Start Date End Date Patrick Zhao MD [address] [place] [address] PCP - General Family Medicine 02/28/24 documented as of this encounter
--- OUTSIDE RECORDS SUMMARY | 2024-05-18 07:16 | External Medical Summary ---
Author Name Unknown Address Unknown Organization K01:LABORATORY [facility] - [facility] [address] [facility] [address] [facility] [address] Laboratory Report Ordering Provider Test Date Status ADALBERTO ALEGRE 04/25/2024 07:38:09 Final Observation Date Value Abnormality Reference (Units ) Status WBC, Total 04/25/2024 07:38:09 4.75 4.00-10.80 (K/uL) Final RBC 04/25/2024 07:38:09 3.99 4.50-5.25 (M/uL) Final Hemoglobin 04/25/2024 07:38:09 12.7 Below low normal 14.0-16.8 (g/dL) Final HCT 04/25/2024 07:38:09 38.8 Below low normal 40.0-48.4 (%) Final MCV 04/25/2024 07:38:09 97.2 82.0-99.5 (fL) Final MCH 04/25/2024 07:38:09 31.8 27.0-34.0 (pg) Final MCHC 04/25/2024 07:38:09 32.7 32.0-36.0 (g/dL) Final RDW 04/25/2024 07:38:09 13.8 11.5-15.5 (%) Final Platelets 04/25/2024 07:38:09 117 Below low normal 140-400 (K/uL) Final MPV 04/25/2024 07:38:09 8.8 6.6-11.1 (fL) Final Nucleated erythrocytes/100 leukocytes [Ratio] in Blood by Automated count 04/25/2024 07:38:09 0 <=0 (/100 WBCs) Final Performing Location LABORATORY [facility] - [facility] [place] [address]
--- OUTSIDE RECORDS SUMMARY | 2024-05-18 07:16 | External Medical Summary ---
Author Name Unknown Address Unknown Organization K01:LABORATORY [facility] [place] - [address] [facility] [address] [place] [address] Laboratory Report Ordering Provider Test Date Status ADALBERTO ALEGRE 04/25/2024 07:38:09 Final Observation Date Value Abnormality Reference (Units ) Status BUN 04/25/2024 07:38:09 18 6-20 (mg/dL) Final Creatinine 04/25/2024 07:38:09 0.9 0.6-1.2 (mg/dL) Final Glomerular filtration rate/1.73 sq M.predicted [Volume Rate/Area] in Serum, Plasma or Blood by Creatinine-based formula (CKD-EPI) 04/25/2024 07:38:09 >90 >=60 (mL/min) Final eGFR is calculated based on the CKD-EPI 2020 equation. Sodium 04/25/2024 07:38:09 139 135-146 (m mol/L) Final Potassium 04/25/2024 07:38:09 4.3 3.5-5.1 (m mol/L) Final Cl 04/25/2024 07:38:09 108 Above high normal 98 -107 (mmol/L) Final CO2 04/25/2024 07:38:09 21 Below low normal 22- 32 (mmol/L) Final Anion gap 04/25/2024 07:38:09 10 7-15 (mmol /L) Final Glucose 04/25/2024 07:38:09 141 Above high normal 70 -120 (mg/dL) Final Albumin 04/25/2024 07:38:09 4.5 3.8-5.0 (g /dL) Final AST (Aspartate aminotransferase) 04/25/2024 07:38:09 30 10-50 (U/L) Fin al Alk Phos 04/25/2024 07:38:09 78 35-130 (U/ L) Final Bilirubin, Total 04/25/2024 07:38:09 0.3 <=1 .2 (mg/dL) Final Calcium 04/25/2024 07:38:09 9.2 8.4-10.2 ( mg/dL) Final Protein 04/25/2024 07:38:09 6.7 6.0-8.3 (g /dL) Final ALT (Alanine aminotransferase) 04/25/2024 07:38:09 66 Above high normal 10-50 (U/L) Final Performing Location LABORATORY [facility] [place] - [address] [facility] [address]
--- OUTSIDE RECORDS SUMMARY | 2024-05-18 07:16 | External Medical Summary | Summary of Care ---
Author Name Unknown Organization [facility] Address [address] [facility] [place] [address] Phone [phone] Care Team Providers Care Reel Blade Bender Furnace Tender Name Role Phone Patrick Zhao MD Primary Care Provider [phone] Reason for Visit * Reason Comments Vomiting Encounter Details Date Type Department Care Team (Late st Contact Info) Description 04/25/2024 8:00 AM EST Laboratory Laboratory, [place] [address] [facility] [address] [place], Laboratory [address] [facility] [place] [address] Multiple myeloma not having achieved remission (HCC); History of autologous stem cell transplant (HCC) Allergies Active Allergy Reactions Criticality Noted Date Comments Celecoxib Medium 02/01/2017 Metformin Diarrhea 02/18/2023 Prochlorperazine 11/18/1998 Intol,compazine documented as of this encounter (statuses as of 04/25/2024) Medications OneTouch Delica Plus [id number] USE TO TEST BLOOD SUGAR 2 TIMES [...] A1c goal of less than 7.0% ([facility]) USE TO TEST BLOOD SUGAR 2 TIMES [...] A1c goal of less than 7.0% ([facility]) INJECT 0.25 MG UNDER THE SKIN ONCE [...] (Shingrix)Indicati ons:History of autologous stem cell transplant ([facility]) Inject 0.5 mL into a large muscle [...] A1c goal of less than 7.0% ([facility]) Use to inject Ozempic once weekly 100 [...] as of this encounter (statuses as of 04/25/2024) Active Problems Patient Care Coordination No te [...] as of this encounter (statuses as of 04/25/2024) Resolved Problems Problem Noted Date Diagnosed Date [...] as of this encounter (statuses as of 04/25/2024) Immunizations Name Administration Dates Next Due COVID-19 mRNA, LNP-s, No Pre serve, 2-Dose Series (Moderna) 07/23/2020,06/18/2020 COVID-19 mRNA, LNP-s, No Pre serve, 2-Dose Series (Pfizer) 03/03/2021 HEPATITIS B VACCINE, RECOMB, 20 MCG/ML, ADULT (HEPLISAV-B) 03/22/2024,01/21/2024 HIB Booster (Hiberix) 03/22/2024,01/21/2024 Pneumococcal Conjugate Vacc, 13 Valent (Prevnar) 03/16/2019 Pneumococcal Conjugate Vacci ne, 20-valent ([id number]) 03/22/2024,01/21/2024,02/08/2023(Defe rred: Patient Refused - Pt thinks [...] Team (Late st Contact Info) Description 04/26/2024 9:15 AM EST Pharmacy Pharmacy Hematology Oncology [place] [address] [place] [address] [facility] Hem[facility]Onc [address] [place] [address] Multiple myeloma not having achieved remission (HCC)* 04/26/2024 10:00 AM EST Immunization/Injecti on Hematology/Oncolog [facility] Treatment, [place] [facility] [address] 05/24/2024 9:00 AM EDT Telemedicine Psychology [facility] [address] [place] [address] Quentin Gupta Ps [address] [place] [address] 06/07/2024 8:00 AM EDT Laboratory Laboratory, Mary [address] [place] [address] [address] Mary Laboratory [address] [place] [address] 06/12/2024 10:00 AM EDT Office Visit Hematology/Oncolog y [facility] [place] [address] [place] [address] Rae Berrios MD [address] [place] [address] 06/22/2024 8:20 AM EDT Office Visit Family Practice, Mary [place] [address] [place] [phone] Patrick Zhao MD [address] [facility] [place] [address] 07/20/2024 10:30 AM EDT Office Visit Hematology Oncology [facility] [place] [address] [place] [address] Nick Moore MD [address] [place] [address] 07/20/2024 11:00 AM EDT Immunization/Injecti on Hematology Oncology [facility] [address] [place] [address] Nurse, [facility] [address] [place], [place] [phone] 08/15/2024 7:00 AM EDT Office Visit Neurology [facility] [address] [facility] [place] [address] Yvonne Panchal PA-C [address] [facility] [place] [address] 08/25/2024 9:00 AM EDT Office Visit Pharmacy, [address] [place] [address] [place] [address] 09/05/2024 10:20 AM EDT Office [facility] [address] [place] [address] Linda Mejia PA-C [address] [place] [address] [place] [address] 01/15/2025 9:00 AM EST Office Visit Nephrology, [facility] 200 [facility] [place] [address] Addison Salas MD [address] [place] [address] Pending Results Name Type Priority Associated Diagnoses Date /Time CBC WITH WBC DIFFERENTIAL Lab STAT Multiple myeloma not having achieved remission (HCC) 04/25/2024 7:38 AM EST COMPREHENSIVE METABOLIC PANEL Lab STAT Multiple myeloma not having achieved remission (HCC) 04/25/2024 7:38 AM EST PHOSPHORUS Lab Routine Multiple myeloma not having achieved remission (HCC) 04/25/2024 7:38 AM EST CBC Lab STAT Multiple myeloma not having achieved remission (HCC) 04/25/2024 7:38 AM EST DIFFERENTIAL, AUTOMATED Lab STAT Multiple myeloma not having achieved remission (HCC) 04/25/2024 7:38 AM EST BILIRUBIN, DIRECT Lab Routine Multiple myeloma not having achieved remission (HCC) History of autologous stem cell transplant (HCC) 04/25/2024 7:38 AM EST Health Maintenance Due Date Last Done Comments [...] Diagnosis Multiple myeloma not having achieved remission (HCC) Multiple myeloma, without mention of having achieved remission History of autologous stem cell transplant (HCC) Peripheral stem cells replaced by transplant Multiple myeloma not having achieved remission (HCC)- [...] Agents on File Name Relationship Healthcare Agent [facility] Dori Hoover Adult Child Health Care Repr esentative (appointed verbally by patient or by statute hierarchy) Care Teams Reel Blade Bender Furnace Tender Relationship Specialty Start Date End Date Patrick Zhao MD [address] [place] [address] PCP - General Family Medicine 02/28/24 documented as of this encounter
--- OUTSIDE RECORDS SUMMARY | 2024-05-18 07:16 | External Medical Summary | Summary of Care ---
Author Name Unknown Organization [facility] Address [address] [place] [address] Phone [phone] Care Team Providers Care Area Secretary Name Role Phone Patrick Zhao MD Primary Care Provider [phone] Reason for Visit * Reason Comments Medication Management Encounter Details Date Type Department Care Team (Late st Contact Info) Description 04/26/2024 9:15 AM [facility] Pharmacy Pharmacy Hematology Oncology [facility] [address] [place] [address] [facility] Hem/Onc [address] [place] [address] Multiple myeloma not having achieved remission (HCC)* Allergies Active Allergy Reactions Criticality Noted Date Comments Celecoxib Medium 02/01/2017 Metformin Diarrhea 02/18/2023 Prochlorperazine 11/18/1998 Intol,compazine documented as of this encounter (statuses as of 04/20/2024) Medications OneTouch Delica Plus [id number] USE TO TEST BLOOD SUGAR 2 TIMES DAILY DX E11.9 200 Each 3 023 Active Calcium Carb-Cholecalcife rol 600-20 MG-MCG Oral Tablet (Calcium 600+D3) Take by mouth 2 times a day. Patient reported Active Loperamide HCl 2 MG Oral Tablet (Imodium A-D) Take 1 Tablet by mouth 4 times a day as needed for Diarrhea. 30 Tablet 024 Active Ondansetron HCl 8 MG Oral Tablet (Zofran) Take 1 Tablet by mouth every 8 hours as needed for Nausea. 30 Tablet 2 Active Aspirin 81 MG Oral Capsule Take by mouth. Ac tive Polyethylene Glycol 3350 17 GM Oral Packet (MiraLax) Take 1 Packet by mouth in the morning. Active Olmesartan Medoxomil 40 MG Oral Tablet (Benicar) Take 1 Tablet by mouth in the morning. 90 Tablet 3 Active Acyclovir 800 MG Oral Tablet (Zovirax)Indicati ons:Multiple myeloma in remission (HCC),History of autologous stem cell transplant (HCC) Take 1 Tablet by mouth in the morning and 1 Tablet before bedtime. 180 Tablet 1 03/04/20 24 8:58 AM EST Active OneTouch Verio In Vitro Strip (Glucose Blood)Indications :Type 2 diabetes mellitus with hemoglobin A1c goal of less than 7.0% ([facility]) USE TO TEST BLOOD SUGAR 2 TIMES DAILY DX E11.9 200 Strip 3 Active Zoster Vac Recomb Adjuvanted 50 MCG/0.5ML Intramuscular Suspension Reconstituted (Shingrix)Indicat ions:History of autologous stem cell transplant (HCC),Multiple myeloma not having achieved remission (HCC) Inject 0.5 mL into a large muscle now and repeat dose in 60 to 180 days 0.5 mL Active Additional Information Patient not taking.Reported on 02/28/2024 Ozempic (0.25 or 0.5 MG/DOSE) 2 MG/3ML Solution Pen-injector (Semaglutide(0.25 or 0.5MG/DOS))Indica tions:Type 2 diabetes mellitus with hemoglobin A1c goal of less than 7.0% ([facility]) INJECT 0.25 MG UNDER THE SKIN ONCE A WEEK. THEN INCREASE TO 0.5 MG IF TOLERATED. 9 mL 3 Active Famotidine 20 MG Oral Tablet (Pepcid)Indicatio ns:Gastroesophage al reflux disease, unspecified whether esophagitis present TAKE 1 TABLET BY MOUTH EVERY DAY 30 Tablet 5 Active Loratadine 10 MG Oral Tablet (Claritin) Take 1 Tablet by mouth in the morning. Active Triamcinolone Acetonide 0.1 % External Cream (Aristocort)Indic ations:Eczema, unspecified type Apply topically to affected area 2 times a day. To affected area. 453 g 3 024 Active Hydrocortisone 2.5 % External CreamIndications: Eczema, unspecified type Apply topically to affected area 3 times a day. To affected area. 84 g 3 024 Active NovoFine Plus Pen Needle 32G X 4 MM (Insulin Pen Needle) Use to inject Ozempic once weekly 100 Each 3 024 Active traZODone HCl 50 MG Oral Tablet (Desyrel)Indicati ons:Insomnia, unspecified type Take 1 Tablet by mouth at bedtime. 30 Tablet 2 025 Active Propranolol HCl 20 MG Oral Tablet (Inderal)Indicati ons:Primary hypertension,Trem or,Anxiety and depression Take 1 Tablet by mouth in the morning and 1 Tablet before bedtime. 025 Active Zoster Vac Recomb Adjuvanted 50 MCG/0.5ML Intramuscular Suspension Reconstituted (Shingrix)Indicat ions:History of autologous stem cell transplant ([facility]) Inject 0.5 mL into a large muscle now and repeat dose in 60 to 180 days 0.5 mL 03/22/19 25 2:47 PM EST 025 Active Sertraline HCl 50 MG Oral Tablet (Zoloft)Indicatio ns:Anxiety Take 1 Tablet by mouth in the morning. 30 Tablet 3 025 Active BD Pen Needle Yecenia U/F 32G X 4 MM (Insulin Pen Needle)Indication s:Type 2 diabetes mellitus with hemoglobin A1c goal of less than 7.0% ([facility]) Use to inject Ozempic once weekly 100 Each 3 025 Active LORazepam 1 MG Oral Tablet (Ativan)Indicatio ns:Anxiety state,Insomnia, unspecified type Take one at bedtime . May take 1/2- 1 tab during day as needed 45 Tablet 1 025 Active Atorvastatin Calcium 20 MG Oral Tablet (Lipitor)Indicati ons:Other hyperlipidemia TAKE 1 TABLET BY MOUTH EVERY DAY 100 Tablet 1 025 Active Lenalidomide 10 MG Oral Capsule (Revlimid)Indicat ions:Multiple myeloma not having achieved remission ([facility]) Take 1 Capsule by mouth in the morning. For 28 days of a 28 day cycle. Take medication same time every day and consistently with or without food.. Do not start before March 16, 2024. 28 Capsule 025 2024 Discontinued documented as of this encounter (statuses as of 04/20/2024) Active Problems Patient Care Coordination No te [...] as of this encounter (statuses as of 04/20/2024) Resolved Problems Problem Noted Date Diagnosed Date [...] as of this encounter (statuses as of 04/20/2024) Immunizations Name Administration Dates Next Due COVID-19 mRNA, LNP-s, No Pre serve, 2-Dose Series (Moderna) 07/23/2020,06/18/2020 COVID-19 mRNA, LNP-s, No Pre serve, 2-Dose Series (Pfizer) 03/03/2021 HEPATITIS B VACCINE, RECOMB, 20 MCG/ML, ADULT (HEPLISAV-B) 03/22/2024,01/21/2024 HIB Booster (Hiberix) 03/22/2024,01/21/2024 Pneumococcal Conjugate Vacc, 13 Valent (Prevnar) 03/16/2019 Pneumococcal Conjugate Vacci ne, 20-valent ([id number]) 03/22/2024,01/21/2024,02/08/2023(Defe rred: Patient Refused - Pt thinks [...] of Assessment Author No 07/20/2023 8:11 AM EDMelinda Pulliam RN * Because of a physical, mental, or emotional condition, do you have difficulty doing errands alone such as visiting a doctors office or shopping? (15 years old or older) Answer Date of Assessment Author No 07/20/2023 8:11 AM EDMelinda Pulliam RN documented as of this encounter Mental Status * Because of a physical, mental, or emotional condition, do you have serious difficulty concentrating, remembering, or making decisions? (5 years old or older) Answer Entry Date Author No 07/20/2023 8:11 AM EDT Melinda Vargas RN documented in this encounter Progress Notes * Apoorva Amezcua, [facility] - 04/20/2024 10:51 AM EST MEDICATION THERAPY MANAGEMENT LENALIDOMIDE TREATMENT PROGRESS NOTE [place] Susy [place] [id number] Patient Phone Numbers Communication: Chart review Treatment: Medication: Lenalidomide (Revlimid) Indication/Staging/Diagnosis Code: multiple myeloma / C90.00 Dose: 10mg daily x 2 years Administration: +/- food Start Date: 12/06/23 Primary Casing Crew/Oncologist: Dr. Berrios Supportive Care Meds: Ondansetron Prophylactic Meds: Acyclovir 800 mg PO BID See anticoagulant below Relevant Chronic Medications: Category Medications Pertinent Notes Antihypertensives Olmesartan 40mg daily Propranolol 10mg TID Per PCP Per neurology Antidiabetic Semaglutide Per DM [facility] Anticoagulation ASA 81 mg daily Pt hx Start Parameters: Begin after adequate hematologic recovery [ANC >=1,000/mm3; platelets >=75,000/mm3] Treatment History: 03/17/23-06/01/23: DaraVRd 07/21/23: BMT Assessment and Plan: Per OV 04/19/[address] Berrios, pt continues to voice concerns about maintenance lenalidomide and treatment was discontinued MTM to discharge pt from clinic at this time Apoorva Amezcua, PharmD, BCOP Clinical Pharmacist, [facility] Oral Chemotherapy [facility] 04/20/2024, 10:53 AM Time Spent on Encounter: 6 - 10 minutes Encounter Group: Hematology Encounter Interventions Item Category: Oral Chemotherapy Lenalidomide Problem/Rationale: Safety: Adverse medication event - Undesirable effect Pharmacist Intervention(s): Clarification with Provider, Medication discontinued, and Medication reconciliation Magnitude of Intervention: Modification of medication for asymtomatic patients (Level 2) documented in this encounter Plan of Treatment Upcoming Encounters Date Type Department Care Team (Late st Contact Info) Description 04/25/2024 8:00 AM EST Laboratory Laboratory, [address] [place] [phone] Mary, Laboratory [address] [place] [address] 04/26/2024 10:00 AM EST Immunization/Injection Hematology/Oncology Treatment, [place] [address] [facility] [place] [phone] 05/24/2024 9:00 AM EDT Telemedicine Psychology [address] [address] Quentin Gupta [facility] [address] [place] [address] 06/07/2024 8:00 AM EDT Laboratory Laboratory, [address] [place] [phone] Mary, Laboratory [address] [place] [address] 06/12/2024 10:00 AM EDT Office Visit Hematology/Oncology [facility] [address] [facility], [place] [phone] Rae [facility]rios MD [address] [facility] [address] 06/22/2024 8:20 AM EDT Office Visit [facility], [place] [address] [place] [phone] Patrick Zhao MD [address] [place] [address] 07/20/2024 10:30 AM EDT Office Visit Hematology Oncology [facility] [place] [address] [place] [address] Nick Moore MD [address], [place] [phone] 07/20/2024 11:00 AM EDT Immunization/Injection Hematology Oncology [facility] [place] [address] [place] [address] Nurse, Med [address] [place] [address] 08/15/2024 7:00 AM EDT Office Visit Neurology [address] [place] [address] Yvonne Panchal PA-C [address] [facility] [place] [address] 08/25/2024 9:00 AM EDT Office Visit Pharmacy, [address] [place] [address] [place] [address] 09/05/2024 10:20 AM EDT Office Visit Dermatology, [address] [place] [phone] Linda Mejia PA-C [address] [place] [address] [place] [address] 01/15/2025 9:00 AM EST Office Visit Nephrology, [facility] 200 [facility] [place] [address] Addison Salas MD [address] [place] [address] [place] [address] Health Maintenance Due Date Last Done Comments [...] patient or by statute hierarchy) Care Teams Area Secretary Relationship Specialty Start Date End Date Patrick Zhao MD [address] [facility] [place] [address] PCP - General Family Medicine 02/28/24 documented as of this encounter
--- OUTSIDE RECORDS SUMMARY | 2024-05-18 07:16 | External Medical Summary ---
Author Name Unknown Address Unknown Organization K01:[facility] - [address] [place] [address] Laboratory Report Ordering Provider Test Date Status ADALBERTO ALEGRE 04/25/2024 07:38:09 Final Observation Date Value Abnormality Reference (Units ) Status Phosphate 04/25/2024 07:38:09 2.5 2.5-4.8 (m g/dL) Final Performing Location [facility] - [address] [place] [address]
--- OUTSIDE RECORDS SUMMARY | 2024-05-18 07:16 | External Medical Summary ---
Author Name Unknown Address Unknown Organization K01:[facility] - [address] [facility] [place] [address] Laboratory Report Ordering Provider Test Date Status ADALBERTO ALEGRE 04/25/2024 07:38:09 Final Observation Date Value Abnormality Reference (Units ) Status SYNC LEUKOCYTES IN BLOOD BY AUTOMATED COUNT 04/25/2024 07:38:09 4.75 4.00-10.80 (K/uL) Final Segs 04/25/2024 07:38:09 53.5 40.0-75.0 (%) Final Lymphs % 04/25/2024 07:38:09 30.1 18.0-42.0 (%) Final Monos 04/25/2024 07:38:09 12.2 Above high normal 1.0-11.0 (%) Final Eosinophils 04/25/2024 07:38:09 2.5 0.0-6.0 (%) Final Basos 04/25/2024 07:38:09 1.5 0.0-2.0 (%) Final Immature Granulocyte, Percent 04/25/2024 07:38:09 0.2 0.0-2.0 (%) Final Absolute Segs 04/25/2024 07:38:09 2.54 1.80-7.70 (K/uL) Final Lymphs, absolute 04/25/2024 07:38:09 1.43 1.00-4.80 (K/ul) Final Monos, Abs 04/25/2024 07:38:09 0.58 0.00-1.10 (K/uL) Final Eos, Abs 04/25/2024 07:38:09 0.12 0.00-0.70 (K/uL) Final Basos, Abs 04/25/2024 07:38:09 0.07 0.00-0.20 (K/uL) Final Immature Granulocytes, Number 04/25/2024 07:38:09 0.01 0.00-0.20 (K/uL) Final Performing Location LABORATORY [facility] - [address] [facility] [address]
[2024-05-18 07:17] LABS: Hematocrit (blood only) 34.6 % (42.0-52.0); Hemoglobin 11.9 g/dl (14.0-18.0); Mean Corpuscular Hemoglobin 32.2 pg (25.0-34.0); Mean Corpuscular Hgb Conc 34.4 g/dL (32.0-36.0); Mean Corpuscular Volume 93.5 fL (80.0-100.0); Mean Platelet Volume 8.5 fL (9.4-12.4); Platelet Count 96 K/uL (130-400); RDW Coefficient of Variation 14.3 % (11.5-14.5); RDW Standard Deviation 48.3 fL (36.4-46.3); White Blood Count 6.01 K/ul (4.8-10.8)
--- OUTSIDE RECORDS SUMMARY | 2024-05-18 07:17 | External Medical Summary ---
Author Name Unknown Address Unknown Organization K01:[facility] - [address] [place] [address] Laboratory Report Ordering Provider Test Date Status ADALBERTO ALEGRE 04/18/2024 07:39:51 Final Observation Date Value Abnormality Reference (Units ) Status Phosphate 04/18/2024 07:39:51 2.3 Below low normal 2.5 -4.8 (mg/dL) Final Performing Location [facility] - [address] [place] [address]
--- OUTSIDE RECORDS SUMMARY | 2024-05-18 07:17 | External Medical Summary | Summary of Care ---
Author Name Unknown Organization [facility] Address [address] [facility] [place] [address] Phone [phone] Care Team Providers Care Paraprofessional Interpreter Name Role Phone Patrick Zhao MD Primary Care Provider [phone] Reason for Visit * Reason Onset Date Comments FYI 04/20/2024 Encounter Details Date Type Department Care Team (Late st Contact Info) Description 04/20/2024 Telephone Hematology/Oncology [facility] [place] [address] [place] [phone] Rae Berrios MD [address] [place] [address] FYI Allergies Active Allergy Reactions Criticality Noted Date Comments Celecoxib Medium 02/01/2017 Metformin Diarrhea 02/18/2023 Prochlorperazine 11/18/1998 Intol,compazine documented as of this encounter (statuses as of 04/20/2024) Medications OneTouch Delica Plus [id number] USE TO TEST BLOOD SUGAR 2 TIMES [...] as needed for Nausea. 30 Tablet 2 024 Active Aspirin 81 MG Oral Capsule Take by mouth. Ac tive Polyethylene Glycol 3350 17 GM Oral Packet (MiraLax) Take 1 Packet by mouth in the morning. Active Olmesartan Medoxomil 40 MG Oral Tablet (Benicar) Take 1 Tablet by mouth in the morning. 90 Tablet 3 024 Active Acyclovir 800 MG Oral Tablet (Zovirax)Indicati ons:Multiple myeloma in remission (HCC),History of autologous stem cell transplant (HCC) Take 1 Tablet by mouth in the morning and 1 Tablet before bedtime. 180 Tablet 1 03/04/20 24 8:58 AM EST Active OneTouch Verio In Vitro Strip (Glucose Blood)Indications :Type 2 diabetes mellitus with hemoglobin A1c goal of less than 7.0% ([facility]) USE TO TEST BLOOD SUGAR [...] hemoglobin A1c goal of less than 7.0% ([facility]) INJECT 0.25 MG UNDER THE SKIN ONCE A WEEK. THEN INCREASE TO 0.5 MG IF TOLERATED. 9 mL 3 Active Famotidine 20 MG Oral Tablet (Pepcid)Indicatio ns:Gastroesophage al reflux disease, unspecified whether esophagitis present TAKE 1 TABLET BY MOUTH EVERY DAY 30 Tablet 5 024 Active Loratadine 10 MG Oral Tablet (Claritin) [...] (Shingrix)Indicat ions:History of autologous stem cell transplant ([facility]) Inject 0.5 mL into a [...] hemoglobin A1c goal of less than 7.0% ([facility]) Use to inject Ozempic once [...] (Revlimid)Indicat ions:Multiple myeloma not having achieved remission (HCC) Take 1 Capsule by mouth in the [...] (Prevnar) 03/16/2019 Pneumococcal Conjugate Vacci ne, 20-valent ([id number]) 03/22/2024,01/21/2024,02/08/2023(Defe rred: Patient Refused - Pt thinks [...] encounter Miscellaneous Notes * Telephone Encounter - Caroline Rivero CPhT - 04/20/2024 10:37 AM EST Per OV note, maintenance Revlimid discontinued. [facility] tech will not obtain new Ceglene authorization at this time. Caroline Arredondo Steel [employer] III / Oral Chemotherapy Clinic [facility] 04/20/2024 10:38 AM documented in this encounter Plan of Treatment Upcoming Encounters Date Type Department Care Team (Late st Contact Info) Description 04/25/2024 8:00 AM EST Laboratory [facility], [place] [facility] [address] [facility] [place] [place] [phone] [place], [facility] [address] [place] [address] 04/26/2024 9:15 AM EST Pharmacy Pharmacy Hematology Oncology [place] [address] [place] [address] [facility] Hem/Onc [facility] [place] [address] Multiple myeloma not having achieved remission (HCC)* 04/26/2024 10:00 AM EST Immunization/Injecti on Hematology/Oncolog y Treatment, [place] [address] [place] [phone] 05/24/2024 9:00 AM EDT Telemedicine Psychology [facility], [place] [address] [place] [address] Quentin Gupta PsyD [address] [place], [place] [phone] 06/07/2024 8:00 AM EDT Laboratory Laboratory, [place] [facility] [address] [facility] [address] [place], [facility] [address] [place] [address] 06/12/2024 10:00 AM EDT Office Visit Hematology/Oncolog y [facility] [address] [place] [phone] Rae Berrios MD 200 [place] [address] 06/22/2024 8:20 AM EDT Office Visit Family [facility], [place] [facility] [place] [address] [place] [address] Patrick Zhao MD [address] [place], [place] [phone] 07/20/2024 10:30 AM EDT Office Visit Hematology Oncology [facility], [place] [address] [place] [phone] Nick Moore MD [address] [place] [address] 07/20/2024 11:00 AM EDT Immunization/Injecti on Hematology Oncology [facility], [place] [address] [place] [address] Nurse, Med [address] [place] [address] 08/15/2024 7:00 AM EDT Office Visit Neurology [facility] 200 [facility] [place] [address] Yvonne Panchal PA-C [address] [facility] [place] [address] 08/25/2024 9:00 AM EDT Office Visit Pharmacy, [address] [place] [address] [place] [address] 09/05/2024 10:20 AM EDT Office Visit Dermatology, [facility] [address] [facility] [place] [phone] Linda Mejia PA-C [address] [place] [address] [place] [address] 01/15/2025 9:00 AM EST Office Visit Nephrology, [facility] 200 [facility] [place] [address] Addison Salas MD [address] [facility] [place] [address] Health Maintenance Due Date Last Done Comments [...] patient or by statute hierarchy) Care Teams Paraprofessional Interpreter Relationship Specialty Start Date End Date Patrick Zhao MD [address] [place] [address] PCP - General Family Medicine 02/28/24 documented as of this encounter
--- OUTSIDE RECORDS SUMMARY | 2024-05-18 07:17 | External Medical Summary | Summary of Care ---
Author Name Unknown Organization [facility] Address [address] [facility] [place] [address] Phone [phone] Care Team Providers Care Netezza Architect Name Role Phone Patrick Zhao MD Primary Care Provider [phone] Reason for Visit * Reason Comments Outpatient Testing Encounter Details Date Type Department Care Team (Late st Contact Info) Description 04/18/2024 8:00 AM EST Laboratory Laboratory, [place] [facility] [address] [place] [phone] [place], Laboratory [address] [facility] [address] Multiple myeloma not having achieved remission (HCC) Allergies Active Allergy Reactions Criticality Noted Date Comments Celecoxib Medium 02/01/2017 Metformin Diarrhea 02/18/2023 Prochlorperazine 11/18/1998 Intol,compazine documented as of this encounter (statuses as of 04/18/2024) Medications OneTouch Delica Plus [id number] USE TO TEST BLOOD SUGAR 2 TIMES [...] 4 8:58 AM EST 12/16/19 24 Active OneTouch Verio In Vitro Strip (Glucose Blood)Indications: Type 2 diabetes mellitus with hemoglobin A1c goal of less than 7.0% ([facility]) USE TO TEST BLOOD SUGAR [...] A1c goal of less than 7.0% ([facility]) INJECT 0.25 MG UNDER THE [...] bedtime. 30 Tablet 2 03/09/19 25 Active Lenalidomide 10 MG Oral Capsule (Revlimid)Indicati ons:Multiple myeloma not having achieved remission (HCC) Take 1 Capsule by mouth in the morning. For 28 days of a 28 day cycle. Take medication same time every day and consistently with or without food.. Do not start before March 16, 2024. 28 Capsule 03/16/19 25 Active Propranolol HCl 20 MG Oral [...] A1c goal of less than 7.0% ([facility]) Use to inject Ozempic once [...] as of this encounter (statuses as of 04/18/2024) Active Problems Patient Care Coordination No te [...] as of this encounter (statuses as of 04/18/2024) Resolved Problems Problem Noted Date Diagnosed Date [...] as of this encounter (statuses as of 04/18/2024) Immunizations Name Administration Dates Next Due COVID-19 mRNA, LNP-s, No Pre serve, 2-Dose Series (Moderna) 07/23/2020,06/18/2020 COVID-19 mRNA, LNP-s, No Pre serve, 2-Dose Series (Pfizer) 03/03/2021 HEPATITIS B VACCINE, RECOMB, 20 MCG/ML, ADULT (HEPLISAV-B) 03/22/2024,01/21/2024 HIB Booster (Hiberix) 03/22/2024,01/21/2024 Pneumococcal Conjugate Vacc, 13 Valent (Prevnar) 03/16/2019 Pneumococcal Conjugate Vacci ne, 20-valent ([id number]) 03/22/2024,01/21/2024,02/08/2023(Defe rred: Patient Refused - Pt thinks [...] Care Team (Late st Contact Info) Description 04/18/2024 8:30 AM EST Telemedicine Psychology [address] [address] Quentin Gupta PsyD [address] [place] [address] 04/19/2024 9:00 AM EST Pharmacy Pharmacy Hematology Oncology [address] [address] [facility] Hem[facility]Onc [address] [place] [address] 04/19/2024 12:30 PM EST Office Visit Hematology/Oncology [facility] Kandice [place] [address] [facility] [place] [phone] Rae Berrios MD 200 [facility] [place] [address] 04/19/2024 1:00 PM EST Immunization/Injection Hematology/Oncology Treatment, [place] [address] [place] [address] Kandice, Chair 9 Hem Onc [facility] 200 [facility] [place] [address] 05/22/2024 8:00 AM EDT Laboratory Laboratory, [facility] [address] [facility] [address] [facility] [address] [facility] [place] [address] 06/22/2024 8:20 AM EDT Office Visit [facility], [place] [address] [facility] [place] [address] Patrick Zhao MD 226 [facility] [place] [phone] 07/20/2024 10:30 AM EDT Office Visit Hematology Oncology [facility] [address] [place] [address] Nick Moore MD [address], [place] [phone] 07/20/2024 11:00 AM EDT Immunization/Injection Hematology Oncology [facility] [address], [place] [phone] Nurse, Med [address], [place] [phone] 08/15/2024 7:00 AM EDT Office Visit Neurology [facility] 200 [facility], [place] [phone] Yvonne Panchal [facility]-C [facility] [place] [address] 08/25/2024 9:00 AM EDT Office Visit Pharmacy, [address] [place] [address] [place] [address] 09/05/2024 10:20 AM EDT Office Visit Dermatology, [place] [address] [place] [address] Linda Mejia, PA-C [address] [place] [address] [place] [address] 01/15/2025 9:00 AM EST Office Visit Nephrology, [facility] 200 [facility] [place] [address] Addison Salas MD 400 [facility] [place] [address] Pending Results Name Type Priority Associated Diagnoses Date /Time CBC WITH WBC DIFFERENTIAL Lab STAT Multiple myeloma not having achieved remission (HCC) 04/18/2024 7:39 AM EST COMPREHENSIVE METABOLIC PANEL Lab STAT Multiple myeloma not having achieved remission (HCC) 04/18/2024 7:39 AM EST CBC Lab STAT Multiple myeloma not having achieved remission ([facility]) 04/18/2024 7:39 AM EST DIFFERENTIAL, AUTOMATED Lab STAT Multiple myeloma not having achieved remission ([facility]) 04/18/2024 7:39 AM EST Health Maintenance Due Date Last [...] Td or Tdap) 12/06/2024 12/06/2014, 05/06/1998 GFR 04/04/2025 04/04/2024, 03/08, 02/07/2024, Additional history exists Colonoscopy 03/11/2028 03/11/2018 Colorectal [...] patient or by statute hierarchy) Care Teams Netezza Architect Relationship Specialty Start Date End Date Patrick Zhao MD [address] [place] [address] PCP - General Family Medicine 02/28/24 documented as of this encounter
--- OUTSIDE RECORDS SUMMARY | 2024-05-18 07:17 | External Medical Summary | Summary of Care ---
Author Name Unknown Organization [facility] Address [address] [place] [address] Phone [phone] Care Team Providers Care Cdl Team Truck Driver Name Role Phone Patrick Zhao MD Primary Care Provider [phone] Encounter Details Date Type Department Care Team (Late st Contact Info) Description 04/18/2024 8:30 AM EST Telemedicine Psychology [facility] [address] [place] [address] Quentin Gupta PsyD [address] [place] [address] Adjustment disorder with anxious mood* Allergies Active Allergy Reactions Criticality Noted Date Comments Celecoxib Medium 02/01/2017 Metformin Diarrhea 02/18/2023 Prochlorperazine 11/18/1998 Intol,compazine documented as of this encounter (statuses as of 04/18/2024) Medications OneTouch Delica Plus [id number] USE TO TEST BLOOD SUGAR 2 TIMES [...] Tablet 1 4 8:58 AM EST 12/16/19 Active OneTouch Verio In Vitro Strip (Glucose Blood)Indications: Type 2 diabetes mellitus with hemoglobin A1c goal of less than 7.0% ([facility]) USE TO TEST BLOOD SUGAR [...] hemoglobin A1c goal of less than 7.0% ([facility]) INJECT 0.25 MG UNDER THE [...] Active Propranolol HCl 20 MG Oral Tablet (Inderal)Jerrytio ns:Primary hypertension,Tremo r,Anxiety and depression Take 1 Tablet by mouth in the morning and 1 Tablet before bedtime. 03/22/19 25 Active Zoster Vac Recomb Adjuvanted 50 MCG/0.5ML Intramuscular Suspension Reconstituted (Shingrix)Indicati ons:History of autologous stem cell transplant ([facility]) Inject 0.5 mL into a [...] hemoglobin A1c goal of less than 7.0% ([facility]) Use to inject Ozempic once weekly 100 Each 3 03/28/19 25 Active LORazepam 1 MG Oral Tablet (Ativan)Indication s:Anxiety state,Insomnia, unspecified type Take one at bedtime . May take 1/2- 1 tab during day as needed 45 Tablet 1 04/13/19 25 Active Atorvastatin Calcium 20 MG Oral Tablet (Lipitor)Charismao ns:Other hyperlipidemia TAKE 1 TABLET BY MOUTH EVERY DAY 100 Tablet 1 02/07/20 25 Active documented as of this encounter [...] (Prevnar) 03/16/2019 Pneumococcal Conjugate Vacci ne, 20-valent ([id number]) 03/22/2024,01/21/2024,02/08/2023(Defe rred: Patient Refused - Pt thinks [...] documented in this encounter Progress Notes * Quentin Gupta PsyD - 04/18/2024 8:30 AM EST BEHAVIORAL MEDICINE PROGRESS NOTE [facility] Psychology [place] [address] 04/18/2024 Patient location: HOME. I was in a hospital or clinic location. After connecting through telephone,patient was verified with two unique identifiers. Patient (or authorized legal tour sales representative) was then informed that this was a Telemedicine visit and being conducted confidentially over secure lines. Methods to assure confidentiality were taken. Patient acknowledged consent and understanding of pr ivacy and security of the Telemedicine visit. The patient agreed to participate. Provider reviewed elements of Outpatient Services Description including limits of confidentiality, how to contact the department, risks and benefits of treatment and consent for treatment. Patient was last seen by me on: 04/18/2024 03/07/2024 Start Time: 8:30 AM Stop Time: 9:08 AM Total Time: 38 mins Type of Visit: Individual Visit Diagnosis: ICD-10-CM 1. Adjustment disorder with anxious mood F43.22 Cancer Diagnosis: multiple myeloma SUMMARY AND PLAN Hernan Rodriguez is a 67 year old male who was diagnosed with Multiple Myeloma in 02/2023. Per patient report, he has tolerated treatment w/ limited difficulty, with side effects including fatigue and nausea. Patient met with this check writer for a psychosocial assessment for readiness for transplant. 12/02/2023: Discussed close friend's recent admission to hospice (pancreatic recurrence) and association to self. Managed connected cognitions/emotions w/ application of cognitive behavioral therapy (beliefs associated w/ recurrence and suffering). Further examined concerns for side effects w/ Revlimid restart, providing additional psychotherapeutic support. Encouraged application of cognitive reframing strategies throughout follow up period. 12/30/2023: Notes continued gains in abilities and sense of self. Discussed w/in context of identity, exploring statement "I now realize that I'm not 100% but I'm okay with that." Applied cognitive techniques, in addition to, additional psychotherapeutic support. Reports improvements in anxious sxs, sleep, and further reductions in neuropathy. 01/21/2024: Discussed sleep hygiene and associated application regarding management of night time stimuli (i.e. television). Notes relative anxiety management, stating that he continues to function at an improved level. Describes continued dizziness w/ associated belief in connection to Revlamid. En couraged continued adherence and follow up w/ oncology. 03/07/2024: Hernan discussed adaptation to Revlamid and management of associated side effect (i.e. constipation, dizziness, rash). Notes sxs to be manageable w/ exception of rash. Assessed cognitions, focusing on "uncertainty" of side effect profile and prior hx of sensitivity to care. Applied cognitive behavioral techniques and additional psychoeducation in management of anxious cognitions. 04/18/2024: Hernan reports improvement in anxious sxs w/ Zoloft start, expressing pride in reduction of benzodiazepine use. We explored cognitions associated w/ desire to improve functional status (support self, be present for family) applying cognitive behavioral techniques. Encouraged conversation regarding options w/ oncology, as well as, continued medication adherence. Return: 4 weeks Action Plan: psychotherapeutic support, behavioral activation in accordance w/ SCT guidelines Treatment plan reviewed with the patient. Patient voices understanding and concurs with plan. VISIT DETAILS BELOW MEDICAL PROBLEMS Past Medical History: Diagnosis Date Depression Diverticulitis of small intestine HTN (hypertension) Migraine without aura SOCIAL HISTORY Social History Socioeconomic History Marital status: Spouse name: Not on file Number of children: Not on file Years of education: Not on file Highest education level: Not on file Occupational History Not on file Tobacco Use Smoking status: Never Passive exposure: Never Smokeless tobacco: Former Types: Snuff Vaping Use Vaping status: Never Used Substance and Sexual Activity Alcohol use: Not Currently Drug use: No Sexual activity: Not on file Other Topics Concern Service Not Asked Blood Transfusions Not Asked Caffeine Concern Yes Comment: 1-2 cups Occupational Exposure Not Asked Hobby Hazards Not Asked Sleep Concern Not Asked Stress Concern Not Asked Weight Concern Not Asked Special Diet Not Asked Back Care Not Asked Exercise Not Asked Bike Helmet Not Asked Seat Belt Not Asked Self-Exams Not Asked Social History Narrative Not on file Social Needs Financial Resource Strain: Low Risk (09/13/2023) Financial Resource Strain Do you have any trouble paying for your medications, or do you think you might in the future? (Adult - for ages 18 years and over): No Does your family have trouble paying for medicine? (Household - for ages 0-17 years): Not on file Food Insecurity: No Food Insecurity (09/13/2023) Food Insecurity Worried About Running Out of Food in the Last Year: Never true Ran Out of Food in the Last Year: Never true Do you need food for this week? (Adult - for ages 18 years and over): No Transportation Needs: No Transportation Needs (09/13/2023) Transportation Needs Do you have trouble getting a ride to medical visits or work? (Adult - for ages 18 years and over):Never True Does your family have a hard time getting a ride to doctors visits? (Household - for ages 0-17 years): Not on file Has lack of transportation kept you from medical appointments, meetings, work, or from getting things needed for daily living? Check all that apply. (Adult - for ages 18 years and over): No Do you (or your family) have trouble finding or paying for a ride (transportation)? (Household - for ages 0-17 years): Not on file Social Connections: Socially Integrated (09/13/2023) Social Connections How often do you feel lonely or isolated from those around you? (Adult - for ages 18 years and over): Sometimes Housing Stability: Low Risk (09/13/2023) Housing Stability Do you currently live in a long-term or have no steady place to sleep at night? (Adult - for ages 18 years and over): No Do you think you are at risk of becoming homeless? (Adult - for ages 18 years and over): No Does your family worry about paying for your home or becoming homeless? (Household - for ages 0-17 years): Not on file Are you homeless or worried that you might be in the future? (Adult - for ages 18 years and over): No Are you (or your family) homeless or worried that you might be in the future? (Household - for ages0-17 years): Not on file MEDICATIONS Current Outpatient Medications Medication Sig Dispense Refill OneTouch Delica Plus [id number] USE TO TEST BLOOD SUGAR 2 TIMES [...] 81 MG Oral Capsule Take by mouth. Polyethylene Glycol 3350 17 GM Oral Packet (MiraLax) Take 1 Packet by mouth in the morning. Olmesartan Medoxomil 40 MG Oral Tablet (Benicar) Take 1 Tablet by mouth in the morning. 90 Tablet 3 Acyclovir 800 MG Oral Tablet (Zovirax) Take 1 Tablet by mouth in the morning and 1 Tablet before bedtime. 180 Tablet 1 OneTouch Verio In Vitro Strip (Glucose Blood) USE TO TEST BLOOD SUGAR 2 TIMES DAILY DX E11.9 200 Strip 3 Zoster Vac Recomb Adjuvanted 50 MCG/0.5ML Intramuscular Suspension Reconstituted (Shingrix) Inject 0.5 mL into a large muscle now and repeat dose in 60 to 180 days (Patient not taking: Reported on 02/28/2024) 0.5 mL 0 Ozempic (0.25 or 0.5 MG/DOSE) 2 MG/3ML [...] to inject Ozempic once weekly 100 Each3 traZODone HCl 50 MG Oral Tablet (Desyrel) Take 1 Tablet by mouth at bedtime. 30 Tablet 2 Lenalidomide 10 MG Oral Capsule (Revlimid) Take 1 Capsule by mouth in the morning. For 28 days of a28 day cycle. Take medication same time every day and consistently with or without food.. Do not start before March 16, 2024. 28 Capsule 0 Propranolol HCl 20 MG Oral Tablet (Inderal) [...] BY MOUTH EVERY DAY 100 Tablet 1 No current facility-administered medications for this visit. MED CHANGES/SIDE EFFECTS Zoloft 50 mg Trazodone 50 mg MENTAL STATUS AND BEHAVIORAL OBSERVATIONS: Appearance: within normal limits Behavior: within normal limits Speech: normal pitch, rate and volume Mood: euthymic Affect: Congruent with content of conversation Thought Process: within normal limits and goal directed Thought Content: within normal limits Intellectual Function: within normal limits Sensorium: alert and oriented to person, place, time and situation Cognition: grossly intact Insight/Judgment: good SYMPTOMS Overall Status - Stable Anxiety - Stable No questionnaires available. Outpatient Adult Therapy Treatment Plan Treatment plan was developed on 03/07/2024, treatment will continue to focus on goals below; Treatment update will occur when clinically indicated or by 09/03/2024. Patient's goals captured in patient's words: "feel better" Expected family or significant other involvement: Offer Support Type of Service:Individual Patients Strengths and Facilitating Factors to care: Recognizes need for change, Seeking help, Has hobbies, Good support system, and Cooperative Treatment Barriers: distance from home to clinic Crisis Planning: What I can do if I ever experience a crisis (much worse symptoms, severe distress or thoughts of self-harm): Call my provider or dial 911 and Talking to loved one or friend or trusted person People I can call in the event of a crisis: Family Member: Dori Additional resources I can utilize if the previous steps are ineffective (e.g: ED, hotlines): Suicide and Crisis Lifeline - 988 and [employer] access to crisis numbers Patient/ Family Received Copy of Treatment Plan Duration of Treatment Frequency of Treatment Yes, sent via Couchbase 5-7 sessions Every 4-6 weeks Patient Identified Needs/Goals Interventions Objective/ Discharge Criteria Problem/Need 1: Adjustment to Stressor: Illness and Anxiety Cognitive Behavioral Therapy (CBT), which includes psychoeducation, cognitive restructuring, relaxation/diaphragmatic breathing, problem-solving, and behavioral activation and Motivational interviewing PHQ<5 and GALDINO<5 Treatment/Behavioral/Cognitive Goals: 1) Psychoeducation 2) Cognitive Behavioral Therapy and cognitive restructuring 3) Adaptive coping and pacing w/in SCT guidelines RISK ASSESSMENT: [place]-SUICIDE SEVERITY RATING SCALE Frequent Screener [place] Suicide Severity Rating Scale Results 09/14/2023 13:17 [place] SUICIDE SEVERITY RATING SCALE (C-SSRS) Have you wished you were or wished you could go to sleep and not wake up? (In the Past Month or Since Last Visit) No Have you had any actual thoughts of killing yourself? (In the Past Month or Since Last Visit) No Have you ever done anything, started to do anything, or prepared to do anything to end your life? (Lifetime) No Level of Risk No Risk Identified Protective Factors Social Support/Family;Future Plans;Hopeful attitude and or beliefs Risk Factors History of Depression;Anxiety Plan: Patient provided with emergency phone numbers- TAPLINE and [facility] Psychiatry [phone]. Encouraged to proceed to the nearest ER 24hrs/7days if symptoms worsen or patient feels out of control with plan or intent to act on thoughts. Agrees to call back to the clinic with any additional concerns or difficulties. Quentin Gupta PsyD Psychology [place] [address] 04/18/2024 documented in this encounter Plan of Treatment Upcoming Encounters Date Type Department Care Team (Late st Contact Info) Description 04/19/2024 9:00 AM EST Pharmacy Pharmacy Hematology Oncology [facility], [address] [address] [facility] Hem/Onc [address] [place] [address] 04/19/2024 12:30 PM EST Office Visit Hematology/Oncology [facility] Kandice [place] 200 [facility] [place] [address] Rae Berrios MD 200 [facility] [place] [address] 04/19/2024 1:00 PM EST Immunization/Injection Hematology/Oncology Treatment, [place] [address] [place] [address] Kandice, Chair 9 Hem Onc [facility] 200 [place] [address] 05/22/2024 8:00 AM EDT Laboratory Laboratory, [address] [place] [address] Mohan [place] [address] [facility] [place] [address] 05/24/2024 9:00 AM EDT Telemedicine Psychology [facility], [address] [address] Quentin Gupta PsyD [address] [place] [address] 06/22/2024 8:20 AM EDT Office Visit Family [facility], [place] [address] [place] [address] Patrick Zhao MD [address] [place] [address] 07/20/2024 10:30 AM EDT Office Visit Hematology Oncology [facility], [place] [address] [place] [address] Nick Moore MD [address] [place] [address] 07/20/2024 11:00 AM EDT Immunization/Injection Hematology Oncology [facility], [place] [address] [place] [address] Nurse, Med [address] [place], [place] [phone] 08/15/2024 7:00 AM EDT Office Visit Neurology [facility] [address] [facility] [address] [place] [address] Yvonne Panchal PA-C 21 [place] [address] 08/25/2024 9:00 AM EDT Office Visit Pharmacy, [address] [place] [address] [place] [address] 09/05/2024 10:20 AM EDT [facility] 226 [facility] [place] [phone] Linda Mejia PA-C [address] [place] [address] [place] [address] 01/15/2025 9:00 AM EST Office Visit Nephrology, [facility] 200 [facility] [place] [address] Addison Salas MD 400 [facility] [place] [address] Health Maintenance Due Date [...] as of this encounter Visit Diagnoses Diagnosis Adjustment disorder with anxious mood- Primary Adjustment disorder with anxiety documented in this encounter Advance Directives * [...] patient or by statute hierarchy) Care Teams Cdl Team Truck Driver Relationship Specialty Start Date End Date Patrick Zhao MD 226 [facility] [place] [address] PCP - General Family Medicine 02/28/24 documented as of this encounter
--- OUTSIDE RECORDS SUMMARY | 2024-05-18 07:17 | External Medical Summary ---
Author Name Unknown Address Unknown Organization K01:LABORATORY C - [address] [place] [address] Laboratory Report Ordering Provider Test Date Status ADALBERTO ALEGRE 04/18/2024 07:39:51 Final Mantel Cell Lymphoma - Every week for 1 weeks, ever 2 weeks for cycles 2,3,and 4, then every month thereafter OR
Multiple Myeloma - Every week for 2 cycles, D1 and D15 of cycle 3, then every 4 weeks thereafter OR
Myelodysplastic Syndrome - Every week for 8 weeks, then every month thereafter Observation Date Value Abnormality Reference (Units ) Status WBC, Total 04/18/2024 07:39:51 2.95 Below low normal 4.00-10.80 (K/uL) Final RBC 04/18/2024 07:39:51 4.00 4.50-5.25 (M/uL) Final Hemoglobin 04/18/2024 07:39:51 12.9 Below low normal 14.0-16.8 (g/dL) Final HCT 04/18/2024 07:39:51 38.9 Below low normal 40.0-48.4 (%) Final MCV 04/18/2024 07:39:51 97.3 82.0-99.5 (fL) Final MCH 04/18/2024 07:39:51 32.3 27.0-34.0 (pg) Final MCHC 04/18/2024 07:39:51 33.2 32.0-36.0 (g/dL) Final RDW 04/18/2024 07:39:51 14.1 11.5-15.5 (%) Final Platelets 04/18/2024 07:39:51 148 140-400 (K/uL) Final MPV 04/18/2024 07:39:51 9.1 6.6-11.1 (fL) Final Nucleated erythrocytes/100 leukocytes [Ratio] in Blood by Automated count 04/18/2024 07:39:51 0 <=0 (/100 WBCs) Final Performing Location LABORATORY [facility] - [address] [facility] [address]
--- OUTSIDE RECORDS SUMMARY | 2024-05-18 07:17 | External Medical Summary | Summary of Care ---
Author Name Unknown Organization [facility] Address [address] [facility] [place] [address] Phone [phone] Care Team Providers Care Primary Mill Roller Name Role Phone Patrick Zhao MD Primary Care Provider [phone] Reason for Visit * Reason Comments Follow Up Encounter Details Date Type Department Care Team (Late st Contact Info) Description 04/19/2024 12:30 PM EST Office Visit Hematology/Oncology [facility] K[place] [address] [facility] [place] [phone] Rae Berrios MD [address] [facility] [place] [address] Multiple myeloma not having achieved remission (HCC)*; History of autologous stem cell transplant (HCC) Allergies Active Allergy Reactions Criticality Noted Date Comments Celecoxib Medium 02/01/2017 Metformin Diarrhea 02/18/2023 Prochlorperazine 11/18/1998 Intol,compazine documented as of this encounter (statuses as of 04/19/2024) Medications OneTouch Delica Plus [id number] USE TO TEST BLOOD SUGAR 2 TIMES [...] hemoglobin A1c goal of less than 7.0% ([facility]) USE TO TEST BLOOD SUGAR 2 [...] hemoglobin A1c goal of less than 7.0% ([facility]) INJECT 0.25 MG UNDER THE SKIN [...] (Shingrix)Indicati ons:History of autologous stem cell transplant ([facility]) Inject 0.5 mL into a large [...] hemoglobin A1c goal of less than 7.0% ([facility]) Use to inject Ozempic once weekly [...] as of this encounter (statuses as of 04/19/2024) Active Problems Patient Care Coordination No te [...] as of this encounter (statuses as of 04/19/2024) Resolved Problems Problem Noted Date Diagnosed Date [...] as of this encounter (statuses as of 04/19/2024) Immunizations Name Administration Dates Next Due COVID-19 mRNA, LNP-s, No Pre serve, 2-Dose Series (Moderna) 07/23/2020,06/18/2020 COVID-19 mRNA, LNP-s, No Pre serve, 2-Dose Series (Pfizer) 03/03/2021 HEPATITIS B VACCINE, RECOMB, 20 MCG/ML, ADULT (HEPLISAV-B) 03/22/2024,01/21/2024 HIB Booster (Hiberix) 03/22/2024,01/21/2024 Pneumococcal Conjugate Vacc, 13 Valent (Prevnar) 03/16/2019 Pneumococcal Conjugate Vacci ne, 20-valent ([id number]) 03/22/2024,01/21/2024,02/08/2023(Defe rred: Patient Refused - Pt thinks [...] Sign Reading Time Taken Comments Blood Pressure 148/87 04/19/2024 12:12 PM EST Pulse 67 04/19/2024 12:12 PM EST Temperature 36.1 C (97 F) 04/19/2024 12:12 PM EST Respiratory Rate - - Oxygen Saturation 98% 04/19/2024 12:12 PM EST Inhaled Oxygen Concentration - - Weight 89.8 kg (198 lb) 04/19/2024 12:12 PM EST Height - - Body Mass Index 28.41 02/21/2024 7:27 AM EST documented in this [...] EDT VargasMelinda RN * Do you have difficulty dressing [...] Date Author No 07/20/2023 8:11 AM EDT VargasMelinda RN documented in this encounter Progress Notes * Rae Berrios MD - 04/19/2024 1:05 PM EST Outpatient Consult Note Data Source: Patient, Epic record. Data Source: Patient, Epic record. 04/19/2024 1:05 PM Hernan Rodriguez [id number] 68 year old Patient Encounter: HEMATOLOGY/ONCOLOGY [facility] Cancer Diagnosis: IgG kappa multiple myeloma Current Treatment: On maintenance Revlimid post high-dose chemotherapy and stem cell transplant - start 12/06/2023 Previous Treatment: - 03/26/2023 completed radiation therapy to the left 3rd rib received total of 3000 cGy - Treated with daratumumab plus lenalidomide, bortezomib and Decadron He received 4 cycles daratumumab, velcade, revlimid and dexamethasone 03/17/23 through 06/01/23. - S/P High-dose chemotherapy followed by the stem cell transplant. Day 0 was on 07/21/2023. Oncologic History : 68-year-old male with history of multiple medical problems including hypertension, migraine headache, history of neck and back problem, tremors and tingling sensation in the lower extremity referred with the above diagnosis. Patient was also seen by Dr. Velazquez for possible giant cell arteritis and dryness. Patient is complaining generalized weakness. He is issues with neck pain and received injection in the past and following [facility]. He is very anxious and he is high blood pressure. He is complaining of occasional episode of dizziness. Denies any fever, night sweats, weight loss, new bone pain, nausea, vomiting, fever, night sweats, abdominal pain, change in the bowel habits, hematuria, hematochezia. Last CBC was done on 10/27/2017 and shows WBC count 5.11, hemoglobin 13.2 and platelet count 222,000. Last BMP was done on 07/31/2022 which shows creatinine 1.3 with normal calcium. On 12/24/2022 hadfurther blood test done including serum protein electrophoresis which shows M spike of 2.78. Immuneimmunofixation is positive for monoclonal IgG kappa gammopathy. IgG level was normal, IgA was 23 and IgM was 30. [place] light chain was 281.08 and the lambda was 8.9 with ratio of 31. He denies smoking. He snuff tobacco for over 50 years. Denies drinking. Family history significant for father was diagnosed of lung cancer. Bone marrow biopsy and aspirate was done on 02/08/2023 and it is consistent with the plasma cell myeloma with negative P 53. Plasma cells account for 80% in focal solid areas Comprehensive Final Diagnosis Summary Bone marrow, left posterior iliac crest, aspirate, biopsy, clot, touch imprints and peripheral smear: - Plasma cell myeloma. Summary of ancillary findings (please review individual reports for details): Cytogenetics: Abnormal karyotype: 45,X,-Y[7]/46,XY[13]. FISH PCM panel: Normal for the probes (p53/17q13.1/NF1/17q11, and IgH/14q32). QNS for the remainingprobes in the panel (13q-/-13, 1p32/1q21, and 5/9/15). Marrow Cellularity: varied in areas ranging form 30% to focally 80% hypercellular. Cellular Composition: similar to core touch preparation. Myelopoiesis: adequate with normal morphology and distribution. Erythropoiesis: adequate with normal morphology and distribution. Megakaryocytes: adequate with normal morphology and distribution. Trabecular Bone: unremarkable. Other: no lymphoid aggregates, granulomas. Blasts: not increased. Lymphocytes: not increased. Plasma cells: markedly increased with diffuse solid and interstitial pattern involving about 30% ofmarrow cellularity. The plasma cells account for 80% in focal solid areas. They are well to moderately differentiated. 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 The remaining thirteen cells show a normal male karyotype. Loss of the Y chromosome is an age-related change in older males, and is not considered clinically significant. PET scan was done on 02/15/2023 which shows hypermetabolic expansile lesion 8.1 x 7.7 cm anterior to left 3rd rib with a SUV of 6.5, and there is a 3 x 1.9 cm hypermetabolic lytic lesion within a probable T7 compression deformity. There is also 2 cm hypermetabolic lesion and 2.7 x 1.6 cm right Now he is status post high-dose chemotherapy and stem cell transplant. He received melphalan 200mg/m2 conditioning chemotherapy. He received his stem cell transplant on 07/21/2023. His complications post stem cell transplant included chemotherapy induced diarrhea, abdominal pain with possible colitis. Last bone marrow biopsy and aspirate was done on 10/25/2023 which revealed hypercellular bone low-level with 3-4% plasma cell. Diagnosis Bone marrow, right posterior iliac crest, aspirate, biopsy, clot, touch imprints: - Slightly hypercellular bone marrow with maturing trilineage hematopoiesis and low level involvement by kappa restricted plasma cells (approximately 3-4% of marrow cellularity). Interval History: He resumed taking maintenance Revlimid on 04/12/2024 and now return with increasing skin rash and neurotoxicity including tremors. He has a history of tremors which are getting worse when taking Revlimid. He is also complaining of generalized weakness and fatigue. LABS/IMAGING: Results for orders placed or performed in visit on 04/18/24 COMPREHENSIVE METABOLIC PANEL Result Value Ref Range BUN 14 6 - 20 mg/dL CREATININE 1.0 0.6 - 1.2 mg/dL EGFR 83 >=60 mL/min SODIUM 139 135 - 146 mmol/L POTASSIUM 4.2 3.5 - 5.1 mmol/L CHLORIDE 106 98 - 107 mmol/L CO2 23 22 - 32 mmol/L ANION GAP 10 7 - 15 mmol/L GLUCOSE 141 (H) 70 - 120 mg/dL Albumin 4.4 3.8 - 5.0 g/dL AST 26 10 - 50 U/L Alkaline Phosphatase 75 35 - 130 U/L Bilirubin, Total 0.4 <=1.2 mg/dL CALCIUM 9.1 8.4 - 10.2 mg/dL Protein 6.6 6.0 - 8.3 g/dL ALT 63 (H) 10 - 50 U/L CBC Result Value Ref Range WBC 2.95 (L) 4.00 - 10.80 K/uL RBC 4.00 4.50 - 5.25 M/uL HGB 12.9 (L) 14.0 - 16.8 g/dL HCT 38.9 (L) 40.0 - 48.4 % MCV 97.3 82.0 - 99.5 fL MCH 32.3 27.0 - 34.0 pg MCHC 33.2 32.0 - 36.0 g/dL RDW 14.1 11.5 - 15.5 % PLT 148 140 - 400 K/uL MPV 9.1 6.6 - 11.1 fL nRBCs 0 <=0 /100 WBCs DIFFERENTIAL, AUTOMATED Result Value Ref Range WBC 2.95 (L) 4.00 - 10.80 K/uL Neutrophils % 33.9 (L) 40.0 - 75.0 % Lymphocytes % 40.7 18.0 - 42.0 % Monocytes % 14.2 (H) 1.0 - 11.0 % Eosinophils % 9.2 (H) 0.0 - 6.0 % Basophils % 1.7 0.0 - 2.0 % Immature Granulocytes % 0.3 0.0 - 2.0 % Absolute Neutrophils 1.00 (L) 1.80 - 7.70 K/uL Absolute Lymphocytes 1.20 1.00 - 4.80 K/ul Absolute Monocytes 0.42 0.00 - 1.10 K/uL Absolute Eosinophils 0.27 0.00 - 0.70 K/uL Absolute Basophils 0.05 0.00 - 0.20 K/uL Absolute Immature Granulocytes 0.01 0.00 - 0.20 K/uL PHOSPHORUS Result Value Ref Range Phosphorus 2.3 (L) 2.5 - 4.8 mg/dL *Note: Due to a large number of results and/or encounters for the requested time period, some results have not been displayed. A complete set of results can be found in Results Review. Since the start taking Revlimid there is a decrease in the WBC count and ANC is 1000 now. REVIEW OF SYSTEMS: General: No Fever, chills, night sweats, or weight loss. HEENT: No change in visual acuity, blurred or double vision. No epistaxis, facial pain, nasal discharge or change in hearing. Denies dysphagia, no muscosal ulceration, or sores noted. Cardiovascular: No chest pain, COHEN, or palpitations Respiratory: No shortness of breath, cough, hemoptysis, or pleuritic chest pain Gastrointestinal: No abdominal pain, nausea, vomiting, diarrhea, rectal pain or bleeding Genitourinary: Denies Hematuria or dysuria Musculoskeletal: No bone pain Skin: WBC skin rash involving the face neck chest arms Neurologic: Increasing neuropathy and tremors Psychiatric: No vegetative signs of depression Endocrine: No symptoms of hypothyroidism or hyperglycemia Hematologic: No bleeding or lymph nodes noted As mentioned above, all of the systems were reviewed in full and are unremarkable. Past Medical History: Diagnosis Date Depression Diverticulitis of small intestine HTN (hypertension) Migraine without aura Current Outpatient Medications Medication Sig Dispense Refill OneTouch Delica Plus [id number] USE TO TEST BLOOD SUGAR 2 TIMES [...] No current facility-administered medications for this visit. Social History Tobacco Use Smoking status: Never Passive exposure: Never Smokeless tobacco: Former Types: Snuff Vaping Use Vaping status: Never Used Substance Use Topics Alcohol use: Not Currently Drug use: No Review of patient's allergies indicates: Allergen Reactions Celecoxib Metformin Diarrhea Prochlorperazine Intol,compazine PHYSICAL EXAMINATION: General Appearance: Healthy appearing patient in no acute distress BP 148/87 (BP Site: Left Arm, BP Position: Sitting, BP Cuff Size: Regular) | Pulse 67 | Temp 36.1 C (97 F) (Tympanic) | Wt 89.8 kg (198 lb) | SpO2 98% | BMI 28.41 kg/m | BSA 2.11 m Vitals reviewed. HEENT: No oral or pharyngeal masses, ulceration or thrush noted, no sinus tenderness. Neck is supple with no thyromegaly or JVD noted. Lymph Nodes: No lymphadenopathy noted in the occipital, pre and post auricular, cervical, supra andinfraclavicular, axillary, epitrochlear, inguinal, and popliteal region. Lungs/Thorax: Clear to auscultation, no accessory muscles of respiration being used. Heart: Regular rate and rhythm, normal S1, S2 Abdomen: Soft, nontender, bowel sounds present, no appreciable hepatosplenomegaly, no palpable masses Extremeties: Good pulses bilaterally, no peripheral edema. Skin: Maculopapular rash involving the face, arm, chest and back Musculoskeletal: No pain on palpation over bony prominence, no edema, no evidence of gout, no jointor bony deformity ASSESSMENT: 68-year-old male with history of multiple medical problems including hypertension, migraine headache, history of neck and back problem, tremors and tingling sensation in the lower extremity referred with possible diagnosis of IgG kappa gammopathy or smoldering/multiple myeloma. On the blood test patient has elevated kappa level with normal IgG level. The ratio of kappa and lambda free light chainis high. Patient had further workup done including bone marrow biopsy and aspirate which is positive for plasma cell multiple myeloma. PET scan is also positive for lesion in the left side of the rib spine and T7, T9 and femoral neck. Patient received radiation therapy to the left 3rd rib area and currently on chemotherapy includingcombination of Darzalex plus pertuzumab plus Decadron and lenalidomide with overall good tolerance.He has good response with the decrease in immunoglobulin level and light chain level. He received total of 4 cycles of induction chemotherapy including combination of Darzalex plus Revlimid, Velcade and Decadron with normalization in the IgG level. Follow-up PET scan shows good response without any evidence of new disease. He also had bone marrow biopsy done which shows 10% plasma cells. He was evaluated by the transplant team and underwent high-dose chemotherapy followed by the stem cell transplant. Day 0 was on 07/21/2023. He also had bone marrow biopsy and aspirate done which revealed 3-4% of the plasma cells. Currently he is taking Revlimid 10 mg and resumed taking on 04/12/2024. He again developed skin rash involving the face, back, neck, on and chest. He is also complaining of increasing neuropathy and tremors. Discussed with the patient and in detail about diagnosis and prognosis reviewed all the available blood test result with him. There is also decrease in the total WBC count and ANC since the start taking Revlimid. Patient also has a history of neuropathy. Options of further treatment were discussed. Maintenance Velcade is not a good option because of the history of neuropathy. The best optionis to discontinue maintenance treatment and follow the patient clinically. He has incurable diseaseand continues to be at risk for relapse. After detailed discussion he agreed with the plan PLAN: Discontinue maintenance Revlimid. He will return clinic for follow-up in 6 weeks with CBC, CMP and myeloma panel. The patient voiced understanding of all of the above. All questions and concerns were addressed in an apparently satisfactory manner. Rae Berrios MD (This note was completed using the dictation program Fluency Direct. As such, there may be misspellings, word substitutions, or other variations that should not change the essence of the clinical content of this encounter note. If there is need for further clarification, please direct questions to me.) documented in this encounter Nursing Notes * Zofia Barnett MED ASSIST - 04/19/2024 12:15 PM EST Patient identifed by name and birthdate Do you have any concerns about pain management for today's visit? Yes. Patient instructed to discuss pain concerns with provider during the visit today Living Will or Advance Directive for Health Care as noted on the problem list. [facility] is a way you can talk to your provider on line through e-mail. Would you like to sign up? I can activate it for you? ALREADY ACTIVE Filed Vitals: 04/19/24 1212 BP: 148/87 Pulse: 67 Temp: 36.1 C (97 F) TempSrc: Tympanic SpO2: 98% Weight: 89.8 kg (198 lb) Patient was instructed to not get up on the exam table/exam chair until directed and assisted by their provider; patient is to remain seated in the chair/ wheelchair/ exam table/ exam chair for fall prevention and safety reasons. Patient is aware to have assistance to step down off exam table/exam chair with personnel. Patient voiced full comprehension of instructions. Pt stated he is having shortness of breath, a rash, and tingling in hands and feet. Increased tremors with medications. With headaches. documented in this encounter Plan of Treatment Upcoming Encounters Date Type Department Care Team (Late st Contact Info) Description 04/25/2024 8:00 AM EST [facility], [place] [address] [place] [phone] Mohan Hernandez [address] [place] [address] 04/26/2024 9:15 AM EST Pharmacy Pharmacy Hematology Oncology [address] [phone] [facility], [facility] Hem/Onc [address] [place] [address] 04/26/2024 10:00 AM EST Immunization/Injection Hematology/Oncology Treatment, [place] [address] [place] [phone] 05/24/2024 9:00 AM EDT Telemedicine Psychology [place] [address] [place] [address] Quentin Gupta PsyD [facility] [place] [address] 06/07/2024 8:00 AM EDT Laboratory Laboratory, Mary [place] [address] [place] [address] [facility] [address] [place] [address] 06/12/2024 10:00 AM EDT Office Visit Hematology/Oncology [facility] [address] [place] [address] Rae Berrios MD [address] [place] [address] 06/22/2024 8:20 AM EDT Office Visit Family Practice, [place] [facility] [place] [address] [place] [address] Patrick Zhao MD [address] [facility] [place] [address] 07/20/2024 10:30 AM EDT Office Visit Hematology Oncology [facility], [place] [address] [place] [phone] Nick Moore MD [facility] [address] [place], [place] [id number] 07/20/2024 11:00 AM EDT Immunization/Injection Hematology Oncology [facility], [place] [address] [facility] [address] Nurse, [facility] [address] [facility] [address] 08/15/2024 7:00 AM EDT Office Visit Neurology [facility] [place] [address] [facility] [place] [address] Yvonne Panchal PA-C [address] [facility] [place] [address] 08/25/2024 9:00 AM EDT Office Visit Pharmacy, [address] [place] [address] [place] [address] 09/05/2024 10:20 AM EDT Office Visit Dermatology, [facility] [address] [facility] [phone] Linda Mejia PA-C [address] [place] [address] [place] [address] 01/15/2025 9:00 AM EST Office Visit Nephrology, [facility] [address] [facility] [place] [address] Addison Salas MD [address] [facility] [place] [address] Scheduled Orders Name Type Priority Associated Diagnoses Orde r Schedule CBC WITH WBC DIFFERENTIAL Lab Routine Multiple myeloma not having achieved remission (HCC) History of autologous stem cell transplant (HCC) Expected: 05/31/2024, Expires: 08/15/2024 COMPREHENSIVE METABOLIC PANEL Lab Routine Multiple myeloma not having achieved remission (HCC) History of autologous stem cell transplant (HCC) Expected: 05/31/2024, Expires: 08/15/2024 [id number], SERUM Lab Routine Multiple myeloma not having achieved remission (HCC) History of autologous stem cell transplant (HCC) Expected: 05/31/2024, Expires: 08/15/2024 IMMUNOGLOBULIN QUANTITATIVE Lab Routine Multiple myeloma not having achieved remission (HCC) History of autologous stem cell transplant (HCC) Expected: 05/31/2024, Expires: 08/15/2024 SERUM IMMUNOFIXATION Lab Routine Multiple myeloma not having achieved remission (HCC) History of autologous stem cell transplant (HCC) Expected: 05/31/2024, Expires: 08/15/2024 SERUM FREE LIGHT CHAINS Lab Routine Multiple myeloma not having achieved remission (HCC) History of autologous stem cell transplant (HCC) Expected: 05/31/2024, Expires: 08/15/2024 SERUM PROTEIN ELECTROPHORESIS REFLEX PROFILE Lab Routine Multiple myeloma not having achieved remission (HCC) History of autologous stem cell transplant (HCC) Expected: 05/31/2024, Expires: 08/15/2024 HEPATIC FUNCTION PANEL Lab Routine Multiple myeloma not having achieved remission (HCC) History of autologous stem cell transplant (HCC) Expected: 04/26/2024, Expires: 04/19/2025 Health Maintenance Due Date Last Done Comments Cologuard 2001 Fecal Occult Blood Test 2001 Sigmoidoscopy 2001 Adult Wellness Visit 2022 COVID-19 Vaccine ( season) 2023 03/03/2021, 07/23/2020, 06/18/2020 Albumin/Creatinine Ratio 01/20/202401/19/2 023, 01/05/2022, 02/02/2018 HbA1c 08/07/2024 02/07/2024, 0811/2023, 05/19/2023, Additional history exists Diabetic Eye Exam [...] (HCC) Peripheral stem cells replaced by transplant documented in this encounter Advance Directives * Full Code (Latest Code Status on File) Date Activated Date Inactivated Comments 07/20/2023 8:15 AM 08/05/2023 5:03 PM This order r eflects the patients wishes and were consensually agreed upon. Question Answer Comments Discussion of Advance Directives occurred with: Patient Healthcare Agents on File Name Relationship [facility] Agent [facility] Dori Hoover Adult Child Health Care Repr esentative (appointed verbally by patient or by statute hierarchy) Care Teams Primary [place] Relationship Specialty Start Date End Date Patrick Zhao MD [address] [address] PCP - General Family Medicine 02/28/24 documented as of this encounter"
--- OUTSIDE RECORDS SUMMARY | 2024-05-18 07:17 | External Medical Summary | Summary of Care ---
Author Name Unknown Organization [facility] Address [address] [facility] [place] [address] Phone [phone] Care Team Providers Care Epic Cupid Specialists Name Role Phone Patrick Zhao MD Primary Care Provider [phone] Encounter Details Date Type Department Care Team (Late st Contact Info) Description 04/19/2024 Orders Only Hematology/Oncology Yarelis Woodson [place] [address] [place] [address] Rae Berrios MD [address] [place] [address] Multiple myeloma in remission (HCC)*; Encounter for antineoplastic chemotherapy Allergies Active Allergy Reactions Criticality Noted Date Comments Celecoxib Medium 02/01/2017 Metformin Diarrhea 02/18/2023 Prochlorperazine 11/18/1998 Intol,compazine documented as of this encounter (statuses as of 04/19/2024) Medications OneTouch Delica Plus [id number] USE TO TEST BLOOD SUGAR 2 TIMES [...] (Prevnar) 03/16/2019 Pneumococcal Conjugate Vacci ne, 20-valent ([id number]) 03/22/2024,01/21/2024,02/08/2023(Defe rred: Patient Refused - Pt thinks [...] Author No 07/20/2023 8:11 AM EDT Melinda Varags RN * Do you have difficulty dressing [...] 04/19/2024 12:30 PM EST Office Visit Hematology/Oncology Yarelis Woodson [place] 200 [facility] [place] [phone] Rae Berrios MD 200 [facility] [place] [address] 04/19/2024 1:00 PM EST Immunization/Injection Hematology/Oncology Treatment, [place] 200 [facility] [place] Brown [place] [phone] Kandice, Chair 9 Hem Onc [place] [address] Y[address] Qu[place] [address] 05/16/2024 8:00 AM EDT Laboratory Laboratory, [address] [place] [address] Mohan Hernandez 226 [place] [address] 05/17/2024 1:00 PM EDT Immunization/Injection Hematology/Oncology Treatment, [place] [facility] [phone] Kandice, Chair 9 Hem Onc [facility] [place] 200 [place] [place] [address] 05/22/2024 8:00 AM EDT Laboratory Laboratory, [address] [place] [address] [facility] 226 [place] [address] 05/24/2024 9:00 AM EDT Telemedicine Psychology [facility] [address] [place], [place] [phone] Quentin Gupta PsyD [address] [place], [place] [phone] 06/22/2024 8:20 AM EDT Office Visit [facility] 226 [place] [address] Patrick Zhao MD 226 [place] [address] 07/20/2024 10:30 AM EDT Office Visit Hematology Oncology [facility] [address] [place] [phone] Nick Moore MD [address] [place] [address] 07/20/2024 11:00 AM EDT Immunization/Injection Hematology Oncology [facility] [address] [place] [address] Nurse, Med [address] [place], [place] [phone] 08/15/2024 7:00 AM EDT Office Visit Neurology [facility] [place] [address] [place] [address] Yvonne Panchal PA-C [facility] [place] [address] 08/25/2024 9:00 AM EDT Office Visit Pharmacy, [address] [place] [address] [place] [address] 09/05/2024 10:20 AM EDT Office Visit Dermatology, [address] [place] [phone] Linda Mejia PA-C [address] [place] [address] [place] [address] 01/15/2025 9:00 AM EST Office Visit Nephrology, [facility] [address] Addison Salas MD 400 [facility] [place] [address] Health Maintenance Due Date [...] Not on filedocumented as of this encounter Results * (ABNORMAL) PHOSPHORUS (04/18/2024 7:39 AM EST) Phosphorus 2.3(L) 2.5 - 4.8 mg/dL 04/19/2024 9:22 AM EST LABORATORY GM Blood Venous blood specimen / Unknown Venipuncture / Unknown 04/18/2024 7:39 AM EST 04/18/2024 7:39 AM EST Rae Berrios MD LAB BLOOD ORDERABLES Fin al Result LABORATORY [facility] [address] [place] [address] documented in this encounter Visit Diagnoses Diagnosis Multiple myeloma in remission (HCC)- Primary Multiple myeloma in remission Encounter for antineoplastic chemotherapy documented in this encounter Advance Directives * [...] patient or by statute hierarchy) Care Teams Epic Cupid Specialists Relationship Specialty Start Date End Date Patrick Zhao MD 226 [place] [address] PCP - General Family Medicine 02/28/24 documented as of this encounter
--- OUTSIDE RECORDS SUMMARY | 2024-05-18 07:17 | External Medical Summary ---
Author Name Unknown Address Unknown Organization K01:[facility] [address] [facility] [place] [address] Laboratory Report Ordering Provider Test Date Status ADALBERTO ALEGRE 04/18/2024 07:39:51 Final Observation Date Value Abnormality Reference (Units ) Status BUN 04/18/2024 07:39:51 14 6-20 (mg/dL) Final Creatinine 04/18/2024 07:39:51 1.0 0.6-1.2 (mg/dL) Final Glomerular filtration rate/1.73 sq M.predicted [Volume Rate/Area] in Serum, Plasma or Blood by Creatinine-based formula (CKD-EPI) 04/18/2024 07:39:51 83 >=60 (mL/min) Final eGFR is calculated based on the CKD-EPI 2020 equation. Sodium 04/18/2024 07:39:51 139 135-146 (m mol/L) Final Potassium 04/18/2024 07:39:51 4.2 3.5-5.1 (m mol/L) Final Cl 04/18/2024 07:39:51 106 98-107 (mm ol/L) Final CO2 04/18/2024 07:39:51 23 22-32 (mmo l/L) Final Anion gap 04/18/2024 07:39:51 10 7-15 (mmol /L) Final Glucose 04/18/2024 07:39:51 141 Above high normal 70 -120 (mg/dL) Final Albumin 04/18/2024 07:39:51 4.4 3.8-5.0 (g /dL) Final AST (Aspartate aminotransferase) 04/18/2024 07:39:51 26 10-50 (U/L) Fin al Alk Phos 04/18/2024 07:39:51 75 35-130 (U/ L) Final Bilirubin, Total 04/18/2024 07:39:51 0.4 <=1 .2 (mg/dL) Final Calcium 04/18/2024 07:39:51 9.1 8.4-10.2 ( mg/dL) Final Protein 04/18/2024 07:39:51 6.6 6.0-8.3 (g /dL) Final ALT (Alanine aminotransferase) 04/18/2024 07:39:51 63 Above high normal 10-50 (U/L) Final Performing Location [facility] [address]ag Mckeon. [facility] [address]
--- OUTSIDE RECORDS SUMMARY | 2024-05-18 07:17 | External Medical Summary ---
Author Name Unknown Address Unknown Organization K01:LAB[facility]ATORY [facility] [place] [address] [facility] [address] [place] [address] Laboratory Report Ordering Provider Test Date Status ALEGREHECTORADALBERTO 04/18/2024 07:39:51 Final Mantel Cell Lymphoma - [...] SYNC LEUKOCYTES IN BLOOD BY AUTOMATED COUNT 04/18/2024 07:39:51 2.95 Below low normal 4.00-10.80 (K/uL) Final Segs 04/18/2024 07:39:51 33.9 Below low normal 40.0-75.0 (%) Final Lymphs % 04/18/2024 07:39:51 40.7 18.0-42.0 (%) Final Monos 04/18/2024 07:39:51 14.2 Above high normal 1.0-11.0 (%) Final Eosinophils 04/18/2024 07:39:51 9.2 Above high normal 0.0-6.0 (%) Final Basos 04/18/2024 07:39:51 1.7 0.0-2.0 (%) Final Immature Granulocyte, Percent 04/18/2024 07:39:51 0.3 0.0-2.0 (%) Final Absolute Segs 04/18/2024 07:39:51 1.00 Below low normal 1.80-7.70 (K/uL) Final Lymphs, absolute 04/18/2024 07:39:51 1.20 1.00-4.80 (K/ul) Final Monos, Abs 04/18/2024 07:39:51 0.42 0.00-1.10 (K/uL) Final Eos, Abs 04/18/2024 07:39:51 0.27 0.00-0.70 (K/uL) Final Basos, Abs 04/18/2024 07:39:51 0.05 0.00-0.20 (K/uL) Final Immature Granulocytes, Number 04/18/2024 07:39:51 0.01 0.00-0.20 (K/uL) Final Performing Location LABORATORY [facility] [place] - [address] [facility] [address]
--- OUTSIDE RECORDS SUMMARY | 2024-05-18 07:18 | External Medical Summary | Summary of Care ---
Author Name Unknown Organization [facility] Address [address] [facility] [place] [address] Phone [phone] Care Team Providers Care Production Manufacturing Worker Name Role Phone Kervin Zhao MD Primary Care Provider [phone] Reason for Visit * Reason Onset Date Comments Medication Refill 04/12/2024 Encounter Details Date Type Department Care Team (Late st Contact Info) Description 04/12/2024 Refill [facility] [address] [facility] [place] [address] Kervin Zhao MD 226 [place], [place] [phone] Anxiety state; Insomnia, unspecified type Allergies Active Allergy Reactions Criticality Noted Date Comments Celecoxib Medium 02/01/2017 Metformin Diarrhea 02/18/2023 Prochlorperazine 11/18/1998 Intol,compazine documented as of this encounter (statuses as of 04/13/2024) Medications OneTouch Delica Plus [id number] USE TO TEST BLOOD SUGAR 2 TIMES [...] Packet by mouth in the morning. Active Atorvastatin Calcium 20 MG Oral Tablet (Lipitor)Indicatio ns:Other hyperlipidemia TAKE 1 TABLET BY MOUTH EVERY DAY 100 Tablet 1 09/03/19 24 Active Olmesartan Medoxomil 40 MG Oral Tablet [...] goal of less than 7.0% ([facility]) USE TO TEST BLOOD SUGAR 2 [...] goal of less than 7.0% ([facility]) INJECT 0.25 MG UNDER THE SKIN [...] goal of less than 7.0% ([facility]) Use to inject Ozempic once weekly 100 Each 3 03/28/19 25 Active LORazepam 1 MG Oral Tablet (Ativan)Indication s:Anxiety state,Insomnia, unspecified type Take one at bedtime . May take 1/2- 1 tab during day as needed 45 Tablet 1 04/13/19 Active LORazepam 1 MG Oral Tablet (Ativan)Indication s:Anxiety state,Insomnia, unspecified type Take one at bedtime . May take 1/2- 1 tab during day as needed 45 Tablet 1 02/11/20 24 025 Discontin ued(Refil l) documented as of this encounter (statuses as of 04/13/2024) Active Problems Patient Care Coordination No te [...] as of this encounter (statuses as of 04/13/2024) Resolved Problems Problem Noted Date Diagnosed Date [...] as of this encounter (statuses as of 04/13/2024) Immunizations Name Administration Dates Next Due COVID-19 mRNA, LNP-s, No Pre serve, 2-Dose Series (Moderna) 07/23/2020,06/18/2020 COVID-19 mRNA, LNP-s, No Pre serve, 2-Dose Series (Pfizer) 03/03/2021 HEPATITIS B VACCINE, RECOMB, 20 MCG/ML, ADULT (HEPLISAV-B) 03/22/2024,01/21/2024 HIB Booster (Hiberix) 03/22/2024,01/21/2024 Pneumococcal Conjugate Vacc, 13 Valent (Prevnar) 03/16/2019 Pneumococcal Conjugate Vacci ne, 20-valent ([id number]) 03/22/2024,01/21/2024,02/08/2023(Defe rred: Patient Refused - Pt thinks [...] No 09/13/2023 Does the household have a select specialty hospitalr source of income? (Household - for [...] encounter Miscellaneous Notes * Telephone Encounter - Kervin Zhao MD - 04/13/2024 11:13 AM ESTSigned Prescriptions: Disp Refills LORazepam 1 MG Oral Tablet (Ativan) 45 Tab*1 Sig: Take one at bedtime . May take 1/2- 1 tab during day as needed Authorizing Provider: KERVIN ZHAO * Telephone Encounter - Tanvir Ahumada [facility] - 04/13/2024 8:48 AM ESTPending Prescriptions: Disp Refills LORazepam 1 MG Oral Tablet (Ativan) 45 Tab*1 Sig: Take one at bedtime . May take 1/2- 1 tab during day as needed * Telephone Encounter - Tanvir Ahumada RPh - 04/13/2024 8:47 AM EST I have reviewed the patients controlled substance dispensing history in the Prescription Drug Monitoring Program in compliance with the [facility] regulations before prescribing a controlled substance. PDMP checked on 04/13/2024. Pending Prescriptions: Disp Refills LORazepam 1 MG Oral Tablet (Ativan) 45 Tab*1 Sig: Take one at bedtime . May take 1/2- 1 tab during day as needed Last Visit: 02/21/2024 (in office), Visit date not found (telemedicine) Next Visit: 06/22/2024 Date medication was last filled: 03/12/24 Date medication is due for refill: 04/10/24 [facility]acy: [id number] [address] [facility] Is this request for a controlled substance? Yes and Urine Drug Screen Not completed Toxicology results: Results for orders placed or performed in visit on 02/18/23 TOXICOLOGY, URINE SCREEN W/O CONFIRMATION Result Value Amphetamines Screen, U Negative Benzodiazepines Screen, U Negative Cannabinoids Screen, U Negative Cocaine Metabolite Screen, U Negative Fentanyl Screen, U Negative Hydrocodone Screen, U Negative Methadone Metabolite Screen, U Negative Morphine/Codeine Screen, U Negative Oxycodone Screen, U Negative Narrative Cutoff Concentrations: Drug Level Amphetamines 500 ng/mL Benzodiazepines 100 ng/mL Cannabinoids 50 ng/mL Cocaine Metabolite 150 ng/mL Fentanyl 1 ng/mL Hydrocodone / Hydromorphone 300 ng/mL Methadone Metabolite 100 ng/mL Morphine / Codeine 300 ng/mL Oxycodone / Oxymorphone 100 ng/mL Screening results are presumptive and can only be used for medical purposes. Confirmatory testing is available upon request. *Note: Due to a large number of results and/or encounters for the requested time period, some results have not been displayed. A complete set of results can be found in Results Review. Please approve if appropriate. Thanks, Tanvir Ahumada Rph, Pharm D. Clinical Pharmacist [facility] [phone] 04/13/2024,8:47 AM * Telephone Encounter - Aileen Chris, lead worker of housekeeping and laundry - 04/12/2024 10:19 AM EST Did you pend patient's preferred pharmacy and medication before forwarding?yes Pharmacy: [id number] [address] [facility] Pending Prescriptions: Disp Refills LORazepam 1 MG Oral Tablet (Ativan) 45 Tab*1 Sig: Take one at bedtime . May take 1/2- 1 tab during day as needed Last Visit: 02/21/2024 (in office), Visit date not found (telemedicine) Next Visit: 06/22/2024 If no future appointments scheduled, and last appointment is greater than a year ago, please schedule patient for a follow-up appointment Last date the medication was ordered: 02/11/2024 Is this request for a controlled substance?Yes, What was the last refill date 02/11/2024 w/ quantity 45 and dosage 1 and Urine Drug Screen Not completed Urine Drug Screen: Results for orders placed or performed in visit on 02/18/23 TOXICOLOGY, URINE SCREEN W/O CONFIRMATION Result Value Amphetamines Screen, U Negative Benzodiazepines Screen, U Negative Cannabinoids Screen, U Negative Cocaine Metabolite Screen, U Negative Fentanyl Screen, U Negative Hydrocodone Screen, U Negative Methadone Metabolite Screen, U Negative Morphine/Codeine Screen, U Negative Oxycodone Screen, U Negative Narrative Cutoff Concentrations: Drug Level Amphetamines 500 ng/mL Benzodiazepines 100 ng/mL Cannabinoids 50 ng/mL Cocaine Metabolite 150 ng/mL Fentanyl 1 ng/mL Hydrocodone / Hydromorphone 300 ng/mL Methadone Metabolite 100 ng/mL Morphine / Codeine 300 ng/mL Oxycodone / Oxymorphone 100 ng/mL Screening results are presumptive and can only be used for medical purposes. Confirmatory testing is available upon request. *Note: Due to a large number of results and/or encounters for the requested time period, some results have not been displayed. A complete set of results can be found in Results Review. Patient Phone Numbers Labs: Lab Results Component Value Date/Time CREAT 1.0 04/04/2024 07:34 AM CREAT 1.3 (H) 04/04/2020 03:04 PM POTASSIUM 4.1 04/04/2024 07:34 AM POTASSIUM 4.4 04/04/2020 03:04 PM POTASSIUM 4.3 06/16/1996 10:00 AM TSH 3.48 03/21/2024 08:00 AM TSH 2.79 10/27/2017 10:25 AM LDL 64 10/25/2023 08:44 AM LDL 84 04/04/2020 03:04 PM LDL NOT APPLICABLE 04/04/2020 03:04 PM ALT 42 04/04/2024 07:34 AM ALT 31 04/04/2020 03:04 PM HGBA1C 6.8 (H) 02/07/2024 07:57 AM HGBA1C 7.7 (H) 01/15/2023 08:06 AM HGBA1C 7.6 (H) 04/04/2020 03:04 PM documented in this encounter Plan of Treatment Upcoming Encounters Date Type Department Care Team (Late st Contact Info) Description 04/18/2024 8:00 AM EST Laboratory Laboratory, [facility] [address] [place] [phone] [facility] [address] [place] [address] 04/18/2024 8:30 AM EST Telemedicine Psychology [address] [address] Quentin Gupta PsyD [address] [place] [address] 04/19/2024 9:00 AM EST Pharmacy Pharmacy Hematology Oncology [address] [address] [facility] Hem/[place] [place] [address] 04/20/2024 12:30 PM EST Immunization/Injection Hematology/Oncology Treatment, [place] [address] [place], [place] [phone] Kandice, Chair 9 Hem Onc [place] [address] [address] Qu[address] [place] [address] 05/22/2024 8:00 AM EDT Laboratory [facility], [facility] 226 [facility] [place] [address] [facility] 226 [facility] Emilee [place] [phone] 05/24/2024 10:30 AM EDT Office Visit Hematology/Oncology [facility] 200 [facility] [phone] Rae Berrios MD 200 [facility] [address] 06/22/2024 8:20 AM EDT Office Visit Family Practice, [place] 226 [facility] [place] [address] Kervin Zhao MD [address] [place], [place] [phone] 07/20/2024 10:30 AM EDT Office Visit Hematology Oncology [place] [address] [place] [address] Nick Moore MD [address] [place] [address] 07/20/2024 11:00 AM EDT Immunization/Injection Hematology Oncology [place] [address] [address] [place], [place] [phone] Nurse, Med 4 [address] [place] [address] 08/15/2024 7:00 AM EDT Office Visit Neurology [facility] [address] Qu[address] [place] [address] Yvonne Panchal PA-C 21 [facility] [place] [address] 08/25/2024 9:00 AM EDT Office Visit Pharmacy, [address] [place] [address] [place] [address] 09/05/2024 10:20 AM EDT Office Visit Dermatology, [facility] [place] [address] Linda Mejia PA-C [address] [place] [address] [place] [address] 01/15/2025 9:00 AM EST Office Visit Nephrology, [facility] 200 [facility] [place] [address] Addison Salas MD 400 [facility] [place] [address] Health Maintenance Due Date Last Done Comments [...] as of this encounter Visit Diagnoses Diagnosis Anxiety state Anxiety state, unspecified Insomnia, unspecified type documented in this encounter Advance Directives * Full Code (Latest Code Status on File) Date Activated Date Inactivated Comments 07/20/2023 8:15 AM 08/05/2023 5:03 PM This order r eflects the patients wishes and were consensually agreed upon. Question Answer Comments Discussion of Advance Directives occurred with: Patient Healthcare Agents on File Name Relationship Healthcare Agent Relationshi p Communication Dori Dickensir Adult Child Health Care Repr esentative (appointed verbally by patient or by statute hierarchy) Care Teams Production Manufacturing Worker Relationship Specialty Start Date End Date Kervin Zhao MD [address] [place] [address] PCP - General Family Medicine 02/28/24 documented as of this encounter
--- OUTSIDE RECORDS SUMMARY | 2024-05-18 07:18 | External Medical Summary | Summary of Care ---
Author Name Unknown Organization [facility] Address [address] [place] [address] Phone [phone] Care Team Providers Care Box Icer Name Role Phone Patrick Zhao MD Primary Care Provider [phone] Encounter Details Date Type Department Care Team (Late st Contact Info) Description 04/17/2024 Orders Only Hematology/Oncology, [facility] 400 [place] [address] Rae Berrios MD 200 [facility] [place] [address] Allergies Active Allergy Reactions Criticality Noted Date Comments Celecoxib Medium 02/01/2017 Metformin Diarrhea 02/18/2023 Prochlorperazine 11/18/1998 Intol,compazine documented as of this encounter (statuses as of 04/17/2024) Medications OneTouch Delica Plus [id number] USE TO TEST BLOOD SUGAR 2 TIMES [...] goal of less than 7.0% ([facility]) USE TO TEST BLOOD SUGAR 2 [...] goal of less than 7.0% ([facility]) INJECT 0.25 MG UNDER THE SKIN [...] (Shingrix)Indicati ons:History of autologous stem cell transplant ([facility]) Inject 0.5 mL into a large [...] goal of less than 7.0% ([facility]) Use to inject Ozempic once weekly [...] as of this encounter (statuses as of 04/17/2024) Active Problems Patient Care Coordination No te [...] as of this encounter (statuses as of 04/17/2024) Resolved Problems Problem Noted Date Diagnosed Date [...] as of this encounter (statuses as of 04/17/2024) Immunizations Name Administration Dates Next Due COVID-19 mRNA, LNP-s, No Pre serve, 2-Dose Series (Moderna) 07/23/2020,06/18/2020 COVID-19 mRNA, LNP-s, No Pre serve, 2-Dose Series (Pfizer) 03/03/2021 HEPATITIS B VACCINE, RECOMB, 20 MCG/ML, ADULT (HEPLISAV-B) 03/22/2024,01/21/2024 HIB Booster (Hiberix) 03/22/2024,01/21/2024 Pneumococcal Conjugate Vacc, 13 Valent (Prevnar) 03/16/2019 Pneumococcal Conjugate Vacci ne, 20-valent ([id number]) 03/22/2024,01/21/2024,02/08/2023(Defe rred: Patient Refused - Pt thinks [...] Description 04/18/2024 8:00 AM EST Laboratory Laboratory, [facility] 226 [place] [address] [facility] 226 [place] [address] 04/18/2024 8:30 AM EST Telemedicine Psychology [address] [address] Quentin Gupta PsyD [facility] [place] [address] 04/19/2024 9:00 AM EST Pharmacy Pharmacy Hematology Oncology [address] [address] [facility] Hem/Onc [address] [place] [address] 04/19/2024 12:30 PM EST Office Visit Hematology/Oncology [facility] Kandice [place] [address] [place] [address] Rae Berrios MD 200 [place] [address] 04/19/2024 1:00 PM EST Immunization/Injection Hematology/Oncology Treatment, [place] [address] [place] [address] Kandice, Chair 9 Hem Onc [address] 200 [place] [address] 05/22/2024 8:00 AM EDT Laboratory Laboratory, Mary Hebert [address] [place] [address] [place], Laboratory [address] [place] [address] 06/22/2024 8:20 AM EDT Office Visit Family Practice, [place] [address] [place] [address] Patrick Zhao MD [address] [place] [address] 07/20/2024 10:30 AM EDT Office Visit Hematology Oncology [facility] [address] [place] [address] Nick Moore MD [address] [place] [address] 07/20/2024 11:00 AM EDT Immunization/Injection Hematology Oncology [facility] [address] [place], [place] [phone] Nurse, Med [address] [place] [address] 08/15/2024 7:00 AM EDT Office Visit Neurology [facility] [address] [place] [address] Yvonne Panchal PA-C [address] [place] [address] 08/25/2024 9:00 AM EDT Office Visit Pharmacy, [address] [place] [address] [place] [address] 09/05/2024 10:20 AM EDT Office Visit Dermatology, [address] [place] [address] Linda Mejia PA-C [address] [place] [address] [place] [address] 01/15/2025 9:00 AM EST Office Visit Nephrology, [facility] 200 [facility] [place], [place] [address] Addison Salas MD 400 [facility] [place] [address] Health Maintenance Due [...] patient or by statute hierarchy) Care Teams Box Icer Relationship Specialty Start Date End Date Patrick Zhao MD 226 [facility] [place] [address] PCP - General Family Medicine 02/28/24 documented as of this encounter
--- OUTSIDE RECORDS SUMMARY | 2024-05-18 07:18 | External Medical Summary | Summary of Care ---
Author Name Unknown Organization [facility] Address [address] [facility] [place] [address] Phone [phone] Care Team Providers Care Vise Hand Name Role Phone Kervin Zhao MD Primary Care Provider [phone] Reason for Visit * Reason Comments eRx-Medication Refill Encounter Details Date Type Department Care Team (Late st Contact Info) Description 04/14/2024 Refill [facility] Juan [address] [place] [address] Kervin Zhao MD 226 [place] [address] Other hyperlipidemia Allergies Active Allergy Reactions Criticality Noted Date Comments Celecoxib Medium 02/01/2017 Metformin Diarrhea 02/18/2023 Prochlorperazine 11/18/1998 Intol,compazine documented as of this encounter (statuses as of 04/14/2024) Medications OneTouch Delica Plus [id number] USE TO TEST BLOOD SUGAR 2 TIMES [...] hemoglobin A1c goal of less than 7.0% ([facility]) USE TO TEST BLOOD SUGAR 2 [...] hemoglobin A1c goal of less than 7.0% ([facility]) INJECT 0.25 MG UNDER THE SKIN [...] at bedtime. 30 Tablet 2 025 Active Lenalidomide 10 MG Oral Capsule (Revlimid)Indicat ions:Multiple myeloma not having achieved remission (HCC) Take 1 Capsule by mouth in the morning. For 28 days of a 28 day cycle. Take medication same time every day and consistently with or without food.. Do not start before March 16, 2024. 28 Capsule 025 Active Propranolol HCl 20 MG Oral Tablet (Inderal)Indicati ons:Primary hypertension,Trem or,Anxiety and depression Take 1 Tablet by mouth in the morning and 1 Tablet before bedtime. 025 Active Zoster Vac Recomb Adjuvanted 50 MCG/0.5ML Intramuscular Suspension Reconstituted (Shingrix)Indicat ions:History of autologous stem cell transplant (HCC) Inject [...] hemoglobin A1c goal of less than 7.0% ([facility]) Use to inject Ozempic once weekly 100 Each 3 025 Active LORazepam 1 MG Oral Tablet (Ativan)Indicatio ns:Anxiety state,Insomnia, unspecified type Take one at bedtime . May take 1/2- 1 tab during day as needed 45 Tablet 1 025 Active Atorvastatin Calcium 20 MG Oral Tablet (Lipitor)Indicati ons:Other hyperlipidemia TAKE 1 TABLET BY MOUTH EVERY DAY 100 Tablet 1 025 Active Atorvastatin Calcium 20 MG Oral Tablet (Lipitor)Indicati ons:Other hyperlipidemia TAKE 1 TABLET BY MOUTH EVERY DAY 100 Tablet 1 024 2024 Discontinued documented as of this encounter (statuses as of 04/14/2024) Active Problems Patient Care Coordination No te [...] as of this encounter (statuses as of 04/14/2024) Resolved Problems Problem Noted Date Diagnosed Date [...] as of this encounter (statuses as of 04/14/2024) Immunizations Name Administration Dates Next Due COVID-19 mRNA, LNP-s, No Pre serve, 2-Dose Series (Moderna) 07/23/2020,06/18/2020 COVID-19 mRNA, LNP-s, No Pre serve, 2-Dose Series (Pfizer) 03/03/2021 HEPATITIS B VACCINE, RECOMB, 20 MCG/ML, ADULT (HEPLISAV-B) 03/22/2024,01/21/2024 HIB Booster (Hiberix) 03/22/2024,01/21/2024 Pneumococcal Conjugate Vacc, 13 Valent (Prevnar) 03/16/2019 Pneumococcal Conjugate Vacci ne, 20-valent ([id number]) 03/22/2024,01/21/2024,02/08/2023(Defe rred: Patient Refused - Pt thinks [...] Assessment Author No 07/20/2023 8:11 AM EDT Vargas, Melinda patel RN * Because of a physical, mental, [...] encounter Miscellaneous Notes * Telephone Encounter - Paul De La Torre [facility] - 04/14/2024 11:00 AM EST Signed Prescriptions: Disp Refills Atorvastatin Calcium 20 MG Oral Tablet (Li*100 Ta*1 Sig: TAKE 1 TABLET BY MOUTH EVERY DAYAuthorizing Provider: KERVIN ZHAO User: PAUL DE LA TORRE--- documented in this encounter Plan of Treatment Upcoming Encounters Date Type Department Care Team (Late st Contact Info) Description 04/18/2024 8:00 AM EST Laboratory LaboratoryMary [address] [place] [address] Mohan Hernandez [address] [place] [address] 04/18/2024 8:30 AM EST Telemedicine Psychology [place] [address] [place] [address] Quentin Gupta PsyD [facility] [place] [address] 04/19/2024 9:00 AM EST Pharmacy Pharmacy Hematology Oncology [facility], [address] [address] [facility] Hem/Onc [facility] [place] [address] 04/20/2024 12:30 PM EST Immunization/Injection Hematology/Oncology Treatment, [place] [address] [place] [address] Kandice, Chair 9 Hem Onc [facility] 200 [facility] [place] [phone] 05/22/2024 8:00 AM EDT Laboratory Laboratory, [place] [facility] [address] [place] [address] Mohan Hernandez 226 [facility] [address] 05/24/2024 10:30 AM EDT Office Visit Hematology/Oncology [facility] [place] 200 [place] [address] Rae Berrios MD 200 [place] [address] 06/22/2024 8:20 AM EDT Office Visit Family [facility] 226 [place] [address] Kervin Zhao MD 226 [place] [address] 07/20/2024 10:30 AM EDT Office Visit Hematology Oncology [facility], [place] [address] [place] [address] Nick Moore MD [facility] [place], [place] [address] 07/20/2024 11:00 AM EDT Immunization/Injection Hematology Oncology [facility], [place] [address] [facility] [address] Nurse, Med [address] [facility] [address] 08/15/2024 7:00 AM EDT Office Visit Neurology [facility] [place] 200 [facility] [place] [address] Yvonne Panchal PA-C [facility] [place] [address] 08/25/2024 9:00 AM EDT Office Visit Pharmacy, [address] [place] [address] [place] [address] 09/05/2024 10:20 AM EDT Office Visit Dermatology, [facility] [address] Linda Mejia PA-C [address] [place] [address] [place] [address] 01/15/2025 9:00 AM EST Office Visit Nephrology, [facility] 200 [facility] [place] [address] Addison Salas MD [facility] [place] [address] Health Maintenance Due Date Last Done Comments [...] as of this encounter Visit Diagnoses Diagnosis Other hyperlipidemia documented in this encounter Advance Directives * Full Code (Latest Code Status on File) Date Activated Date Inactivated Comments 07/20/2023 8:15 AM 08/05/2023 5:03 PM This order r eflects the patients wishes and were consensually agreed upon. Question Answer Comments Discussion of Advance Directives occurred with: Patient Healthcare Agents on File Name Relationship Healthcare Agent [facility] Dori Hoover Adult Child Health Care Repr esentative (appointed verbally by patient or by statute hierarchy) Care Teams Vise Hand Relationship Specialty Start Date End Date Kervin Zhao MD [address] [place] [address] PCP - General Family Medicine 02/28/24 documented as of this encounter
--- OUTSIDE RECORDS SUMMARY | 2024-05-18 07:18 | External Medical Summary | Summary of Care ---
Author Name Unknown Organization [facility] Address [address] [place] [address] Phone [phone] Care Team Providers Care Siene Maker Name Role Phone Patrick Zhao MD Primary Care Provider [phone] Encounter Details Date Type Department Care Team (Late st Contact Info) Description 04/17/2024 Orders Only Hematology/Oncology, [facility] [address] [place] [address] Rea Berrios MD 200 [facility] [place] [address] Allergies Active Allergy Reactions Criticality Noted Date Comments Celecoxib Medium 02/01/2017 Metformin Diarrhea 02/18/2023 Prochlorperazine 11/18/1998 Intol,compazine documented as of this encounter (statuses as of 04/17/2024) Medications OneTouch Delica Plus [id number] USE TO TEST BLOOD SUGAR 2 TIMES [...] goal of less than 7.0% ([facility]) USE TO TEST BLOOD SUGAR [...] goal of less than 7.0% ([facility]) INJECT 0.25 MG UNDER THE [...] of autologous stem cell transplant ([facility]) Inject 0.5 mL into a [...] goal of less than 7.0% ([facility]) Use to inject Ozempic once [...] (Prevnar) 03/16/2019 Pneumococcal Conjugate Vacci ne, 20-valent ([id number]) 03/22/2024,01/21/2024,02/08/2023(Defe rred: Patient Refused - Pt thinks [...] 04/18/2024 8:00 AM EST Laboratory Laboratory, [facility] 226 [place] [address] [facility] 226 [place] [address] 04/18/2024 8:30 AM EST Telemedicine Psychology [address] [address] Quentin Gupta PsyD [facility] [place] [place] [address] 04/19/2024 9:00 AM EST Pharmacy Pharmacy Hematology Oncology [address] [address] [facility] Hem/Onc [address] [place] [address] 04/19/2024 12:30 PM EST Office Visit Hematology/Oncology [facility] Kandice [place] [address] [place] [address] Rae Berrios MD [address] [facility] [place] [address] 04/19/2024 1:00 PM EST Immunization/Injection Hematology/Oncology Treatment, [place] [address] [place] [address] Kandice, Chair 9 Hem Onc [address] [place] [address] 05/22/2024 8:00 AM EDT Laboratory Laboratory, [place] [address] [place] [address] [place], Laboratory [address] [place] [address] 06/22/2024 8:20 AM EDT Office Visit Family Practice, [place] [address] [place] [address] Patrick Zhao MD [address] [place] [address] 07/20/2024 10:30 AM EDT Office Visit [facility] [address] [place] [address] Nick Moore MD [address] [place] [address] 07/20/2024 11:00 AM EDT Immunization/Injection Hematology [facility] [address] [place], [place] [phone] Nurse, Med [address] [place] [address] 08/15/2024 7:00 AM EDT Office Visit Neurology [facility] [address] [place] [address] Yvonne Panchal PA-C [address] [place] [address] 08/25/2024 9:00 AM EDT Office Visit Pharmacy, [address] [place] [address] [place] [address] 09/05/2024 10:20 AM EDT Office Visit Dermatology, [address] [place] [address] Linda Mejia PA-C [address] [place] [address] [place] [address] 01/15/2025 9:00 AM EST Office Visit Nephrology, [facility] [address] [facility] [place], [place] [address] Addison Salas MD 400 [facility] [place] [address] Health Maintenance Due [...] patient or by statute hierarchy) Care Teams Siene Maker Relationship Specialty Start Date End Date Patrick Zhao MD 226 [facility] [place] [address] PCP - General Family Medicine 02/28/24 documented as of this encounter
--- OUTSIDE RECORDS SUMMARY | 2024-05-18 07:18 | External Medical Summary | Summary of Care ---
Author Name Unknown Organization [facility] Address [address] [facility] [place] [address] Phone [phone] Care Team Providers Care Contract Paralegal Name Role Phone Patrick Zhao MD Primary Care Provider [phone] Reason for Visit * Reason Comments Follow Up Encounter Details Date Type Department Care Team (Late st Contact Info) Description 04/11/2024 11:00 AM EST Office Visit Hematology/Oncology [place] 200 [facility] [place] [phone] Rae Berrios MD 200 [facility] [place] [address] Multiple myeloma in remission (HCC)* Allergies Active Allergy Reactions Criticality Noted Date Comments Celecoxib Medium 02/01/2017 Metformin Diarrhea 02/18/2023 Prochlorperazine 11/18/1998 Intol,compazine documented as of this encounter (statuses as of 04/11/2024) Medications OneTouch Delica Plus [id number] USE TO TEST BLOOD SUGAR 2 TIMES [...] hemoglobin A1c goal of less than 7.0% ([facility]) USE TO TEST BLOOD [...] hemoglobin A1c goal of less than 7.0% ([facility]) INJECT 0.25 MG UNDER THE SKIN ONCE A WEEK. THEN INCREASE TO 0.5 MG IF TOLERATED. 9 mL 3 01/31/20 24 Active LORazepam 1 MG Oral Tablet (Ativan)Indication s:Anxiety state,Insomnia, unspecified type Take one at bedtime . May take 1/2- 1 tab during day as needed 45 Tablet 1 02/11/20 24 Active Famotidine 20 MG Oral Tablet [...] hemoglobin A1c goal of less than 7.0% ([facility]) Use to inject Ozempic once weekly 100 Each 3 03/28/19 Active documented as of this encounter (statuses as of 04/11/2024) Active Problems Patient Care Coordination No te [...] as of this encounter (statuses as of 04/11/2024) Resolved Problems Problem Noted Date Diagnosed Date [...] as of this encounter (statuses as of 04/11/2024) Immunizations Name Administration Dates Next Due COVID-19 mRNA, LNP-s, No Pre serve, 2-Dose Series (Moderna) 07/23/2020,06/18/2020 COVID-19 mRNA, LNP-s, No Pre serve, 2-Dose Series (Pfizer) 03/03/2021 HEPATITIS B VACCINE, RECOMB, 20 MCG/ML, ADULT (HEPLISAV-B) 03/22/2024,01/21/2024 HIB Booster (Hiberix) 03/22/2024,01/21/2024 Pneumococcal Conjugate Vacc, 13 Valent (Prevnar) 03/16/2019 Pneumococcal Conjugate Vacci ne, 20-valent ([id number]) 03/22/2024,01/21/2024,02/08/2023(Defe rred: Patient Refused - Pt thinks [...] ages 0-17 years) Not on file 09/13/2023 Sex and Gender Information Value Date Recorded Sex Assigned at Male 08/02/2018 7:28 AM EDT Legal Sex Male 5:11 AM EST Gender Identity Male 08/02/2018 7:28 AM EDT Sexual Orientation Straight 08/02/2018 7: 28 AM EDT documented as of this encounter Last Filed Vital Signs Vital Sign Reading Time Taken Comments Blood Pressure 123/83 04/11/2024 10:52 AM EST Pulse 65 04/11/2024 10:52 AM EST Temperature 36.2 C (97.2 F) 04/11/2024 10:[address] Respiratory Rate - - Oxygen Saturation 98% 04/11/2024 10:52 AM EST Inhaled Oxygen Concentration - - Weight 89.8 kg (198 lb) 04/11/2024 10:52 AM EST Height - - Body Mass Index [...] documented in this encounter Progress Notes * Agustina, Rae Goldberg MD - 04/11/2024 10:58 AM EST Outpatient Consult Note Data Source: Patient, Epic record. Data Source: Patient, Epic record. 04/11/2024 10:58 AM [place] [id number] 68 year old Patient Encounter: HEMATOLOGY/ONCOLOGY [facility] Cancer Diagnosis: IgG kappa multiple myeloma Current [...] IgA was 23 and IgM was 30. Sutcliffe light chain was 281.08 and the lambda [...] 3-4% of marrow cellularity). Interval History: He has return to the clinic for further discussion about the management of posttransplant multiple myeloma. Currently he is on maintenance Revlimid 10 mg. He has issues with the skin rash. He also has issues with the tooth pain. Overall clinically he is feeling better without any new symptoms complain. There is no more skin rash. He was also seen by dentist and there was no sign of any osteonecrosis. LABS/IMAGING: Results for orders placed or performed in visit on 04/04/24 COMPREHENSIVE METABOLIC PANEL Result Value Ref Range BUN 9 6 - 20 mg/dL CREATININE 1.0 0.6 - 1.2 mg/dL EGFR 79 >=60 mL/min SODIUM 141 135 - 146 mmol/L POTASSIUM 4.1 3.5 - 5.1 mmol/L CHLORIDE 107 98 - 107 mmol/L CO2 22 22 - 32 mmol/L ANION GAP 12 7 - 15 mmol/L GLUCOSE 124 (H) 70 - 120 mg/dL Albumin 4.4 3.8 - 5.0 g/dL AST 19 10 - 50 U/L Alkaline Phosphatase 76 35 - 130 U/L Bilirubin, Total 0.5 <=1.2 mg/dL CALCIUM 8.8 8.4 - 10.2 mg/dL Protein 6.6 6.0 - 8.3 g/dL ALT 42 10 - 50 U/L CBC Result Value Ref Range WBC 4.66 4.00 - 10.80 K/uL RBC 3.97 4.50 - 5.25 M/uL HGB 12.5 (L) 14.0 - 16.8 g/dL HCT 38.0 (L) 40.0 - 48.4 % MCV 95.7 82.0 - 99.5 fL MCH 31.5 27.0 - 34.0 pg MCHC 32.9 32.0 - 36.0 g/dL RDW 13.9 11.5 - 15.5 % PLT 126 (L) 140 - 400 K/uL MPV 8.9 6.6 - 11.1 fL nRBCs 0 <=0 /100 WBCs DIFFERENTIAL, AUTOMATED Result Value Ref Range WBC 4.66 4.00 - 10.80 K/uL Neutrophils % 52.6 40.0 - 75.0 % Lymphocytes % 29.4 18.0 - 42.0 % Monocytes % 11.6 (H) 1.0 - 11.0 % Eosinophils % 4.9 0.0 - 6.0 % Basophils % 1.3 0.0 - 2.0 % Immature Granulocytes % 0.2 0.0 - 2.0 % Absolute Neutrophils 2.45 1.80 - 7.70 K/uL Absolute Lymphocytes 1.37 1.00 - 4.80 K/ul Absolute Monocytes 0.54 0.00 - 1.10 K/uL Absolute Eosinophils 0.23 0.00 - 0.70 K/uL Absolute Basophils 0.06 0.00 - 0.20 K/uL Absolute Immature Granulocytes 0.01 0.00 - 0.20 K/uL *Note: Due to a large number of results and/or encounters for the requested time period, some results have not been displayed. A complete set of results can be found in Results Review. Result of recent blood tests are stable in acceptable range with stable myeloma panel and hemoglobin level. Electrolytes and LFTs are in acceptable range. REVIEW OF SYSTEMS: General: No Fever, chills, [...] Hematuria or dysuria Musculoskeletal: No bone pain Psychiatric: No vegetative signs of depression Endocrine: No symptoms of hypothyroidism or hyperglycemia Hematologic: No bleeding or lymph nodes noted As mentioned above, all of the systems were reviewed in full and are unremarkable. Past Medical History: Diagnosis Date Depression Diverticulitis of small intestine HTN (hypertension) Migraine without aura Current Outpatient Medications Medication Sig Dispense Refill OneTouch Delica Plus [id number] USE TO TEST BLOOD SUGAR 2 TIMES [...] 1 Packet by mouth in the morning. Atorvastatin Calcium 20 MG Oral Tablet (Lipitor) TAKE 1 TABLET BY MOUTH EVERY DAY 100 Tablet 1 Olmesartan Medoxomil 40 MG Oral Tablet (Benicar) [...] 0.5 MG IF TOLERATED. 9 mL 3 LORazepam 1 MG Oral Tablet (Ativan) Take one at bedtime . May take 1/2- 1 tab during day as needed 45 Tablet 1 Famotidine 20 MG Oral Tablet (Pepcid) TAKE [...] inject Ozempic once weekly 100 Each 3 No current facility-administered medications for this visit. Social History Tobacco Use Smoking status: Never Passive exposure: Never Smokeless tobacco: Former Types: Snuff Vaping Use Vaping status: Never Used Substance Use Topics Alcohol use: Not Currently Drug use: No Review of patient's allergies indicates: Allergen Reactions Celecoxib Metformin Diarrhea Prochlorperazine Intol,compazine PHYSICAL EXAMINATION: General Appearance: Healthy appearing patient in no acute distress BP 123/83 (BP Site: Left Arm, BP Position: Sitting, BP Cuff Size: Large) | Pulse 65 | Temp 36.2 C(97.2 F) (Tympanic) | Wt 89.8 kg (198 [...] Extremeties: Good pulses bilaterally, no peripheral edema. ASSESSMENT: 68-year-old male with history of multiple [...] cells. Currently he is taking Revlimid 10 mg. He is complaining of skin rash. Overall clinically he is stable without any new symptoms complain. He also has multiple other medical problem including tremors,episode of dizziness and visual problem, and anxiety disorder. Currently he is on Zoloft. Discussed with the patient and in detail about diagnosis and prognosis reviewed all the available blood test result with them. Also discussed with him about the role of Revlimid posttransplant in multiple myeloma. Reviewed the possible side effects of Revlimid. At the most he has grade 1 skin toxicity. After detailed discussion he agreed to continue with the Revlimid. He also had episode of tooth pain and was seen by the dentist. According to the patient he was toldthat there was no sign osteonecrosis. PLAN: Continue Revlimid and Xgeva. He will return clinic for follow-up in [...] Notes * Zofia Barnett MED ASSIST - 04/11/2024 10:55 AM EST Patient identifed by name and birthdate Do you have any concerns about pain management for today's visit? Yes. Patient instructed to discuss pain concerns with provider during the visit today Living Will or Advance Directive for Health Care as noted on the problem list. [facility] is a way you can talk to your provider on line through e-mail. Would you like to sign up? I can activate it for you? ALREADY ACTIVE Filed Vitals: 04/11/24 1052 BP: 123/83 Pulse: 65 Temp: 36.2 C (97.2 F) TempSrc: Tympanic SpO2: 98% Weight: 89.8 [...] personnel. Patient voiced full comprehension of instructions. documented in this encounter Plan of Treatment Upcoming Encounters Date Type Department Care Team (Late st Contact Info) Description 04/18/2024 8:00 AM EST Laboratory Laboratory, [facility] [address] [place] [phone] [facility] [address] [place] [address] 04/18/2024 8:30 AM EST Telemedicine Psychology [place] [address] [place] [address] Quentin Gupta PsyD [address] [place] [address] 04/19/2024 9:00 AM EST Pharmacy Pharmacy Hematology Oncology [facility] [address] [place] [address] [facility], [facility] Hem/Onc [address] [place] [address] 04/20/2024 12:30 PM EST Immunization/Injection Hematology/Oncology Treatment, [place] [address] [place] [phone] Kandice Chair 9 Hem Onc Scenery [address] [place] [address] 05/22/2024 8:00 AM EDT Laboratory Laboratory, Mary Mcmillan [address] [place] [phone] [facility] [address] [place] [address] 05/24/2024 10:30 AM EDT Office Visit Hematology/Oncology [facility] 200 [facility] [place] [address] Rae Berrios MD 200 [facility] [place] [address] 06/22/2024 8:20 AM EDT [facility] [place] [facility] [address] [place] [address] Patrick Zhao MD 226 [place] [address] 07/20/2024 10:30 AM EDT Office Visit Hematology [facility] [address] [place] [address] Nick Moore MD [address] [place], [place] [phone] 07/20/2024 11:00 AM EDT Immunization/Injection Hematology Oncology [facility] [address] [place] [address] Nurse, Med 4 [address] [place] [address] 08/15/2024 7:00 AM EDT Office Visit Neurology [facility] 200 [facility] [place] [address] Yvonne Panchal PA-C [address] [facility] [place] [address] 08/25/2024 9:00 AM EDT Office Visit Pharmacy, [address] [place] [address] [place] [address] 09/05/2024 10:20 AM EDT Office Visit [facility]atology, [place] [facility] [address] [facility] [phone] Linda Mejia PA-C [address] [place] [address] [place] [address] 01/15/2025 9:00 AM EST Office Visit Nephrology, [address] [place] [address] Addison Salas MD [address] [place] [phone] Scheduled Orders Name Type Priority Associated Diagnoses Orde r Schedule [id number], SERUM Lab Routine Multiple myeloma in remission (HCC) Expected: 05/23/2024, Expires: 08/22/2024 CBC WITH WBC DIFFERENTIAL Lab Routine Multiple myeloma in remission (HCC) Expected: 05/23/2024, Expires: 08/22/2024 COMPREHENSIVE METABOLIC PANEL Lab Routine Multiple myeloma in remission (HCC) Expected: 05/23/2024, Expires: 08/22/2024 IMMUNOGLOBULIN QUANTITATIVE Lab Routine Multiple myeloma in remission (HCC) Expected: 05/23/2024, Expires: 08/22/2024 SERUM FREE LIGHT CHAINS Lab Routine Multiple myeloma in remission (HCC) Expected: 05/23/2024, Expires: 08/22/2024 SERUM PROTEIN ELECTROPHORESIS REFLEX PROFILE Lab Routine Multiple myeloma in remission (HCC) Expected: 05/23/2024, Expires: 08/22/2024 Health Maintenance Due Date Last Done Comments [...] remission (HCC)- Primary Multiple myeloma in remission documented in this encounter Advance Directives [...] patient or by statute hierarchy) Care Teams Contract Paralegal Relationship Specialty Start Date End Date Patrick Zhao MD [address] [facility] [place] [address] PCP - General Family Medicine 02/28/24 documented as of this encounter"
--- OUTSIDE RECORDS SUMMARY | 2024-05-18 07:18 | External Medical Summary | Summary of Care ---
Author Name Unknown Organization [facility] Address [address] [facility] [place] [address] Phone [phone] Care Team Providers Care Graduate Nurse Name Role Phone Patrick Zhao MD Primary Care Provider [phone] Reason for Visit * Reason Comments Medication Administration Xgeva 120mg * Episode Based Medications (Routine) - Authorized Specialty Diagnoses / Procedures Referred By Fernando t Referred To Contact Diagnoses Multiple myeloma not having achieved remission (HCC) Procedures LA DENOSUMAB INJECTION Li Yip CRNP [address] [facility] [place] [address] Phone: tel: fax: Hematology/Oncology Treatment, [address] [place] [address] Phone: tel: fax: Referral ID Status Reason Start Date Expiration Date V isits Requested Visits Authorized [id number] Authorized 04/12/2023 04/12/2024 [id number] Encounter Details Date Type Department Care Team (Late st Contact Info) Description 03/23/2024 12:30 PM EST Immunization/I njection Hematology/Oncology Treatment, [place] 200 [facility] [place] [address] Kandice, Chair 9 Hem Onc [address] [address] Multiple myeloma not having achieved remission (HCC)* Allergies Active Allergy Reactions Criticality Noted Date Comments Celecoxib Medium 02/01/2017 Metformin Diarrhea 02/18/2023 Prochlorperazine 11/18/1998 Intol,compazine documented as of this encounter (statuses as of 04/16/2024) Medications OneTouch Delica Plus [id number] USE TO TEST BLOOD SUGAR 2 TIMES [...] 1 03/04/20 24 8:58 AM EST Active Morenouch Verio In Vitro Strip (Glucose Blood)Indications :Type 2 diabetes mellitus with hemoglobin A1c goal of less than 7.0% ([facility]) USE TO TEST BLOOD SUGAR 2 TIMES DAILY DX E11.9 200 Strip 3 024 Active Zoster Vac Recomb Adjuvanted 50 MCG/0.5ML Intramuscular Suspension Reconstituted (Shingrix)Indicat ions:History of autologous stem cell transplant (HCC),Multiple myeloma not having achieved remission (HCC) Inject 0.5 mL into a large muscle now and repeat dose in 60 to 180 days 0.5 mL 024 Active Additional Information Patient not taking.Reported on 02/28/2024 Ozempic (0.25 or 0.5 MG/DOSE) 2 MG/3ML Solution Pen-injector (Semaglutide(0.25 or 0.5MG/DOS))Indica tions:Type 2 diabetes mellitus with hemoglobin A1c goal of less than 7.0% ([facility]) INJECT 0.25 MG UNDER THE SKIN ONCE A WEEK. THEN INCREASE TO 0.5 MG IF TOLERATED. 9 mL 3 024 Active Famotidine 20 MG Oral Tablet (Pepcid)Indicatio ns:Gastroesophage al reflux disease, unspecified whether esophagitis present TAKE 1 TABLET BY MOUTH EVERY DAY 30 Tablet 5 024 Active Loratadine 10 MG Oral Tablet (Claritin) Take 1 Tablet by mouth in the morning. 024 Active Triamcinolone Acetonide 0.1 % External Cream [...] 60 to 180 days 0.5 mL 03/22/19 2:47 PM EST 025 Active Atorvastatin Calcium 20 MG Oral Tablet (Lipitor)Indicati ons:Other hyperlipidemia TAKE 1 TABLET BY MOUTH EVERY DAY 100 Tablet 1 024 2024 Discontinued LORazepam 1 MG Oral Tablet (Ativan)Indicatio ns:Anxiety state,Insomnia, unspecified type Take one at bedtime . May take 1/2- 1 tab during day as needed 45 Tablet 1 024 2024 Discontinued(R efill) Haemophilus B Polysac Conj Vac 10 MCG Injection Solution Reconstituted (Hiberix)Indicati ons:History of autologous stem cell transplant (HCC) Inject 0.5 mL into a large muscle once for 1 dose. 0.5 mL 03/22/19 2:47 PM EST 025 2024 documented as of this encounter (statuses as of 04/16/2024) Active Problems Patient Care Coordination No te [...] as of this encounter (statuses as of 04/16/2024) Resolved Problems Problem Noted Date Diagnosed Date [...] as of this encounter (statuses as of 04/16/2024) Immunizations Name Administration Dates Next Due COVID-19 mRNA, LNP-s, No Pre serve, 2-Dose Series (Moderna) 07/23/2020,06/18/2020 COVID-19 mRNA, LNP-s, No Pre serve, 2-Dose Series (Pfizer) 03/03/2021 HEPATITIS B VACCINE, RECOMB, 20 MCG/ML, ADULT (HEPLISAV-B) 03/22/2024,01/21/2024 HIB Booster (Hiberix) 03/22/2024,01/21/2024 Pneumococcal Conjugate Vacc, 13 Valent (Prevnar) 03/16/2019 Pneumococcal Conjugate Vacci ne, 20-valent ([id number]) 03/22/2024,01/21/2024,02/08/2023(Defe rred: Patient Refused - Pt thinks [...] Assessment Author No 07/20/2023 8:11 AM EDT VargsaMelinda RN * Are you blind or do [...] documented in this encounter Nursing Notes * Yuko Navas LPN - 03/23/2024 12:50 PM EST Calcium 9.7 Phosphorus 3.3 Patient denies any tooth, gum, or jaw pain. Xgeva 120mg administered SQ into the right upper extremity. Patient tolerated injection and will return in 4 weeks. documented in this encounter Plan of Treatment Upcoming Encounters Date Type Department Care Team (Late st Contact Info) Description 04/18/2024 8:00 AM EST Laboratory Laboratory, Mary Hebert [address] [place] [phone] Mohan Hernandez [address] [place] [address] 04/18/2024 8:30 AM EST Telemedicine Psychology [facility] [place] [address] [place] [address] Quentin Gupta PsyD [address] [place] [address] 04/19/2024 9:00 AM EST Pharmacy Pharmacy Hematology Oncology [place] [address] [place] [address] [facility] Hem/Onc [address] [place] [address] 04/20/2024 12:30 PM EST Immunization/Injection Hematology/Oncology Treatment, [place] [address] [place] [address] Kandice, Chair [address] [place] [address] 05/22/2024 8:00 AM EDT Laboratory [place], [place] [address] [place] [address] Mohan Hernandez [address] [place] [id number] 05/24/2024 10:30 AM EDT Office Visit Hematology/Oncology [facility] [place] 200 [facility] [place] [address] Rae Berrios MD 200 [facility] [place] [address] 06/22/2024 8:20 AM EDT Office Visit [facility], Mary Martinez [address] [place] [address] Patrick Zhao MD 226 [facility] [place], [place] [phone] 07/20/2024 10:30 AM EDT Office Visit Hematology Oncology [facility] [place] [address] [place] [address] Nick Moore MD [address] [place] [address] 07/20/2024 11:00 AM EDT Immunization/Injection Hematology Oncology [facility] [place] [address] [place] [address] Nurse, [facility] [address] [place] [address] 08/15/2024 7:00 AM EDT Office Visit Neurology Yarelis Woodson [place] 200 [facility] [place] [address] Yvonne Panchal PA-C 21 [facility] [place] [address] 08/25/2024 9:00 AM EDT Office Visit Pharmacy, [address] [place] [address] [place] [address] 09/05/2024 10:20 AM EDT [facility] [address] iLnda Mejia PA-C [address] [place] [address] [place] [address] 01/15/2025 9:00 AM EST Office Visit Nephrology, [facility] 200 [facility] [place] [address] Addison Salas MD 400 [facility] [place] [address] Health Maintenance Due Date Last Done Comments [...] 120 mg 120 mg, Subcutaneous, ONCE, On Jessica 03/23/24 at 1315, For 1 doseIndications:Multiple myeloma not having achieved remission (HCC) Given 03/23/2024 12:45 PM EST 120 mg Arm Right Upper documented [...] patient or by statute hierarchy) Care Teams Graduate Nurse Relationship Specialty Start Date End Date Patrick Zhao MD [address] [place] [address] PCP - General Family Medicine 02/28/24 documented as of this encounter
--- OUTSIDE RECORDS SUMMARY | 2024-05-18 07:18 | External Medical Summary | Summary of Care ---
Author Name Unknown Organization [facility] Address [address] [place] [address] Phone [phone] Care Team Providers Care Consumer Loan Manager Name Role Phone Patrick Zhao MD Primary Care Provider [phone] Reason for Visit * Reason Onset Date Comments Advice 04/17/2024 Encounter Details Date Type Department Care Team (Late st Contact Info) Description 04/17/2024 Telephone Hematology Oncology [place] [address] [place] [address] Chrystal Hughes, transportation services representative Allergies Active Allergy Reactions Criticality Noted Date Comments Celecoxib Medium 02/01/2017 Metformin Diarrhea 02/18/2023 Prochlorperazine 11/18/1998 Intol,compazine documented as of this encounter (statuses as of 04/17/2024) Medications OneTouch Delica Plus [id number] USE TO TEST BLOOD SUGAR 2 TIMES [...] remission (HCC),History of autologous stem cell transplant ([facility]) Take 1 Tablet by mouth in the [...] in 60 to 180 days 0.5 mL 2:47 PM EST 03/22/19 25 Active Sertraline [...] (Prevnar) 03/16/2019 Pneumococcal Conjugate Vacci ne, 20-valent ([id number]) 03/22/2024,01/21/2024,02/08/2023(Defe rred: Patient Refused - Pt thinks [...] 8:11 AM EDT Vargas, Melinda patel RN documented as of this encounter Mental Status * Because of a physical, mental, or emotional condition, do you have serious difficulty concentrating, remembering, or making decisions? (5 years old or older) Answer Entry Date Author No 07/20/2023 8:11 AM EDT Vargas, Melinda patel RN documented in this encounter Miscellaneous Notes * Telephone Encounter - Pal Oconnor OSA - 04/17/2024 9:25 AM EST Patient's appointment moved up. Patient aware * Telephone Encounter - Ana Roman RN - 04/17/2024 9:07 AM EST Scheduling: please call patient to offer sooner appt with Dr Berrios to discuss options. Thanks! * Telephone Encounter - Chrystal Hughes RN - 04/17/2024 8:28 AM EST Received call from Hernan with questions regarding maintenance therapy. Revlimid was on hold for a short period due to side effects. Saw Dr. Berrios last week and restarted therapy. Since restarting, rash has resumed and he notes that his tremors are worse again. He is on propranolol TID to control histremors but it is affecting his ability to work safely. He can try to tolerate side effects but notsure he can do another year and a half of maintenance therapy with the Revlimid. Advised discussing alternative therapy with Dr. Berrios if he would like to continue to pursue some kind of maintenance therapy. While Revlimid maintenance is standard of care, other medications can beused as well. Will need to consider side effects of alternative medications as well as he also has noted significant neuropathy since transplant. Advised Hernan that I would reach out to Dr. Berrios's office to see what other options for maintenancetherapy can be considered for him. Hernan appreciative of time and assistance. Chrystal Hughes BSN, RN, OCN, BMTCN Bone Marrow Fountain Helper [phone] documented in this encounter Plan of Treatment Upcoming Encounters Date Type Department Care Team (Late st Contact Info) Description 04/18/2024 8:00 AM EST Laboratory Laboratory, [address] [place] [address] Mary Laboratory [address] [place] [address] 04/18/2024 8:30 AM EST Telemedicine Psychology [address] [address] Quentin Gupta PsyD [facility] [place] [address] 04/19/2024 9:00 AM EST Pharmacy Pharmacy Hematology Oncology [address] [address] [facility] Hem/Onc [address] [place] [address] 04/19/2024 12:30 PM EST Office Visit Hematology/Oncology [facility] [address] [place] [address] Rae Berrios MD 200 [facility] [place] [address] 04/19/2024 1:00 PM EST Immunization/Injection Hematology/Oncology Treatment, [place] [address] [place] [address] Kandice, Chair 9 Hem Onc [address] [place] [address] 05/22/2024 8:00 AM EDT Laboratory Laboratory, [address] [place] [address] Mary [facility] [address] [place] [address] 06/22/2024 8:20 AM EDT Office Visit [facility], [place] [address] [place] [address] Patrick Zhao MD 226 [facility] [place] [address] 07/20/2024 10:30 AM EDT Office Visit Hematology Oncology [place] [address] [place] [address] Nick Moore MD [address] [place], [place] [phone] 07/20/2024 11:00 AM EDT Immunization/Injection Hematology Oncology [facility] [address] [place], [place] [phone] Nurse, Med [address] [place], [place] [phone] 08/15/2024 7:00 AM EDT Office Visit Neurology [facility] 200 [facility] [address] Yvonne Panchal PA-C [address] [place] [address] 08/25/2024 9:00 AM EDT Office Visit Pharmacy, [address] [place] [address] [place] [address] 09/05/2024 10:20 AM EDT [facility] [place] [address] Linda Mejia PA-C [address] [place] [address] [place] [address] 01/15/2025 9:00 AM EST Office Visit Nephrology, [facility] 200 [facility] [place] [address] Addison Salas MD 400 [facility] [place] [address] Health Maintenance [...] patient or by statute hierarchy) Care Teams Consumer Loan Manager Relationship Specialty Start Date End Date Patrick Zhao MD 226 [facility] [place] [address] PCP - General Family Medicine 02/28/24 documented as of this encounter
--- OUTSIDE RECORDS SUMMARY | 2024-05-18 07:19 | External Medical Summary | Summary of Care ---
Author Name Unknown Organization [facility] Address [address] [place] [address] Phone [phone] Care Team Providers Care Healthcare Management Consultant Name Role Phone Patrick Zhao MD Primary Care Provider [phone] Reason for Visit * Reason Comments Medication Management Encounter Details Date Type Department Care Team (Late st Contact Info) Description 03/22/2024 8:15 AM [facility] Pharmacy Pharmacy Hematology Oncology [facility] [address] [place] [address] [facility] Hem/Onc [address] [place] [address] History of autologous stem cell transplant (HCC)* Allergies Active Allergy Reactions Criticality Noted Date Comments Celecoxib Medium 02/01/2017 Metformin Diarrhea 02/18/2023 Prochlorperazine 11/18/1998 Intol,compazine documented as of this encounter (statuses as of 03/22/2024) Medications OneTouch Delica Plus [id number] USE TO TEST BLOOD SUGAR 2 TIMES [...] BY MOUTH EVERY DAY 100 Tablet 1 Active Olmesartan Medoxomil 40 MG Oral Tablet [...] hemoglobin A1c goal of less than 7.0% ([facility]) USE TO TEST BLOOD SUGAR [...] hemoglobin A1c goal of less than 7.0% ([facility]) INJECT 0.25 MG UNDER THE SKIN ONCE A WEEK. THEN INCREASE TO 0.5 MG IF TOLERATED. 9 mL 3 Active LORazepam 1 MG Oral Tablet (Ativan)Indicatio ns:Anxiety state,Insomnia, unspecified type Take one at bedtime . May take 1/2- 1 tab during day as needed 45 Tablet 1 Active Famotidine 20 MG Oral Tablet (Pepcid)Indicatio [...] and 1 Tablet before bedtime. 025 Active Haemophilus B Polysac Conj Vac 10 MCG Injection Solution Reconstituted (Hiberix)Indicati ons:History of autologous stem cell transplant (HCC) Inject 0.5 mL into a large muscle once for 1 dose. 0.5 mL 025 2024 Active Zoster Vac Recomb Adjuvanted 50 MCG/0.5ML Intramuscular Suspension Reconstituted (Shingrix)Indicat ions:History of autologous stem cell transplant (HCC) Inject 0.5 mL into a large muscle now and repeat dose in 60 to 180 days 0.5 mL 025 Active Haemophilus B Polysac Conj Vac 10 MCG Injection Solution Reconstituted (Hiberix)Indicati ons:History of autologous stem cell transplant (HCC),Multiple myeloma not having achieved remission (HCC) Inject 0.5 mL into a large muscle once for 1 dose. 0.5 mL 025 2024 Discontinued Zoster Vac Recomb Adjuvanted 50 MCG/0.5ML Intramuscular Suspension Reconstituted (Shingrix)Indicat ions:History of autologous stem cell transplant (HCC),Multiple myeloma not having achieved remission (HCC) Inject 0.5 mL into a large muscle now and repeat dose in 60 to 180 days 0.5 mL 025 2024 Discontinued documented as of this encounter (statuses as of 03/22/2024) Active Problems Patient Care Coordination No te [...] as of this encounter (statuses as of 03/22/2024) Resolved Problems Problem Noted Date Diagnosed Date [...] as of this encounter (statuses as of 03/22/2024) Immunizations Name Administration Dates Next Due COVID-19 mRNA, LNP-s, No Pre serve, 2-Dose Series (Moderna) 07/23/2020,06/18/2020 COVID-19 mRNA, LNP-s, No Pre serve, 2-Dose Series (Pfizer) 03/03/2021 HEPATITIS B VACCINE, RECOMB, 20 MCG/ML, ADULT (HEPLISAV-B) 03/22/2024,01/21/2024 HIB Booster (Hiberix) 03/22/2024,01/21/2024 Pneumococcal Conjugate Vacc, 13 Valent (Prevnar) 03/16/2019 Pneumococcal Conjugate Vacci ne, 20-valent ([id number]) 03/22/2024,01/21/2024,02/08/2023(Defe rred: Patient Refused - Pt thinks [...] documented in this encounter Progress Notes * Cheri Franklin, [facility] - 03/22/2024 1:36 PM EST MEDICATION THERAPY MANAGEMENT LENALIDOMIDE TREATMENT PROGRESS NOTE [place] [id number] Patient Phone Numbers Communication: Chart review Treatment: Medication: Lenalidomide (Revlimid) Indication/Staging/Diagnosis Code: multiple myeloma / C90.00 Dose: 10mg daily x 2 years Administration: +/- food Start Date: 12/06/23 Primary Dental Equipment Installer And Servicer/Oncologist: Dr. Berrios Supportive Care Meds: Ondansetron Prophylactic Meds: Acyclovir 800 mg PO BID See anticoagulant below Relevant Chronic Medications: Category Medications Pertinent Notes Antihypertensives Olmesartan 40mg daily Propranolol 10mg TID Per PCP Per neurology Antidiabetic Semaglutide Per DM MTDM Anticoagulation ASA 81 mg daily Pt hx Start Parameters: Begin after adequate hematologic recovery [ANC >=1,000/mm3; platelets >=75,000/mm3] Treatment History: 03/17/23-06/01/23: DaraVRd 07/21/23: BMT Toxicity Monitoring: Labs reviewed: 03/21/2024 Assessment and Plan: Labs stable to continue Revlimid. 8-month post-HCT completed today. Vaccine prescriptions routed [facility] instead of [facility]. 12-month vaccines due 07/20/2024. Follow up: 04/19 Cheri Franklin PharmD, BCOP Clinical Pharmacist, Hematology and Cellular Therapies [facility] 03/22/2024 1:36 PM Time Spent on Encounter: 16 - 20 minutes Encounter Group: Hematology Encounter Interventions Item Category: Vaccines Vaccines Coordination of Care: 8 Months Problem/Rationale: [place] Plan Review: Clinical Review Pharmacist Intervention(s): Care coordination and Lab monitoring Magnitude of Intervention: Monitoring with direction (Level 1) documented in this encounter Plan of Treatment Upcoming Encounters Date Type Department Care Team (Late st Contact Info) Description 03/23/2024 12:00 PM EST Office Visit Hematology/Oncology [facility] 200 [place] [phone] Mallika Larios CRNP [address] [place], [place] [phone] 03/23/2024 12:30 PM EST Immunization/Injection Hematology/Oncology Treatment, [place] 200 [place] [address] Kandice, Chair [address] Hem Onc [address] [place] [address] 04/03/2024 9:00 AM EST Office Visit Nephrology, [address] [place] [address] Addison Salas MD [address] [place], [place] [phone] 04/18/2024 8:30 AM EST Telemedicine Psychology [address] [address] Quentin Gupta PsyD [facility] [place] [address] 04/19/2024 9:00 AM EST Pharmacy Pharmacy Hematology Oncology [address] [address] [facility] Hem/Onc [facility] [place] [address] 06/22/2024 8:20 AM EDT Office Visit Family Practice, Mary Martinez [address] [place] [address] Patrick Zhao MD [address] [place] [address] 08/15/2024 7:00 AM EDT Office Visit Neurology [facility] [place] 200 [facility] [place] [address] Yvonne Panchal PA-C [address] [place] [address] 08/25/2024 9:00 AM EDT Office Visit Pharmacy, [address] [place] [address] [place] [address] 09/05/2024 10:20 AM EDT Office Visit Dermatology, Mary [address]bert [address] [place] [address] Linda Mejia PA-C [address] [place] [address] [place] [address] Health Maintenance Due Date Last Done Comments [...] Td or Tdap) 12/06/2024 12/06/2014, 05/06/1998 GFR 03/21/2025 03/21/2024, 1204/2023, 01/18/2024, Additional history exists Colonoscopy 03/11/2028 03/11/2018 Colorectal [...] as of this encounter Visit Diagnoses Diagnosis History of autologous stem cell transplant (HCC)- Primary Peripheral stem cells replaced by transplant documented [...] patient or by statute hierarchy) Care Teams Healthcare Management Consultant Relationship Specialty Start Date End Date Patrick Zhao MD [address] [place] [address] PCP - General Family Medicine 02/28/24 documented as of this encounter
--- OUTSIDE RECORDS SUMMARY | 2024-05-18 07:19 | External Medical Summary ---
Author Name Unknown Address Unknown Organization K01:[facility] [place] - [address] [facility] [place] [address] Laboratory Report Ordering Provider Test Date Status ADALBERTO ALEGRE 04/04/2024 07:34:18 Final Observation Date Value Abnormality Reference (Units ) Status BUN 04/04/2024 07:34:18 9 6-20 (mg/dL) Final Creatinine 04/04/2024 07:34:18 1.0 0.6-1.2 (mg/dL) Final Glomerular filtration rate/1.73 sq M.predicted [Volume Rate/Area] in Serum, Plasma or Blood by Creatinine-based formula (CKD-EPI) 04/04/2024 07:34:18 79 >=60 (mL/min) Final eGFR is calculated based on the CKD-EPI 2020 equation. Sodium 04/04/2024 07:34:18 141 135-146 (m mol/L) Final Potassium 04/04/2024 07:34:18 4.1 3.5-5.1 (m mol/L) Final Cl 04/04/2024 07:34:18 107 98-107 (mm ol/L) Final CO2 04/04/2024 07:34:18 22 22-32 (mmo l/L) Final Anion gap 04/04/2024 07:34:18 12 7-15 (mmol /L) Final Glucose 04/04/2024 07:34:18 124 Above high normal 70 -120 (mg/dL) Final Albumin 04/04/2024 07:34:18 4.4 3.8-5.0 (g /dL) Final AST (Aspartate aminotransferase) 04/04/2024 07:34:18 19 10-50 (U/L) Fin al Alk Phos 04/04/2024 07:34:18 76 35-130 (U/ L) Final Bilirubin, Total 04/04/2024 07:34:18 0.5 <=1 .2 (mg/dL) Final Calcium 04/04/2024 07:34:18 8.8 8.4-10.2 ( mg/dL) Final Protein 04/04/2024 07:34:18 6.6 6.0-8.3 (g /dL) Final ALT (Alanine aminotransferase) 04/04/2024 07:34:18 42 10-50 (U/L) Blake pinto Performing Location [facility] [place] - [facility] [address]. [facility] [address]
--- OUTSIDE RECORDS SUMMARY | 2024-05-18 07:19 | External Medical Summary ---
Author Name Unknown Address Unknown Organization K01:[facility] [place] - [address] [facility] [address] [place] [address] Laboratory Report Ordering Provider Test Date Status SISADALBERTO 04/04/2024 07:34:18 Final Mantel Cell Lymphoma - Every week [...] SYNC LEUKOCYTES IN BLOOD BY AUTOMATED COUNT 04/04/2024 07:34:18 4.66 4.00-10.80 (K/uL) Final Segs 04/04/2024 07:34:18 52.6 40.0-75.0 (%) Final Lymphs % 04/04/2024 07:34:18 29.4 18.0-42.0 (%) Final Monos 04/04/2024 07:34:18 11.6 Above high normal 1.0-11.0 (%) Final Eosinophils 04/04/2024 07:34:18 4.9 0.0-6.0 (%) Final Basos 04/04/2024 07:34:18 1.3 0.0-2.0 (%) Final Immature Granulocyte, Percent 04/04/2024 07:34:18 0.2 0.0-2.0 (%) Final Absolute Segs 04/04/2024 07:34:18 2.45 1.80-7.70 (K/uL) Final Lymphs, absolute 04/04/2024 07:34:18 1.37 1.00-4.80 (K/ul) Final Monos, Abs 04/04/2024 07:34:18 0.54 0.00-1.10 (K/uL) Final Eos, Abs 04/04/2024 07:34:18 0.23 0.00-0.70 (K/uL) Final Basos, Abs 04/04/2024 07:34:18 0.06 0.00-0.20 (K/uL) Final Immature Granulocytes, Number 04/04/2024 07:34:18 0.01 0.00-0.20 (K/uL) Final Performing Location [facility] - [facility] N [address]. [facility] [address]
--- OUTSIDE RECORDS SUMMARY | 2024-05-18 07:19 | External Medical Summary ---
Author Name Unknown Address Unknown Organization K01:[facility] - [address] [place] [address] Laboratory Report Ordering Provider Test Date Status ADALBERTO ALEGRE 04/04/2024 07:34:18 Final Mantel Cell Lymphoma - [...] Abnormality Reference (Units ) Status WBC, Total 04/04/2024 07:34:18 4.66 4.00-10.80 (K/uL) Final RBC 04/04/2024 07:34:18 3.97 4.50-5.25 (M/uL) Final Hemoglobin 04/04/2024 07:34:18 12.5 Below low normal 14.0-16.8 (g/dL) Final HCT 04/04/2024 07:34:18 38.0 Below low normal 40.0-48.4 (%) Final MCV 04/04/2024 07:34:18 95.7 82.0-99.5 (fL) Final MCH 04/04/2024 07:34:18 31.5 27.0-34.0 (pg) Final MCHC 04/04/2024 07:34:18 32.9 32.0-36.0 (g/dL) Final RDW 04/04/2024 07:34:18 13.9 11.5-15.5 (%) Final Platelets 04/04/2024 07:34:18 126 Below low normal 140-400 (K/uL) Final MPV 04/04/2024 07:34:18 8.9 6.6-11.1 (fL) Final Nucleated erythrocytes/100 leukocytes [Ratio] in Blood by Automated count 04/04/2024 07:34:18 0 <=0 (/100 WBCs) Final Performing Location LAB[facility]ATORY [facility] [place] - [address] [facility] [address]
--- OUTSIDE RECORDS SUMMARY | 2024-05-18 07:19 | External Medical Summary | Summary of Care ---
Author Name Unknown Organization [facility] Address [address] [facility] [place] [address] Phone [phone] Care Team Providers Care Army Officer Name Role Phone Patrick Zhao MD Primary Care Provider [phone] Reason for Visit * Reason Onset Date Comments FYI 03/14/2024 Medication Update 03/14/2024 Encounter Details Date Type Department Care Team (Late st Contact Info) Description 03/14/2024 Telephone Hematology/Oncology State Mercedes Delarosa [address] [place] [phone] Rae Berrios MD [address] [place] [address] FYI; Medication Update Allergies Active Allergy Reactions Criticality Noted Date Comments Celecoxib Medium 02/01/2017 Metformin Diarrhea 02/18/2023 Prochlorperazine 11/18/1998 Intol,compazine documented as of this encounter (statuses as of 03/28/2024) Medications OneTouch Delica Plus [id number] USE TO TEST BLOOD SUGAR 2 TIMES DAILY DX E11.9 200 Each 3 023 Active Calcium Carb-Cholecalcife rol 600-20 MG-MCG Oral Tablet (Calcium 600+D3) Take by mouth 2 times a day. Patient reported Active Loperamide HCl 2 MG Oral Tablet (Imodium A-D) Take 1 Tablet by mouth 4 times a day as needed for Diarrhea. 30 Tablet Active Ondansetron HCl 8 MG Oral Tablet [...] A1c goal of less than 7.0% ([facility]) USE TO TEST BLOOD SUGAR 2 TIMES DAILY DX E11.9 200 Strip 3 Active Zoster Vac Recomb Adjuvanted 50 MCG/0.5ML Intramuscular Suspension Reconstituted (Shingrix)Indicat ions:History of autologous stem cell transplant (HCC),Multiple myeloma not having achieved remission ([facility]) Inject 0.5 mL into a large muscle now and repeat dose in 60 to 180 days 0.5 mL Active Additional Information Patient not taking.Reported on 02/28/2024 Ozempic (0.25 or 0.5 MG/DOSE) 2 MG/3ML Solution Pen-injector (Semaglutide(0.25 or 0.5MG/DOS))Indica tions:Type 2 diabetes mellitus with hemoglobin A1c goal of less than 7.0% ([facility]) INJECT 0.25 MG UNDER THE SKIN ONCE A WEEK. THEN INCREASE TO 0.5 MG IF TOLERATED. 9 mL 3 Active LORazepam 1 MG Oral Tablet (Ativan)Indicatio ns:Anxiety state,Insomnia, unspecified type Take one at bedtime . May take 1/2- 1 tab during day as needed 45 Tablet 1 12/06/2 024 Active Famotidine 20 MG Oral Tablet [...] Active Propranolol HCl 20 MG Oral Tablet (Inderal) Take 1 Tablet by mouth in the morning and 1 Tablet at noon and 1 Tablet before bedtime. 270 Tablet 3 02/05/20 24 3:25 PM EST 024 2024 Discontinued Lenalidomide 10 MG Oral Capsule (Revlimid)Indicat ions:Multiple myeloma not having achieved remission (HCC) Take 1 Capsule by mouth in the morning. For 28 days of a 28 day cycle. Take medication same time every day and consistently with or without food.. Do not start before February 17, 2024. 28 Capsule 024 2024 Discontinued(R efill) documented as of this encounter (statuses as of 03/28/2024) Active Problems Patient Care Coordination No te [...] as of this encounter (statuses as of 03/28/2024) Resolved Problems Problem Noted Date Diagnosed Date [...] as of this encounter (statuses as of 03/28/2024) Immunizations Name Administration Dates Next Due COVID-19 mRNA, LNP-s, No Pre serve, 2-Dose Series (Moderna) 07/23/2020,06/18/2020 COVID-19 mRNA, LNP-s, No Pre serve, 2-Dose Series (Pfizer) 03/03/2021 Diptheria/Tetanus (Adult) 05/06/1998 HEPATITIS B VACCINE, RECOMB, 20 MCG/ML, ADULT (HEPLISAV-B) 03/22/2024,01/21/2024 HIB Booster (Hiberix) 03/22/2024,01/21/2024 Pneumococcal Conjugate Vacc, 13 Valent (Prevnar) 03/16/2019 Pneumococcal Conjugate Vacci ne, 20-valent ([id number]) 03/22/2024,01/21/2024,02/08/2023(Defe rred: Patient Refused - Pt thinks [...] Telephone Encounter - Caroline Rivero CPhT - 03/28/2024 4:26 PM EST Confirmed via Action, [email or web address] dispensed Lenalidomide today. MTDM to schedule for next refill on 04/18. Caroline Rivero Music Therapist III Hematology Oncology Oral Chemotherapy Clinic Medication Therapy Disease Management [facility] 03/28/2024 4:26 PM Time Spent on Encounter: < 5 minutes * Telephone Encounter - Apoorva Amezcua RPh - 03/14/2024 11:27 AM EST Refill Request EPIC Note Clinical Pharmacy Service (Hematology/Oncology): Refill Request(s) PHYSICIAN [facility]: No Assessment & Plan After reviewing the parameters in order to refill the patient's medication(s), the following was determined: The medication(s), lenalidomide, was refilled and no parameters need to be addressed No communication to requesting entity necessary Refill Parameters The following parameters were assessed in order to decide whether or not this refill was appropriate: Refill Parameter Comments If the patient was seen in the last 6 months (12 months for MPN patients) Yes- 03/09/24 If the labs were completed per prescribing information recommendations or provider recommendations Yes- 02/07/24 If the labs were within normal limits or stable at baseline yes If the dose was correct and/or if the prescription sig reflects the current prescribed dose yes If there were any new drug interactions with the patient's oral chemotherapy no If there were any care gaps/baseline labs that need to be addressed no Apoorva Amezcua [facility] Ambulatory Clinical Pharmacist | Oral Chemotherapy Clinic [facility] 03/14/2024, 11:27 AM * Telephone Encounter - Caroline Rivero CPhT - 03/14/2024 8:40 AM EST PHARMACY REMS MEDICATION AUTHORIZATION Hernan Rodriguez [phone] Patient Phone Numbers Communication: Chart review Treatment: Medication: Lenalidomide (Revlimid) Indication/Staging/Diagnosis Code: multiple myeloma / C90.00 Dose: 10mg daily x 2 years Administration: +/- food Start Date: 12/06/23 Primary And Drying Supervisor Cooking Casing/Oncologist: Dr. Berrios Patient managed by Hem/Onc MTDM - Yes Patient is due for/had labs on 02/06 (scheduled 03/21) Prescriber survey complete; Action auth number [id number]. Upon new prescription being sent to [facility] specialty pharmacy, will follow up on Action website within 1-2 business days to confirm medication dispensed Caroline Rivero Music Therapist III Hematology Oncology Oral Chemotherapy Clinic Medication Therapy Disease Management [facility] 03/14/2024 8:41 AM Time Spent on Encounter: < 5 minutes documented in this encounter Plan of Treatment Upcoming Encounters Date Type Department Care Team (Late st Contact Info) Description 04/03/2024 9:00 AM EST Office Visit Nephrology, [address] [place] [address] Addison Salas MD [address] [place] [address] 04/04/2024 8:00 AM EST Laboratory Laboratory, [address] [place] [phone] [facility] [address] [place] [address] 04/06/2024 11:30 AM EST Office Visit Hematology/Oncology Yarelis Woodson [place] [address] [facility] [place] [phone] Mallika Larios CRNP [address] [place] [address] 04/18/2024 8:00 AM EST Laboratory Laboratory, [address] [facility] [place] [phone] [facility] [address] [place] [address] 04/18/2024 8:30 AM EST Telemedicine Psychology [facility], Branch [address] [place] [address] Quentin Gupta PsyD [facility] [place] [address] 04/19/2024 9:00 AM EST Pharmacy Pharmacy Hematology Oncology [facility], [place] [address] [place] [address] [facility] Hem/Onc [facility] [place] [address] 04/20/2024 12:30 PM EST Immunization/Injection Hematology/Oncology Treatment, [place] [address] [place] [address] Kandice, Chair 9 Hem Onc [facility] 200 [facility] [place] [address] 06/22/2024 8:20 AM EDT Office Visit [facility], [facility] [address] [place] [address] Patrick Zhao MD [address] [place] [address] 08/15/2024 7:00 AM EDT Office Visit Neurology [facility] [place] [address] [place] [address] Yvonne Panchal PA-C [address] [place] [address] 08/25/2024 9:00 AM EDT Office Visit Pharmacy, [address] [place] [address] [place] [address] 09/05/2024 10:20 AM EDT Office Visit [address] [place] [phone] Linda Mejia PA-C [address] [place] [address] [place] [address] Health Maintenance Due Date Last Done Comments [...] Tdap) 12/06/2024 12/06/2014, 05/06/1998 GFR 03/21/2025 03/21/2024, 12/04/2023, 01/18/2024, Additional history exists Colonoscopy 03/11/2028 03/11/2018 [...] patient or by statute hierarchy) Care Teams Army Officer Relationship Specialty Start Date End Date Patrick Zhao MD [address] [place] [address] PCP - General Family Medicine 02/28/24 documented as of this encounter"
--- OUTSIDE RECORDS SUMMARY | 2024-05-18 07:19 | External Medical Summary | Summary of Care ---
Author Name Unknown Organization [facility] Address [address] [place] [address] Phone [phone] Care Team Providers Care Final Cleaner Name Role Phone Patrick Zhao MD Primary Care Provider Reason for Visit * Reason Comments Hypertension Encounter Details Date Type Department Care Team (Late st Contact Info) Description 04/03/2024 9:00 AM EST Office Visit Nephrology, [facility] [address] [place] [address] Addison Salas MD [address] [place] [address] Primary hypertension* Allergies Active Allergy Reactions Criticality Noted Date Comments Celecoxib Medium 02/01/2017 Metformin Diarrhea 02/18/2023 Prochlorperazine 11/18/1998 Intol,compazine documented as of this encounter (statuses as of 04/03/2024) Medications OneTouch Delica Plus [id number] USE TO TEST BLOOD SUGAR 2 TIMES [...] A1c goal of less than 7.0% ([facility]) USE TO TEST BLOOD SUGAR 2 TIMES [...] A1c goal of less than 7.0% ([facility]) INJECT 0.25 MG UNDER THE SKIN ONCE [...] ons:History of autologous stem cell transplant ([facility]) Inject 0.5 mL into a large muscle [...] A1c goal of less than 7.0% ([facility]) Use to inject Ozempic once weekly 100 Each 3 03/28/19 25 Active documented as of this encounter (statuses as of 04/03/2024) Active Problems Patient Care Coordination No te [...] as of this encounter (statuses as of 04/03/2024) Resolved Problems Problem Noted Date Diagnosed Date [...] as of this encounter (statuses as of 04/03/2024) Immunizations Name Administration Dates Next Due COVID-19 mRNA, LNP-s, No Pre serve, 2-Dose Series (Moderna) 07/23/2020,06/18/2020 COVID-19 mRNA, LNP-s, No Pre serve, 2-Dose Series (Pfizer) 03/03/2021 HEPATITIS B VACCINE, RECOMB, 20 MCG/ML, ADULT (HEPLISAV-B) 03/22/2024,01/21/2024 HIB Booster (Hiberix) 03/22/2024,01/21/2024 Pneumococcal Conjugate Vacc, 13 Valent (Prevnar) 03/16/2019 Pneumococcal Conjugate Vacci ne, 20-valent ([id number]) 03/22/2024,01/21/2024,02/08/2023(Defe rred: Patient Refused - Pt thinks [...] Sign Reading Time Taken Comments Blood Pressure 132/67 04/03/2024 8:54 AM EST Pulse 74 04/03/2024 8:54 AM EST Temperature 36.4 C (97.6 F) 04/03/2024 8:54 AM ES T Respiratory Rate 18 04/03/2024 8:54 AM EST Oxygen Saturation 93% 04/03/2024 8:54 AM EST Inhaled Oxygen Concentration - - Weight 90.7 kg (200 lb) 04/03/2024 8:54 AM EST Height - - Body Mass Index 28.7 02/21/2024 7:27 AM EST documented in this [...] documented in this encounter Progress Notes * Addison Salas MD - 04/03/2024 9:00 AM EST REASON FOR VISIT: Uncontrolled hypertension HPI: Hernan Rodriguez is a 68 year old male seen in follow-up for uncontrolled hypertension. Past medical history multiple myeloma status post stem cell transplant at [facility] in July 2023, type 2 diabetes on Ozempic with recent A1c of 6.8, hypertension, migraine, diverticulitis, depression. Last visit was February 2023. He is on lenalidomide but has skin rash from it. He has occasional exertional dyspnea. No leg swelling. No urinary symptoms such as dysuria, hematuria or frequency. Blood pressure is controlled with systolic in the 130s even at home. Recent labs reviewed and discussed notable for creatinine of 1.3 and potassium of 5.1. Recent A1c of 6.8. Past Medical History: Diagnosis Date Depression Diverticulitis of small intestine HTN (hypertension) Migraine without aura Review of Systems: General ROS: negative for - chills or fever Psychological ROS: negative for - mood swings ENT ROS: negative for - nasal congestion or nasal discharge Endocrine ROS: negative Respiratory ROS: no cough, shortness of breath, or wheezing Cardiovascular ROS: no chest pain or dyspnea on exertion Gastrointestinal ROS: no abdominal pain, change in bowel habits, or black or bloody stools Genito-Urinary ROS: no dysuria, trouble voiding, or hematuria Musculoskeletal ROS: negative for - muscle pain Neurological ROS: no TIA or stroke symptoms Dermatological ROS: negative for rash Family History Problem Relation Name Age of Onset Hypertension Mother Diabetes Mother Lung cancer Father Arthritis Sister neck No Known Problems Daughter No Known Problems Daughter Social History Socioeconomic History Marital status: Spouse [...] Insecurity: No Food Insecurity (09/13/2023) Food Insecurity Do you need food for this week? (Adult - for ages 18 years and over): No Are you able to get enough food for your family? (Household - for ages 0-17 years): Not on file Does your family need food this week? (Household - for ages 0-17 years): Not on file Do you always have enough food for your family? (Household - for ages 0-17 years): Not on file Transportation Needs: No Transportation Needs (09/13/2023) Transportation [...] Stability Do you currently live in a fpc or have no steady place to sleep [...] - for ages0-17 years): Not on file Current Outpatient Medications Medication Sig Dispense Refill Calcium Carb-Cholecalciferol 600-20 MG-MCG Oral Tablet (Calcium [...] 1 Tablet before bedtime. 180 Tablet 1 Ozempic (0.25 or 0.5 MG/DOSE) 2 MG/3ML Solution Pen-injector (Semaglutide(0.25 or 0.5MG/DOS)) INJECT 0.25 MG UNDER THE SKIN ONCE A WEEK. THEN INCREASE TO 0.5 MG IF TOLERATED. 9 mL 3 LORazepam 1 MG Oral Tablet (Ativan) Take one at bedtime . May take 1/2- 1 tab during day as needed 45 Tablet 1 Loratadine 10 MG Oral Tablet (Claritin) Take 1 Tablet by mouth in the morning. Hydrocortisone 2.5 % External Cream Apply topically to affected area 3 times a day. To affected area. 84 g 3 traZODone HCl 50 MG Oral Tablet (Desyrel) [...] the morning and 1 Tablet before bedtime. Sertraline HCl 50 MG Oral Tablet (Zoloft) Take 1 Tablet by mouth in the morning. 30 Tablet 3 OneTouch Delica Plus [id number] USE TO TEST BLOOD SUGAR 2 TIMES DAILY DX E11.9 200 Each 3 OneTouch Verio In Vitro Strip (Glucose Blood) USE TO TEST BLOOD SUGAR 2 TIMES DAILY DX E11.9 200 Strip 3 Zoster Vac Recomb Adjuvanted 50 MCG/0.5ML Intramuscular Suspension Reconstituted (Shingrix) Inject 0.5 mL into a large muscle now and repeat dose in 60 to 180 days (Patient not taking: Reported on 02/28/2024) 0.5 mL 0 Famotidine 20 MG Oral Tablet (Pepcid) TAKE 1 TABLET BY MOUTH EVERY DAY 30 Tablet 5 Triamcinolone Acetonide 0.1 % External Cream (Aristocort) Apply topically to affected area 2 times a day. To affected area. 453 g 3 NovoFine Plus Pen Needle 32G X 4 MM (Insulin Pen Needle) Use to inject Ozempic once weekly 100 Each3 Zoster Vac Recomb Adjuvanted 50 MCG/0.5ML Intramuscular Suspension Reconstituted (Shingrix) Inject 0.5 mL into a large muscle now and repeat dose in 60 to 180 days 0.5 mL 0 BD Pen Needle Yecenia U/F 32G X 4 MM (Insulin Pen Needle) Use to inject Ozempic once weekly 100 Each 3 No current facility-administered medications for this visit. Filed Vitals: 04/03/24 0854 BP: 132/67 Pulse: 74 Resp: 18 Temp: 36.4 C (97.6 F) SpO2: 93% Weight: 90.7 kg (200 lb) PHYSICAL EXAM: GENERAL: Alert, in no acute distress. EYES: PERRL, conjunctivae anicteric. ENT: Mucous membranes moist, oropharynx clear. NECK: Supple, no JVD. LYMPH: No cervical or supraclavicular lymphadenopathy. LUNGS: Clear to auscultation bilaterally, no respiratory distress. CARDIAC: Regular rate and rhythm, normal S1/S2, no murmurs, rubs, or gallops. ABDOMEN: Soft, non-tender, non-distended, bowel sounds present. EXT/MSK: No clubbing, cyanosis, or edema. SKIN: No rash, no jaundice. NEURO: No tremor, no asterixis. LABS/STUDIES: Recent Labs Units 03/21/24 0800 02/07/24 0757 01/18/24 0750 01/03/24 0751 SODIUM - [facility] mmol/L 137 139 138 139 POTASSIUM - [facility] mmol/L 5.1 4.4 4.4 4.5 CHLORIDE - [facility] mmol/L 104 106 105 106 CO2 - [facility] mmol/L 22 23 23 21* BUN - [facility] mg/dL 21* 15 19 14 CREATININE - [facility] mg/dL 1.3* 0.9 1.0 1.0 Recent Labs Units 03/21/24 0800 02/07/24 0757 01/18/24 0750 WBC K/uL 4.72 3.50* 3.87* HGB g/dL 14.4 12.6* 12.1* PLT K/uL 145 130* 151 Recent Labs Units 03/21/24 0800 02/07/24 0757 01/18/24 0750 01/03/24 0751 12/27/23 0741 12/13/23 0751 11/23/23 0857 CALCIUM - [facility] mg/dL 9.7 8.8 8.7 8.7 9.1 < > 9.2 PHOSPHORUS - [facility] mg/dL 3.3 2.7 -- -- 4.3 -- 4.2 < > = values in this interval not displayed. Recent Labs Units 02/07/24 0757 10/25/23 0844 05/19/23 1013 HEMOGLOBIN A1C - [facility] % 6.8* 6.7* 8.5* No results for input(s): "MICROALBUMIN", "PROCRRATIO" in the last [id number] hours. ASSESSMENT AND PLAN Hernan was seen today for hypertension. Diagnoses and all orders for this visit: Primary hypertension - NEPHROLOGY FOLLOW UP APPT (DEPARTMENT USE ONLY); Future Blood pressure is controlled on olmesartan and propranolol. He has history of skin rash to multipleantihypertensives including metoprolol and amlodipine. He has history of skin rash with propranolol. He will continue monitor blood pressure at home. We also discussed need to start exercising at least 30 minutes 5 times a week. We discussed need to limit salt intake. Albuminuria He has albuminuria which could be from diabetic nephropathy. Continue Benicar. Addison Salas MD Nephrology, [address] [place] [address] This note was generated with the help of voice recognition software. Please excuse for errors. documented in this encounter Nursing Notes * Gifty Elizabeth RN - 04/03/2024 8:58 AM EST Follow up visit today. Dx with multiple myeloma. Stem cell transplant July 2023 at [facility] [place] [place]. documented in this encounter Plan of Treatment Upcoming Encounters Date Type Department Care Team (Late st Contact Info) Description 04/04/2024 8:00 AM EST Laboratory Laboratory, [address] [place] [phone] [facility] [address] [place] [address] 04/06/2024 11:30 AM EST Office Visit Hematology/Oncology [facility] [address] [place] [address] Mallika Larios CRNP [address] [place] [address] [place] [address] 04/18/2024 8:00 AM EST Laboratory Laboratory, [address] [place] [phone] Mohan Hernandez [address] [place] [address] 04/18/2024 8:30 AM EST Telemedicine Psychology [facility], [place] [address] [place] [address] Quentin Gupta PsyD [facility] [address] 04/19/2024 9:00 AM EST Pharmacy Pharmacy Hematology Oncology [place] [address] [place] [address] [facility] Hem/Onc [facility] [place] [address] 04/20/2024 12:30 PM EST Immunization/Injection Hematology/Oncology Treatment, [place] [address] [place] [address] Kandice, Chair 9 Hem Onc [address] [address] 06/22/2024 8:20 AM EDT Office Visit [facility], [place] [address] [place] [address] Patrick Zhao MD [address] [place] [address] 08/15/2024 7:00 AM EDT Office Visit Neurology [facility] 200 [place] [address] Yvonne Panchal PA-C [address] [place] [address] 08/25/2024 9:00 AM EDT Office Visit Pharmacy, [address] [place] [address] [place] [address] 09/05/2024 10:20 AM EDT Office Visit [place]atology, [address] [facility] [place] [address] Linda Mejia PA-C [address] [place] [address] [place] [address] 01/15/2025 9:00 AM EST Office Visit Nephrology, [address] [place] [address] Addison Salas MD [address] [facility] [place], [place] [phone] Health Maintenance Due Date Last Done Comments Cologuard 2001 Fecal Occult Blood Test 2001 Sigmoidoscopy 2001 Adult Wellness Visit 2022 COVID-19 Vaccine ( season) 2023 03/03/2021, 07/23/2020, 06/18/2020 Albumin/Creatinine Ratio 01/20/2024 023, 01/05/2022, 02/02/2018 HbA1c 08/07/2024 02/07/2024, 0811/2023, 05/19/2023, Additional history exists Diabetic Eye Exam 08/26/2024 08/27/2023 (Do ne elsewhere), 12/16/2022, 03/10/2021, Additional history exists Depression Monitoring 09/12/2024 09/13/2023 Diabetic Foot Exam 09/13/2024 09/14/2023, 0 05/02/2020, 02/08/2019, Additional history exists DTap/Tdap Vaccines (2 - Td or Tdap) 12/06/2024 12/06/2014, 05/06/1998 GFR 03/21/2025 03/21/2024, 12/0 04/2023, 01/18/2024, Additional history exists Colonoscopy 03/11/2028 03/11/2018 [...] as of this encounter Visit Diagnoses Diagnosis Primary hypertension- Primary Unspecified essential hypertension documented in this encounter Advance Directives * [...] patient or by statute hierarchy) Care Teams Final Cleaner Relationship Specialty Start Date End Date Patrick Zhao MD [address] [place] [address] PCP - General Family Medicine 02/28/24 documented as of this encounter
--- OUTSIDE RECORDS SUMMARY | 2024-05-18 07:19 | External Medical Summary | Summary of Care ---
Author Name Unknown Organization [facility] Address [address] [place] [address] Phone [phone] Care Team Providers Care Souvenir Assembler Name Role Phone Patrick Zhao MD Primary Care Provider [phone] Reason for Visit * Reason Comments Follow Up 6 week follow up Encounter Details Date Type Department Care Team (Late st Contact Info) Description 03/23/2024 12:00 PM EST Office Visit Hematology/Oncology [facility] [address] [facility] [place] [address] Mallika Larios, GROUNDS MAINTENANCE MANAGER [address] [place] [address] Anxiety* Allergies Active Allergy Reactions Criticality Noted Date Comments Celecoxib Medium 02/01/2017 Metformin Diarrhea 02/18/2023 Prochlorperazine 11/18/1998 Intol,compazine documented as of this encounter (statuses as of 03/23/2024) Medications OneTouch Delica Plus [id number] USE TO TEST BLOOD SUGAR 2 TIMES [...] hemoglobin A1c goal of less than 7.0% ([facility]) USE TO TEST BLOOD SUGAR [...] hemoglobin A1c goal of less than 7.0% ([facility]) INJECT 0.25 MG UNDER THE [...] 1 Tablet before bedtime. 03/22/19 25 Active Haemophilus B Polysac Conj Vac 10 MCG Injection Solution Reconstituted (Hiberix)Indicatio ns:History of autologous stem cell transplant (HCC) Inject 0.5 mL into a large muscle once for 1 dose. 0.5 mL 5 2:47 PM EST 03/22/19 25 025 Active Zoster Vac Recomb Adjuvanted 50 MCG/0.5ML Intramuscular Suspension Reconstituted (Shingrix)Indicati ons:History of autologous stem cell transplant (HCC) Inject 0.5 mL into a large muscle now and repeat dose in 60 to 180 days 0.5 mL 5 2:47 PM EST 01/15/20 25 Active Sertraline HCl 50 MG Oral Tablet (Zoloft)Indication s:Anxiety Take 1 Tablet by mouth in the morning. 30 Tablet 3 03/23/19 Active documented as of this encounter (statuses as of 03/23/2024) Active Problems Patient Care Coordination No te [...] as of this encounter (statuses as of 03/23/2024) Resolved Problems Problem Noted Date Diagnosed Date [...] as of this encounter (statuses as of 03/23/2024) Immunizations Name Administration Dates Next Due COVID-19 mRNA, LNP-s, No Pre serve, 2-Dose Series (Moderna) 07/23/2020,06/18/2020 COVID-19 mRNA, LNP-s, No Pre serve, 2-Dose Series (Pfizer) 03/03/2021 HEPATITIS B VACCINE, RECOMB, 20 MCG/ML, ADULT (HEPLISAV-B) 03/22/2024,01/21/2024 HIB Booster (Hiberix) 03/22/2024,01/21/2024 Pneumococcal Conjugate Vacc, 13 Valent (Prevnar) 03/16/2019 Pneumococcal Conjugate Vacci ne, 20-valent ([id number]) 03/22/2024,01/21/2024,02/08/2023(Defe rred: Patient Refused - Pt thinks [...] Sign Reading Time Taken Comments Blood Pressure 147/75 03/23/2024 11:49 AM EST Pulse 80 03/23/2024 11:49 AM EST Temperature 36.1 C (96.9 F) 03/23/2024 11:[address] Respiratory Rate - - Oxygen Saturation 96% 03/23/2024 11:49 AM EST Inhaled Oxygen Concentration - - Weight 91 kg (200 lb 9.6 oz) 03/23/2024 11:49 AM EST Height - - Body Mass Index 28.78 02/21/2024 7:27 AM EST documented in this [...] documented in this encounter Progress Notes * Mallika Larios CRNP - 03/23/2024 12:00 PM EST Hematology/Oncology Outpatient Clinic note [facility] [place] [address] [facility] [place] [address] Name: Hernan Rodriguez Date: 03/23/2024 CHIEF COMPLAINT: Hernan Rodriguez is a 68 year old male patient of Dr. Mcbride Agustina here today for an acute visit From Patient chart confirmed history with patient. HEMATOLOGY/ONCOLOGY DIAGNOSIS: IgG kappa multiple myeloma - stage I DATE OF DIAGNOSIS: 02/08/23 TREATMENT HISTORY: Palliative radiation therapy to the left third rib mass completed 03/26/23 Treated with daratumumab plus lenalidomide, bortezomib and Decadron He received 4 cycles daratumumab, velcade, revlimid and dexamethasone 03/17/23 through 06/01/23. S/P High-dose chemotherapy followed by the stem cell transplant. Day 0 was on 07/21/2023. CURRENT TREATMENT: On maintenance Revlimid 10 mg daily - start 12/06/2023 -plan for two years of therapy Prophylactic Meds: Acyclovir 800 mg BID Aspirin 81 mg daily ONCOLOGY HISTORY: Patient with history of multiple medical problems including [...] IgA was 23 and IgM was 30. Taylor light chain was 281.08 and the lambda was 8.9 with ratio of 31. He denies smoking. He snuff tobacco for over 50 years. Denies drinking. Family history significant for father was diagnosed of lung cancer. Patient is complaining of pain in specially in the left side of the chest. Bone marrow biopsy and aspirate was done on 02/08/2023 and it is consistent with the plasma cell myeloma with negative P 53.Plasma cells account for 80% in focal solid [...] lesion and 2.7 x 1.6 cm right femoral neck lytic lesion. Patient seems to have stage I disease with the serum beta 2 microglobulin less than 3.5 and albuminlevel more than 3.5 with available cytogenetics seems not high-risk disease. Patient seems to be transplant eligible. He will benefit with the combination of treatment including daratumumab plus lenalidomide, pertuzumab and Decadron combination. Discussed with them about the benefit, risk, side effects toxicity of the treatment. After detailed discussion he agreed to proceed with treatment and signed the consent form. I will also refer him for possible radiation therapy to the left rib region for the pain control. HISTORY OF PRESENT ILLNESS: Hernan Rodriguez is a 68 year old male with a history as outlined above. Currently here for an acute visit. He called recently with c/o rash on chest, arm and face with itching. He was instructed to stopRevlimid x 1 week. He is pleased that the rash is essentially gone. He does have some areas of skinthat itch. He continues to have a poor appetite. He is very anxious and has difficulty resting. He has been on Sertraline before and wants to restart this. He does take Lorazepam at for anxiety and talks to counselor often. Family members reports that he is very stressed all the time. No headaches. C/o some different nerve pain on upper chest and abdomen intermittently. No shortness of breath. Denies abd pain. Mild constipation noted and improved with miralax. No urinary issues. Past Medical History: Diagnosis Date Depression Diverticulitis of small intestine HTN (hypertension) Migraine without aura Past Surgical History: Procedure Laterality Date ARTHROPLASTY KNEE TOTAL Right COLONOSCOPY, DIAGNOSTIC (RECTUM) 03/11/2018 COLONOSCOPY FLEXIBLE PROXIMAL DIAGNOSTIC performed by Nicole Olvera DO at ENDOSCOPY [facility] HEAD SURGERY PROCEDURE NEC Cluster headache nerve/blood vessel seperation INSERTION OF LENS PROSTHESIS Bilateral IR BIOPSY 02/08/2023 IR BIOPSY 06/28/2023 IR BIOPSY 10/25/2023 IR VENOUS ACCESS NON-MEDIPORT 07/12/2023 IR VENOUS ACCESS NON-MEDIPORT 08/09/2023 KNEE ARTHROSCOPY/SURGERY Right OTHER right knee surgery OTHER surgery for cluster headaches REMOVAL OF APPENDIX Social History Socioeconomic History Marital status: Spouse [...] Stability Do you currently live in a long term or have no steady place to sleep [...] - for ages0-17 years): Not on file Review of patient's allergies indicates: Allergen Reactions Celecoxib Metformin Diarrhea Prochlorperazine Intol,compazine Current Outpatient Medications Medication Sig Dispense Refill OneTouch Delica Plus [id number] USE TO TEST BLOOD SUGAR 2 TIMES [...] the morning and 1 Tablet before bedtime. Haemophilus B Polysac Conj Vac 10 MCG Injection Solution Reconstituted (Hiberix) Inject 0.5 mL intoa large muscle once for 1 dose. 0.5 mL 0 Zoster Vac Recomb Adjuvanted 50 MCG/0.5ML Intramuscular Suspension Reconstituted (Shingrix) Inject 0.5 mL into a large muscle now and repeat dose in 60 to 180 days 0.5 mL 0 No current facility-administered medications for this visit. REVIEW OF SYSTEMS: Review of Systems Constitutional: Positive for fatigue. Negative for appetite change, chills and fever. Metalic taste at times HENT: Negative for mouth sores, sore throat and trouble swallowing. Respiratory: Negative for cough and shortness of breath. Cardiovascular: Negative for chest pain and leg swelling. Gastrointestinal: Positive for constipation. Negative for abdominal pain, diarrhea, nausea and vomiting. Endocrine: Positive for hot flashes. Genitourinary: Negative for difficulty urinating. Musculoskeletal: Negative for back pain and myalgias. Skin: Positive for rash. Rash has almost disappeared in the last week after stopping revlimid Neurological: Positive for dizziness. Negative for headaches and light-headedness. Equilibrium is off--has chronic dizziness. Somewhat off Vision is different at times Psychiatric/Behavioral: Positive for depression and sleep disturbance. Negative for suicidal ideas.The patient is nervous/anxious. OBJECTIVE: Filed Vitals: 03/23/24 1149 BP: 147/75 Pulse: 80 Temp: 36.1 C (96.9 F) TempSrc: Tympanic SpO2: 96% Weight: 91 kg (200 lb 9.6 oz) Wt Readings from Last 5 Encounters: 03/23/24 91 kg (200 lb 9.6 oz) 03/09/24 92.5 kg (204 lb) 02/28/24 92.8 kg (204 lb 9.6 oz) 02/21/24 92.7 kg (204 lb 6.4 oz) 02/09/24 92.8 kg (204 lb 9.6 oz) PHYSICAL EXAM: ECOG: Performance Status 0 = 100% Normal Activity General Appearance: Normal - Healthy appearing patient in no acute distress HEENT: Normal - No oral or pharyngeal masses, ulceration or thrush noted, no sinus tenderness Lymph Nodes: Normal - No palpable lymph nodes in the neck or supraclavicular areas Lungs/Thorax: Normal - Clear to auscultation Heart: Normal - Regular rate and rhythm, normal S1, S2, no appreciable murmurs, rubs, gallops Pulses/Extremities: Normal - 2+ throughout and symmetrical, no edema Abdomen: Normal - Soft, nontender, bowel sounds present, no appreciable hepatosplenomegaly, no palpable masses Musculoskeletal: Normal - No pain on palpation over bony prominence, no joint or bony deformity Neurologic: Normal - Grossly intact No rash noted LABS: Results for orders placed or performed in visit on 03/21/24 PHOSPHORUS Result Value Ref Range Phosphorus 3.3 2.5 - 4.8 mg/dL IMMUNOGLOBULIN QUANTITATIVE Result Value Ref Range IgG 1,238 700 - 1,600 mg/dL IgA 58 (L) 70 - 400 mg/dL IgM 38 (L) 40 - 230 mg/dL SERUM FREE LIGHT CHAINS Result Value Ref Range Taylor Free Light Chains, Serum 41.24 (H) 3.30 - 19.40 mg/L Lambda Free Light Chains, Serum 29.06 (H) 5.71 - 26.30 mg/L Taylor Lambda Free Light Chains Ratio 1.42 0.26 - 1.65 SERUM PROTEIN ELECTROPHORESIS REFLEX PROFILE Result Value Ref Range Normal/Abnormal Abnormal (A) Normal Protein 7.1 6.0 - 8.3 g/dL Albumin 3.87 3.30 - 4.40 g/dL Alpha-1 Globulin 0.16 0.10 - 0.30 g/dL Alpha-2 Globulin 0.91 0.60 - 1.00 g/dL Beta-Globulin 0.89 0.80 - 1.30 g/dL Gamma-Globulin 1.27 0.70 - 1.70 g/dL M Ye 0.50 g/dL Electrophoresis Interpretation Abnormal. A paraprotein is present that has been previously identified as a monoclonal IgG kappa. COMPREHENSIVE METABOLIC PANEL Result Value Ref Range BUN 21 (H) 6 - 20 mg/dL CREATININE 1.3 (H) 0.6 - 1.2 mg/dL EGFR 60 >=60 mL/min SODIUM 137 135 - 146 mmol/L POTASSIUM 5.1 3.5 - 5.1 mmol/L CHLORIDE 104 98 - 107 mmol/L CO2 22 22 - 32 mmol/L ANION GAP 11 7 - 15 mmol/L GLUCOSE 258 (H) 70 - 120 mg/dL Albumin 4.6 3.8 - 5.0 g/dL AST 29 10 - 50 U/L Alkaline Phosphatase 92 35 - 130 U/L Bilirubin, Total 0.5 <=1.2 mg/dL CALCIUM 9.7 8.4 - 10.2 mg/dL Protein 7.1 6.0 - 8.3 g/dL ALT 52 (H) 10 - 50 U/L TSH WITH FREE T4 IF INDICATED Result Value Ref Range TSH 3.48 0.27 - 4.20 uIU/mL CBC Result Value Ref Range WBC 4.72 4.00 - 10.80 K/uL RBC 4.54 4.50 - 5.25 M/uL HGB 14.4 14.0 - 16.8 g/dL HCT 44.2 40.0 - 48.4 % MCV 97.4 82.0 - 99.5 fL MCH 31.7 27.0 - 34.0 pg MCHC 32.6 32.0 - 36.0 g/dL RDW 13.9 11.5 - 15.5 % PLT 145 140 - 400 K/uL MPV 9.5 6.6 - 11.1 fL nRBCs 0 <=0 /100 WBCs DIFFERENTIAL, AUTOMATED Result Value Ref Range WBC 4.72 4.00 - 10.80 K/uL Neutrophils % 47.3 40.0 - 75.0 % Lymphocytes % 33.7 18.0 - 42.0 % Monocytes % 12.3 (H) 1.0 - 11.0 % Eosinophils % 4.2 0.0 - 6.0 % Basophils % 2.1 (H) 0.0 - 2.0 % Immature Granulocytes % 0.4 0.0 - 2.0 % Absolute Neutrophils 2.23 1.80 - 7.70 K/uL Absolute Lymphocytes 1.59 1.00 - 4.80 K/ul Absolute Monocytes 0.58 0.00 - 1.10 K/uL Absolute Eosinophils 0.20 0.00 - 0.70 K/uL Absolute Basophils 0.10 0.00 - 0.20 K/uL Absolute Immature Granulocytes 0.02 0.00 - 0.20 K/uL *Note: Due to a large number of results and/or encounters for the requested time period, some results have not been displayed. A complete set of results can be found in Results Review. IMPRESSION/PLAN: IgG kappa multiple myeloma - stage I Drug rash Anxiety disorder Palliative radiation therapy to the left third rib mass completed 03/26/23 Treated with daratumumab plus lenalidomide, bortezomib and Decadron. He received 4 cycles daratumumab, velcade, revlimid and dexamethasone 03/17/23 through 06/01/23. S/P High-dose chemotherapy followed by the stem cell transplant. Day 0 was on 07/21/2023. Now receiving maintenance Revlimid 10 mg daily starting 12/06/2023. Held x 1 week with rash improvement. Retrial medication per Dr. Martinez and report back in one week if rash returns Confirms taking aspirin 81 mg daily and Acyclovir 800 mg BID. resume Xgeva injections today. Confirms taking calcium/vitamin d supplement. Start Sertraline 50 mg po daily. May use Lorazepam if needed. Counseling continues Continue monthly labs including myeloma markers and MTM f/u - appreciate recommendations. RTC 2 weeks GROUNDS MAINTENANCE MANAGER with labs. KALPESH Pastrana documented in this encounter Nursing Notes * Mayi Perez, OB GYN PHYSICIAN ASSISTANT - 03/23/2024 11:53 AM EST Patient identifed by name and birthdate Do you have any concerns about pain management for today's visit? No Living Will or Advance Directive for Health Care as noted on the problem list. [facility] is a way you can talk to your provider on line through e-mail. Would you like to sign up? I can activate it for you? ALREADY ACTIVE Filed Vitals: 03/23/24 1149 BP: 147/75 Pulse: 80 Temp: 36.1 C (96.9 F) TempSrc: Tympanic SpO2: 96% Weight: 91 kg (200 lb 9.6 oz) Patient was instructed to not get up [...] 04/03/2024 9:00 AM EST Office Visit Nephrology, [address] [place] [address] Addison Salas MD [address] [place] [address] 04/04/2024 8:00 AM EST Laboratory Laboratory, [address] [place] [phone] [facility] [address] [place] [address] 04/06/2024 11:30 AM EST Office Visit Hematology/Oncology [facility] [place] 200 [facility] [place] [phone] Mallika Larios CRNP [address] [place] [address] 04/18/2024 8:00 AM EST Laboratory Laboratory, [address] [place] [phone] [place], [facility] [address] [place] [address] 04/18/2024 8:30 AM EST Telemedicine Psychology [facility], [place] [address] [place] [address] Quentin Gupta Ps [address] [place] [address] 04/19/2024 9:00 AM EST Pharmacy Pharmacy Hematology Oncology [place] [address] [place] [address] [facility] Hem/Onc [facility] [place] [address] 04/20/2024 12:30 PM EST Immunization/Injection Hematology/Oncology Treatment, [place] [address] [place] [address] Kandice, Chair 9 Hem Onc [facility] [address] 06/22/2024 8:20 AM EDT Office Visit [facility] [address] [place] [phone] Patrick Zhao MD 226 [facility] [place] [address] 08/15/2024 7:00 AM EDT Office Visit Neurology [facility] [place] [address] [place] [address] Yvonne Panchal PA-C [address] [place] [address] 08/25/2024 9:00 AM EDT Office Visit Pharmacy, [address] [place] [address] [place] [address] 09/05/2024 10:20 AM EDT Office Visit Dermatology, [address] [place] [phone] Linda Mejia PA-C [address] [place] [address] [place] [address] Health Maintenance Due Date Last Done Comments [...] as of this encounter Visit Diagnoses Diagnosis Anxiety- Primary Anxiety state, unspecified documented in this encounter Advance Directives * [...] patient or by statute hierarchy) Care Teams Souvenir Assembler Relationship Specialty Start Date End Date Patrick Zhao MD [address] [facility] [place] [address] PCP - General Family Medicine 02/28/24 documented as of this encounter
--- OUTSIDE RECORDS SUMMARY | 2024-05-18 07:19 | External Medical Summary | Summary of Care ---
Author Name Unknown Organization [facility] Address [address] [facility] [place] [address] Phone [phone] Care Team Providers Care Radiation Safety Officer Name Role Phone Patrick Zhao MD Primary Care Provider [phone] Encounter Details Date Type Department Care Team (Late st Contact Info) Description 03/27/2024 Population Health External Data Unspecified Department Allergies Active Allergy Reactions Criticality Noted Date Comments Celecoxib Medium 02/01/2017 Metformin Diarrhea 02/18/2023 Prochlorperazine 11/18/1998 Intol,compazine documented as of this encounter (statuses as of 03/27/2024) Medications OneTouch Delica Plus [id number] USE TO TEST BLOOD SUGAR 2 TIMES [...] hemoglobin A1c goal of less than 7.0% ([facility]) USE TO TEST BLOOD SUGAR 2 [...] hemoglobin A1c goal of less than 7.0% ([facility]) INJECT 0.25 MG UNDER THE SKIN [...] morning. 30 Tablet 3 03/23/19 25 Active documented as of this encounter (statuses as of 03/27/2024) Active Problems Patient Care Coordination No te [...] as of this encounter (statuses as of 03/27/2024) Resolved Problems Problem Noted Date Diagnosed Date [...] as of this encounter (statuses as of 03/27/2024) Immunizations Name Administration Dates Next Due COVID-19 mRNA, LNP-s, No Pre serve, 2-Dose Series (Moderna) 07/23/2020,06/18/2020 COVID-19 mRNA, LNP-s, No Pre serve, 2-Dose Series (Pfizer) 03/03/2021 HEPATITIS B VACCINE, RECOMB, 20 MCG/ML, ADULT (HEPLISAV-B) 03/22/2024,01/21/2024 HIB Booster (Hiberix) 03/22/2024,01/21/2024 Pneumococcal Conjugate Vacc, 13 Valent (Prevnar) 03/16/2019 Pneumococcal Conjugate Vacci ne, 20-valent ([id number]) 03/22/2024,01/21/2024,02/08/2023(Defe rred: Patient Refused - Pt thinks [...] 04/04/2024 8:00 AM EST Laboratory Laboratory, [address] [place] [phone] Mohan Hernandez [address] [place] [address] 04/06/2024 11:30 AM EST Office Visit Hematology/Oncology [facility] [place] 200 [place] [address] Mallika Larios CRNP [address] [place] [address] 04/18/2024 8:00 AM EST Laboratory Laboratory, [address] [place] [address] [facility] [address] [place] [address] 04/18/2024 8:30 AM EST Telemedicine Psychology [facility], [place] [address] [place] [address] Quentin Gupta PsyD [facility] [place] [address] 04/19/2024 9:00 AM EST Pharmacy Pharmacy Hematology Oncology [place] [address] [place] [address] [facility] Hem/Onc [facility] [place] [address] 04/20/2024 12:30 PM EST Immunization/Injection Hematology/Oncology Treatment, [place] 200 [facility], [place] [address] Kandice, Chair 9 Hem Onc [address], [place] [address] 06/22/2024 8:20 AM EDT Office Visit Family Practice, Mary [address] [place] [phone] Patrick Zhao MD [address] [place] [address] 08/15/2024 7:00 AM EDT Office Visit Neurology [facility] [place] 200 [facility] [place] [address] Yvonne Panchal PA-C [address] [facility] [address] [place] [address] 08/25/2024 9:00 AM EDT Office Visit Pharmacy, [address] [place] [address] [place] [address] 09/05/2024 10:20 AM EDT Office [facility], [place] [facility] 226 [facility] [place] [phone] Linda Mejia PA-C [address] [place] [address] [place] [address] Health Maintenance Due Date Last Done Comments [...] Tdap) 12/06/2024 12/06/2014, 05/06/1998 GFR 03/21/2025 03/21/2024, 04/2023, 01/18/2024, Additional history exists Colonoscopy 03/11/2028 [...] patient or by statute hierarchy) Care Teams Radiation Safety Officer Relationship Specialty Start Date End Date Patrick Zhao MD [address] [place] [address] PCP - General Family Medicine 02/28/24 documented as of this encounter
--- OUTSIDE RECORDS SUMMARY | 2024-05-18 07:19 | External Medical Summary | Summary of Care ---
Author Name Unknown Organization [facility] Address [address] [address] Phone [phone] Care Team Providers Care Automatic Coin Machine Mechanic Name Role Phone Patrick Zhao MD Primary Care Provider [phone] Reason for Visit * Reason Comments Follow Up Encounter Details Date Type Department Care Team (Late st Contact Info) Description 04/06/2024 11:30 AM EST Office Visit Hematology/Oncology [facility] [place] [address] [facility] [address] Mallika Larios, ADVERTISING DESIGNER [address] [facility] [place] [address] Multiple myeloma not having achieved remission (HCC)*; Anxiety; Drug rash; Pain in lower jaw Allergies Active Allergy Reactions Criticality Noted Date Comments Celecoxib Medium 02/01/2017 Metformin Diarrhea 02/18/2023 Prochlorperazine 11/18/1998 Intol,compazine documented as of this encounter (statuses as of 04/06/2024) Medications OneTouch Delica Plus [id number] USE TO TEST BLOOD SUGAR 2 TIMES [...] than 7.0% ([facility]) USE TO TEST BLOOD SUGAR 2 TIMES [...] than 7.0% ([facility]) INJECT 0.25 MG UNDER THE SKIN ONCE [...] than 7.0% ([facility]) Use to inject Ozempic once weekly 100 Each 3 03/28/19 Active documented as of this encounter (statuses as of 04/06/2024) Active Problems Patient Care Coordination No te [...] as of this encounter (statuses as of 04/06/2024) Resolved Problems Problem Noted Date Diagnosed Date [...] as of this encounter (statuses as of 04/06/2024) Immunizations Name Administration Dates Next Due COVID-19 mRNA, LNP-s, No Pre serve, 2-Dose Series (Moderna) 07/23/2020,06/18/2020 COVID-19 mRNA, LNP-s, No Pre serve, 2-Dose Series (Pfizer) 03/03/2021 HEPATITIS B VACCINE, RECOMB, 20 MCG/ML, ADULT (HEPLISAV-B) 03/22/2024,01/21/2024 HIB Booster (Hiberix) 03/22/2024,01/21/2024 Pneumococcal Conjugate Vacc, 13 Valent (Prevnar) 03/16/2019 Pneumococcal Conjugate Vacci ne, 20-valent ([id number]) 03/22/2024,01/21/2024,02/08/2023(Defe rred: Patient Refused - Pt thinks [...] Sign Reading Time Taken Comments Blood Pressure 157/86 04/06/2024 11:25 AM EST Pulse 58 04/06/2024 11:25 AM EST Temperature 36.2 C (97.2 F) 04/06/2024 11:[address] Respiratory Rate - - Oxygen Saturation 98% 04/06/2024 11:25 AM EST Inhaled Oxygen Concentration - - Weight 91.3 kg (201 lb 3.2 oz) 04/06/2024 11:25 AM EST Height - - Body Mass Index 28.87 02/21/2024 7:27 AM EST documented in this [...] Author No 07/20/2023 8:11 AM EDT Melinda aVrgas RN documented in this encounter Progress Notes * Mallika Larios CRNP - 04/06/2024 11:30 AM EST Hematology/Oncology Outpatient Clinic note Ambar Santoyo [address] [place] [address] Name: Hernan Rodriguez Date: 04/06/2024 CHIEF COMPLAINT: Hernan Rodriguez is a 68 [...] IgA was 23 and IgM was 30. [place] light chain was 281.08 and the lambda [...] male with a history as outlined above. Two week f/u appointment back on Revlidmid 10 mg po daily. Pt reports that as soon as he restarted medication, the rash and itching came back. He reports that he has "pimple" rash on forehead, bilateral flank and back side of arms. C/O very itchy rash. He also noticed his tremor has gotten worse back on Revlimid. He did start Sertraline and has noticed some mild improvement in anxiety.He does take Lorazepam at HS for anxiety and talks to counselor often. Family members reports that he is very stressed all the time. No headaches. No shortness of breath. Denies abd pain. Mild constipation noted and improved with miralax. No urinary issues. New onset of right jaw pain x 2 weeks. Mild pain "feels like tooth pain" Dental appointment upcoming. Last Xgeva was 03/23/24. No reported fever or chills. Blood sugars havebeen stable. Past Medical History: Diagnosis Date Depression Diverticulitis of small intestine HTN (hypertension) Migraine without aura Past Surgical History: Procedure Laterality Date ARTHROPLASTY KNEE TOTAL Right COLONOSCOPY, DIAGNOSTIC (RECTUM) 03/11/2018 COLONOSCOPY FLEXIBLE PROXIMAL DIAGNOSTIC performed by Nicole Olvera DO at ENDOSCOPY [facility] HEAD SURGERY PROCEDURE NEC Cluster headache nerve/blood [...] Stability Do you currently live in a retirement or have no steady place to sleep [...] indicates: Allergen Reactions Celecoxib Metformin Diarrhea Prochlorperazine Intolcompazine Current Outpatient Medications Medication Sig Dispense Refill OneTouch Delica Plus [id number] USE TO TEST BLOOD SUGAR 2 TIMES [...] medications for this visit. REVIEW OF SYSTEMS: See HPI - otherwise negative OBJECTIVE: Filed Vitals: 04/06/24 1125 BP: 157/86 Pulse: 58 Temp: 36.2 C (97.2 F) TempSrc: Tympanic SpO2: 98% Weight: 91.3 kg (201 lb 3.2 oz) PHYSICAL EXAM: ECOG: Performance Status 0 = 100% Normal Activity General Appearance: Normal - Healthy appearing patient in no acute distress, mildly anxious HEENT: Normal - No oral or pharyngeal [...] or bony deformity Neurologic: Normal - Grossly intact. Slight tremor in face and both hands Skin: forehead. Multiple flat pimples noted. No rash on arms or flank area LABS: Results for orders placed or performed [...] - stage I Drug rash Anxiety disorder Tremor Right jaw pain - hold Revlimid for now - F/U Agustina in 2 weeks with cbc, cmp + myeloma labs -reach out to dentist about jaw pain KALPESH Pastrana documented in this encounter Nursing Notes * Zofia Barnett, JON ASSIST - 04/06/2024 11:32 AM EST Patient identifed by name and [...] it for you? ALREADY ACTIVE Filed Vitals: 04/06/24 1125 BP: 157/86 Pulse: 58 Temp: 36.2 C (97.2 F) TempSrc: Tympanic SpO2: 98% Weight: 91.3 kg (201 lb 3.2 oz) Patient was instructed to not get up on the exam table/exam chair until directed and assisted by their provider; patient is to remain seated in the chair/ wheelchair/ exam table/ exam chair for fall prevention and safety reasons. Patient is aware to have assistance to step down off exam table/exam chair with personnel. Patient voiced full comprehension of instructions. Pt states that he had a rash with the chemo pill. Notices stiff legs while walking and tremors. Pain in right jaw at a level of 2. Also noticing a change in voice documented in this encounter Plan of Treatment Upcoming Encounters Date Type Department Care Team (Late st Contact Info) Description 04/18/2024 8:00 AM EST Laboratory Laboratory, Mary [place] [address] [place] [address] Mohan Hernandez [address] [place] [id number] 04/18/2024 8:30 AM EST Telemedicine Psychology [address] [address] Quentin Gupta PsyD [facility] [place] [address] 04/19/2024 9:00 AM EST Pharmacy Pharmacy Hematology Oncology [place] [address] [place] [address] [facility] Hem/Onc [facility] [place] [address] 04/20/2024 12:30 PM EST Immunization/Injection Hematology/Oncology Treatment, [place] [address] [place] [address] Kandice, Chair 9 Hem Onc [address] [address] [place] [address] 06/22/2024 8:20 AM EDT Office Visit [facility] Mary [place] [address] [place] [address] Patrick Zhao MD 226 [place] [address] 07/20/2024 10:30 AM EDT Office Visit Hematology Oncology [facility] [place], [place] [address] [place] [address] Nick Moore MD [address] [place], [place] [id number] 07/20/2024 11:00 AM EDT Immunization/Injection Hematology Oncology [facility] [address] [place], [place] [id number] Nurse, Med [address] [place], [place] [id number] 08/15/2024 7:00 AM EDT Office Visit Neurology [facility] [address] [facility] [address] [place] [address] Yvonne Panchal PA-C [address] [facility] [place] [address] 08/25/2024 9:00 AM EDT Office Visit Pharmacy, [address] [place] [address] [place] [address] 09/05/2024 10:20 AM EDT Office [facility], [place] [facility] [address] [place] [address] Linda Mejia PA-C [address] [place] [address] [place] [address] 01/15/2025 9:00 AM EST Office Visit Nephrology, [facility] 200 [facility] [place] [address] Addison Salas MD [address] [facility] [place] [address] Health Maintenance Due Date Last Done Comments [...] myeloma, without mention of having achieved remission Anxiety Anxiety state, unspecified Drug rash Dermatitis due to drugs and medicines taken internally Pain in lower jaw Jaw pain documented in this encounter Advance Directives * [...] patient or by statute hierarchy) Care Teams Automatic Coin Machine Mechanic Relationship Specialty Start Date End Date Patrick Zhao MD 226 [facility] [place] [address] PCP - General Family Medicine 02/28/24 documented as of this encounter
--- OUTSIDE RECORDS SUMMARY | 2024-05-18 07:19 | External Medical Summary | Summary of Care ---
Author Name Unknown Organization [facility] Address [address] [facility] [place] [address] Phone [phone] Care Team Providers Care Drapery Rod Assembler Name Role Phone Kervin Zhao MD Primary Care Provider [phone] Reason for Visit * Reason Onset Date Comments Med Request 03/28/2024 Encounter Details Date Type Department Care Team (Late st Contact Info) Description 03/28/2024 Telephone [facility] [address] [facility] [place] [address] Kervin Zhao MD 226 [place] [address] Med Request Allergies Active Allergy Reactions Criticality Noted Date Comments Celecoxib Medium 02/01/2017 Metformin Diarrhea 02/18/2023 Prochlorperazine 11/18/1998 Intol,compazine documented as of this encounter (statuses as of 03/28/2024) Medications OneTouch Delica Plus [id number] USE TO TEST BLOOD SUGAR 2 TIMES [...] of less than 7.0% ([facility]) USE TO TEST BLOOD SUGAR 2 [...] of less than 7.0% ([facility]) INJECT 0.25 MG UNDER THE SKIN [...] of less than 7.0% ([facility]) Use to inject Ozempic once weekly [...] (Prevnar) 03/16/2019 Pneumococcal Conjugate Vacci ne, 20-valent ([id number]) 03/22/2024,01/21/2024,02/08/2023(Defe rred: Patient Refused - Pt thinks [...] Telephone Encounter - Kervin Zhao MD - 03/28/2024 4:22 PM ESTSigned Prescriptions: Disp Refills BD Pen Needle Yecenia U/F 32G X 4 MM (Insulin*100 Ea*3 Sig: Use to inject Ozempic once weeklyAuthorizing Provider: KERVIN ZHAO * Telephone Encounter - Heather Hunter LPN - 03/28/2024 3:07 PM EST [facility] requesting Novofine plus pen needles be changed to BD pen needles. They are unable to order the Novofine in documented in this encounter Plan of Treatment Upcoming Encounters Date Type Department Care Team (Late st Contact Info) Description 04/03/2024 9:00 AM EST Office Visit Nephrology, [facility] [address] [address] Addison Salas MD [address] [place] [address] [place] [address] 04/04/2024 8:00 AM EST Laboratory Laboratory, [address] [place] [phone] Mohan Hernandez [address] [place] [address] 04/06/2024 11:30 AM EST Office Visit Hematology/Oncology [facility] [place] [address] [place] [phone] Mallika Larios CRNP 400 [place] [address] 04/18/2024 8:00 AM EST Laboratory [facility], [place] [facility] [address] [facility] [place] [address] [facility] [address] [facility] [place] [address] 04/18/2024 8:30 AM EST Telemedicine Psychology [address] [address] Quentin Gupta PsyD [facility] [place] [address] 04/19/2024 9:00 AM EST Pharmacy Pharmacy Hematology Oncology [facility], [place] [address] [place] [address] [facility] Hem/Onc [facility] [place] [address] 04/20/2024 12:30 PM EST Immunization/Injection Hematology/Oncology Treatment, [place] [facility] [address] Kandice, Chair 9 Hem Onc [address] [place] [address] 06/22/2024 8:20 AM EDT Office Visit [facility], [place] [facility] [address] [place] [address] Kervin Zhao MD [address] [facility] [place] [place] [address] 08/15/2024 7:00 AM EDT Office Visit Neurology [facility] [place] 200 [facility] [place] [address] Yvonne Panchal PA-C [address] [place] [address] 08/25/2024 9:00 AM EDT Office Visit Pharmacy, [address] [place] [address] [place] [address] 09/05/2024 10:20 AM EDT Office Visit Dermatology, [place] [facility] [facility] [place] [address] Linda Mejia PA-C [address] [place] [address] [place] [address] Health Maintenance Due Date Last Done Comments [...] goal of less than 7.0% (HCC)- Primary documented in this encounter Advance Directives [...] patient or by statute hierarchy) Care Teams Drapery Rod Assembler Relationship Specialty Start Date End Date Kervin Zhao MD [address] [facility] [place] [address] PCP - General Family Medicine 02/28/24 documented as of this encounter
--- OUTSIDE RECORDS SUMMARY | 2024-05-18 07:19 | External Medical Summary | Summary of Care ---
Author Name Unknown Organization [facility] Address [address] [place] [facility] [place] [address] Phone [phone] Care Team Providers Care Strap Folding Machine Operator Name Role Phone Patrick Zhao MD Primary Care Provider [phone] Reason for Visit * Reason Comments Medication Administration Xgeva 120mg * Episode Based Medications (Routine) - Authorized Specialty Diagnoses / Procedures Referred By Fernando t Referred To Contact Diagnoses Multiple myeloma not having achieved remission (HCC) Procedures OK DENOSUMAB INJECTION Li Yip CRNP [address] [facility] [place] [address] Phone: tel: fax: Hematology/Oncology Treatment, [address] [place] [address] Phone: tel: fax: Referral ID Status Reason Start Date Expiration Date V isits Requested Visits Authorized [id number] Authorized 04/12/2023 04/12/2024 [id number] Encounter Details Date Type Department Care Team (Late st Contact Info) Description 03/23/2024 12:30 PM EST Immunization/I njection Hematology/Oncology Treatment, [place] 200 [place] [address] Kandice, Chair 9 Hem Onc [address] [address] Multiple myeloma not having achieved remission (HCC)* Allergies Active Allergy Reactions Criticality Noted Date Comments Celecoxib Medium 02/01/2017 Metformin Diarrhea 02/18/2023 Prochlorperazine 11/18/1998 Intol,compazine documented as of this encounter (statuses as of 03/23/2024) Medications OneTouch Delica Plus [id number] USE TO TEST BLOOD SUGAR 2 TIMES [...] hemoglobin A1c goal of less than 7.0% ([facility]) USE TO TEST BLOOD SUGAR 2 TIMES [...] A1c goal of less than 7.0% (HCC) INJECT 0.25 MG UNDER THE SKIN ONCE [...] 0.5 mL 5 2:47 PM EST 03/22/19 Active documented as of this encounter (statuses [...] (Prevnar) 03/16/2019 Pneumococcal Conjugate Vacci ne, 20-valent ([id number]) 03/22/2024,01/21/2024,02/08/2023(Defe rred: Patient Refused - Pt thinks [...] EDT VargasMelinda RN documented in this encounter Nursing Notes [...] 04/03/2024 9:00 AM EST Office Visit Nephrology, [facility] [address] [place] [address] [address] Addison Salas MD [address] [place] [address] [place] [address] 04/04/2024 8:00 AM EST Laboratory Laboratory, [address] [place] [phone] [facility] [address] [place] [address] 04/06/2024 11:30 AM EST Office Visit Hematology/Oncology [facility] [place] [address] [phone] Mallika Larios CRNP 400 [place] [address] 04/18/2024 8:00 AM EST Laboratory [facility], [place] [facility] [address] [place] [address] [facility] [address] [facility] [place] [address] 04/18/2024 8:30 AM EST Telemedicine Psychology [place] [address] [place] [address] Quentin Gupta PsyD [facility] [place] [address] 04/19/2024 9:00 AM EST Pharmacy Pharmacy Hematology Oncology [place] [address] [place] [address] [facility] Hem/Onc [facility] [place] [address] 04/20/2024 12:30 PM EST Immunization/Injection Hematology/Oncology Treatment, [place] [address] [place] [address] Kandice, Chair 9 Hem Onc [facility] 200 [facility] [place] [address] 06/22/2024 8:20 AM EDT Office Visit Family Practice, [place] [address] [place] [address] Patrick Zhao MD [address] [facility] [place] [address] 08/15/2024 7:00 AM EDT Office Visit Neurology [facility] [place] [address] [facility] [phone] Yvonne Panchal PA-C [address] [place] [address] 08/25/2024 9:00 AM EDT Office Visit Pharmacy, [address] [place] [address] [place] [address] 09/05/2024 10:20 AM EDT Office Visit Dermatology, [facility] 226 [facility] [place] [address] Linda Mejia PA-C [address] [place] [address] [place] [address] Health Maintenance Due Date Last Done Comments [...] patient or by statute hierarchy) Care Teams Strap Folding Machine Operator Relationship Specialty Start Date End Date Patrick Zhao MD [address] [place] [address] PCP - General Family Medicine 02/28/24 documented as of this encounter
--- OUTSIDE RECORDS SUMMARY | 2024-05-18 07:20 | External Medical Summary ---
Author Name Unknown Address Unknown Organization K01:[facility] - [address] [place] [address] Laboratory Report Ordering Provider Test Date Status ADALBERTO ALEGRE 03/21/2024 08:00:23 Final Observation Date Value Abnormality Reference (Units ) Status IgG 03/21/2024 08:00:23 8624 [id number] ( mg/dL) Final IgA 03/21/2024 08:00:23 58 Below low normal 70- 400 (mg/dL) Final IgM 03/21/2024 08:00:23 38 Below low normal 40- 230 (mg/dL) Final Performing Location [facility] - [address] [place] [address]
--- OUTSIDE RECORDS SUMMARY | 2024-05-18 07:20 | External Medical Summary | Summary of Care ---
Author Name Unknown Organization [facility] Address [address] [place] [address] Phone [phone] Care Team Providers Care Product Marketing Engineer Name Role Phone Patrick Zhao MD Primary Care Provider [phone] Encounter Details Date Type Department Care Team (Late st Contact Info) Description 03/07/2024 8:30 AM EST Telemedicine Psychology [facility] [address] [place] [address] Quentin Gupta PsyD [address] [place] [address] Adjustment disorder with anxious mood* Allergies Active Allergy Reactions Criticality Noted Date Comments Celecoxib Medium 02/01/2017 Metformin Diarrhea 02/18/2023 Prochlorperazine 11/18/1998 Intol,compazine documented as of this encounter (statuses as of 03/07/2024) Medications OneTouch Delica Plus [id number] USE TO TEST BLOOD SUGAR 2 TIMES [...] morning. 90 Tablet 3 10/13/19 24 Active Propranolol HCl 20 MG Oral Tablet (Inderal) Take 1 Tablet by mouth in the morning and 1 Tablet at noon and 1 Tablet before bedtime. 270 Tablet 3 4 3:25 PM EST 11/23/19 24 Active Acyclovir 800 MG Oral Tablet (Zovirax)Indicatio ns:Multiple myeloma in remission (HCC),History of autologous stem cell transplant (HCC) Take 1 Tablet by mouth in the morning and 1 Tablet before bedtime. 180 Tablet 1 4 8:58 AM EST 12/16/19 24 Active OneTouch Verio In Vitro Strip (Glucose Blood)Indications: Type 2 diabetes mellitus with hemoglobin A1c goal of less than 7.0% ([facility]) USE TO TEST BLOOD SUGAR [...] goal of less than 7.0% ([facility]) INJECT 0.25 MG UNDER THE SKIN ONCE A WEEK. THEN INCREASE TO 0.5 MG IF TOLERATED. 9 mL 3 01/31/20 24 Active LORazepam 1 MG Oral Tablet (Ativan)Indication s:Anxiety state,Insomnia, unspecified type Take one at bedtime . May take 1/2- 1 tab during day as needed 45 Tablet 1 02/11/20 Active Lenalidomide 10 MG Oral Capsule (Revlimid)Indicati ons:Multiple myeloma not having achieved remission (HCC) Take 1 Capsule by mouth in the morning. For 28 days of a 28 day cycle. Take medication same time every day and consistently with or without food.. Do not start before February 17, 2024. 28 Capsule 02/17/20 24 Active Famotidine 20 MG Oral Tablet [...] Ozempic once weekly 100 Each 3 02/25/20 Active documented as of this encounter (statuses as of 03/07/2024) Active Problems Patient Care Coordination No te [...] as of this encounter (statuses as of 03/07/2024) Resolved Problems Problem Noted Date Diagnosed Date [...] as of this encounter (statuses as of 03/07/2024) Immunizations Name Administration Dates Next Due COVID-19 mRNA, LNP-s, No Pre serve, 2-Dose Series (Moderna) 07/23/2020,06/18/2020 COVID-19 mRNA, LNP-s, No Pre serve, 2-Dose Series (Pfizer) 03/03/2021 HEPATITIS B VACCINE, RECOMB, 20 MCG/ML, ADULT (HEPLISAV-B) 01/21/2024 HIB Booster (Hiberix) 01/21/2024 Pneumococcal Conjugate Vacc, 13 Valent (Prevnar) 03/16/2019 Pneumococcal Conjugate Vacci ne, 20-valent ([id number]) 01/21/2024,02/08/2023(Deferred: Patient Refused - Pt thinks he already [...] and older)(Boostrix) 12/06/2014 Zoster Vaccine Recombinant (Shingrix) 01/21/2024 ,08/09/2019,04/20/2019 documented as of this encounter Social History [...] of Assessment Author No 07/20/2023 8:11 AM Melinda Nava RN documented as of this encounter Mental Status * Because of a physical, mental, or emotional condition, do you have serious difficulty concentrating, remembering, or making decisions? (5 years old or older) Answer Entry Date Author No 07/20/2023 8:11 AM EDMelinda Pulliam RN documented in this encounter Progress Notes * Quentin Gupta PsyD - 03/07/2024 8:30 AM EST BEHAVIORAL MEDICINE PROGRESS NOTE [facility] Psychology [place] [address] 03/07/2024 Patient location: HOME. I was in a hospital or clinic location. After connecting through televideo,patient was verified with two unique identifiers. Patient (or authorized legal customer development representative) was then informed that this was a Telemedicine visit and being conducted confidentially over secure lines. Methods to assure confidentiality were taken. Patient acknowledged consent and understanding of pr ivacy and security of the Telemedicine visit. The patient agreed to participate. After connecting through Telephone, patient was verified with two unique identifiers. Patient (or authorized legal customer development representative) was then informed that this was a Telemedicine visit and that the exam was being conducted confidentially. My office door was closed. No one else was in the room with me. Patient acknowledged consent and understanding of privacy and security of this virtual visit. I informed the patient that I have reviewed their record in [employer] and presented the opportunity for themto ask any questions regarding the visit today. The patient agreed to participate. Provider reviewed elements of Outpatient Services Description including limits of confidentiality, how to contact the department, risks and benefits of treatment and consent for treatment. Patient was last seen by me on: 03/07/2024 01/21/2024 Start Time: 8:30 AM Stop Time: 9:09 AM Total Time: 39 mins Type of Visit: Individual Visit Diagnosis: ICD-10-CM 1. Adjustment disorder with anxious mood F43.22 Cancer Diagnosis: multiple myeloma SUMMARY AND PLAN Hernan Rodriguez is a 67 year old male who was diagnosed with Multiple Myeloma in 02/2023. Per patient report, he has tolerated treatment w/ limited difficulty, with side effects including fatigue and nausea. Patient met with this keno writer for a psychosocial assessment for readiness [...] additional psychoeducation in management of anxious cognitions. Return: 6 weeks Action Plan: psychotherapeutic support, behavioral activation [...] Stability Do you currently live in a group home or have no steady place to sleep [...] Medication Sig Dispense Refill OneTouch Delica Plus [id number] USE TO TEST BLOOD SUGAR 2 TIMES [...] mouth in the morning. 90 Tablet 3 Propranolol HCl 20 MG Oral Tablet (Inderal) Take 1 Tablet by mouth in the morning and 1 Tablet at noon and 1 Tablet before bedtime. 270 Tablet 3 Acyclovir 800 MG Oral Tablet [...] during day as needed 45 Tablet 1 Lenalidomide 10 MG Oral Capsule (Revlimid) Take 1 Capsule by mouth in the morning. For 28 days of a28 day cycle. Take medication same time every day and consistently with or without food.. Do not start before February 17, 2024. 28 Capsule 0 Famotidine 20 MG Oral Tablet (Pepcid) [...] to inject Ozempic once weekly 100 Each3 No current facility-administered medications for this visit. MED CHANGES/SIDE EFFECTS None MENTAL STATUS AND BEHAVIORAL OBSERVATIONS: Appearance: N/A Behavior: within normal limits Speech: normal pitch, rate and volume Mood: "well" Affect: Congruent with content of conversation Thought Process: within normal limits and goal directed Thought Content: within normal limits Intellectual Function: within normal limits Sensorium: alert and oriented to person, place, time and situation Cognition: grossly intact Insight/Judgment: good SYMPTOMS Overall Status - Stable Anxiety - Stable, uncertainty associated w/ treatment side effects No questionnaires available. Outpatient Adult Therapy Treatment [...] Suicide and Crisis Lifeline - 988 and PICS Auditing access to crisis numbers Patient/ Family Received Copy of Treatment Plan Duration of Treatment Frequency of Treatment Yes, sent via [employer] 5-7 sessions Every 4-6 weeks Patient Identified [...] ASSESSMENT: [place]-SUICIDE SEVERITY RATING SCALE Frequent Screener Cross Suicide Severity Rating Scale Results 09/14/2023 13:17 [...] provided with emergency phone numbers- TAPLINE and [facility] Psych[facility] [phone]. Encouraged to proceed to the nearest ER 24hrs/7days if symptoms worsen or patient feels out of control with plan or intent to act on thoughts. Agrees to call back to the clinic with any additional concerns or difficulties. Quentin Gupta PsyD Psychology [address] [address] 03/07/2024 documented in this encounter Plan of Treatment Upcoming Encounters Date Type Department Care Team (Late st Contact Info) Description 03/09/2024 9:30 AM EST Office Visit Hematology/Oncology [facility] [address] [place] [address] Li Yip CRNP [address] [place] [address] 03/10/2024 9:00 AM EST Pharmacy Pharmacy Hematology Oncology [address] [address] [facility] Hem/Onc [address] [place] [address] 03/21/2024 8:00 AM EST Laboratory Laboratory, [facility] [address] [place] [phone] [facility] [address] [place] [address] 03/22/2024 8:15 AM EST Pharmacy Pharmacy Hematology Oncology [address] [address] [facility] Hem/Onc [address] [place] [address] 03/22/2024 1:00 PM EST Immunization/Injection Hematology Oncology [facility], [place] [address] [place] [address] Nurse, [facility] [address] [place], [place] [phone] 03/23/2024 12:00 PM EST Office Visit Hematology/Oncology [facility] [address] [place] [phone] Mallika Larios CRNP [address] [place] [address] 03/23/2024 12:30 PM EST Immunization/Injection Hematology/Oncology Treatment, [place] [address] [place] [address] Kandice, Chair 9 Hem Onc [address] [place] [address] 04/03/2024 9:00 AM EST Office Visit Nephrology, [facility] [address] [place] [address] Addison Salas MD [address] [place] [address] 04/18/2024 8:30 AM EST Telemedicine Psychology [facility], [place] [address] [place] [address] Quentin Gupta PsyD [address] [place] [address] 06/22/2024 8:20 AM EDT [facility] [address] [place] [phone] Patrick Zhao MD [address] [facility] [place] [address] 08/15/2024 7:00 AM EDT Office Visit Neurology [facility] Kandice [place] 200 [facility] [place] [address] Yvonne Panchal PA-C [address] [place] [address] 08/25/2024 9:00 AM EDT Office Visit Pharmacy, [address] [place] [address] [place] [address] 09/05/2024 10:20 AM EDT [facility] [place] [facility] [place] [phone] Linda Mejia PA-C [address] [place] [address] [place] [address] Health Maintenance Due Date Last Done Comments Cologuard 2001 Fecal Occult Blood Test 2001 Sigmoidoscopy 2001 Adult Wellness Visit 2022 COVID-19 Vaccine ( season) 2023 03/03/2021, 07/23/2020, 06/18/2020 Albumin/Creatinine Ratio 01/20/202401/19/ 023, 01/05/2022, 02/02/2018 Hepatitis B Vaccine (2 of 2 - CpG 2-dose series) 02/18/2024 01/21/2024 HbA1c 08/07/2024 02/07/2024, 0811/2023, 05/19/2023, Additional history exists Diabetic Eye Exam 08/26/2024 08/27/2023 (Do ne elsewhere), 12/16/2022, 03/10/2021, Additional history exists Depression Monitoring 09/12/2024 09/13/2023 Diabetic Foot Exam 09/13/2024 09/14/2023, 0 05/02/2020, 02/08/2019, Additional history exists DTap/Tdap Vaccines (2 - Td or Tdap) 12/06/2024 12/06/2014, 05/06/1998 GFR 02/06/2025 02/07/2024, 01/06, 01/03/2024, Additional history exists Colonoscopy 03/11/2028 03/11/2018 Colorectal Cancer Screening 03/11/2028 Lipid Panel 10/24/2028 10/25/2023, 01/06, 01/05/2022, Additional history exists Pneumococcal Vaccine: 50+ Years Completed 01/21/2024, 03/16/2019, 07/09/2016 Zoster Vaccines Completed 01/21/2024, 06/05/2019, 04/20/2019 HPV (Gardasil) Vaccine Aged Out No lo [...] patient or by statute hierarchy) Care Teams Product Marketing Engineer Relationship Specialty Start Date End Date Patrick Zhao MD [address] [place] [address] PCP - General Family Medicine 02/28/24 documented as of this encounter
--- OUTSIDE RECORDS SUMMARY | 2024-05-18 07:20 | External Medical Summary ---
Author Name Unknown Address Unknown Organization K01:LABORATORY [facility] - [address] [place] [address] Laboratory Report Ordering Provider Test Date Status ADALBERTO ALEGRE 03/21/2024 08:00:23 Final Mantel Cell Lymphoma - Every week [...] Abnormality Reference (Units ) Status WBC, Total 03/21/2024 08:00:23 4.72 4.00-10.80 (K/uL) Final RBC 03/21/2024 08:00:23 4.54 4.50-5.25 (M/uL) Final Hemoglobin 03/21/2024 08:00:23 14.4 14.0-16.8 (g/dL) Final HCT 03/21/2024 08:00:23 44.2 40.0-48.4 (%) Final MCV 03/21/2024 08:00:23 97.4 82.0-99.5 (fL) Final MCH 03/21/2024 08:00:23 31.7 27.0-34.0 (pg) Final MCHC 03/21/2024 08:00:23 32.6 32.0-36.0 (g/dL) Final RDW 03/21/2024 08:00:23 13.9 11.5-15.5 (%) Final Platelets 03/21/2024 08:00:23 145 140-400 (K/uL) Final MPV 03/21/2024 08:00:23 9.5 6.6-11.1 (fL) Final Nucleated erythrocytes/100 leukocytes [Ratio] in Blood by Automated count 03/21/2024 08:00:23 0 <=0 (/100 WBCs) Final Performing Location LABORATORY [facility] - [address] [facility] [address]
--- OUTSIDE RECORDS SUMMARY | 2024-05-18 07:20 | External Medical Summary | Summary of Care ---
Author Name Unknown Organization [facility] Address [address] [place] [address] Phone [phone] Care Team Providers Care Inbound Ingredient Logistics Specialist Name Role Phone Patrick Zhao MD Primary Care Provider [phone] Reason for Visit * Reason Onset Date Comments Advice 03/17/2024 Dr. Berrios Encounter Details Date Type Department Care Team (Late st Contact Info) Description 03/17/2024 Telephone Hematology/Oncology [facility] [place] [address] [place] [address] Services, Scheduling [address] [place] [address] Advice (Dr. Berrios) Allergies Active Allergy Reactions Criticality Noted Date Comments Celecoxib Medium 02/01/2017 Metformin Diarrhea 02/18/2023 Prochlorperazine 11/18/1998 Intol,compazine documented as of this encounter (statuses as of 03/17/2024) Medications OneTouch Delica Plus [id number] USE TO TEST BLOOD SUGAR 2 TIMES [...] 16, 2024. 28 Capsule 03/16/19 25 Active documented as of this encounter (statuses as of 03/17/2024) Active Problems Patient Care Coordination No te [...] as of this encounter (statuses as of 03/17/2024) Resolved Problems Problem Noted Date Diagnosed Date [...] as of this encounter (statuses as of 03/17/2024) Immunizations Name Administration Dates Next Due COVID-19 mRNA, LNP-s, No Pre serve, 2-Dose Series (Moderna) 07/23/2020,06/18/2020 COVID-19 mRNA, LNP-s, No Pre serve, 2-Dose Series (Pfizer) 03/03/2021 HEPATITIS B VACCINE, RECOMB, 20 MCG/ML, ADULT (HEPLISAV-B) 01/21/2024 HIB Booster (Hiberix) 01/21/2024 Pneumococcal Conjugate Vacc, 13 Valent (Prevnar) 03/16/2019 Pneumococcal Conjugate Vacci ne, 20-valent ([id number]) 01/21/2024,02/08/2023(Deferred: Patient Refused - Pt thinks he [...] encounter Miscellaneous Notes * Telephone Encounter - Ana Roman RN - 03/17/2024 2:32 PM EST Called patient- rash seems to be worsening, now looks like pimples, some of them have opened up. Still using steroid creams to itchy areas, but skin is now also really dry. Using Cereve as recommended by Li last week. He states that he does not want to stop revlimid as he has a "light up area" in his chest. He states that he is afraid of what will happen if he doesn't take it. Reviewed with Dr Martinez- recommend patient stop revlimid x1 week. Patient has appt 03/23 with Mallika for assessment, can decide at that visit about restarting. Patient is agreeable. * Telephone Encounter - Janene Gabriel OSA - 03/17/2024 10:53 AM EST We received a call from Hernan. He want to inform us that he still has the rash on multiple areas, right side of his face and forehead, underarms, left elbow, and both calves. He did say we were previously aware of the rash but it is still bothersome. He said it is nothing too terrible and he can live with it until he comes in for his follow up on 03/23 but he wanted to make sure we were aware. He also started to have sporadic hot flashes throughout the day. These started about a couple if weeks ago. Please give Alexandru call back at our earliest convenience. He can be reached at [phone]. Thank you! documented in this encounter Plan of Treatment Upcoming Encounters Date Type Department Care Team (Late st Contact Info) Description 03/21/2024 8:00 AM EST Laboratory [facility], [place] [facility] [address] [place] [phone] [place], Laboratory [address] [place] [address] 03/22/2024 8:15 AM EST Pharmacy Pharmacy Hematology Oncology [address] [address] [facility], [facility] Hem/Onc [address] [place] [address] 03/22/2024 9:00 AM EST Pharmacy Pharmacy Hematology Oncology [address] [address] [facility], [facility] Hem/Onc [address] [place] [address] 03/22/2024 1:00 PM EST Immunization/Injection Hematology Oncology [facility], [place] [address] [place] [address] Nurse, [facility] [address] [place] [address] 03/23/2024 12:00 PM EST Office Visit Hematology/Oncology [facility] [address] [place] [address] Mallika Larios CRNP [address] [place] [address] 03/23/2024 12:30 PM EST Immunization/Injection Hematology/Oncology Treatment, [place] 200 [place] [address] Kandice, Chair [address] On[address] [address] 04/03/2024 9:00 AM EST Office Visit Nephrology, [facility] [address] [place] [address] Addison Salas MD [address] [place], [place] [phone] 04/18/2024 8:30 AM EST Telemedicine Psychology [facility], [place] [address] [place] [address] Quentin Gupta PsyD [address] [place] [address] 06/22/2024 8:20 AM EDT Office Visit [facility] [address] [place] [address] Patrick Zhao MD [address] [place] [address] 08/15/2024 7:00 AM EDT Office Visit Neurology [facility] 200 [facility] [place] [address] Yvonne Panchal PA-C [address] [place] [address] 08/25/2024 9:00 AM EDT Office Visit Pharmacy, [address] [place] [address] [place] [address] 09/05/2024 10:20 AM EDT Office Visit Dermatology, [place] [facility] [address] [facility] [place] [phone] Linda Mejia PA-C [address] [place] [address] [place] [address] Health Maintenance Due Date Last Done Comments Cologuard 2001 Fecal Occult Blood Test 2001 Sigmoidoscopy 2001 Adult Wellness Visit 2022 COVID-19 Vaccine ( season) 2023 03/03/2021, 07/23/2020, 06/18/2020 Albumin/Creatinine Ratio 01/20/202401/19/ 023, 01/05/2022, 02/02/2018 Hepatitis B Vaccine (2 of 2 - CpG 2-dose series) 02/18/2024 01/21/2024 HbA1c 08/07/2024 02/07/2024, 10/06, 05/19/2023, Additional history [...] 01/21/2024, 03/16/2019, 07/09/2016 Zoster Vaccines Completed 01/21/2024, 05/2019, 04/20/2019 HPV (Gardasil) Vaccine Aged Out No [...] patient or by statute hierarchy) Care Teams Inbound Ingredient Logistics Specialist Relationship Specialty Start Date End Date Patrick Zhao MD [address] [place] [address] PCP - General Family Medicine 02/28/24 documented as of this encounter
--- OUTSIDE RECORDS SUMMARY | 2024-05-18 07:20 | External Medical Summary ---
Author Name Unknown Address Unknown Organization K01:LABORATORY [facility] - [address] [facility] [place] [address] Laboratory Report Ordering Provider Test Date Status ADALBERTO ALEGRE 03/21/2024 08:00:23 Final Observation Date Value Abnormality Reference (Units ) Status BUN 03/21/2024 08:00:23 21 Above high normal 6-20 (mg/dL) Final Creatinine 03/21/2024 08:00:23 1.3 Above high normal 0.6-1.2 (mg/dL) Final Glomerular filtration rate/1.73 sq M.predicted [Volume Rate/Area] in Serum, Plasma or Blood by Creatinine-based formula (CKD-EPI) 03/21/2024 08:00:23 60 >=60 (mL/min) Final eGFR is calculated based on the CKD-EPI 2020 equation. Sodium 03/21/2024 08:00:23 137 135-146 (m mol/L) Final Potassium 03/21/2024 08:00:23 5.1 3.5-5.1 (m mol/L) Final Cl 03/21/2024 08:00:23 104 98-107 (mm ol/L) Final CO2 03/21/2024 08:00:23 22 22-32 (mmo l/L) Final Anion gap 03/21/2024 08:00:23 11 7-15 (mmol /L) Final Glucose 03/21/2024 08:00:23 258 Above high normal 70 -120 (mg/dL) Final Albumin 03/21/2024 08:00:23 4.6 3.8-5.0 (g /dL) Final AST (Aspartate aminotransferase) 03/21/2024 08:00:23 29 10-50 (U/L) Fin al Alk Phos 03/21/2024 08:00:23 92 35-130 (U/ L) Final Bilirubin, Total 03/21/2024 08:00:23 0.5 <=1 .2 (mg/dL) Final Calcium 03/21/2024 08:00:23 9.7 8.4-10.2 ( mg/dL) Final Protein 03/21/2024 08:00:23 7.1 6.0-8.3 (g /dL) Final ALT (Alanine aminotransferase) 03/21/2024 08:00:23 52 Above high normal 10-50 (U/L) Final Performing Location LABORATORY [facility] - [address] [facility] [address]
--- OUTSIDE RECORDS SUMMARY | 2024-05-18 07:20 | External Medical Summary ---
Author Name Unknown Address Unknown Organization K01:LABORATORY [facility] - [address] [place] [address] Laboratory Report Ordering Provider Test Date Status ADALBERTO ALEGRE 03/21/2024 08:00:23 Final Baseline then every 2-3 isamar hs Observation Date Value Abnormality Reference (Units ) Status TSH 03/21/2024 08:00:23 3.48 0.27-4.20 (uIU/mL) Final Performing Location LABORATORY [facility] - [address] [place] [address]
--- OUTSIDE RECORDS SUMMARY | 2024-05-18 07:20 | External Medical Summary ---
Author Name Unknown Address Unknown Organization K01:LABORATORY [facility] - [address] [facility] [address] [place] [address] Laboratory Report Ordering Provider Test Date Status SISADALBERTO 03/21/2024 08:00:23 Final Mantel Cell Lymphoma - [...] SYNC LEUKOCYTES IN BLOOD BY AUTOMATED COUNT 03/21/2024 08:00:23 4.72 4.00-10.80 (K/uL) Final Segs 03/21/2024 08:00:23 47.3 40.0-75.0 (%) Final Lymphs % 03/21/2024 08:00:23 33.7 18.0-42.0 (%) Final Monos 03/21/2024 08:00:23 12.3 Above high normal 1.0-11.0 (%) Final Eosinophils 03/21/2024 08:00:23 4.2 0.0-6.0 (%) Final Basos 03/21/2024 08:00:23 2.1 Above high normal 0.0-2.0 (%) Final Immature Granulocyte, Percent 03/21/2024 08:00:23 0.4 0.0-2.0 (%) Final Absolute Segs 03/21/2024 08:00:23 2.23 1.80-7.70 (K/uL) Final Lymphs, absolute 03/21/2024 08:00:23 1.59 1.00-4.80 (K/ul) Final Monos, Abs 03/21/2024 08:00:23 0.58 0.00-1.10 (K/uL) Final Eos, Abs 03/21/2024 08:00:23 0.20 0.00-0.70 (K/uL) Final Basos, Abs 03/21/2024 08:00:23 0.10 0.00-0.20 (K/uL) Final Immature Granulocytes, Number 03/21/2024 08:00:23 0.02 0.00-0.20 (K/uL) Final Performing Location LABORATORY [facility] - [facility] [address] [facility] [address]
--- OUTSIDE RECORDS SUMMARY | 2024-05-18 07:20 | External Medical Summary ---
Author Name Unknown Address Unknown Organization : Laboratory Report Ordering Provider Test Date Status ADALBERTO ALEGRE 03/21/2024 08:00:23 Final Observation Date Value Abnormality Reference (Units ) Status Beta-2 Microglobulin 03/21/2024 08:00:23 2.45 <=2.51 (mg/L) Final Test Performed at:
[facility]
[address] [facility]
[place] [address]
Hansel Resendez M.D., Ph.D.,Director of Laboratories Performing Location
--- OUTSIDE RECORDS SUMMARY | 2024-05-18 07:20 | External Medical Summary ---
Author Name Unknown Address Unknown Organization K01[place] [place] [address] [facility] [address] Laboratory Report Ordering Provider Test Date Status ADALBERTO ALEGRE 03/21/2024 08:00:23 Final Observation Date Value Abnormality Reference (Units) Status PARAPROTEIN NORMAL/ABNORMAL 03/21/2024 08:00:23 Abnormal Abnormal Normal Final Protein 03/21/2024 08:00:23 7.1 6.0-8.3 (g/dL) Final Albumin/Protein.total [Pure mass fraction] in Serum or Plasma by Electrophoresis 03/21/2024 08:00:23 3.87 3.30-4.40 (g/dL) Final Alpha 1 globulin/Protein.total [Pure mass fraction] in Serum or Plasma by Electrophoresis 03/21/2024 08:00:23 0.16 0.10-0.30 (g/dL) Final Alpha 2 globulin/Protein.total [Pure mass fraction] in Serum or Plasma by Electrophoresis 03/21/2024 08:00:23 0.91 0.60-1.00 (g/dL) Final Beta globulin/Protein.total [Pure mass fraction] in Serum or Plasma by Electrophoresis 03/21/2024 08:00:23 0.89 0.80-1.30 (g/dL) Final Gamma globulin/Protein.total [Pure mass fraction] in Serum or Plasma by Electrophoresis 03/21/2024 08:00:23 1.27 0.70-1.70 (g/dL) Final Monoclonal protein 03/21/2024 08:00:23 0.50 (g/dL) Final Protein Fractions [Interpretation] in Serum or Plasma by Electrophoresis Narrative 03/21/2024 08:00:23 Abnormal. A paraprotein is present that has been previously identified as a monoclonal IgG kappa. Final Performing Location [facility] [place] [address] [facility] [address]
--- OUTSIDE RECORDS SUMMARY | 2024-05-18 07:20 | External Medical Summary ---
Author Name Unknown Address Unknown Organization K01:[facility] - [address] [place] [address] Laboratory Report Ordering Provider Test Date Status WU ADORNO 03/21/2024 08:00:23 Final Observation Date Value Abnormality Reference (Units ) Status Phosphate 03/21/2024 08:00:23 3.3 2.5-4.8 (m g/dL) Final Performing Location [facility] - [address] [place] [address]
--- OUTSIDE RECORDS SUMMARY | 2024-05-18 07:20 | External Medical Summary | Summary of Care ---
Author Name Unknown Organization [facility] Address [address] [place] [place] [place] [address] Phone [phone] Care Team Providers Care Adult Ministries Director Name Role Phone Patrick Zhao MD Primary Care Provider [phone] Encounter Details Date Type Department Care Team (Late st Contact Info) Description 03/20/2024 Orders Only Hematology/Oncology Treatment, [place] [address] [place] [address] Rae Berrios MD [address] [place] [address] Allergies Active Allergy Reactions Criticality Noted Date Comments Celecoxib Medium 02/01/2017 Metformin Diarrhea 02/18/2023 Prochlorperazine 11/18/1998 Intol,compazine documented as of this encounter (statuses as of 03/20/2024) Medications OneTouch Delica Plus [id number] USE TO TEST BLOOD SUGAR 2 TIMES [...] goal of less than 7.0% ([facility]) USE TO TEST BLOOD SUGAR [...] goal of less than 7.0% ([facility]) INJECT 0.25 MG UNDER THE [...] as of this encounter (statuses as of 03/20/2024) Active Problems Patient Care Coordination No te [...] as of this encounter (statuses as of 03/20/2024) Resolved Problems Problem Noted Date Diagnosed Date [...] as of this encounter (statuses as of 03/20/2024) Immunizations Name Administration Dates Next Due COVID-19 mRNA, LNP-s, No Pre serve, 2-Dose Series (Moderna) 07/23/2020,06/18/2020 COVID-19 mRNA, LNP-s, No Pre serve, 2-Dose Series (Pfizer) 03/03/2021 HEPATITIS B VACCINE, RECOMB, 20 MCG/ML, ADULT (HEPLISAV-B) 01/21/2024 HIB Booster (Hiberix) 01/21/2024 Pneumococcal Conjugate Vacc, 13 Valent (Prevnar) 03/16/2019 Pneumococcal Conjugate Vacci ne, 20-valent ([id number]) 01/21/2024,02/08/2023(Deferred: Patient Refused - Pt thinks he [...] Description 03/21/2024 8:00 AM EST Laboratory Laboratory, [place] [facility] [address] [place] [address] [facility] [facility], [facility] [address] [place] [address] 03/22/2024 8:15 AM EST Pharmacy Pharmacy Hematology Oncology [address] [address] [facility] Hem/Onc [facility] [place] [address] 03/22/2024 9:00 AM EST Pharmacy Pharmacy Hematology Oncology [facility], [place] [address] [place] [address] [facility] Hem/Onc [address] [place] [address] 03/22/2024 1:00 PM EST Immunization/Injection Hematology Oncology [place] [address] [place] [address] Nurse, [facility] [address] [place] [address] 03/23/2024 12:00 PM EST Office Visit Hematology/Oncology [facility] [address] [place] [phone] Mallika Larios CRNP [address] [place] [address] 03/23/2024 12:30 PM EST Immunization/Injection Hematology/Oncology Treatment, [place] [address] [place] [address] Kandice, Chair [address] [address] 04/03/2024 9:00 AM EST Office Visit Nephrology, [address] [address] Addison Salas MD [address] [place] [address] 04/18/2024 8:30 AM EST Telemedicine Psychology [facility], [address] [phone] Quentin Gupta PsyD [facility] [address] [place], [place] [phone] 06/22/2024 8:20 AM EDT Office Visit [address] [place] [phone] Patrick Zhao MD [address] [place] [address] 08/15/2024 7:00 AM EDT Office Visit Neurology Yarelis [facility] [place] [address] [facility] [place] [address] Yvonne Panchal PA-C [address] [place] [address] 08/25/2024 9:00 AM EDT Office Visit Pharmacy, [address] [place] [address] [place] [address] 09/05/2024 10:20 AM EDT Office Visit Dermatology, [facility] [facility] [address] [place] [phone] Linda Mejia PA-C [address] [place] [address] [place] [address] Health Maintenance Due Date Last Done Comments Cologuard 2001 Fecal Occult Blood Test 2001 Sigmoidoscopy 2001 Adult Wellness Visit 2022 COVID-19 Vaccine ( season) 2023 03/03/2021, 07/23/2020, 06/18/2020 Albumin/Creatinine Ratio 01/20/2024 023, 01/05/2022, 02/02/2018 Hepatitis B Vaccine (2 [...] patient or by statute hierarchy) Care Teams Adult Ministries Director Relationship Specialty Start Date End Date Patrick Zhao MD [address] [place] [address] PCP - General Family Medicine 02/28/24 documented as of this encounter
--- OUTSIDE RECORDS SUMMARY | 2024-05-18 07:20 | External Medical Summary ---
Author Name Unknown Address Unknown Organization K01:[facility] [place] [facility] [address] [place] [address] Laboratory Report Ordering Provider Test Date Status ADALBERTO ALEGRE 03/21/2024 08:00:23 Final Observation Date Value Abnormality Reference (Units ) Status [place] light chains, Free, Serum 03/21/2024 08:00:23 41.24 Above high normal 3.30-19.40 (mg/L) Final L[place] light chains, free, Serum 03/21/2024 08:00:23 29.06 Above high normal 5.71-26.30 (mg/L) Final KAPPA LAMBDA [facility] RATIO 03/21/2024 08:00:23 1.42 0.26-1.65 Final Performing Location [facility] [place] [facility] [place] [address]
--- OUTSIDE RECORDS SUMMARY | 2024-05-18 07:20 | External Medical Summary | Summary of Care ---
Author Name Unknown Organization [facility] Address [address] [place] [address] Phone [phone] Care Team Providers Care Fruit Coordinator Name Role Phone Patrick Zhao MD Primary Care Provider [phone] Reason for Visit * Reason Comments Medication Administration Encounter Details Date Type Department Care Team (Late st Contact Info) Description 03/22/2024 1:00 PM EST Immunization/I njection Hematology Oncology [facility] [address] [place], [place] [phone] Nurse, Med 4 [address] [place] [address] History of autologous stem cell transplant (HCC)*; Multiple myeloma not having achieved remission (HCC) Allergies Active Allergy Reactions Criticality Noted Date Comments Celecoxib Medium 02/01/2017 Metformin Diarrhea 02/18/2023 Prochlorperazine 11/18/1998 Intol,compazine documented as of this encounter (statuses as of 03/22/2024) Medications OneTouch Delica Plus [id number] USE TO TEST BLOOD SUGAR 2 TIMES [...] transplant (HCC),Multiple myeloma not having achieved remission ([facility]) Inject 0.5 mL [...] 16, 2024. 28 Capsule 03/16/19 25 Active Haemophilus B Polysac Conj Vac 10 MCG Injection Solution Reconstituted (Hiberix)Indicatio ns:History of autologous stem cell transplant (HCC),Multiple myeloma not having achieved remission (HCC) Inject 0.5 mL into a large muscle once for 1 dose. 0.5 mL 03/22/19 25 025 Active Zoster Vac Recomb Adjuvanted 50 MCG/0.5ML Intramuscular Suspension Reconstituted (Shingrix)Indicati ons:History of autologous stem cell transplant (HCC),Multiple myeloma not having achieved remission (HCC) Inject 0.5 mL into a large muscle now and repeat dose in 60 to 180 days 0.5 mL 03/22/19 25 Active documented as of this encounter [...] (Prevnar) 03/16/2019 Pneumococcal Conjugate Vacci ne, 20-valent ([id number]) 03/22/2024,01/21/2024,02/08/2023(Defe rred: Patient Refused - Pt thinks [...] documented in this encounter Nursing Notes * Erica Martin LPN - 03/22/2024 1:22 PM EST Shingrix and Hiberix were administered and vaccination information was entered into patient chart. Patient did not have a copay for these vaccinations. documented in this encounter Plan of Treatment Upcoming Encounters Date Type Department Care Team (Late st Contact Info) Description 03/23/2024 12:00 PM EST Office Visit Hematology/Oncology [address] [place] [address] Mallika Larios CRNP [address] [place] [address] 03/23/2024 12:30 PM EST Immunization/Injection Hematology/Oncology Treatment, [address] [place] [phone] Kandice, Chair 9 Hem Onc [address] [place] [address] 04/03/2024 9:00 AM EST Office Visit Nephrology, [address] [place] [address] Addison Salas MD [address] [place] [address] 04/18/2024 8:30 AM EST Telemedicine Psychology [address] [address] Quentin Gupta PsyD [facility] [place] [address] 04/19/2024 9:00 AM EST Pharmacy Pharmacy Hematology Oncology [address] [address] [facility] Hem/Onc [facility] [place] [address] 06/22/2024 8:20 AM EDT Office Visit [facility] [place] [address] [facility] [place] [phone] Patrick Zhao MD [address] [facility] [address] [address] 08/15/2024 7:00 AM EDT Office Visit Neurology Yarelis Woodson [place] [address] [facility] [place] [address] Yvonne Panchal PA-C [facility] [place] [address] 08/25/2024 9:00 AM EDT Office Visit Pharmacy, [address] [place] [address] [place] [address] 09/05/2024 10:20 AM EDT [facility], [place] [facility] [address] [place] [phone] Linda Mejia PA-C [address] [place] [address] [place] [address] Health Maintenance Due Date Last Done Comments [...] Primary Peripheral stem cells replaced by transplant Multiple myeloma not having achieved remission (HCC) [...] Agents on File Name Relationship Healthcare [facility] Dori Hoover Adult Child Health Care Repr esentative (appointed verbally by patient or by statute hierarchy) Care Teams Fruit Coordinator Relationship Specialty Start Date End Date Patrick Zhao MD [address] [place] [address] [place] [address] PCP - General Family Medicine 02/28/24 documented as of this encounter
--- OUTSIDE RECORDS SUMMARY | 2024-05-18 07:20 | External Medical Summary | Summary of Care ---
Author Name Unknown Organization [facility] Address [address] [facility] [address] Phone [phone] Care Team Providers Care Gelatin Dynamite Packing Operator Name Role Phone Patrick Zhao MD Primary Care Provider [phone] Reason for Visit * Reason Comments Re-Check Encounter Details Date Type Department Care Team (Late st Contact Info) Description 03/09/2024 9:30 AM EST Office Visit Hematology/Oncology [facility] [place] [address] [facility] [address] [place] [address] Li Yip CRNP [address] [facility] [place] [address] Multiple myeloma in remission (HCC)*; Drug rash; Insomnia, unspecified type Allergies Active Allergy Reactions Criticality Noted Date Comments Celecoxib Medium 02/01/2017 Metformin Diarrhea 02/18/2023 Prochlorperazine 11/18/1998 Intol,compazine documented as of this encounter (statuses as of 03/09/2024) Medications OneTouch Delica Plus [id number] USE TO TEST BLOOD SUGAR 2 TIMES [...] A1c goal of less than 7.0% ([facility]) USE TO TEST BLOOD SUGAR 2 [...] A1c goal of less than 7.0% ([facility]) INJECT 0.25 MG UNDER THE SKIN ONCE A WEEK. THEN INCREASE TO 0.5 MG IF TOLERATED. 9 mL 3 01/31/20 24 Active LORazepam 1 MG Oral Tablet (Ativan)Indication s:Anxiety state,Insomnia, unspecified type Take one at bedtime . May take 1/2- 1 tab during day as needed 45 Tablet 1 02/11/20 24 Active Lenalidomide 10 MG Oral Capsule (Revlimid)Indicati [...] bedtime. 30 Tablet 2 03/09/19 25 Active documented as of this encounter (statuses as of 03/09/2024) Active Problems Patient Care Coordination No te [...] as of this encounter (statuses as of 03/09/2024) Resolved Problems Problem Noted Date Diagnosed Date [...] as of this encounter (statuses as of 03/09/2024) Immunizations Name Administration Dates Next Due COVID-19 mRNA, LNP-s, No Pre serve, 2-Dose Series (Moderna) 07/23/2020,06/18/2020 COVID-19 mRNA, LNP-s, No Pre serve, 2-Dose Series (Pfizer) 03/03/2021 HEPATITIS B VACCINE, RECOMB, 20 MCG/ML, ADULT (HEPLISAV-B) 01/21/2024 HIB Booster (Hiberix) 01/21/2024 Pneumococcal Conjugate Vacc, 13 Valent (Prevnar) 03/16/2019 Pneumococcal Conjugate Vacci ne, 20-valent ([id number]) 01/21/2024,02/08/2023(Deferred: Patient Refused - Pt thinks he [...] Sign Reading Time Taken Comments Blood Pressure 145/85 03/09/2024 9:15 AM EST Pulse 79 03/09/2024 9:15 AM EST Temperature 36.3 C (97.3 F) 03/09/2024 9:15 AM ES T Respiratory Rate - - Oxygen Saturation 95% 03/09/2024 9:15 AM EST Inhaled Oxygen Concentration - - Weight 92.5 kg (204 lb) 03/09/2024 9:15 AM EST Height - - Body Mass Index 29.27 02/21/2024 7:27 AM EST documented in this [...] Assessment Author No 07/20/2023 8:11 AM EDT Meilnda Vargas RN * Do you have difficulty [...] documented in this encounter Progress Notes * Li Yip CRNP - 03/09/2024 9:30 AM EST Hematology/Oncology Outpatient Clinic note Ambar Woodson [address] [place] [address] Name: Hernan Rodriguez Date: 03/08/2024 CHIEF COMPLAINT: Hernan Rodriguez is a 68 year old male patient of Dr. Mcbride Agustina here today for f/u visit today. From Patient chart confirmed with patient. HEMATOLOGY/ONCOLOGY DIAGNOSIS: IgG kappa multiple [...] IgA was 23 and IgM was 30. [place] light chain was 281.08 and the lambda [...] history as outlined above. Currently here for f/u visit today. Patient presents today with a few concerns regarding symptoms that have started since initiating maintenance Revlimid. Has developed an itchy and bumpy rash to his face, neck, back and upper arms. Will scratch open the bumps and will drain clear fluid. Currently applying steroid cream that does help with the itch. Also experiencing increasing episodes of anxiety attacks. Will sweat and become SOB. Does resolve quickly once he takes his ativan. Ativan is not helping with sleep though and issleeping for short periods of time totaling only 3-4 hours a night. Has utilized Trazodone in the past but does not currently have any of this at home. Is having constipation that is controlled with Miralax. Dizziness when he goes quickly from sitting to standing while at work. Tremors have returned so resumed propranolol and also increased dose for BP control. Is not tolerating Ozempic well. Wants to take a break from this. Past Medical History: Diagnosis Date Depression Diverticulitis of small intestine HTN (hypertension) Migraine without aura Past Surgical History: Procedure Laterality Date ARTHROPLASTY KNEE TOTAL Right COLONOSCOPY, DIAGNOSTIC (RECTUM) 03/11/2018 COLONOSCOPY FLEXIBLE PROXIMAL DIAGNOSTIC performed by Nicole Olvera DO at ENDOSCOPY [facility] HEAD SURGERY PROCEDURE NEC Cluster [...] Stability Do you currently live in a custodial or have no steady place to sleep [...] Medication Sig Dispense Refill OneTouch Delica Plus [id number] USE TO TEST BLOOD SUGAR 2 TIMES [...] 1 Tablet before bedtime. 180 Tablet 1 OneTodoggyloot Verio In Vitro Strip (Glucose Blood) USE [...] HPI - otherwise negative OBJECTIVE: Filed Vitals: 03/09/24 0915 BP: 145/85 Pulse: 79 Temp: 36.3 C (97.3 F) TempSrc: Tympanic SpO2: 95% Weight: 92.5 kg (204 lb) Wt Readings from Last 5 Encounters: 03/09/24 92.5 kg (204 lb) 02/28/24 92.8 kg (204 lb 9.6 oz) 02/21/24 92.7 kg (204 lb 6.4 oz) 02/09/24 92.8 kg (204 lb 9.6 oz) 02/02/24 92.1 kg (203 lb) PHYSICAL EXAM: ECOG: Performance Status 0 = 100% Normal Activity General Appearance: Normal - Healthy appearing patient in no acute distress Lungs/Thorax: Normal respiratory effort Pulses/Extremities: Normal - 2+ throughout and symmetrical, no edema Skin: papular rash to forehead and neck; dry skin to back Neurologic: Normal - Grossly intact LABS: Results for orders placed or performed in visit on 02/07/24 COMPREHENSIVE METABOLIC PANEL Result Value Ref Range BUN 15 6 - 20 mg/dL CREATININE 0.9 0.6 - 1.2 mg/dL EGFR >90 >=60 mL/min SODIUM 139 135 - 146 mmol/L POTASSIUM 4.4 3.5 - 5.1 mmol/L CHLORIDE 106 98 - 107 mmol/L CO2 23 22 - 32 mmol/L ANION GAP 10 7 - 15 mmol/L GLUCOSE 162 (H) 70 - 120 mg/dL Albumin 4.3 3.8 - 5.0 g/dL AST 18 10 - 50 U/L Alkaline Phosphatase 73 35 - 130 U/L Bilirubin, Total 0.3 <=1.2 mg/dL CALCIUM 8.8 8.4 - 10.2 mg/dL Protein 6.6 6.0 - 8.3 g/dL ALT 30 10 - 50 U/L MAGNESIUM Result Value Ref Range Magnesium 2.2 1.5 - 2.6 mg/dL PHOSPHORUS Result Value Ref Range Phosphorus 2.7 2.5 - 4.8 mg/dL HEMOGLOBIN A1C Result Value Ref Range Hemoglobin A1C 6.8 (H) 4.0 - 5.6 % Estimated Average Glucose 148 (H) <126 mg/dL [id number], SERUM Result Value Ref Range B2 Microglobulin, Serum 2.01 <=2.51 mg/L IMMUNOGLOBULIN QUANTITATIVE Result Value Ref Range IgG 1,135 700 - 1,600 mg/dL IgA 33 (L) 70 - 400 mg/dL IgM 37 (L) 40 - 230 mg/dL SERUM PROTEIN ELECTROPHORESIS REFLEX PROFILE Result Value Ref Range Normal/Abnormal Abnormal (A) Normal Protein 6.5 6.0 - 8.3 g/dL Albumin 3.72 3.30 - 4.40 g/dL Alpha-1 Globulin 0.98 (H) 0.10 - 0.30 g/dL Alpha-2 Globulin 0.70 0.60 - 1.00 g/dL Beta-Globulin 1.10 0.80 - 1.30 g/dL Gamma-Globulin Electrophoresis Interpretation Abnormal. A paraprotein is present that has been previously identified as a monoclonal IgG kappa. SERUM FREE LIGHT CHAINS Result Value Ref Range [place] Free Light Chains, Serum 38.96 (H) 3.30 - 19.40 mg/L Lambda Free Light Chains, Serum 20.44 5.71 - 26.30 mg/L [place] Lambda Free Light Chains Ratio 1.91 (H) 0.26 - 1.65 CBC Result Value Ref Range WBC 3.50 (L) 4.00 - 10.80 K/uL RBC 3.99 4.50 - 5.25 M/uL HGB 12.6 (L) 14.0 - 16.8 g/dL HCT 38.6 (L) 40.0 - 48.4 % MCV 96.7 82.0 - 99.5 fL MCH 31.6 27.0 - 34.0 pg MCHC 32.6 32.0 - 36.0 g/dL RDW 13.2 11.5 - 15.5 % PLT 130 (L) 140 - 400 K/uL MPV 9.4 6.6 - 11.1 fL nRBCs 0 <=0 /100 WBCs DIFFERENTIAL, AUTOMATED Result Value Ref Range WBC 3.50 (L) 4.00 - 10.80 K/uL Neutrophils % 43.7 40.0 - 75.0 % Lymphocytes % 34.9 18.0 - 42.0 % Monocytes % 15.7 (H) 1.0 - 11.0 % Eosinophils % 3.1 0.0 - 6.0 % Basophils % 2.3 (H) 0.0 - 2.0 % Immature Granulocytes % 0.3 0.0 - 2.0 % Absolute Neutrophils 1.53 (L) 1.80 - 7.70 K/uL Absolute Lymphocytes 1.22 1.00 - 4.80 K/ul Absolute Monocytes 0.55 0.00 - 1.10 K/uL Absolute Eosinophils 0.11 0.00 - 0.70 K/uL Absolute Basophils 0.08 0.00 - 0.20 K/uL Absolute Immature Granulocytes 0.01 0.00 - 0.20 K/uL *Note: Due to a large number of results and/or encounters for the requested time period, some results have not been displayed. A complete set of results can be found in Results Review. IMPRESSION/PLAN: IgG kappa multiple myeloma - stage I Drug rash Insomnia Palliative radiation therapy to the left third rib mass completed 03/26/23 Treated with daratumumab plus lenalidomide, bortezomib and Decadron. He received 4 cycles daratumumab, velcade, revlimid and dexamethasone 03/17/23 through 06/01/23. S/P High-dose chemotherapy followed by the stem cell transplant. Day 0 was on 07/21/2023. Now receiving maintenance Revlimid 10 mg daily starting 12/06/2023. Confirms taking aspirin 81 mg daily and Acyclovir 800 mg BID. Since starting Revlimid has developed a pruritic rash to face, neck, back and upper arms. Recommendmoisturizing regularly with Cereve. Can continue Triamcinolone cream as needed for pruritus. Bathe in cool or lukewarm water and pat skin dry. Use soaps, lotions, and laundry detergents without alcohol, perfumes, or dyes. Will make clinic aware if rash should worsen Plan to also resume Xgeva injections later this month. Confirms taking calcium/vitamin d supplement. Continue with BMT vaccinations as scheduled. Prescription sent for Trazodone 50 mg at HS. Can continue to utilize Lorazepam 0.5 mg during the night as needed for anxiety. Continue to follow with psychologist. Continue monthly labs including myeloma markers and MTM f/u - appreciate recommendations. RTC as scheduled KALPESH Frank documented in this encounter Nursing Notes * Zofia Barnett MED ASSIST - 03/09/2024 9:18 AM EST Patient identifed by name and [...] it for you? ALREADY ACTIVE Filed Vitals: 03/09/24 0915 BP: 145/85 Pulse: 79 Temp: 36.3 C (97.3 F) TempSrc: Tympanic SpO2: 95% Weight: 92.5 kg (204 lb) Patient was instructed to not get up on the exam table/exam chair until directed and assisted by their provider; patient is to remain seated in the chair/ wheelchair/ exam table/ exam chair for fall prevention and safety reasons. Patient is aware to have assistance to step down off exam table/exam chair with personnel. Patient voiced full comprehension of instructions. Pt reports having itchiness and rash. Pt states when he scratches the rash, clear fluid comes out. He also says he has sweats, dizziness, and unsteadiness when he stands. Pt gets sick taking the ozempic and chemo together. Pt states his tremors are more noticeable documented in this encounter Plan of Treatment Upcoming Encounters Date Type Department Care Team (Late st Contact Info) Description 03/21/2024 8:00 AM EST Laboratory Laboratory, [facility] [address] [place] [phone] Mohan Hernandez [address] [place] [id number] 03/22/2024 8:15 AM EST Pharmacy Pharmacy Hematology Oncology [facility], [place] [address] [place] [address] [facility], [facility] Hem/Onc [address] [place] [address] 03/22/2024 1:00 PM EST Immunization/Injection Hematology Oncology [facility], [place] [address] [place] [address] Nurse, [facility] [address] [place] [address] 03/23/2024 12:00 PM EST Office Visit Hematology/Oncology [facility] [place] [address] [place] [phone] Mallika Larios CRNP [address] [place] [address] 03/23/2024 12:30 PM EST Immunization/Injection Hematology/Oncology Treatment, [place] [address] [place] [address] Kandice, Chair 9 Hem On[address] [address] 04/03/2024 9:00 AM EST Office Visit Nephrology, [address] [address] Addison Salas MD [address] [place] [address] 04/18/2024 8:30 AM EST Telemedicine Psychology [facility], [place] [address] [place] [address] Quentin Gupta PsyD [address] [place], [place] [id number] 06/22/2024 8:20 AM EDT [facility] [address] [place] [phone] Patrick Zhao MD [address] [place] [address] 08/15/2024 7:00 AM EDT Office Visit Neurology Rosalia Kandice [place] [address] [facility] [place] [address] Yvonne Panchal PA-C [address] [facility] [place] [address] 08/25/2024 9:00 AM EDT Office Visit Pharmacy, [address] [place] [address] [place] [address] 09/05/2024 10:20 AM EDT Office Visit Dermatology, [place] [address] [place] [phone] Linda Mejia PA-C [address] [place] [address] [place] [address] Health Maintenance Due Date Last Done Comments [...] remission (HCC)- Primary Multiple myeloma in remission Drug rash Dermatitis due to drugs and medicines taken internally Insomnia, unspecified type documented in this encounter [...] patient or by statute hierarchy) Care Teams Gelatin Dynamite Packing Operator Relationship Specialty Start Date End Date Patrick Zhao MD [address] [place] [address] PCP - General Family Medicine 02/28/24 documented as of this encounter
--- OUTSIDE RECORDS SUMMARY | 2024-05-18 07:20 | External Medical Summary | Summary of Care ---
Author Name Unknown Organization [facility] Address [address] [facility] [place] [address] Phone [phone] Care Team Providers Care Brilliandeer Looper Name Role Phone Patrick Zhao MD Primary Care Provider [phone] Reason for Visit * Reason Comments Outpatient Testing Encounter Details Date Type Department Care Team (Late st Contact Info) Description 03/21/2024 8:00 AM EST [facility] [address] [place] [phone] [facility] [address] [place] [address] Multiple myeloma not having achieved remission (HCC); History of autologous stem cell transplant (HCC); Stem cells transplant status (HCC); Multiple myeloma in remission (HCC) Allergies Active Allergy Reactions Criticality Noted Date Comments Celecoxib Medium 02/01/2017 Metformin Diarrhea 02/18/2023 Prochlorperazine 11/18/1998 Intol,compazine documented as of this encounter (statuses as of 03/21/2024) Medications OneTouch Delica Plus [id number] USE TO TEST BLOOD SUGAR 2 TIMES [...] A1c goal of less than 7.0% ([facility]) USE TO TEST BLOOD SUGAR [...] A1c goal of less than 7.0% ([facility]) INJECT 0.25 MG UNDER THE [...] as of this encounter (statuses as of 03/21/2024) Active Problems Patient Care Coordination No te [...] as of this encounter (statuses as of 03/21/2024) Resolved Problems Problem Noted Date Diagnosed Date [...] as of this encounter (statuses as of 03/21/2024) Immunizations Name Administration Dates Next Due COVID-19 mRNA, LNP-s, No Pre serve, 2-Dose Series (Moderna) 07/23/2020,06/18/2020 COVID-19 mRNA, LNP-s, No Pre serve, 2-Dose Series (Pfizer) 03/03/2021 HEPATITIS B VACCINE, RECOMB, 20 MCG/ML, ADULT (HEPLISAV-B) 01/21/2024 HIB Booster (Hiberix) 01/21/2024 Pneumococcal Conjugate Vacc, 13 Valent (Prevnar) 03/16/2019 Pneumococcal Conjugate Vacci ne, 20-valent ([id number]) 01/21/2024,02/08/2023(Deferred: Patient Refused - Pt thinks he [...] st Contact Info) Description 03/22/2024 8:15 AM EST Pharmacy Pharmacy Hematology Oncology [address] [address] [facility], [facility] Hem/Onc [address] [place] [address] 03/22/2024 9:00 AM EST Pharmacy Pharmacy Hematology Oncology [address] [address] [facility], [facility] Hem/Onc [address] [place] [address] 03/22/2024 1:00 PM EST Immunization/Injection Hematology Oncology [facility] [place] [address] [place] [address] Nurse, [facility] [address] [place] [address] 03/23/2024 12:00 PM EST Office Visit Hematology/Oncology [facility] [address] [place] [address] Mallika Larios CRNP [address] [place], [place] [phone] 03/23/2024 12:30 PM EST Immunization/Injection Hematology/Oncology Treatment, [place] [address] [place] [address] Kandice, Chair 9 Hem Onc [address] [address] 04/03/2024 9:00 AM EST Office Visit Nephrology, [facility] 200 [place] [address] Addison Salas MD [address] [place], [place] [phone] 04/18/2024 8:30 AM EST Telemedicine Psychology [facility] [place] [address] [place] [address] Quentin Gupta PsyD [address] [place] [address] 06/22/2024 8:20 AM EDT [facility] [address] [place] [phone] Patrick Zhao MD [address] [place] [address] 08/15/2024 7:00 AM EDT Office Visit Neurology [facility] [place] [address] [place] [address] Yvonne Panchal PA-C [address] [place] [address] 08/25/2024 9:00 AM EDT Office Visit Pharmacy, [address] [place] [address] [place] [address] 09/05/2024 10:20 AM EDT [facility] [address] [place] [phone] Linda Mejia PA-C [address] [place] [address] [place] [address] Pending Results Name Type Priority Associated Diagnoses Date /Time PHOSPHORUS Lab STAT Multiple myeloma not having achieved remission (HCC) History of autologous stem cell transplant ([facility]) 03/21/2024 8:00 AM EST [id number], SERUM Lab Routine Stem cells transplant status ([facility]) Multiple myeloma in remission ([facility]) 03/21/2024 8:00 AM EST IMMUNOGLOBULIN QUANTITATIVE Lab Routine Stem cells transplant status ([facility]) Multiple myeloma in remission ([facility]) 03/21/2024 8:00 AM EST SERUM FREE LIGHT CHAINS Lab Routine Stem cells transplant status ([facility]) Multiple myeloma in remission (HCC) 03/21/2024 8:00 AM EST SERUM PROTEIN ELECTROPHORESIS REFLEX PROFILE Lab Routine Stem cells transplant status ([facility]) Multiple myeloma in remission (HCC) 03/21/2024 8:00 AM EST CBC WITH WBC DIFFERENTIAL Lab STAT Multiple myeloma not having achieved remission (HCC) 03/21/2024 8:00 AM EST COMPREHENSIVE METABOLIC PANEL Lab STAT Multiple myeloma not having achieved remission (HCC) 03/21/2024 8:00 AM EST TSH WITH FREE T4 IF INDICATED Lab STAT Multiple myeloma not having achieved remission (HCC) 03/21/2024 8:00 AM EST CBC Lab STAT Multiple myeloma not having achieved remission (HCC) 03/21/2024 8:00 AM EST DIFFERENTIAL, AUTOMATED Lab STAT Multiple myeloma not having achieved remission (HCC) 03/21/2024 8:00 AM EST Health Maintenance Due Date Last [...] 01/21/2024, 03/16/2019, 07/09/2016 Zoster Vaccines Completed 01/21/2024, 06/0 05/2019, 04/20/2019 HPV (Gardasil) Vaccine Aged Out [...] (HCC) Peripheral stem cells replaced by transplant Stem cells transplant status (HCC) Peripheral stem cells replaced by transplant Multiple myeloma in remission (HCC) Multiple myeloma in remission documented in this [...] patient or by statute hierarchy) Care Teams Brilliandeer Looper Relationship Specialty Start Date End Date Patrick Zhao MD [address] [facility] [place] [address] PCP - General Family Medicine 02/28/24 documented as of this encounter
--- OUTSIDE RECORDS SUMMARY | 2024-05-18 07:20 | External Medical Summary | Summary of Care ---
Author Name Unknown Organization [facility] Address [address] [facility] [place] [address] Phone [phone] Care Team Providers Care Hardwood Floor Sander Name Role Phone aPtrick Zhao MD Primary Care Provider [phone] Reason for Visit * Reason Onset Date Comments Medication Refill 03/14/2024 Encounter Details Date Type Department Care Team (Late st Contact Info) Description 03/14/2024 Telephone Hematology/Oncology [facility] Kandice [place] [address] [place] [phone] Rae Berrios MD [address] [place] [address] Medication Refill Allergies Active Allergy Reactions Criticality Noted Date Comments Celecoxib Medium 02/01/2017 Metformin Diarrhea 02/18/2023 Prochlorperazine 11/18/1998 Intol,compazine documented as of this encounter (statuses as of 03/14/2024) Medications OneTouch Delica Plus [id number] USE TO TEST BLOOD SUGAR 2 TIMES [...] hemoglobin A1c goal of less than 7.0% ([facility]) USE TO TEST BLOOD SUGAR 2 [...] hemoglobin A1c goal of less than 7.0% ([facility]) INJECT 0.25 MG UNDER THE SKIN [...] 16, 2024. 28 Capsule 03/16/19 25 Active Lenalidomide 10 MG Oral Capsule (Revlimid)Indicati ons:Multiple myeloma not having achieved remission (HCC) Take 1 Capsule by mouth in the morning. For 28 days of a 28 day cycle. Take medication same time every day and consistently with or without food.. Do not start before February 17, 2024. 28 Capsule 02/17/20 24 025 Discontin ued(Refil l) documented as of this encounter (statuses as of 03/14/2024) Active Problems Patient Care Coordination No te [...] as of this encounter (statuses as of 03/14/2024) Resolved Problems Problem Noted Date Diagnosed Date [...] as of this encounter (statuses as of 03/14/2024) Immunizations Name Administration Dates Next Due COVID-19 mRNA, LNP-s, No Pre serve, 2-Dose Series (Moderna) 07/23/2020,06/18/2020 COVID-19 mRNA, LNP-s, No Pre serve, 2-Dose Series (Pfizer) 03/03/2021 HEPATITIS B VACCINE, RECOMB, 20 MCG/ML, ADULT (HEPLISAV-B) 01/21/2024 HIB Booster (Hiberix) 01/21/2024 Pneumococcal Conjugate Vacc, 13 Valent (Prevnar) 03/16/2019 Pneumococcal Conjugate Vacci ne, 20-valent ([id number]) 01/21/2024,02/08/2023(Deferred: Patient Refused - Pt thinks he [...] encounter Miscellaneous Notes * Telephone Encounter - Apoorva Amezcua, [facility] - 03/14/2024 11:27 AM EST Refill Request [...] need to be addressed no Apoorva Amezcua [facility] Ambulatory Clinical Pharmacist | Oral Chemotherapy Clinic 03/14/2024, 11:27 AM * Telephone Encounter - Caroline Rivero CPhT - 03/14/2024 8:40 AM EST PHARMACY REMS MEDICATION AUTHORIZATION Hernan Rodriguez [phone] Patient Phone Numbers Communication: Chart review Treatment: Medication: Lenalidomide (Revlimid) Indication/Staging/Diagnosis Code: multiple myeloma / C90.00 Dose: 10mg daily x 2 years Administration: +/- food Start Date: 12/06/23 Primary Technical Support Analyst/Oncologist: Dr. Berrios Patient managed by Hem/Onc [facility] - Yes Patient is due for/had labs on 02/06 (scheduled 03/21) Prescriber survey complete; [employer] auth number [id number]. Upon new prescription being sent to [facility] specialty pharmacy, will follow up on [employer] website within 1-2 business days to confirm medication dispensed Caroline Rivero Early Childhood Education Specialist III Hematology Oncology Oral Chemotherapy Clinic Medication Therapy Disease Management 03/14/2024 8:41 AM Time Spent on Encounter: < 5 minutes documented in this encounter Plan of Treatment Upcoming Encounters Date Type Department Care Team (Late st Contact Info) Description 03/21/2024 8:00 AM EST Laboratory Laboratory, [place] [facility] [address] [facility] [place] [address] [place] [address] 03/22/2024 8:15 AM EST Pharmacy Pharmacy Hematology Oncology [facility], [address] [address] [facility], [facility] [place] [facility] Hem/[place] [facility] [place] [address] 03/22/2024 9:00 AM EST Pharmacy Pharmacy Hematology Oncology [address] [address] [facility], [facility] [place] [facility] Hem/Onc [address] [place] [address] 03/22/2024 1:00 PM EST Immunization/Injection Hematology Oncology [address] [address] Nurse, [facility] [address] [place] [address] 03/23/2024 12:00 PM EST Office Visit Hematology/Oncology [address] [address] Mallika Larios CRNP [address] [place] [address] 03/23/2024 12:30 PM EST Immunization/Injection Hematology/Oncology Treatment, [place] [address] [place] [address] Kandice Chair 9 Hem Onc [address] [address] 04/03/2024 9:00 AM EST Office Visit Nephrology, [facility] 200 [facility] [place] [address] Addison Salas MD [address] [place] [address] 04/18/2024 8:30 AM EST Telemedicine Psychology [place] [address] [place] [address] [facility] [address] [place] [address] 06/22/2024 8:20 AM EDT Office [facility] [address] [facility] [place] [address] Patrick Zhao MD [facility] [address] 08/15/2024 7:00 AM EDT Office Visit Neurology [facility] [place] 200 [facility] [place] [address] Yvonne Panchal PA-C [address] [facility] [place] [address] 08/25/2024 9:00 AM EDT Office Visit Pharmacy, [address] [place] [address] [place] [address] 09/05/2024 10:20 AM EDT Office Visit [facility]atology, [place] [facility] [address] [facility] [place] [address] Linda Mejia, THOMASC [address] [place] [address] [place] [address] Health Maintenance Due Date Last Done Comments [...] 01/21/2024, 03/16/2019, 07/09/2016 Zoster Vaccines Completed 01/21/2024, 0605/2019, 04/20/2019 HPV (Gardasil) Vaccine Aged Out No [...] patient or by statute hierarchy) Care Teams Hardwood Floor Sander Relationship Specialty Start Date End Date Patrick Zhao MD 226 [facility] [place] [address] PCP - General Family Medicine 02/28/24 documented as of this encounter"
--- OUTSIDE RECORDS SUMMARY | 2024-05-18 07:21 | External Medical Summary | Summary of Care ---
Author Name Unknown Organization [facility] Address [address] [place] [address] Phone [phone] Care Team Providers Care Erp Specialist Name Role Phone Patrick Zhao MD Primary Care Provider [phone] Reason for Visit * Reason Onset Date Comments Medication Question 03/06/2024 Encounter Details Date Type Department Care Team (Late st Contact Info) Description 03/06/2024 Telephone Hematology Oncology [facility] [place] [address] [place] [address] Rae Berrios MD [address] [place] [address] Medication Question Allergies Active Allergy Reactions Criticality Noted Date Comments Celecoxib Medium 02/01/2017 Metformin Diarrhea 02/18/2023 Prochlorperazine 11/18/1998 Intol,compazine documented as of this encounter (statuses as of 03/06/2024) Medications OneTouch Delica Plus [id number] USE TO TEST BLOOD SUGAR 2 TIMES [...] goal of less than 7.0% ([facility]) USE TO TEST BLOOD SUGAR 2 TIMES [...] goal of less than 7.0% ([facility]) INJECT 0.25 MG UNDER THE SKIN ONCE [...] as of this encounter (statuses as of 03/06/2024) Active Problems Patient Care Coordination No te [...] as of this encounter (statuses as of 03/06/2024) Resolved Problems Problem Noted Date Diagnosed Date [...] as of this encounter (statuses as of 03/06/2024) Immunizations Name Administration Dates Next Due COVID-19 mRNA, LNP-s, No Pre serve, 2-Dose Series (Moderna) 07/23/2020,06/18/2020 COVID-19 mRNA, LNP-s, No Pre serve, 2-Dose Series (Pfizer) 03/03/2021 HEPATITIS B VACCINE, RECOMB, 20 MCG/ML, ADULT (HEPLISAV-B) 01/21/2024 HIB Booster (Hiberix) 01/21/2024 Pneumococcal Conjugate Vacc, 13 Valent (Prevnar) 03/16/2019 Pneumococcal Conjugate Vacci ne, 20-valent ([id number]) 01/21/2024,02/08/2023(Deferred: Patient Refused - Pt thinks he [...] encounter Miscellaneous Notes * Telephone Encounter - Belkis Acosta OSA - 03/06/2024 11:22 AM EST Pt is scheduled and is aware * Telephone Encounter - Hansel Walton RN - 03/06/2024 10:35 AM EST Reviewed available appointments, Dr. Berrios currently booked the next two days, availability with NPpatrice and patient has seen Li in the past. Scheduling- please call patient and offer appointment for follow up in our office on 03/09 with Li. MTM- fyi regarding symptoms. Li- fyi regarding symptoms. * Telephone Encounter - Marie Cruz RN - 03/06/2024 10:12 AM EST Received call from Mr. Rodriguez, who is managed primarily by Dr. Berrios now for maintenance Revlimid after autologous stem cell transplant that was managed by Dr. Moore. Hernan calling to report/discuss several concerns. Hernan states that he has a rash. Reports that it starts at a pimple, is very itchy, then itch lessens after pimple is scratched open. He believes this rash started after starting the Revlimid and has gotten progressively worse. He states that his PCP assessed the rash and ordered hydrocortisone cream as well as triamcinolone cream. He reports using the cream as ordered and this makes the rash less itchy, but it is not resolving. He also reports that he has had an equilibrium problem for a long time. But he has noticed, again since starting the maintenance Revlimid, that his dizziness is worse (mostly with bending over and changing position), he is having some vision changes, he notes sweating more, and is nauseous in the AM about 2 hours after taking the Revlimid. He reviewed the side effects associated with Revlimid andis now wondering if he should be continuing this medication or if something should be changed. He does report that he saw dermatology on January. He had the rash (in a milder capacity) at that time, but he did not report the rash to the physician and it was not assessed. Discussed that I will send the message of his concerns to Dr. Berrios and his team, along with pharmacy team. He was appreciative of the time I took to listen to his concerns. Marie Cruz RN, BSN, [facility] [place] Client Service Supervisor [phone] documented in this encounter Plan of Treatment Upcoming Encounters Date Type Department Care Team (Late st Contact Info) Description 03/07/2024 8:30 AM EST Telemedicine [address] [address] Quentin Gupta Ps [address] [place] [address] 03/09/2024 9:30 AM EST Office Visit Hematology/Oncology [facility] 200 [facility] [place], [place] [address] Li Yip CRNP [address] [place], [place] [phone] 03/10/2024 9:00 AM EST Pharmacy Pharmacy Hematology Oncology [place] [address] [place] [address] [facility], [facility] Hem/Onc [facility] [place] [address] 03/21/2024 8:00 AM EST Laboratory Laboratory, [address] [phone] [address] [address] 03/22/2024 8:15 AM EST Pharmacy Pharmacy Hematology Oncology [place] [address] [place] [address] [facility], [facility] Hem/Onc [facility] [place] [address] 03/22/2024 1:00 PM EST Immunization/Injection Hematology Oncology [facility] [place] [address] [place] [address] Nurse, Med [address] [place] [address] 03/23/2024 12:00 PM EST Office Visit Hematology/Oncology [facility] 200 [facility] [place], [place] [phone] Mallika Larios CRNP 400 [place], [place] [address] 03/23/2024 12:30 PM EST Immunization/Injection Hematology/Oncology Treatment, [place] [address] [facility] [address] [place] [address] [place], Chair 9 Hem Onc [address] [place] [address] 04/03/2024 9:00 AM EST Office Visit Nephrology, [facility] 200 [facility] [place] [address] Addison Salas MD 400 [facility] [place] [id number] 06/22/2024 8:20 AM EDT Office Visit Family Practice, [place] [facility] [address] [place] [address] Patrick Zhao MD [address] [place] [address] 08/15/2024 7:00 AM EDT [facility] 200 [facility] [place] [address] Yvonne Panchal PA-C 21 [facility] [place] [address] 08/25/2024 9:00 AM EDT Office Visit Pharmacy, [address] [place] [address] [place] [address] 09/05/2024 10:20 AM EDT Office Visit Dermatology, [facility] [address] [place] [address] Linda Mejai PA-C [address] [place] [address] [place] [address] Health Maintenance Due Date Last Done Comments [...] patient or by statute hierarchy) Care Teams Erp Specialist Relationship Specialty Start Date End Date Patrick Zhao MD 226 [facility] [place] [address] PCP - General Family Medicine 02/28/24 documented as of this encounter
--- OUTSIDE RECORDS SUMMARY | 2024-05-18 07:21 | External Medical Summary | Summary of Care ---
Author Name Unknown Organization [facility] Address [address] [facility] [place] [address] Phone [phone] Care Team Providers Care High Court Justice Name Role Phone Patrick Zhao MD Primary Care Provider [phone] Encounter Details Date Type Department Care Team (Late st Contact Info) Description 02/29/2024 Orders Only Hematology/Oncology [place] [place] [address] [place] [address] Rae Berrios MD [address] [place] [address] Allergies Active Allergy Reactions Criticality Noted Date Comments Celecoxib Medium 02/01/2017 Metformin Diarrhea 02/18/2023 Prochlorperazine 11/18/1998 Intol,compazine documented as of this encounter (statuses as of 02/29/2024) Medications OneTouch Delica Plus [id number] USE TO TEST BLOOD SUGAR 2 TIMES [...] Tablet before bedtime. 180 Tablet 1 4 9:10 AM EDT 12/16/19 24 Active OneTouch Verio In Vitro [...] as of this encounter (statuses as of 02/29/2024) Active Problems Patient Care Coordination No te [...] as of this encounter (statuses as of 02/29/2024) Resolved Problems Problem Noted Date Diagnosed Date [...] as of this encounter (statuses as of 02/29/2024) Immunizations Name Administration Dates Next Due COVID-19 mRNA, LNP-s, No Pre serve, 2-Dose Series (Moderna) 07/23/2020,06/18/2020 COVID-19 mRNA, LNP-s, No Pre serve, 2-Dose Series (Pfizer) 03/03/2021 HEPATITIS B VACCINE, RECOMB, 20 MCG/ML, ADULT (HEPLISAV-B) 01/21/2024 HIB Booster (Hiberix) 01/21/2024 Pneumococcal Conjugate Vacc, 13 Valent (Prevnar) 03/16/2019 Pneumococcal Conjugate Vacci ne, 20-valent ([id number]) 01/21/2024,02/08/2023(Deferred: Patient Refused - Pt thinks he [...] Description 03/07/2024 8:30 AM EST Telemedicine Psychology [address] [address] Quentin Gupta PsyD [facility] [place] [address] 03/10/2024 9:00 AM EST Pharmacy Pharmacy Hematology Oncology [address] [address] [facility] Hem/Onc [facility] [place] [address] 03/21/2024 8:00 AM EST Laboratory Laboratory, [facility] [address] [place] [address] [facility] 226 [facility] [address] 03/22/2024 8:15 AM EST Pharmacy Pharmacy Hematology Oncology [facility] [place] [address] [place] [address] [facility] Hem/Onc [address] [place] [address] 03/22/2024 1:00 PM EST Immunization/Injection Hematology Oncology [facility] [place] [address] [place] [address] Nurse, [place] [address] [place] [address] 03/23/2024 12:00 PM EST Office Visit Hematology/Oncology [facility] [place] 200 [place] [address] Mallika Larios CRNP 400 [place] [address] 03/23/2024 12:30 PM EST Immunization/Injection Hematology/Oncology Treatment, [place] 200 [place] [address] Kandice, Chair 9 Hem Onc [address] [place], [place] [address] 04/03/2024 9:00 AM EST Office Visit Nephrology, [facility] 200 [facility] [place], [place] [address] Addison Salas MD 400 [place] [address] 06/22/2024 8:20 AM EDT [facility] Visit [facility] [place] [address] Patrick Zhao MD [address] [place] [address] 08/15/2024 7:00 AM EDT Office Visit Neurology [facility] [place] 200 [facility] [place] [address] Yvonne Panchal PA-C [address] [place] [address] 08/25/2024 9:00 AM EDT Office Visit Pharmacy, [address] [place] [address] [place] [address] 09/05/2024 10:20 AM EDT [facility], [place] [facility] [address] [place] [phone] Linda Mejia PA-C [address] [place] [address] [place] [address] Health Maintenance Due Date Last Done Comments Cologuard 2001 Fecal Occult Blood Test 2001 Sigmoidoscopy 2001 Adult Wellness Visit 2022 COVID-19 Vaccine ( season) 2023 03/03/2021, 07/23/2020, 06/18/2020 Albumin/Creatinine Ratio 01/20/202401/19/2 023, 01/05/2022, 02/02/2018 Hepatitis B Vaccine (2 [...] 01/06, 01/05/2022, Additional history exists Pneumococcal Vaccine: 65+ Years Completed 01/21/2024, 03/16/2019, 07/09/2016 Zoster Vaccines [...] patient or by statute hierarchy) Care Teams High [address] Justice Relationship Specialty Start Date End Date Patrick Zhao MD 226 [place] [address] PCP - General Family Medicine 02/28/24 documented as of this encounter
--- OUTSIDE RECORDS SUMMARY | 2024-05-18 07:21 | External Medical Summary | Summary of Care ---
Author Name Unknown Organization [facility] Address [address] [place] [address] Phone [phone] Care Team Providers Care Optometric Technician Name Role Phone aPtrick Zhao MD Primary Care Provider [phone] Encounter Details Date Type Department Care Team (Late st Contact Info) Description 02/25/2024 Orders Only Hematology Oncology [facility] [address] [place] [address] Nick Moore MD [address] [place] [address] Allergies Active Allergy Reactions Criticality Noted Date Comments Celecoxib Medium 02/01/2017 Metformin Diarrhea 02/18/2023 Prochlorperazine 11/18/1998 Intol,compazine documented as of this encounter (statuses as of 02/25/2024) Medications OneTouch Delica Plus [id number] USE TO TEST BLOOD SUGAR 2 TIMES [...] Tablet 1 4 9:10 AM EDT 12/16/19 Active Additional Information Patient not taking.Reported on 02/21/2024 OneTouch Verio In Vitro Strip (Glucose Blood)Indications: [...] Active Additional Information Patient not taking.Reported on 02/21/2024 Ozempic (0.25 or 0.5 MG/DOSE) 2 MG/3ML [...] To affected area. 453 g 3 02/21/20 Active Hydrocortisone 2.5 % External CreamIndications:E czema, unspecified type Apply topically to affected area 3 times a day. To affected area. 84 g 3 02/21/20 24 Active NovoFine Plus Pen Needle 32G X 4 MM (Insulin Pen Needle) Use to inject Ozempic once weekly 100 Each 3 02/25/20 Active documented as of this encounter (statuses as of 02/25/2024) Active Problems Patient Care Coordination No te [...] as of this encounter (statuses as of 02/25/2024) Resolved Problems Problem Noted Date Diagnosed Date [...] as of this encounter (statuses as of 02/25/2024) Immunizations Name Administration Dates Next Due COVID-19 mRNA, LNP-s, No Pre serve, 2-Dose Series (Moderna) 07/23/2020,06/18/2020 COVID-19 mRNA, LNP-s, No Pre serve, 2-Dose Series (Pfizer) 03/03/2021 HEPATITIS B VACCINE, RECOMB, 20 MCG/ML, ADULT (HEPLISAV-B) 01/21/2024 HIB Booster (Hiberix) 01/21/2024 Pneumococcal Conjugate Vacc, 13 Valent (Prevnar) 03/16/2019 Pneumococcal Conjugate Vacci ne, 20-valent ([id number]) 01/21/2024,02/08/2023(Deferred: Patient Refused - Pt thinks he [...] Assessment Author No 07/20/2023 8:11 AM EDT Melidna Vargas RN * Do you have serious [...] Care Team (Late st Contact Info) Description 02/28/2024 9:00 AM EST Office Visit Neurology [facility] 200 [address] [place] [address] Vicki Watson PA-C [address] [place] [address] 03/07/2024 8:30 AM EST Telemedicine Psychology [address] [address] Quentin Gupta PsyD [facility] [place] [address] 03/10/2024 9:00 AM EST Pharmacy Pharmacy Hematology Oncology [address] [address] [facility] Hem/Onc [address] [place] [address] 03/21/2024 8:00 AM EST Laboratory Laboratory, [address] [phone] [facility] 226 [place] [address] 03/22/2024 8:15 AM EST Pharmacy Pharmacy Hematology Oncology [place] [address] [place] [address] [facility] Hem/Onc [address] [place] [address] 03/22/2024 1:00 PM EST Immunization/Injection Hematology Oncology [facility] [address] [place] [address] Nurse, [facility] [address] [place] [address] 03/23/2024 12:00 PM EST Office Visit Hematology/Oncology [facility] [place] 200 [facility] [place] [phone] Mallika Larios CRNP 400 [place] [address] 03/23/2024 12:30 PM EST Immunization/Injection Hematology/Oncology Treatment, [place] [address] [place], [place] [address] Kandice, Chair 9 Hem Onc [address] [place] [address] 04/03/2024 9:00 AM EST Office Visit Nephrology, [facility] 200 [facility] [place], [place] [address] Addison Salas MD 400 [place] [address] 06/22/2024 8:20 AM EDT Office Visit Family Practice, [facility] [place] [address] [place] [address] Patrick Zhao MD [address] [place] [address] 08/25/2024 9:00 AM EDT Office Visit Pharmacy, [address] [place] [address] [place] [address] 09/05/2024 10:20 AM EDT Office Visit Dermatology, Mary [place]bert [address] [place] [address] Linda Mejia PA-C [address] [place] [address] [place] [address] Health Maintenance Due Date Last Done Comments [...] patient or by statute hierarchy) Care Teams Optometric Technician Relationship Specialty Start Date End Date Patrick Zhao MD PCP - General Family Medicine 05/10/16 documented as of this encounter
--- OUTSIDE RECORDS SUMMARY | 2024-05-18 07:21 | External Medical Summary | Summary of Care ---
Author Name Unknown Organization [facility] Address [address] [facility] [place] [address] Phone [phone] Care Team Providers Care Hand Button Splitter Name Role Phone Patrick Zhao MD Primary Care Provider [phone] Reason for Visit * Reason Comments eRx-Medication Refill Encounter Details Date Type Department Care Team (Late st Contact Info) Description 02/18/2024 Refill Neurology Yarelis Woodson [place] [address] [place] [address] Vicki Watson PA-C [address] [place] [address] Allergies Active Allergy Reactions Criticality Noted Date Comments Celecoxib Medium 02/01/2017 Metformin Diarrhea 02/18/2023 Prochlorperazine 11/18/1998 Intol,compazine documented as of this encounter (statuses as of 02/21/2024) Medications OneTouch Delica Plus [id number] USE TO TEST BLOOD SUGAR 2 TIMES [...] DX E11.9 200 Strip 3 12/17/19 Active NovoFine Plus Pen Needle 32G X 4 MM (Insulin Pen Needle) Use to inject Ozempic once weekly 100 Each 3 12/17/19 Active Zoster Vac Recomb Adjuvanted [...] MG IF TOLERATED. 9 mL 3 01/31/20 Active LORazepam 1 MG Oral Tablet (Ativan)Indication [...] before February 17, 2024. 28 Capsule 02/17/20 Active Famotidine 20 MG Oral Tablet (Pepcid)Indication s:Gastroesophageal reflux disease, unspecified whether esophagitis present TAKE 1 TABLET BY MOUTH EVERY DAY 30 Tablet 5 02/18/20 Active documented as of this encounter (statuses as of 02/21/2024) Active Problems Patient Care Coordination No te [...] as of this encounter (statuses as of 02/21/2024) Resolved Problems Problem Noted Date Diagnosed Date [...] as of this encounter (statuses as of 02/21/2024) Immunizations Name Administration Dates Next Due COVID-19 mRNA, LNP-s, No Pre serve, 2-Dose Series (Moderna) 07/23/2020,06/18/2020 COVID-19 mRNA, LNP-s, No Pre serve, 2-Dose Series (Pfizer) 03/03/2021 HEPATITIS B VACCINE, RECOMB, 20 MCG/ML, ADULT (HEPLISAV-B) 01/21/2024 HIB Booster (Hiberix) 01/21/2024 Pneumococcal Conjugate Vacc, 13 Valent (Prevnar) 03/16/2019 Pneumococcal Conjugate Vacci ne, 20-valent ([id number]) 01/21/2024,02/08/2023(Deferred: Patient Refused - Pt thinks he [...] Packs/Day Years Used Date Smoking Tobacco: Never Smokeless Tobacco: Former Snuff Alcohol Use [...] encounter Miscellaneous Notes * Telephone Encounter - Sol Stevenson RPh - 02/21/2024 11:00 AM ESTRefused Prescriptions: Disp Refills Propranolol HCl 10 MG Oral Tablet (Inderal)270 Ta*2 Sig: TAKE 1TABLET BY MOUTH THREE TIMES A DAYRefused By: SOL STEVENSON for Refusal: Refill Not Appropria te documented in this encounter Plan of Treatment Upcoming Encounters Date Type Department Care Team (Late st Contact Info) Description 02/25/2024 9:00 AM EST Office Visit Pharmacy, [address] [place] [address] [place] [address] 02/28/2024 9:00 AM EST Office Visit Neurology State Mercedes Delarosa [address] [address] [address] Vicki Watson PA-C [address] [address] 03/07/2024 8:30 AM EST Telemedicine Psychology [address] [address] Quentin Gupta Miryam [facility] [place] [address] 03/10/2024 9:00 AM EST Pharmacy Pharmacy Hematology Oncology [place] [address] [place] [address] [facility], [facility] Hem/Onc [facility] [place] [address] 03/21/2024 8:00 AM EST Laboratory [address] [phone] [address] 03/22/2024 8:15 AM EST Pharmacy Pharmacy Hematology Oncology [address] [address] [facility], [facility] Hem/Onc [address] [place] [address] 03/22/2024 1:00 PM EST Immunization/Injection Hematology Oncology [place] [address] [place] [address] Nurse, Med [address] [place] [address] 03/23/2024 12:00 PM EST Office Visit Hematology/Oncology Yarelis Woodson [place] [address] [place], [place] [phone] Mallika Larios CRNP [address] [place] [address] 03/23/2024 12:30 PM EST Immunization/Injection Hematology/Oncology Treatment, [place] [address] [place] [address] Park, Chair 9 Hem Onc [facility] 200 [facility] [place] [address] 04/03/2024 9:00 AM EST Office Visit Nephrology, [facility] 200 [facility] [place], [place] [address] Addison Salas MD 400 [facility] [place] [address] 06/22/2024 8:20 AM EDT Office Visit Family Practice, [facility] [address] [facility] [place] [address] Patrick Zhao MD [address] [address] [facility] [address] 09/05/2024 10:20 AM EDT Office Visit Dermatology, [place] [facility] [address] [facility] [place] [address] Linda Mejia, PA-C [address] [place] [address] [place] [address] Health Maintenance Due Date Last Done Comments [...] patient or by statute hierarchy) Care Teams Hand Button Splitter Relationship Specialty Start Date End Date Patrick Zhao MD [address] [place], [place] [phone] PCP - General Family Medicine 05/10/16 documented as of this encounter
--- OUTSIDE RECORDS SUMMARY | 2024-05-18 07:21 | External Medical Summary | Summary of Care ---
Author Name Unknown Organization [facility] Address [address] [place] [address] Phone [phone] Care Team Providers Care Hat Block Maker Name Role Phone Patrick Zhao MD Primary Care Provider Reason for Visit * Reason Onset Date Comments Medication Update 02/22/2024 Encounter Details Date Type Department Care Team (Late st Contact Info) Description 02/22/2024 Telephone Hematology/Oncology, [facility] [address] [place] [address] Rae Berrios MD 200 [place] [address] Medication Update Allergies Active Allergy Reactions Criticality Noted Date Comments Celecoxib Medium 02/01/2017 Metformin Diarrhea 02/18/2023 Prochlorperazine 11/18/1998 Intol,compazine documented as of this encounter (statuses as of 02/22/2024) Medications OneTouch Delica Plus [id number] USE TO TEST BLOOD SUGAR 2 TIMES [...] remission (HCC),History of autologous stem cell transplant ([facility]) Take 1 Tablet by mouth in the [...] E11.9 200 Strip 3 12/17/19 24 Active NovoFine Plus Pen Needle 32G X 4 MM (Insulin Pen Needle) Use to inject Ozempic once weekly 100 Each 3 12/17/19 24 Active Zoster Vac Recomb [...] area. 84 g 3 02/21/20 24 Active documented as of this encounter (statuses as of 02/22/2024) Active Problems Patient Care Coordination No te [...] as of this encounter (statuses as of 02/22/2024) Resolved Problems Problem Noted Date Diagnosed Date [...] as of this encounter (statuses as of 02/22/2024) Immunizations Name Administration Dates Next Due COVID-19 mRNA, LNP-s, No Pre serve, 2-Dose Series (Moderna) 07/23/2020,06/18/2020 COVID-19 mRNA, LNP-s, No Pre serve, 2-Dose Series (Pfizer) 03/03/2021 HEPATITIS B VACCINE, RECOMB, 20 MCG/ML, ADULT (HEPLISAV-B) 01/21/2024 HIB Booster (Hiberix) 01/21/2024 Pneumococcal Conjugate Vacc, 13 Valent (Prevnar) 03/16/2019 Pneumococcal Conjugate Vacci ne, 20-valent ([id number]) 01/21/2024,02/08/2023(Deferred: Patient Refused - Pt thinks he [...] Author No 07/20/2023 8:11 AM EDT Melinda Vagras RN * Do you have difficulty dressing [...] encounter Miscellaneous Notes * Telephone Encounter - Yasmeen Winter OSA - 02/22/2024 9:05 AM EST Hydrocortisone and Triamcinolone Acertonide is okay to use with Lenalidomide Patient states that rash is "not bad" but is controllable. RUSS De Santiago Certified Pesticide Applicator Pharmacy Hematology Oncology Oral Chemotherapy Clinic Medication Therapy Disease Management [facility] 02/22/24 9:08 AM Time Spent on Encounter: 11 - 15 minutes documented in this encounter Plan of Treatment Upcoming Encounters Date Type Department Care Team (Late st Contact Info) Description 02/25/2024 9:00 AM EST Office Visit Pharmacy, [address] [place] [address] [place] [address] 02/28/2024 9:00 AM EST Office Visit Neurology [facility] [address] [place] [address] Vicki Watson PA-C [address] [place] [address] 03/07/2024 8:30 AM EST Telemedicine Psychology [facility] [address] [place] [address] Quentin Gupta PsyD [address] [place] [address] 03/10/2024 9:00 AM EST Pharmacy Pharmacy Hematology Oncology [facility] [address] [place] [address] [facility], [facility] Hem/Onc [address] [place] [address] 03/21/2024 8:00 AM EST Laboratory Laboratory, [address] [phone] [address] [address] 03/22/2024 8:15 AM EST Pharmacy Pharmacy Hematology Oncology [place] [address] [place] [address] [facility], [facility] Hem/Onc [address] [place] [address] 03/22/2024 1:00 PM EST Immunization/Injection Hematology Oncology [facility] [address] [place], [place] [phone] Nurse, Med [address] [place] [address] 03/23/2024 12:00 PM EST Office Visit Hematology/Oncology [facility] [place] 200 [facility] [place] [address] Mallika Larios CRNP [address] [place] [address] 03/23/2024 12:30 PM EST Immunization/Injection Hematology/Oncology Treatment, [place] 200 [facility], [place] [address] Kandice, Chair 9 Hem Onc [address] [place] [address] 04/03/2024 9:00 AM EST Office Visit Nephrology, [facility] 200 [facility] [place] [address] Addison Salas MD 400 [facility] [place] [address] 06/22/2024 8:20 AM EDT Office Visit Family Practice, Mary [place] [facility] [place] [address] Patrick Zhao MD 226 [facility] [place] [address] 09/05/2024 10:20 AM EDT Office Visit Dermatology, [place] [address] [facility] [place] [address] Linda Mejia PA-C [address] [place] [address] [place] [address] Health Maintenance Due Date Last Done Comments [...] patient or by statute hierarchy) Care Teams Hat Block Maker Relationship Specialty Start Date End Date Patrick Zhao MD [address] [place] [address] PCP - General Family Medicine 05/10/16 documented as of this encounter
--- OUTSIDE RECORDS SUMMARY | 2024-05-18 07:21 | External Medical Summary | Summary of Care ---
Author Name Unknown Organization [facility] Address [address] [facility] [place] [address] Phone [phone] Care Team Providers Care Ditch Rider Name Role Phone Patrick Zhao MD Primary Care Provider [phone] Reason for Visit * Reason Onset Date Comments Medication Refill 02/15/2024 Encounter Details Date Type Department Care Team (Late st Contact Info) Description 02/15/2024 Telephone Hematology/Oncology [facility] Kandice [place] [address] [place] [phone] Rae Berrios MD [address] [place] [address] Medication Refill Allergies Active Allergy Reactions Criticality Noted Date Comments Celecoxib Medium 02/01/2017 Metformin Diarrhea 02/18/2023 Prochlorperazine 11/18/1998 Intol,compazine documented as of this encounter (statuses as of 02/22/2024) Medications OneTouch Delica Plus [id number] USE TO TEST BLOOD SUGAR 2 TIMES [...] MOUTH EVERY DAY 100 Tablet 1 024 Active Olmesartan Medoxomil 40 MG Oral Tablet (Benicar) Take 1 Tablet by mouth in the morning. 90 Tablet 3 024 Active Propranolol HCl 20 MG Oral Tablet (Inderal) Take 1 Tablet by mouth in the morning and 1 Tablet at noon and 1 Tablet before bedtime. 270 Tablet 3 02/05/20 24 3:25 PM EST 024 Active Acyclovir 800 MG Oral Tablet (Zovirax)Indicati ons:Multiple myeloma in remission (HCC),History of autologous stem cell transplant ([facility]) Take 1 Tablet by mouth in the morning and 1 Tablet before bedtime. 180 Tablet 1 12/17/19 24 9:10 AM EDT Active Additional Information Patient not taking.Reported on 02/21/2024 OneTouch Verio In Vitro Strip (Glucose Blood)Indications :Type 2 diabetes mellitus with hemoglobin A1c goal of less than 7.0% ([facility]) USE TO TEST BLOOD SUGAR 2 TIMES DAILY DX E11.9 200 Strip 3 Active NovoFine Plus Pen Needle 32G X 4 MM (Insulin Pen Needle) Use to inject Ozempic once weekly 100 Each 3 Active Zoster Vac Recomb Adjuvanted 50 MCG/0.5ML Intramuscular Suspension Reconstituted (Shingrix)Indicat ions:History of autologous stem cell transplant (HCC),Multiple myeloma not having achieved remission ([facility]) Inject 0.5 mL into a [...] day as needed 45 Tablet 1 Active Lenalidomide 10 MG Oral Capsule (Revlimid)Indicat ions:Multiple myeloma not having achieved remission (HCC) Take 1 Capsule by mouth in the morning. For 28 days of a 28 day cycle. Take medication same time every day and consistently with or without food.. Do not start before February 17, 2024. 28 Capsule Active Famotidine 20 MG Oral Tablet (Pepcid)Indicatio ns:Gastroesophage al reflux disease, unspecified whether esophagitis present Take 1 Tablet by mouth daily. One daily 90 Tablet 3 024 2023 Discontinued Lenalidomide 10 MG Oral Capsule (Revlimid)Indicat ions:Multiple myeloma not having achieved remission (HCC) Take 1 Capsule by mouth in the morning. For 28 days of a 28 day cycle. Take medication same time every day and consistently with or without food.. Do not start before January 20, 2024. 28 Capsule 024 2023 Discontinued(R efill) documented as of this encounter [...] (Prevnar) 03/16/2019 Pneumococcal Conjugate Vacci ne, 20-valent ([id number]) 01/21/2024,02/08/2023(Deferred: Patient Refused - Pt thinks he [...] encounter Miscellaneous Notes * Telephone Encounter - Jada Bishop PHARM Tech - 02/22/2024 12:09 PM EST Per [facility]: [facility] dispensed lenalidomide refill on 02/22/2024. Next refill has been scheduled for 03/14/23 - 28 day cycle. ENOC Sinha Finger Cobbler Hematology Oncology Oral Chemotherapy Clinic Medication Therapy Disease Management [facility] 02/22/24,12:11 PM Time Spent on Encounter: 6 - 10 minutes Encounter Group: Hematology Encounter Interventions Item Category: Oral Chemotherapy Lenalidomide * Telephone Encounter - Apoorva Amezcua [facility] - 02/15/2024 10:46 AM EST Refill Request EPIC Note Clinical [...] 6 months (12 months for MPN patients) Yes - 02/09/24 If the labs were completed per prescribing information recommendations or provider recommendations Yes - 02/07/24 If the labs were within normal limits or stable at baseline yes If the dose was correct and/or if the prescription sig reflects the current prescribed dose yes If there were any new drug interactions with the patient's oral chemotherapy no If there were any care gaps/baseline labs that need to be addressed no Apoorva Amezcua [facility] Ambulatory Clinical Pharmacist | Oral Chemotherapy Clinic [facility] 02/15/2024, 10:46 AM * Telephone Encounter - Caroline Rivero CPhT - 02/15/2024 10:09 AM EST PHARMACY REMS MEDICATION AUTHORIZATION [place] [phone] Patient Phone Numbers Communication: Chart review Treatment: Medication: Lenalidomide (Revlimid) Indication/Staging/Diagnosis Code: multiple myeloma / C90.00 Dose: 10mg daily x 2 years Administration: +/- food Start Date: 12/06/23 Primary Web Design Instructor/Oncologist: Dr. Berrios Patient managed by Hem/Onc [facility] - Yes Patient is due for/had labs on 02/06 Prescriber survey complete; [employer] auth number [id number]. Upon new prescription being sent to [facility] specialty pharmacy, will follow up on [employer] website within 1-2 business days to confirm medication dispensed Caroline Rivero Finger Cobbler III Hematology Oncology Oral Chemotherapy Clinic Medication Therapy Disease Management [facility] 02/15/2024 10:10 AM Time Spent on Encounter: < 5 minutes documented in this encounter Plan of Treatment Upcoming Encounters Date Type Department Care Team (Late st Contact Info) Description 02/25/2024 9:00 AM EST Office Visit Pharmacy, [address] [place] [address] [place] [address] 02/28/2024 9:00 AM EST Office Visit Neurology [facility] [address] [place] [address] Vicki Watson PA-C [address] [place] [address] 03/07/2024 8:30 AM EST Telemedicine Psychology [address] [address] Quentin Gupta PsyD [facility] [place] [address] 03/10/2024 9:00 AM EST Pharmacy Pharmacy Hematology Oncology [address] [address] [facility] Hem/Onc [address] [place] [address] 03/21/2024 8:00 AM EST Laboratory Laboratory, [facility] [address] [place] [phone] [place] [address] [address] 03/22/2024 8:15 AM EST Pharmacy Pharmacy Hematology Oncology [address] [address] [facility] Hem/Onc [address] [place], [place] [address] [address] 03/22/2024 1:00 PM EST Immunization/Injection Hematology Oncology [facility] [place] [address] [place] [address] Nurse, [facility] [address] [facility] [place] [address] 03/23/2024 12:00 PM EST Office Visit Hematology/Oncology [facility] 200 [place] [phone] Mallika Larios CRNP 400 [place] [address] 03/23/2024 12:30 PM EST Immunization/Injection Hematology/Oncology Treatment, [place] 200 [place] [address] Kandice, Chair 9 Hem Onc [address] [place] [address] 04/03/2024 9:00 AM EST Office Visit Nephrology, [facility] 200 [facility], [place] [address] Addison Salas MD 400 [place] [address] 06/22/2024 8:20 AM EDT Office Visit Family Practice, [place] [address] [facility] [place] [address] Patrick Zhao MD 226 [facility] [place] [address] 09/05/2024 10:20 AM EDT Office Visit Dermatology, [facility] [place] [address] [facility] [place] [address] Linda Mejia PABrady [address] [place] [address] [place] [address] Health Maintenance Due Date Last Done Comments [...] patient or by statute hierarchy) Care Teams Ditch Rider Relationship Specialty Start Date End Date Patrick Zhao MD [address] [place] [address] PCP - General Family Medicine 05/10/16 documented as of this encounter"
--- OUTSIDE RECORDS SUMMARY | 2024-05-18 07:21 | External Medical Summary | Summary of Care ---
Author Name Unknown Organization [facility] Address [address] [place] [address] Phone [phone] Care Team Providers Care Senior Ios Developer Name Role Phone Patrick Zhao MD Primary Care Provider [phone] Encounter Details Date Type Department Care Team (Late st Contact Info) Description 02/21/2024 Orders Only Outcomes Research Department [address] [place], [place] [phone] Jacqueline Negron CHRA MyCode Research Other*[id number] Allergies Active Allergy Reactions Criticality Noted Date Comments Celecoxib Medium 02/01/2017 Metformin Diarrhea 02/18/2023 Prochlorperazine 11/18/1998 Intol,compazine documented as of this encounter (statuses as of 02/21/2024) Medications OneTouch Delica Plus [id number] USE TO TEST BLOOD SUGAR 2 TIMES [...] Additional Information Patient not taking.Reported on 02/21/2024 [id number] In Vitro Strip (Glucose Blood)Indications: Type 2 diabetes mellitus with hemoglobin A1c goal of less than 7.0% ([facility]) USE TO TEST BLOOD SUGAR 2 [...] goal of less than 7.0% ([facility]) INJECT 0.25 MG UNDER THE SKIN [...] EVERY DAY 30 Tablet 5 02/18/20 Active Loratadine 10 MG Oral Tablet (Claritin) Take 1 Tablet by mouth in the morning. 12/31/19 Active documented as of this encounter (statuses [...] (Prevnar) 03/16/2019 Pneumococcal Conjugate Vacci ne, 20-valent ([id number]) 01/21/2024,02/08/2023(Deferred: Patient Refused - Pt thinks he [...] No 09/13/2023 Does the household have a [facility] healthcare facility[facility] source of income? (Household - for ages [...] 02/25/2024 9:00 AM EST Office Visit Pharmacy, [address] [place] [address] [place] [address] 02/28/2024 9:00 AM EST Office Visit Neurology [facility] [address] [place] [address] Vicki Watson PA-C [address] [place] [address] 03/07/2024 8:30 AM EST Telemedicine Psychology [address] [address] Quentin Gupta PsyD [facility] [place] [address] 03/10/2024 9:00 AM EST Pharmacy Pharmacy Hematology Oncology [address] [address] [facility] Hem/Onc [facility] [place] [address] 03/21/2024 8:00 AM EST Laboratory Laboratory, [facility] [address] [place] [phone] [place], [place] [address] [place] [address] 03/22/2024 8:15 AM EST Pharmacy Pharmacy Hematology Oncology [facility], [place] [address] [place] [address] [facility] Hem/Onc [facility] [place] [address] 03/22/2024 1:00 PM EST Immunization/Injection Hematology Oncology [facility], [place] [address] [place] [address] Nurse, Med [facility] [place] [address] 03/23/2024 12:00 PM EST Office Visit Hematology/Oncology [facility] 200 [facility] [place] [address] Mallika Larios CRNP [address] [place], [place] [phone] 03/23/2024 12:30 PM EST Immunization/Injection Hematology/Oncology Treatment, [place] 200 [place] [address] Kandice, Chair 9 Hem Onc [address] [place], [place] [address] 04/03/2024 9:00 AM EST Office Visit Nephrology, [address] [place] [address] Addison Salas MD [address] [place], [place] [phone] 09/05/2024 10:20 AM EDT Office Visit Dermatology, [address] [place] [phone] Linda Mejia PA-C [address] [place] [address] [place] [address] Scheduled Orders Name Type Priority Associated Diagnoses Orde r Schedule MYCODE SUBSEQUENT ADULT Lab Routine MyCode Research Other*[id number] Every 6 Months for 2 Occurrences starting 02/21/2024 until 03/12/2025 Health Maintenance Due Date Last Done Comments [...] as of this encounter Visit Diagnoses Diagnosis [employer] Other*[id number] documented in this encounter Advance Directives * [...] patient or by statute hierarchy) Care Teams Senior Ios Developer Relationship Specialty Start Date End Date Patrick Zhao MD [address] [place] [address] PCP - General Family Medicine 05/10/16 documented as of this encounter
--- OUTSIDE RECORDS SUMMARY | 2024-05-18 07:21 | External Medical Summary | Summary of Care ---
Author Name Unknown Organization [facility] Address [address] [facility] [place] [address] Phone [phone] Care Team Providers Care Laminated Plastics Assembler And Gluer Name Role Phone Patrick Zhao MD Primary Care Provider [phone] Reason for Visit * Reason Comments Return Neuro Encounter Details Date Type Department Care Team (Late st Contact Info) Description 02/28/2024 9:00 AM EST Office Visit Neurology Yarelis [place] [place] [address] [facility] [place] [address] Vicki Watson PA-C [address] [facility] [place] [address] Essential tremor*; Multiple myeloma not having achieved remission (HCC); Cervicalgia Allergies Active Allergy Reactions Criticality Noted Date Comments Celecoxib Medium 02/01/2017 Metformin Diarrhea 02/18/2023 Prochlorperazine 11/18/1998 Intol,compazine documented as of this encounter (statuses as of 02/28/2024) Medications OneTouch Delica Plus [id number] USE TO TEST BLOOD SUGAR 2 TIMES [...] as of this encounter (statuses as of 02/28/2024) Active Problems Patient Care Coordination No te [...] as of this encounter (statuses as of 02/28/2024) Resolved Problems Problem Noted Date Diagnosed Date [...] as of this encounter (statuses as of 02/28/2024) Immunizations Name Administration Dates Next Due COVID-19 mRNA, LNP-s, No Pre serve, 2-Dose Series (Moderna) 07/23/2020,06/18/2020 COVID-19 mRNA, LNP-s, No Pre serve, 2-Dose Series (Pfizer) 03/03/2021 HEPATITIS B VACCINE, RECOMB, 20 MCG/ML, ADULT (HEPLISAV-B) 01/21/2024 HIB Booster (Hiberix) 01/21/2024 Pneumococcal Conjugate Vacc, 13 Valent (Prevnar) 03/16/2019 Pneumococcal Conjugate Vacci ne, 20-valent ([id number]) 01/21/2024,02/08/2023(Deferred: Patient Refused - Pt thinks he [...] Sign Reading Time Taken Comments Blood Pressure 134/82 02/28/2024 8:47 AM EST Pulse 69 02/28/2024 8:47 AM EST Temperature 36.7 C (98.1 F) 02/28/2024 8:47 AM ES T Respiratory Rate 16 02/28/2024 8:47 AM EST Oxygen Saturation 97% 02/28/2024 8:47 AM EST Inhaled Oxygen Concentration - - Weight 92.8 kg (204 lb 9.6 oz) 02/28/2024 8:47 A M EST Height - - Body Mass Index 29.36 02/21/2024 7:27 AM EST documented in this [...] documented in this encounter Progress Notes * Vicki Watson PA-C - 02/28/2024 8:49 AM EST HISTORY & PHYSICAL EXAMINATION - NEUROLOGY Name: Hernan Rodriguez Date: 02/28/2024 Time: 8:49 AM Referring Provider: Patrick Zhao MD Chief Complaint: Chief Complaint Patient presents with Return Neuro This is a 68 year old left handed gentleman returns today for follow up for tremor and headaches. 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 He was seen in our office by Dr Brar, 11/17/21 for a history of cluster headaches treated with a subtemporal decompression surgery at [place] over 20 years ago with persistent disequilibrium eversince the procedure but with good relief of his pain and now only occasional migraine headaches. Healgerard developed an essential tremor which Dr Brar started him on Inderal 10 mg TID but was only taking BID. He was having issues after a rash developed he thinks started when they put him on a higher dose of Jardiance. He was diagnosed with plasma cell myeloma diagnosed 02/2023 with bone marrow biopsy showing 80% plasma cells, neg p53. He received 4 cycles daratumumab, velcade, revlimid and dexamethasone 03/17/23 through 06/01/23. He also received XRT to left 3rd rib to 3000 cGy 03/2023. He was having burning on the bottom of his feet which now has improved and some numbness and tingling in theleft arm near the XRT treatments which has also improved. Dr Zhao increased his propranolol to 20mg TID for his blood pressure and has improved his tremor. He really does not want to add another me dication at this time. He started oral chemo therapy as a maintenance which will continue for 2 years. He takes it at 3a to try to avoid the side effects of the dizziness. He is back to working. Denies CP, SOB, abdominal pain, N,V. I have reviewed the patient's medications and allergies, past medical, surgical, social and family history, updating these as appropriate. See Histories section of the electronic medical record for adisplay of this information. 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) Multiple myeloma not having achieved remission (HCC) Stem cells transplant status (HCC) History of autologous stem cell transplant (HCC) Constipation due to slow transit Encounter for antineoplastic chemotherapy Antineoplastic chemotherapy induced pancytopenia (HCC) CINV (chemotherapy-induced nausea and vomiting) Mucositis due to chemotherapy Chemotherapy induced diarrhea Migraine without status migrainosus, not intractable Anxiety and depression Family History Problem Relation Name Age of Onset Hypertension Mother Diabetes Mother Lung cancer Father Arthritis Sister neck No Known Problems Daughter No Known Problems Daughter Medications: Are you taking your medications? yes Current Outpatient Medications Medication Sig Dispense Refill [...] to inject Ozempic once weekly 100 Each3 OneTouch Delica Plus [id number] USE TO TEST BLOOD SUGAR 2 TIMES [...] taking: Reported on 02/28/2024) 0.5 mL 0 No current facility-administered medications for this visit. Review of patient's allergies indicates: Allergen Reactions Celecoxib Metformin Diarrhea Prochlorperazine levi Montero Review of Systems: A total number of 10 systems were reviewed pertinent negative and positives not addressed in HPI are listed in the following review. Physical Exam: Constitutional: BP 134/82 | Pulse 69 | Temp 36.7 C (98.1 F) (Tympanic) | Resp 16 | Wt 92.8 kg (204 lb 9.6 oz) | SpO2 97% | BMI 29.36 kg/m | BSA 2.14 m , appearance nourished, healthy, and normal Ears, Nose, Mouth and Throat: mucous membranes moist, no injection and skin normal, eyes normal Cardiovascular: normal S-1 and S-2 and regular rate and rhythm Respiratory: course breath sounds at left LL Musculoskeletal: no peripheral edema Skin: normal and intact Eyes: extraocular muscles intact (EOMI) and pupils equal, round and reactive to light (PERRL) NEUROLOGIC EXAMINATION: Mental status: Alert and interactive Oriented to person Speech fluent with no evidence of aphasia Cranial Nerves Normal findings for Cranial Nerves II - XII Coordination: on kcdxif-zm-gwyd and fine reaching tremor left and subtle head tremor Gait/Stance: Posture normal. Gait normal: with steady with steps, base, arm swing, and tandem gait. Motor: Negative for pronator drift of out stretched arms with eyes closed. Strength: Normal - 5/5 all extremities LABORATORY: Recent labs reviewed Review of prior Studies: No recent imaging available. Impression: Hernan Rodriguez is a 68 year old woman with a history of tremor/ headaches. His neurologicexamination today reveals no new focal deficit. The history and examination are suggestive of diagnosis/problem list. Testing and Referrals ordered: none ICD-10-CM 1. Essential tremor G25.0 2. Multiple myeloma not having achieved remission (HCC) C90.00 3. Cervicalgia M54.2 Return in 6 months or sooner if needed Continue propranolol 20 mg (1 tab) TID - could change to extended release but is not interested at this time Keep well hydrated Propranolol is for the most part controlling his blood pressure, tremor and headaches Head tremor is not well treated with any medications Complaining of constipation (likely several medication causing it) could add probiotic (lifemark) in the dairy section of the grocery store PCP for medical management Call with questions concerns Medical Decision Making (determined by lowest of 2 of 3 elements): The medical decision making element of the number and complexity of problems addressed included at least 2 or more stable chronic illnesses (level 4). The medical decision making element of risk of complications, morbidity, and mortality of patient management is moderate (level 4) due to prescription drug management (moderate risk). The medical decision making element of the amount and complexity of data reviewed and analyzed included an independent interpretation of a test (level 4 at least). When 2 of 3 reach level 4, then this element is considered extensive (level 5). I personally spent a total of 30 minutes. This time was for a new office or established visit and was on the same calendar day. and This time was the total spent on the evaluation, interpretation, and documentation. Education / Consultation - Topics covered as I spent 20 minutes, which is greater than 50% of this visit, counseling the patient on: Diagnostic Results Prognosis Importance of compliance with chosen treatment options Risk factor reductions Patient and family education Consulted with physician: Hernan Brar MD was available for direct supervision. Copy of note sent toPCP and Referring Provider. Total time of visit: 30 minutes. Vicki Watson PA-C Neurology [facility] [place] [address] [facility] [place] [address] 02/28/2024 8:49 AM documented in this encounter Nursing Notes * Daysi Cobos MED ASSIST - 02/28/2024 8:44 AM EST Chief Complaint Patient presents with Return Neuro documented in this encounter Plan of Treatment Upcoming Encounters Date Type Department Care Team (Late st Contact Info) Description 03/07/2024 8:30 AM EST Telemedicine Psychology [address] [address] Quentin Gupta PsyD [address] [place] [address] 03/10/2024 9:00 AM EST Pharmacy Pharmacy Hematology Oncology [address] [address] [facility] Hem/Onc [address] [place] [address] 03/21/2024 8:00 AM EST Laboratory Laboratory, [facility] [address] [place] [id number] [facility] [address] [place] [address] 03/22/2024 8:15 AM EST Pharmacy Pharmacy Hematology Oncology [address] [address] [facility] Hem/Onc [address] [place] [address] 03/22/2024 1:00 PM EST Immunization/Injection Hematology Oncology [facility], [place] [address] [place] [address] Nurse, [facility] [address] [place] [address] 03/23/2024 12:00 PM EST Office Visit Hematology/Oncology [facility] [address] [facility] [place] [address] Mallika Larios CRNP [address] [place] [address] 03/23/2024 12:30 PM EST Immunization/Injection [facility]ematology/Oncology Treatment, [place] [facility] [address] Kandice, Chair [address] Hem Onc [address] [place] [address] 04/03/2024 9:00 AM EST Office Visit Nephrology, [address] [place] [address] Addison Salas MD [address] [place] [address] 06/22/2024 8:20 AM EDT [facility] [address] [place] [address] Patrick Zhao MD [address] [place] [address] 08/15/2024 7:00 AM EDT Office Visit Neurology [address] [place] [address] Yvonne Panchal PA-C [facility] [place] [address] 08/25/2024 9:00 AM EDT Office Visit Pharmacy, [address] [place] [address] [place] [address] 09/05/2024 10:20 AM EDT Office Visit Dermatology, [address] [place] [phone] Linda Mejia PA-C [address] [place] [address] [place] [address] Health Maintenance Due Date Last Done Comments [...] as of this encounter Visit Diagnoses Diagnosis Essential tremor- Primary Essential and other specified forms of tremor Multiple myeloma not having achieved remission (HCC) Multiple myeloma, without mention of having achieved remission Cervicalgia documented in this encounter Advance Directives * [...] patient or by statute hierarchy) Care Teams Laminated Plastics Assembler And Gluer Relationship Specialty Start Date End Date Patrick Zhao MD [address] [place] [address] PCP - General Family Medicine 02/28/24 documented as of this encounter"
--- OUTSIDE RECORDS SUMMARY | 2024-05-18 07:21 | External Medical Summary | Summary of Care ---
Author Name Unknown Organization [facility] Address [address] [facility] [place] [address] Phone [phone] Care Team Providers Care Jack Spinner Name Role Phone Patrick Zhao MD Primary Care Provider [phone] Reason for Visit * Reason Comments Dosage Adjustment In Person (Anticoag Cl inic) Diabetes Follow-Up Encounter Details Date Type Department Care Team (Late st Contact Info) Description 02/25/2024 9:00 AM EST Office Visit Pharmacy, [address] [place] [address] [place] [address] Type 2 diabetes mellitus with hemoglobin A1c goal of less than 7.0% ([facility])* Allergies Active Allergy Reactions Criticality Noted Date Comments Celecoxib Medium 02/01/2017 Metformin Diarrhea 02/18/2023 Prochlorperazine 11/18/1998 Intol,compazine documented as of this encounter (statuses as of 02/25/2024) Medications OneTouch Delica Plus [id number] USE TO TEST BLOOD SUGAR 2 TIMES [...] 4 9:10 AM EDT 12/16/19 24 Active Additional Information Patient not taking.Reported [...] weekly 100 Each 3 02/25/20 24 Active NovoFine Plus Pen Needle 32G X 4 MM (Insulin Pen Needle) Use to inject Ozempic once weekly 100 Each 3 12/17/19 24 024 Discontin ued(Refil l) documented as of this [...] (Prevnar) 03/16/2019 Pneumococcal Conjugate Vacci ne, 20-valent ([id number]) 01/21/2024,02/08/2023(Deferred: Patient Refused - Pt thinks he [...] documented in this encounter Progress Notes * Chrystal Turk, [facility] - 02/25/2024 8:59 AM EST Medication Therapy Disease Management Clinic - Diabetes Management Progress Note Hernan Rodriguez, identified by name and date of , is a 68 year old male being seen for diabetes management/education. Patient presents for return diabetic visit. DIABETES: Current diabetic medications: Ozempic 0.25mg weekly GFR 65 as of 07/31/22 A1C Goal <7% (PCP ok with < 7.5%) Medication Injection Site: Abdomen Lifestyle: Diet: improved Glucose Review/SMBG: Readings obtained from patient documented BG logbook Pre am Pre Lunch Pre pm HS 152 156 113 189 149 135 180 128 152 150 162 147 160 155 160 155 158 127 158 129 142 156 152 154 154 159 Average 152 147 147 159 Hi 162 156 180 189 Lo [address] 152.8125 148.5 #DIV/0! #DIV/0! Range 35 21 67 61 Hypoglycemia: Does your blood sugar go below 70 mg/dL? No Hyperglycemia symptoms present: none Recent Labs Units 02/07/24 0757 10/25/23 0844 05/19/23 1013 HEMOGLOBIN A1C - [facility] % 6.8* 6.7* 8.5* Recent Labs Units 02/07/24 0757 01/18/24 0750 01/03/24 0751 ESTIMATED GLOMERULAR FILTRATION RATE - [facility] mL/min >90 87 82 CREATININE - [facility] mg/dL 0.9 1.0 1.0 HYPERTENSION: Patient on ACEi/ARB: yes BP Readings from Last 3 Encounters: 02/21/24 145/87 02/09/24 150/73 02/02/24 160/74 Blood pressure at goal: yes HYPERLIPIDEMIA: Recent Labs Units 10/25/23 0844 01/19/23 1233 LDL CHOLESTEROL (CALCULATED) - [facility] mg/dL 64 52 Does patient have clinical ASCVD? No, is patient LDL less than 70mg/dL? Yes HEALTH MAINTENANCE REVIEW: Health Maintenance Due Topic Date Due Adult Wellness Visit Never done COVID-19 Vaccine ( season) 2023 Albumin/Creatinine Ratio 01/20/2024 Hepatitis B Vaccine (2 of 2 - CpG 2-dose series) 02/18/2024 ASSESSMENT & PLAN: ICD-10-CM 1. Type 2 diabetes mellitus with hemoglobin A1c goal of less than 7.0% (HCC) E11.9 Considerations: Stopped Jardiance due to facial lesions. Unclear what they were (could have been urticaria) restarted as of 11/14/21 without issue. Update - Stopped 10/2022 due to skin infection Had dizziness with 3mg of Trulicity, feels as this may have agrravated past eye/head injury - following with neuro Transitioned to Ozempic without issue GHP Gold + PACE Multiple myeloma, stem cell transplant July 2023 BG Readings - Blood sugars reviewed. Remaining stable. Updated A1c remaining at goal. Medications - Reviewed current regimen, patient is adherent to regimen. Notes to some concerns withside effects after taking the injection but these resolve. Overall tolerating well and without issue. Diet, Exercise, Lifestyle - No significant lifestyle changes since last visit. Discussed enjoying everything in moderation with upcoming holidays. Patient is remaining stable and at goal at this time. F/u scheduled x6 months. Patient instructed to contact clinic with any questions or concerns prior to that time. Patient is agreeable to SMBG 1-3 time(s) daily. Patient aware to contact clinic if any hypoglycemia before next visit. MEDICATION CHANGES: no change Diabetic Medications: Ozempic 0.25mg weekly GFR 64 as of 10/25/23 A1C Goal <7% (PCP ok with < 7.5%) HEALTH MAINTENANCE INTERVENTIONS: Labs: Up to Date Immunizations: Due for covid, hepB Foot Exam: Up to Date Eye Exam: Up to Date Annual Wellness Visit: Due FOLLOW UP: Return to clinic in 6 months 08/25/2024 I spent a total of 30-39 minutes (exact time 35 mins) on the date of service in preparation, delivery, and documentation of the care provided to Hernan Rodriguez excluding any time spent in the performance of separately billed services. Chrystal Turk [facility] Clinical Pharmacist - Coil Cutter Medication Therapy Management Clinic 02/25/2024, 8:59 AM documented in this encounter Plan of Treatment Upcoming Encounters Date Type Department Care Team (Late st Contact Info) Description 02/28/2024 9:00 AM EST Office Visit Neurology Yarelis Woodson [place] [address] [place] [address] Vicki Wtason PA-C [address] [place] [address] 03/07/2024 8:30 AM EST Telemedicine Psychology [address] [address] Quentin Gupta PsyD [facility] [place] [address] 03/10/2024 9:00 AM EST Pharmacy Pharmacy Hematology Oncology [facility], [place] [address] [place] [address] [facility] Hem/Onc [address] [place] [address] 03/21/2024 8:00 AM EST Laboratory Laboratory, [facility] [address] [place] [phone] [facility] [address] [place] [address] 03/22/2024 8:15 AM EST Pharmacy Pharmacy Hematology Oncology [facility], [place] [address] [place] [address] [facility] Hem/Onc [facility] [place] [address] 03/22/2024 1:00 PM EST Immunization/Injection Hematology Oncology [address] [address] Nurse, Med [facility] [place] [address] 03/23/2024 12:00 PM EST Office Visit Hematology/Oncology [address] [place] [address] Mallika Larios CRNP [address] [place] [address] 03/23/2024 12:30 PM EST Immunization/Injection Hematology/Oncology Treatment, [place] [address] [facility], [place] [address] Kandice, Chair [address] Hem Onc [address] [place] [address] 04/03/2024 9:00 AM EST Office Visit Nephrology, [facility] [address] [facility] [place] [address] Addison Salas MD [address] [place] [address] 06/22/2024 8:20 AM EDT Office Visit Family Practice, [place] [address] [facility] [place] [phone] Patrick Zhao MD [address] [facility] [place] [address] 08/25/2024 9:00 AM EDT Office Visit Pharmacy, [address] [place] [address] [place] [address] 09/05/2024 10:20 AM EDT Office Visit Dermatology, [place] [address] [facility] [place] [phone] Linda Mejia PA-C [address] [place] [address] [place] [address] Health Maintenance Due Date Last Done Comments [...] A1c goal of less than 7.0% ([facility])- Primary documented in this encounter Advance Directives [...] patient or by statute hierarchy) Care Teams Jack Spinner Relationship Specialty Start Date End Date Patrick Zhao MD PCP - General Family Medicine 3/5/17 documented as of this encounter
--- OUTSIDE RECORDS SUMMARY | 2024-05-18 07:21 | External Medical Summary | Summary of Care ---
Author Name Unknown Organization [facility] Address [address] [facility] [place] [address] Phone [phone] Care Team Providers Care Traffic Agent Name Role Phone Patrick Zhao MD Primary Care Provider [phone] Reason for Visit * Reason Comments Follow Up Pt here for his 3 mo nth follow up Encounter Details Date Type Department Care Team (Late st Contact Info) Description 02/21/2024 7:40 AM EST Office Visit [facility] [address] [facility] [place] [phone] Patrick Zhao MD [address] [place], [place] [id number] Vaccine for viral hepatitis*; Eczema, unspecified type Allergies Active Allergy Reactions Criticality Noted Date Comments Celecoxib Medium 02/01/2017 Metformin Diarrhea 02/18/2023 Prochlorperazine 11/18/1998 Intol,compazine documented as of this encounter (statuses as of 02/21/2024) Medications OneTouch Delica Plus [id number] USE TO TEST BLOOD SUGAR 2 TIMES [...] (HCC),History of autologous stem cell transplant ([facility]) Take 1 Tablet by mouth in the morning and 1 Tablet before bedtime. 180 Tablet 1 4 9:10 AM EDT 12/16/19 Active Additional Information Patient not taking.Reported on 02/21/2024 OneTouch Verio In Vitro Strip (Glucose Blood)Indications: Type 2 diabetes mellitus with hemoglobin A1c goal of less than 7.0% ([facility]) USE TO TEST BLOOD SUGAR [...] (Prevnar) 03/16/2019 Pneumococcal Conjugate Vacci ne, 20-valent ([id number]) 01/21/2024,02/08/2023(Deferred: Patient Refused - Pt thinks he [...] Smoke Exposure: Never Smokeless Tobacco: Former Snuff Tobacco Cessation:Counseling Given: Not Answered Alcohol Use Standard Drinks/Week Comments Not Currently [...] Sign Reading Time Taken Comments Blood Pressure 145/87 02/21/2024 7:27 AM EST Pulse 72 02/21/2024 7:27 AM EST Temperature 36.6 C (97.8 F) 02/21/2024 7:27 AM ES T Respiratory Rate 18 02/21/2024 7:27 AM EST Oxygen Saturation 97% 02/21/2024 7:27 AM EST Inhaled Oxygen Concentration - - Weight 92.7 kg (204 lb 6.4 oz) 02/21/2024 7:27 A M EST Height 177.8 cm (5' 10") 02/21/2024 7:27 AM EST Body Mass Index 29.33 02/21/2024 7:27 AM EST documented in this [...] this encounter Patient Instructions * Patient Instructions* Rosangela Sutherland LPN - 02/21/2024 7:29 AM EST Vaccination is the best way to protect against hepatitis B. Depending on age and vaccine used most patients get 2 or 3 doses of hepatitis B vaccine. If you miss a dose or get behind schedule, get the next dose as soon as you can. There is no need to start over. Age for Hepatitis B Vaccine: INFANTS: *Infants whose mother HAS hepatitis B virus: #1 dose- at 2 month visit #2 dose- 1 month after dose #1 #3 dose- 7 months of age (at least 5 months after dose #1) *Infants whose mother does NOT have hepatitis B virus: #1 dose- - 2 months of age #2 dose- 1-4 months of age (at least 1 month after dose #1) #3 dose- 6-18 months of age ( at least 2 months after dose #2) *Adults at recommended age to receive Hepatitis B vaccine may receive 2 or 3 doses depending on thetype of vaccine administered: #1 dose- Now #2 dose- 1-2 months after dose #1 #3 dose- (if needed)- 4-6 months after dose #1 WHAT ARE THE RISKS FROM HEPATITIS B VACCINE? Hepatitis B vaccine is one of the safest vaccines. Getting the disease is much more likely to causeserious illness than getting the vaccine. MILD PROBLEMS: - soreness where the shot was given. - mild to moderate fever Acetaminophen or Ibuprofen (not aspirin) may be used to reduce fever and pain. SEVERE PROBLEMS: - serious allergic reaction is very rare. WHAT TO DO IF THERE IS A SERIOUS REACTION: - Call a doctor or get the person to a doctor right away. - Ask your doctor, nurse, or health department to file a Vaccine Adverse Event Report form. To filea report yourself you can call: (toll-free) LET YOUR DOCTOR KNOW IMMEDIATELY IF YOU HAVE DIFFICULTY BREATHING OR SWALLOWING, EXPERIENCE ITCHING OF FEET OR HANDS, HAVE SWELLING OF EYES, FACE OR INSIDE OF NOSE. documented in this encounter Progress Notes * Patrick Zhao MD - 02/21/2024 7:48 AM EST Subjective: Hernan Rodriguez is a 68 year old male. Chief Complaint Patient presents with Follow Up Pt here for his 3 month follow up HPI: 68-year-old seen today as a routine recheck. [facility]He is in the process re vaccination following bone marrow transplant. He also is on Revlimid. Is getting regular blood work. Just had hemoglobin A1c that was 6.8. He notes an increase in his propranolol 20 mg 3 times a day with this higher dose is blood pressure seems to be controlled per his readings at home which were typically systolic in the 120s to 130 and diastolic in the high 70s to low 80s. He continues on lorazepam 1 mg, half a tablet 3 times a day and he does well with that He has developed a pruritic rash that is affecting a variety of different areas and moves about. Henotes over the forehead as well as the lower legs in medial proximal thighs as the most common areas. He has been using 1% hydrocortisone on the facial rash and the body rash. Because he has gone that wfrn-ncz-eqlfiek he notes Um it is expensive because he is using a good bit. He has not had any recent fever or night sweats. Patient Active Problem List Diagnosis PLANTAR FASCIITIS Elevated blood pressure, situational Cervicalgia BACKACHE NOS Enthesopathy of knee ACUTE STRESS DIVERTICULITIS SM INTEST Type 2 diabetes mellitus with hemoglobin A1c goal of less than 7.0% ([facility]) Primary hypertension Rosacea Other hyperlipidemia Tremor Schwannoma of cranial nerve (HCC) DDD (degenerative disc disease), cervical Erythema intertrigo Trochlear nerve palsy Pseudophakia Type 2 diabetes mellitus with diabetic dermatitis ([facility]) Multiple myeloma not having achieved remission ([facility]) Stem cells transplant status ([facility]) History of autologous stem cell transplant ([facility]) Constipation due to slow transit Encounter for antineoplastic chemotherapy Antineoplastic chemotherapy induced pancytopenia ([facility]) CINV (chemotherapy-induced nausea and vomiting) Mucositis due to chemotherapy Chemotherapy induced diarrhea Migraine without status migrainosus, not intractable Anxiety and depression Current Outpatient Medications Medication Sig Dispense Refill OneTouch Delica Plus [id number] USE TO TEST BLOOD SUGAR 2 TIMES [...] 1 Tablet before bedtime. 270 Tablet 3 OneTouch Verio In Vitro Strip (Glucose Blood) USE TO TEST BLOOD SUGAR 2 TIMES DAILY DX E11.9 200 Strip 3 NovoFine Plus Pen Needle 32G X 4 MM (Insulin Pen Needle) Use to inject Ozempic once weekly 100 Each3 Ozempic (0.25 or 0.5 MG/DOSE) 2 MG/3ML [...] 1 Tablet by mouth in the morning. Acyclovir 800 MG Oral Tablet (Zovirax) Take 1 Tablet by mouth in the morning and 1 Tablet before bedtime. (Patient not taking: Reported on 02/21/2024) 180 Tablet 1 Zoster Vac Recomb Adjuvanted 50 MCG/0.5ML Intramuscular Suspension Reconstituted (Shingrix) Inject 0.5 mL into a large muscle now and repeat dose in 60 to 180 days (Patient not taking: Reported on 02/21/2024) 0.5 mL 0 No current facility-administered medications for this visit. Review of patient's allergies indicates: Allergen Reactions Celecoxib Metformin Diarrhea Prochlorperazine Winstoncompazine Objective: BP 145/87 | Pulse 72 | Temp 97.8 F (36.6 C) (Infrared ) | Resp 18 | Ht 5' 10" (1.778 m) | Wt 204 lb 6.4 oz (92.7 kg) | SpO2 97% | BMI 29.33 kg/m | BSA 2.14 m Physical Exam: CONST: alert, pleasant, no acute distress HEAD: normocephalic, atraumatic Eyes - PERRLA, EOM'I OROPHARYNX: clear, no swelling or erythema, moist CV: regular rate and rhythm, no murmur CHEST: clear to auscultation bilaterally, no rales or wheezing ABD: soft, non tender, non distended, no masses or hepatosplenomegaly EXT: no edema, no joint swelling or deformities, NEURO: AAOx3, no gross focal deficits, cerebellar signs normal, affect appropriate MENTAL STATUS: no evidence of thought disorder, no delusional thought, no evidence of paranoia, thought is non-tangential. SKIN: He has a papular squamous rash in his probably most notable near the hairline over the frontal scalp. He has more of a macular rash in the lower legs. No vesicles. No pustules ASSESSMENT/PLAN: 1. History of multiple myeloma status post stem cell transplant. Doing very well 2. Eczematous type dermatitis very well may be related to his Revlimid. I recommended he use 2-1/2%hydrocortisone on the face needs given a prescription for the cream and triamcinolone 0.5% cream once or twice daily on affected areas on the rest of his body. I do think that once we get through winter the dermatitis is going to improve 3. Diabetes cqigceuy-dkyv-ebrnoomagf. No change needed. He continues to follow with MTM in that includes Ozempic 0.25 mg per week 4. Essential tremor-he is on propranolol for dual function i.e. essential tremor and hypertension. Continue same 5. Hypertension-continue the combination of olmesartan 40 mg daily and propranolol 20 mg 3 times a day Patrick Zhao MD documented in this encounter Nursing Notes * Rosangela Sutherland LPN - 02/21/2024 7:22 AM EST Chief Complaint Patient presents with Follow Up Pt here for his 3 month follow up documented in this encounter Plan of Treatment Upcoming Encounters Date Type Department Care Team (Late st Contact Info) Description 02/25/2024 9:00 AM EST Office Visit Pharmacy, [address] [place] [address] [place] [address] 02/28/2024 9:00 AM EST Office Visit Neurology [facility] [address] [place] [address] Vicki Watson PA-C [address] [place] [address] 03/07/2024 8:30 AM EST Telemedicine Psychology [facility] [address] [place] [address] Quentin Gupta PsyD [address] [place] [address] 03/10/2024 9:00 AM EST Pharmacy Pharmacy Hematology Oncology [facility] [address] [place] [address] [facility] Hem/Onc [facility] [place] [address] 03/21/2024 8:00 AM EST Laboratory Laboratory, [facility] [address] [place] [phone] [place], [address] [place] [address] 03/22/2024 8:15 AM EST Pharmacy Pharmacy Hematology Oncology [place] [address] [place] [address] Gm, [facility] Hem/Onc [address] [place] [address] 03/22/2024 1:00 PM EST Immunization/Injection Hematology Oncology [facility] [address] [place] [address] Nurse, [place] [address] [place] [address] 03/23/2024 12:00 PM EST Office Visit Hematology/Oncology [address] [place] [address] Mallika Larios CRNP [address] [place] [address] 03/23/2024 12:30 PM EST Immunization/Injection Hematology/Oncology [address] [place] [address] Kandice, Chair 9 Hem Onc [address] [address] 04/03/2024 9:00 AM EST Office Visit Nephrology, [address] [place] [address] Addison Salas MD [address] [place], [place] [phone] 06/22/2024 8:20 AM EDT [facility] [address] [facility] [phone] Patrick Zhao MD 226 [facility] [place] [phone] 09/05/2024 10:20 AM EDT Office Visit Dermatology, [address] [place] [phone] Linda Mejia PA-C [address] [place] [address] [place] [address] Health Maintenance Due Date Last Done Comments [...] as of this encounter Visit Diagnoses Diagnosis Vaccine for viral hepatitis- Primary Need for prophylactic vaccination and inoculation against viral hepatitis Eczema, unspecified type documented in this encounter Advance [...] patient or by statute hierarchy) Care Teams Traffic Agent Relationship Specialty Start Date End Date Patrick Zhao MD [address] [place] [address] PCP - General Family Medicine 05/10/16 documented as of this encounter
[2024-05-18 07:22] LABS: BUN Creatinine Ratio 13.7 (10-20); Calcium 8.4 mg/dl (8.6-10.3); Creatinine Clr Calc Pharmacy 88.8 ml/min; Magnesium 1.7 mg/dl (1.7-2.4); Potassium 3.8 mmol/L (3.5-5.1)
--- OUTSIDE RECORDS SUMMARY | 2024-05-18 07:22 | External Medical Summary | Summary of Care ---
Author Name Unknown Organization [facility] Address [address] [facility] [place] [address] Phone [phone] Care Team Providers Care Custom Garment Designer Name Role Phone Patrick Zhao MD Primary Care Provider [phone] Reason for Visit * Reason Onset Date Comments Medication Refill 02/15/2024 Encounter Details Date Type Department Care Team (Late st Contact Info) Description 02/15/2024 Telephone Hematology/Oncology [facility] [place] [address] [place] [phone] Rae Berrios MD [address] [place] [address] Medication Refill Allergies Active Allergy Reactions Criticality Noted Date Comments Celecoxib Medium 02/01/2017 Metformin Diarrhea 02/18/2023 Prochlorperazine 11/18/1998 Intol,compazine documented as of this encounter (statuses as of 02/15/2024) Medications OneTouch Delica Plus [id number] USE TO TEST BLOOD SUGAR 2 TIMES DAILY DX E11.9 200 Each 3 12/05/19 23 Active Famotidine 20 MG Oral Tablet (Pepcid)Indication s:Gastroesophageal reflux disease, unspecified whether esophagitis present Take 1 Tablet by mouth daily. One daily 90 Tablet 3 03/10/19 24 Active Calcium Carb-Cholecalcifer ol 600-20 MG-MCG Oral Tablet (Calcium 600+D3) Take by mouth 2 times a day. Patient reported Active Loperamide HCl 2 MG Oral Tablet (Imodium A-D) Take 1 Tablet by mouth 4 times a day as needed for Diarrhea. 30 Tablet 08/07/19 24 Active Additional Information Patient not taking.Reported on 01/18/2024 Ondansetron HCl 8 MG Oral Tablet (Zofran) [...] remission (HCC),History of autologous stem cell transplant ([facility]) Take 1 Tablet by mouth in the morning and 1 Tablet before bedtime. 180 Tablet 1 4 9:10 AM EDT 12/16/19 24 Active Additional Information Patient not taking.Reported on 01/18/2024 OneTouch Verio In Vitro Strip (Glucose Blood)Indications: [...] 180 days 0.5 mL 01/21/20 24 Active Ozempic (0.25 or 0.5 MG/DOSE) 2 MG/3ML [...] 17, 2024. 28 Capsule 02/17/20 24 Active Lenalidomide 10 MG Oral Capsule (Revlimid)Indicati ons:Multiple myeloma not having achieved remission (HCC) Take 1 Capsule by mouth in the morning. For 28 days of a 28 day cycle. Take medication same time every day and consistently with or without food.. Do not start before January 20, 2024. 28 Capsule 01/20/20 24 024 Discontin ued(Refil l) documented as of this encounter (statuses as of 02/15/2024) Active Problems Patient Care Coordination No te [...] as of this encounter (statuses as of 02/15/2024) Resolved Problems Problem Noted Date Diagnosed Date [...] as of this encounter (statuses as of 02/15/2024) Immunizations Name Administration Dates Next Due COVID-19 mRNA, LNP-s, No Pre serve, 2-Dose Series (Moderna) 07/23/2020,06/18/2020 COVID-19 mRNA, LNP-s, No Pre serve, 2-Dose Series (Pfizer) 03/03/2021 HEPATITIS B VACCINE, RECOMB, 20 MCG/ML, ADULT (HEPLISAV-B) 01/21/2024 HIB Booster (Hiberix) 01/21/2024 Pneumococcal Conjugate Vacc, 13 Valent (Prevnar) 03/16/2019 Pneumococcal Conjugate Vacci ne, 20-valent ([id number]) 01/21/2024,02/08/2023(Deferred: Patient Refused - Pt thinks he [...] EDT VargasMelinda RN documented in this encounter Miscellaneous Notes * Telephone Encounter - Apoorva Amezcua, [facility] - 02/15/2024 10:46 AM EST Refill Request [...] need to be addressed no Apoorva Amezcua RPh Ambulatory Clinical Pharmacist | Oral Chemotherapy Clinic [facility] 02/15/2024, 10:46 AM * Telephone Encounter - Caroline Rivero CPhT - 02/15/2024 10:09 AM EST PHARMACY REMS MEDICATION AUTHORIZATION Hernan Rodriguez [phone] Patient Phone Numbers Communication: Chart review Treatment: Medication: Lenalidomide (Revlimid) Indication/Staging/Diagnosis Code: multiple myeloma / C90.00 Dose: 10mg daily x 2 years Administration: +/- food Start Date: 12/06/23 Primary Instructional Paraprofessional/Oncologist: Dr. Berrios Patient managed by Hem/Onc [facility] - Yes Patient is due for/had labs on 02/06 Prescriber survey complete; [employer] auth number [id number]. Upon new prescription being sent to [facility] specialty pharmacy, will follow up on [employer] website within 1-2 business days to confirm medication dispensed Caroline Rivero Hydraulic Jack Adjuster III Hematology Oncology Oral Chemotherapy Clinic Medication Therapy Disease Management [facility] 02/15/2024 10:10 AM Time Spent on Encounter: < 5 minutes documented in this encounter Plan of Treatment Upcoming Encounters Date Type Department Care Team (Late st Contact Info) Description 02/21/2024 7:40 AM EST [facility] [place] [address] [place] [phone] Patrick Zhao MD [address] [place] [address] 02/25/2024 9:00 AM EST Office Visit Pharmacy, [address] [place] [address] [place] [address] 02/28/2024 9:00 AM EST Office Visit Neurology [facility] [place] [address] [place] [address] Vicki Watson PA-C [address] [place] [address] 03/07/2024 8:30 AM EST Telemedicine Psychology [address] [address] [facility] [place] [address] 03/10/2024 9:00 AM EST Pharmacy Pharmacy Hematology Oncology [address] [address] [facility] Hem/Onc [address] [place] [address] 03/21/2024 8:00 AM EST Laboratory Laboratory, [facility] [address] [place] [phone] [address] 03/22/2024 8:15 AM EST Pharmacy Pharmacy Hematology Oncology [address] [address] [facility] Hem/Onc [address] [place] [address] 03/22/2024 1:00 PM EST Immunization/Injection Hematology Oncology [address] [address] Nurse, [facility] [place] [address] 03/23/2024 12:00 PM EST Office Visit Hematology/Oncology [facility] [address] [facility] [place] [phone] Mallika Larios CRNP [address] [place] [address] 03/23/2024 12:30 PM EST Immunization/Injection Hematology[facility]cology [facility], [place] [facility] [phone] Kandice, Chair 9 Hem Onc [address] [place] [address] 04/03/2024 9:00 AM EST Office Visit Nephrology, [facility] [address] [facility] [place] [address] Addison Salas MD [address] [place] [address] 09/05/2024 10:20 AM EDT Office Visit [facility]atology, [facility] [address] [facility] [address] Linda Mejia PA-C [address] [place] [address] [place] [address] Health Maintenance Due Date Last Done Comments [...] Agents on File Name Relationship Healthcare Agent [facility] Communication Dori Hoover Adult Child Health Care Repr esentative (appointed verbally by patient or by statute hierarchy) Care Teams Custom Garment Designer Relationship Specialty Start Date End Date Patrick Zhao MD [address] [place] [address] PCP - General Family Medicine 05/10/16 documented as of this encounter"
--- OUTSIDE RECORDS SUMMARY | 2024-05-18 07:22 | External Medical Summary | Summary of Care ---
Author Name Unknown Organization [facility] Address [address] [facility] [place] [address] Phone [phone] Care Team Providers Care Pitch Worker Name Role Phone Patrick Zhao MD Primary Care Provider [phone] Reason for Visit * Reason Comments Nurse Documentation Hold Xgeva Encounter Details Date Type Department Care Team (Late st Contact Info) Description 02/09/2024 10:00 AM EST Immunization/I njection Hematology/Oncology Treatment, [address] [phone] Park, Chair 7 Hem Onc [address] [address] Multiple myeloma not having achieved remission (HCC)* Allergies Active Allergy Reactions Criticality Noted Date Comments Celecoxib Medium 02/01/2017 Metformin Diarrhea 02/18/2023 Prochlorperazine 11/18/1998 Intol,compazine documented as of this encounter (statuses as of 02/09/2024) Medications OneTouch Delica Plus [id number] USE TO TEST BLOOD SUGAR 2 TIMES [...] 4 3:25 PM EST 11/23/19 24 Active LORazepam 1 MG Oral Tablet (Ativan)Indication s:Anxiety state,Insomnia, unspecified type Take one at bedtime . May take 1/2- 1 tab during day as needed 45 Tablet 1 12/12/19 24 Active Acyclovir 800 MG Oral Tablet [...] weekly 100 Each 3 12/17/19 24 Active Lenalidomide 10 MG Oral Capsule (Revlimid)Indicati ons:Multiple myeloma not having achieved remission ([facility]) Take 1 Capsule by mouth in the morning. For 28 days of a 28 day cycle. Take medication same time every day and consistently with or without food.. Do not start before January 20, 2024. 28 Capsule 01/20/20 Active Zoster Vac Recomb Adjuvanted 50 MCG/0.5ML Intramuscular Suspension Reconstituted (Shingrix)Indicati ons:History of autologous stem cell transplant ([facility]),Multiple myeloma not having achieved remission ([facility]) Inject 0.5 mL into a large muscle now and repeat dose in 60 to 180 days 0.5 mL 01/21/20 Active Ozempic (0.25 or 0.5 MG/DOSE) 2 MG/3ML Solution Pen-injector (Semaglutide(0.25 or 0.5MG/DOS))Indicat ions:Type 2 diabetes mellitus with hemoglobin A1c goal of less than 7.0% ([facility]) INJECT 0.25 MG UNDER THE SKIN ONCE A WEEK. THEN INCREASE TO 0.5 MG IF TOLERATED. 9 mL 3 01/31/20 Active documented as of this encounter (statuses as of 02/09/2024) Active Problems Patient Care Coordination No te [...] as of this encounter (statuses as of 02/09/2024) Resolved Problems Problem Noted Date Diagnosed Date [...] as of this encounter (statuses as of 02/09/2024) Immunizations Name Administration Dates Next Due COVID-19 mRNA, LNP-s, No Pre serve, 2-Dose Series (Moderna) 07/23/2020,06/18/2020 COVID-19 mRNA, LNP-s, No Pre serve, 2-Dose Series (Pfizer) 03/03/2021 HEPATITIS B VACCINE, RECOMB, 20 MCG/ML, ADULT (HEPLISAV-B) 01/21/2024 HIB Booster (Hiberix) 01/21/2024 Pneumococcal Conjugate Vacc, 13 Valent (Prevnar) 03/16/2019 Pneumococcal Conjugate Vacci ne, 20-valent ([id number]) 01/21/2024,02/08/2023(Deferred: Patient Refused - Pt thinks he [...] in this encounter Nursing Notes * Zofia Pascual LPN - 02/09/2024 10:01 AM EST Pt arrived for MD appt and Xgeva injection. Pt reports he recently had dental work done and MD would like to hold his Xgeva for another month. Pt verbalized understanding. To return in 4 weeks. Discharged in stable condition. documented in this encounter Plan of Treatment Upcoming Encounters Date Type Department Care Team (Late st Contact Info) Description 02/17/2024 8:00 AM EST Office Visit General Surgery, [facility] [address] [phone] Chris Chong MD [address] [address] 02/21/2024 7:40 AM EST Office Visit [facility] Hipolito Martinez [address] [phone] Patrick Zhao MD 226 [facility] [place] [address] 02/25/2024 9:00 AM EST Office Visit Pharmacy, [address] [place] [address] [place] [address] 02/28/2024 9:00 AM EST Office Visit Neurology Rosalia Kandice [place] [address] [place] [address] Vicki Watson PA-C [address] [place] [address] 03/07/2024 8:30 AM EST Telemedicine Psychology [address] [address] [facility] [place] [address] 03/10/2024 9:00 AM EST Pharmacy Pharmacy Hematology Oncology [address] [address] [facility] [place] Hem/Onc [address] [place] [address] 03/21/2024 8:00 AM EST Laboratory Laboratory, [facility] [address] [place] [phone] [address] [address] 03/22/2024 8:15 AM EST Pharmacy Pharmacy Hematology Oncology [address] [address] [facility] [place] Hem/Onc [address] [place] [address] 03/22/2024 1:00 PM EST Immunization/Injection Hematology Oncology [address] [place] [address] Nurse, Med 4 [address] [place] [facility] [place] [address] 03/23/2024 12:00 PM EST Office Visit Hematology/Oncology [facility] [address] [place] [phone] Mallika Larios CRNP 400 [facility] [place] [address] 03/23/2024 12:30 PM EST Immunization/Injection [facility]ematology/Oncology [facility], [place] [facility] [phone] Kandice, Chair 9 Hem Onc [address] [place] [address] 04/03/2024 9:00 AM EST Office Visit Nephrology, [facility] [address] [facility] [place] [address] Addison Salas MD [facility] [address] 09/05/2024 10:20 AM EDT [facility] [address] [place] [phone] Linda Mejia PA-C [address] [place] [address] [place] [address] Health Maintenance Due Date Last Done Comments [...] patient or by statute hierarchy) Care Teams Pitch Worker Relationship Specialty Start Date End Date Patrick Zhao MD [address] [address] PCP - General Family Medicine 05/10/16 documented as of this encounter
--- OUTSIDE RECORDS SUMMARY | 2024-05-18 07:22 | External Medical Summary ---
Author Name Unknown Address Unknown Organization K01:[facility] [place] [address] [facility] [address] Laboratory Report Ordering Provider Test Date Status ADALBERTO ALEGRE 02/07/2024 07:57:34 Final Observation Date Value Abnormality Reference (Units) Status PARAPROTEIN NORMAL/ABNORMAL 02/07/2024 07:57:34 Abnormal Abnormal Normal Final Protein 02/07/2024 07:57:34 6.5 6.0-8.3 (g/dL) Final Albumin/Protein.total [Pure mass fraction] in Serum or Plasma by Electrophoresis 02/07/2024 07:57:34 3.72 3.30-4.40 (g/dL) Final Alpha 1 globulin/Protein.tota l [Pure mass fraction] in Serum or Plasma by Electrophoresis 02/07/2024 07:57:34 0.98 Above high normal 0.10-0.30 (g/dL) Final Alpha 2 globulin/Protein.tota l [Pure mass fraction] in Serum or Plasma by Electrophoresis 02/07/2024 07:57:34 0.70 0.60-1.00 (g/dL) Final Beta globulin/Protein.tota l [Pure mass fraction] in Serum or Plasma by Electrophoresis 02/07/2024 07:57:34 1.10 0.80-1.30 (g/dL) Final Gamma globulin/Protein.tota l [Pure mass fraction] in Serum or Plasma by Electrophoresis 02/07/2024 07:57:34 Final Protein Fractions [Interpretation] in Serum or Plasma by Electrophoresis Narrative 02/07/2024 07:57:34 Abnormal. A paraprotein is present that has been previously identified as a monoclonal IgG kappa. Final Performing Location [facility] [place] [address] [facility] [address]
--- OUTSIDE RECORDS SUMMARY | 2024-05-18 07:22 | External Medical Summary | Summary of Care ---
Author Name Unknown Organization [facility] Address [address] [facility] [place] [address] Phone [phone] Care Team Providers Care Floor Coverer Apprentice Name Role Phone Kervin Zhao MD Primary Care Provider [phone] Reason for Visit * Reason Onset Date Comments Medication Refill 02/09/2024 Encounter Details Date Type Department Care Team (Late st Contact Info) Description 02/09/2024 Refill [facility] [address] [facility] [place] [phone] Kervin Zhao MD 226 [place], [place] [phone] Type 2 diabetes mellitus with hemoglobin A1c goal of less than 7.0% ([facility])*; Anxiety state; Insomnia, unspecified type Allergies Active Allergy Reactions Criticality Noted Date Comments Celecoxib Medium 02/01/2017 Metformin Diarrhea 02/18/2023 Prochlorperazine 11/18/1998 Intol,compazine documented as of this encounter (statuses as of 02/11/2024) Medications OneTouch Delica Plus [id number] USE TO TEST BLOOD SUGAR 2 TIMES [...] A1c goal of less than 7.0% ([facility]) USE TO TEST BLOOD SUGAR 2 [...] A1c goal of less than 7.0% ([facility]) INJECT 0.25 MG UNDER THE SKIN ONCE A WEEK. THEN INCREASE TO 0.5 MG IF TOLERATED. 9 mL 3 01/31/20 Active LORazepam 1 MG Oral Tablet (Ativan)Indication s:Anxiety state,Insomnia, unspecified type Take one at bedtime . May take 1/2- 1 tab during day as needed 45 Tablet 1 02/11/20 24 Active LORazepam 1 MG Oral Tablet (Ativan)Indication s:Anxiety state,Insomnia, unspecified type Take one at bedtime . May take 1/2- 1 tab during day as needed 45 Tablet 1 12/12/19 24 024 Discontin ued(Refil l) documented as of this encounter (statuses as of 02/11/2024) Active Problems Patient Care Coordination No te [...] as of this encounter (statuses as of 02/11/2024) Resolved Problems Problem Noted Date Diagnosed Date [...] as of this encounter (statuses as of 02/11/2024) Immunizations Name Administration Dates Next Due COVID-19 mRNA, LNP-s, No Pre serve, 2-Dose Series (Moderna) 07/23/2020,06/18/2020 COVID-19 mRNA, LNP-s, No Pre serve, 2-Dose Series (Pfizer) 03/03/2021 HEPATITIS B VACCINE, RECOMB, 20 MCG/ML, ADULT (HEPLISAV-B) 01/21/2024 HIB Booster (Hiberix) 01/21/2024 Pneumococcal Conjugate Vacc, 13 Valent (Prevnar) 03/16/2019 Pneumococcal Conjugate Vacci ne, 20-valent ([id number]) 01/21/2024,02/08/2023(Deferred: Patient Refused - Pt thinks he [...] Telephone Encounter - Kervin Zhao MD - 02/11/2024 9:23 AM ESTSigned Prescriptions: Disp Refills LORazepam 1 MG Oral Tablet (Ativan) 45 Tab*1 Sig: Take one at bedtime . May take 1/2- 1 tab during day as needed Authorizing Provider: KERVIN ZHAO * Telephone Encounter - Augusta Castillo [facility] - 02/10/2024 5:45 PM EST Pending Prescriptions: Disp Refills LORazepam 1 MG Oral Tablet (Ativan) 45 Tab*1 Sig: Take one at bedtime . May take 1/2- 1 tab during day as needed * Telephone Encounter - Augusta Castillo [facility] - 02/10/2024 5:44 PM EST I have reviewed the patients controlled substance dispensing history in the Prescription Drug Monitoring Program in compliance with the [facility] regulations before prescribing a controlled substance. PDMP checked on 02/10/2024. Pending Prescriptions: Disp Refills LORazepam 1 MG Oral Tablet (Ativan) 45 Tab*1 Sig: Take one at bedtime . May take 1/2- 1 tab during day as needed Last Visit: Visit date not found (in office), Visit date not found (telemedicine) Next Visit: 02/21/2024 Date medication was last filled: 01/08 Date medication is due for refill: 02/06 Pharmacy: [id number] Is this request for a controlled substance? Yes and Urine Drug Screen was completed Toxicology results: Results for orders placed [...] in Results Review. Please approve if appropriate. Thank you, Augusta Castillo, PharmD Clinical Pharmacist [facility] ([facility]) 02/10/24 5:44 PM [phone] * Telephone Encounter - Amisha Galvin CPhT - 02/09/2024 1:05 PM EST Did you pend patient's preferred pharmacy and medication before forwarding?yes Pharmacy: [id number] [address] [facility] Pending Prescriptions: Disp Refills LORazepam 1 MG Oral Tablet (Ativan) 45 Tab*1 Sig: Take one at bedtime . May take 1/2- 1 tab during day as needed Last Visit: Visit date not found (in office), Visit date not found (telemedicine) Next Visit: 02/21/2024 If no future appointments scheduled, and last appointment is greater than a year ago, please schedule patient for a follow-up appointment Last date the medication was ordered: 12/12/2023 Is this request for a controlled substance?Yes, What was the last refill date 12/12/2023 w/ [id number] and dosage 1 at bedtime, may take 1/2-1 during day and Urine Drug Screen was completed Urine Drug Screen: Results for orders [...] Labs: Lab Results Component Value Date/Time CREAT 0.9 02/07/2024 07:57 AM CREAT 1.3 (H) 04/04/2020 03:04 PM POTASSIUM 4.4 02/07/2024 07:57 AM POTASSIUM 4.4 04/04/2020 03:04 PM POTASSIUM 4.3 06/16/1996 10:00 AM TSH 2.01 01/03/2024 07:51 AM TSH 2.79 10/27/2017 10:25 AM LDL 64 10/25/2023 08:44 AM LDL 84 04/04/2020 03:04 PM LDL NOT APPLICABLE 04/04/2020 03:04 PM ALT 30 02/07/2024 07:57 AM ALT 31 04/04/2020 03:04 PM HGBA1C 6.8 (H) 02/07/2024 07:57 AM HGBA1C 7.7 (H) 01/15/2023 08:06 AM HGBA1C 7.6 (H) 04/04/2020 03:04 PM documented in this encounter Plan of Treatment Upcoming Encounters Date Type Department Care Team (Late st Contact Info) Description 02/21/2024 7:40 AM EST Office Visit [facility] Hipolito Martinez [address] [phone] Kervin Zhao MD [address] [address] 02/25/2024 9:00 AM EST Office Visit Pharmacy, [address] [place] [address] [address] [place] [address] 02/28/2024 9:00 AM EST Office Visit Neurology [facility] [address] [place] [address] Vicki Watson PA-C [address] [place] [address] 03/07/2024 8:30 AM EST Telemedicine Psychology [address] [address] Quentin Gupta PsyD [address] [place] [address] 03/10/2024 9:00 AM EST Pharmacy Pharmacy Hematology Oncology [address] [address] [facility] [place] Hem/Onc [address] [place] [address] 03/21/2024 8:00 AM EST Laboratory Laboratory, [address] [phone] [address] 03/22/2024 8:15 AM EST Pharmacy Pharmacy Hematology Oncology [address] [address] [facility] [place] Hem/Onc [address] [place] [address] 03/22/2024 1:00 PM EST Immunization/Injection Hematology Oncology [address] [address] Nurse, Med [address] [place] [address] 03/23/2024 12:00 PM EST Office Visit Hematology/Oncology [facility] 200 [facility] [place] [phone] Mallika Larios CRNP [facility] [place] [address] 03/23/2024 12:30 PM EST Immunization/Injection Hematology/Oncology Treatment, [place] [facility] [phone] Kandice, Chair 9 Hem Onc [address] [place] [address] 04/03/2024 9:00 AM EST Office Visit Nephrology, [address] [place] [address] Addison Salas MD [address] [facility] [place] [address] 09/05/2024 10:20 AM EDT Office Visit [facility]at[facility], [facility] [address] [facility] [place] [phone] Linda Mejia, PABrady [address] [place] [address] [place] [address] Scheduled Orders Name Type Priority Associated Diagnoses Orde r Schedule ALBUMIN / CREATININE RATIO, URINE Lab Routine Type 2 diabetes mellitus with hemoglobin A1c goal of less than 7.0% (HCC) Expected: 02/10/2024 (Approximate), Expires: 02/09/2025 Health Maintenance Due Date Last Done Comments [...] A1c goal of less than 7.0% ([facility])- Primary Anxiety state Anxiety state, unspecified Insomnia, unspecified [...] patient or by statute hierarchy) Care Teams Floor Coverer Apprentice Relationship Specialty Start Date End Date Kervin Zhao MD [address] [address] PCP - General Family Medicine 05/10/16 documented as of this encounter
--- OUTSIDE RECORDS SUMMARY | 2024-05-18 07:22 | External Medical Summary | Summary of Care ---
Author Name Unknown Organization [facility] Address [address] [facility] [place] [address] Phone [phone] Care Team Providers Care Upstairs Maid Name Role Phone Patrick Zhao MD Primary Care Provider [phone] Reason for Visit * Reason Comments Follow Up Encounter Details Date Type Department Care Team (Late st Contact Info) Description 02/09/2024 9:30 AM EST Office Visit Hematology/Oncology Yarelis Woodson [place] [address] [facility] [place] [phone] Rae Berrios MD [address] [facility] [place] [address] History of autologous stem cell transplant (HCC)*; Stem cells transplant status (HCC); Multiple myeloma in remission (HCC) Allergies Active Allergy Reactions Criticality Noted Date Comments Celecoxib Medium 02/01/2017 Metformin Diarrhea 02/18/2023 Prochlorperazine 11/18/1998 Intol,compazine documented as of this encounter (statuses as of 02/09/2024) Medications OneTouch Delica Plus [id number] USE TO TEST BLOOD SUGAR 2 TIMES [...] hemoglobin A1c goal of less than 7.0% ([facility]) USE TO TEST BLOOD SUGAR 2 TIMES [...] hemoglobin A1c goal of less than 7.0% ([facility]) INJECT 0.25 MG UNDER THE SKIN ONCE [...] (Prevnar) 03/16/2019 Pneumococcal Conjugate Vacci ne, 20-valent ([id number]) 01/21/2024,02/08/2023(Deferred: Patient Refused - Pt thinks he [...] Sign Reading Time Taken Comments Blood Pressure 150/73 02/09/2024 9:26 AM EST Pulse 66 02/09/2024 9:26 AM EST Temperature 36.4 C (97.6 F) 02/09/2024 9:26 AM ES T Respiratory Rate - - Oxygen Saturation 98% 02/09/2024 9:26 AM EST Inhaled Oxygen Concentration - - Weight 92.8 kg (204 lb 9.6 oz) 02/09/2024 9:26 A M EST Height - - Body Mass Index 28.54 11/19/2023 9:46 AM EDT documented in this encounter Functional [...] Progress Notes * Rae Berrios MD - 02/09/2024 9:34 AM EST Outpatient Consult Note Data Source: Patient, Epic record. Data Source: Patient, Epic record. 02/09/2024 9:35 AM Hernan Rodriguez [id number] 68 year old Patient Encounter: HEMATOLOGY/ONCOLOGY [facility] Cancer Diagnosis: IgG kappa multiple myeloma [...] IgA was 23 and IgM was 30. [place] light chain was 281.08 and the lambda [...] remainingprobes in the panel (13q-/-13, 1p32/1q21, and 5//15). Marrow Cellularity: varied in areas ranging form [...] (approximately 3-4% of marrow cellularity). Interval History: Overall clinically he is stable. No new complain. He continues to have issues with the vision whichis stable. He is also complaining of rash which is stable. Denies any fever, night sweats, headache, chest pain, palpitation abdominal pain or distention, bleeding, bruising, fever, night sweats. LABS/IMAGING: Results for orders placed or performed [...] Estimated Average Glucose 148 (H) <126 mg/dL IMMUNOGLOBULIN QUANTITATIVE Result Value Ref Range [...] FREE LIGHT CHAINS Result Value Ref Range [place] Free Light Chains, Serum 38.96 (H) 3.30 - 19.40 mg/L Lambda Free Light Chains, Serum 20.44 5.71 - 26.30 mg/L [place] Lambda Free Light Chains Ratio 1.91 (H) [...] be found in Results Review. Result of the recent blood tests are stable in acceptable range with stable myeloma panel. There álvaro mild increase in the light chain level normal ratio. REVIEW OF SYSTEMS: General: No Fever, chills, night sweats, or weight loss. HEENT: No epistaxis, facial pain, nasal discharge or [...] Medication Sig Dispense Refill OneTouch Delica Plus [id number] USE TO TEST BLOOD SUGAR 2 TIMES DAILY DX E11.9 200 Each 3 Famotidine 20 MG Oral Tablet (Pepcid) Take 1 Tablet by mouth daily. One daily 90 Tablet 3 Calcium Carb-Cholecalciferol 600-20 MG-MCG Oral Tablet (Calcium 600+D3) Take by mouth 2 times a day. Patient reported Loperamide HCl 2 MG Oral Tablet (Imodium A-D) Take 1 Tablet by mouth 4 times a day as needed for Diarrhea. (Patient not taking: Reported on 01/18/2024) 30 Tablet 0 Ondansetron HCl 8 MG [...] 1 Tablet before bedtime. 270 Tablet 3 LORazepam 1 MG Oral Tablet (Ativan) Take one at bedtime . May take 1/2- 1 tab during day as needed 45 Tablet 1 Acyclovir 800 MG Oral Tablet (Zovirax) Take 1 Tablet by mouth in the morning and 1 Tablet before bedtime. (Patient not taking: Reported on 01/18/2024) 180 Tablet 1 OneTouch Verio In Vitro Strip (Glucose Blood) USE TO TEST BLOOD SUGAR 2 TIMES DAILY DX E11.9 200 Strip 3 NovoFine Plus Pen Needle 32G X 4 MM (Insulin Pen Needle) Use to inject Ozempic once weekly 100 Each3 Lenalidomide 10 MG Oral Capsule (Revlimid) Take 1 Capsule by mouth in the morning. For 28 days of a28 day cycle. Take medication same time every day and consistently with or without food.. Do not start before January 20, 2024. 28 Capsule 0 Zoster Vac Recomb Adjuvanted 50 MCG/0.5ML Intramuscular Suspension Reconstituted (Shingrix) Inject 0.5 mL into a large muscle now and repeat dose in 60 to 180 days 0.5 mL 0 Ozempic (0.25 or 0.5 MG/DOSE) 2 MG/3ML Solution Pen-injector (Semaglutide(0.25 or 0.5MG/DOS)) INJECT 0.25 MG UNDER THE SKIN ONCE A WEEK. THEN INCREASE TO 0.5 MG IF TOLERATED. 9 mL 3 No current facility-administered medications for this visit. Facility-Administered Medications Ordered in Other Visits Medication Dose Route Frequency Provider Last Rate Last Admin Denosumab (Xgeva) subcut inj 120 mg 120 mg Subcutaneous Once Rae Berrios MD Social History Tobacco Use Smoking status: Never Smokeless tobacco: Former Types: Snuff Vaping Use Vaping status: Never Used Substance Use Topics Alcohol use: Not Currently Drug use: No Review of patient's allergies indicates: Allergen Reactions Celecoxib Metformin Diarrhea Prochlorperazine Intol,compazine PHYSICAL EXAMINATION: General Appearance: Healthy appearing patient in no acute distress BP 150/73 (BP Site: Left Arm, BP Position: Sitting, BP Cuff Size: Regular) | Pulse 66 | Temp 36.4 C (97.6 F) (Tympanic) | Wt 92.8 kg (204 lb 9.6 oz) | SpO2 98% | BMI 28.54 kg/m | BSA 2.16 m Vitals reviewed. HEENT: No oral or [...] cell transplant. Day 0 was on 07/21/2023. Overall clinically he is feeling better without any new symptoms complain. He was recently seen by Dr. Moore will recommend to start him on maintenance Revlimid and also resume Xgeva. He also had bone marrow biopsy and aspirate done which revealed 3-4% of the plasma cells. Last blood test result were in acceptable range with normal IgG level. Currently he is taking Revlimid 10 mg. He is complaining of skin rash which is stable. Overall clinically he is stable without any new symptoms complain. Result of the recent blood tests are stable in acceptable range. Discussed with the patient and in detail about diagnosis and prognosis reviewed all the available blood test result with them. PLAN: Return to clinic in 6 weeks with CBC, CMP and myeloma panel. He will continue Revlimid. We will also resume the Xgeva in 6 weeks (he had tooth extraction done few weeks ago.) The patient voiced understanding of all of [...] Notes * Zofia Barnett MED ASSIST - 02/09/2024 9:31 AM EST Patient identifed by name and [...] it for you? ALREADY ACTIVE Filed Vitals: 02/09/24 0926 BP: 150/73 Pulse: 66 Temp: 36.4 C (97.6 F) TempSrc: Tympanic SpO2: 98% Weight: 92.8 kg (204 lb 9.6 oz) Patient was instructed to [...] 8:00 AM EST Office Visit General Surgery, [facility] [address] [place] [address] Chris Chong MD [address] [place] [address] 02/21/2024 7:40 AM EST Office [facility] [phone] Patrick Zhao MD 226 [facility] [place] [address] 02/25/2024 9:00 AM EST Office Visit Pharmacy, [address] [place] [address] [place] [address] 02/28/2024 9:00 AM EST Office Visit Neurology [facility] [address] [place] [address] Vicki Watson PA-C [address] [place] [address] 03/07/2024 8:30 AM EST Telemedicine Psychology [address] [address] Quentin Gupta PsyD [facility] [place] [address] 03/10/2024 9:00 AM EST Pharmacy Pharmacy Hematology Oncology [place] [address] [place] [address] [facility] Hem/[place]c [facility] [place] [address] 03/21/2024 8:00 AM EST Laboratory Laboratory, [address] [place] [phone] Protection, [facility] [address] [place] [address] 03/22/2024 8:15 AM EST Pharmacy Pharmacy Hematology Oncology [place] [address] [place] [address] Gm, [facility] Hem/[place]c [facility] [place] [address] 03/22/2024 1:00 PM EST Immunization/Injection Hematology Oncology [place] [address] [place] [address] Nurse, [place] [address] [place] [address] 03/23/2024 12:00 PM EST Office Visit Hematology/[place]cology [address] [place] [phone] Mallika Larios CRNP [address] [place] [address] 03/23/2024 12:30 PM EST Immunization/Injection Hematology/Oncology Treatment, [place] 200 [place] [address] Kandice, Chair [address] Hem [place] [address] [place] [address] 04/03/2024 9:00 AM EST Office Visit Nephrology, [address] [place] [address] Addison Salas MD [address] [place] [address] 09/05/2024 10:20 AM EDT Office Visit Dermatology, [address] [place] [phone] Linda Mejia PA-C [address] [place] [address] [place] [address] Scheduled Orders Name Type Priority Associated Diagnoses Orde r Schedule [id number], SERUM Lab Routine Stem cells transplant status (HCC) Multiple myeloma in remission (HCC) Expected: 03/22/2024, Expires: 08/23/2024 CBC WITH WBC DIFFERENTIAL Lab Routine Stem cells transplant status (HCC) Multiple myeloma in remission (HCC) Expected: 03/22/2024, Expires: 08/23/2024 COMPREHENSIVE METABOLIC PANEL Lab Routine Stem cells transplant status (HCC) Multiple myeloma in remission (HCC) Expected: 03/22/2024, Expires: 08/23/2024 IMMUNOGLOBULIN QUANTITATIVE Lab Routine Stem cells transplant status (HCC) Multiple myeloma in remission (HCC) Expected: 03/22/2024, Expires: 08/23/2024 SERUM FREE LIGHT CHAINS Lab Routine Stem cells transplant status (HCC) Multiple myeloma in remission (HCC) Expected: 03/22/2024, Expires: 08/23/2024 SERUM PROTEIN ELECTROPHORESIS REFLEX PROFILE Lab Routine Stem cells transplant status (HCC) Multiple myeloma in remission (HCC) Expected: 03/22/2024, Expires: 08/23/2024 Health Maintenance Due Date Last Done Comments [...] Primary Peripheral stem cells replaced by transplant Stem [...] patient or by statute hierarchy) Care Teams Upstairs Maid Relationship Specialty Start Date End Date Patrick Zhao MD [address] [place] [address] PCP - General Family Medicine 05/10/16 documented as of this encounter"
--- OUTSIDE RECORDS SUMMARY | 2024-05-18 07:22 | External Medical Summary ---
Author Name Unknown Address Unknown Organization K01:[facility] [place] [address] [facility] [place] [address] Laboratory Report Ordering Provider Test Date Status WU ADORNO 02/07/2024 07:57:34 Final Observation Date Value Abnormality Reference (Units ) Status SYNC LEUKOCYTES IN BLOOD BY AUTOMATED COUNT 02/07/2024 07:57:34 3.50 Below low normal 4.00-10.80 (K/uL) Final Segs 02/07/2024 07:57:34 43.7 40.0-75.0 (%) Final Lymphs % 02/07/2024 07:57:34 34.9 18.0-42.0 (%) Final Monos 02/07/2024 07:57:34 15.7 Above high normal 1.0-11.0 (%) Final Eosinophils 02/07/2024 07:57:34 3.1 0.0-6.0 (%) Final Basos 02/07/2024 07:57:34 2.3 Above high normal 0.0-2.0 (%) Final Immature Granulocyte, Percent 02/07/2024 07:57:34 0.3 0.0-2.0 (%) Final Absolute Segs 02/07/2024 07:57:34 1.53 Below low normal 1.80-7.70 (K/uL) Final Lymphs, absolute 02/07/2024 07:57:34 1.22 1.00-4.80 (K/ul) Final Monos, Abs 02/07/2024 07:57:34 0.55 0.00-1.10 (K/uL) Final Eos, Abs 02/07/2024 07:57:34 0.11 0.00-0.70 (K/uL) Final Basos, Abs 02/07/2024 07:57:34 0.08 0.00-0.20 (K/uL) Final Immature Granulocytes, Number 02/07/2024 07:57:34 0.01 0.00-0.20 (K/uL) Final Performing Location [facility] [place] [address] [facility] [place] [address]
--- OUTSIDE RECORDS SUMMARY | 2024-05-18 07:22 | External Medical Summary | Summary of Care ---
Author Name Unknown Organization [facility] Address [address] [place] [facility] [place] [place] [address] Phone [phone] Care Team Providers Care Fast Food Services Manager Name Role Phone Patrick Zhao MD Primary Care Provider [phone] Reason for Visit * Reason Onset Date Comments Medication Refill 02/09/2024 Encounter Details Date Type Department Care Team (Late st Contact Info) Description 02/09/[address] [address] Patrick Zhao MD [address] [place] [address] Allergies Active Allergy Reactions Criticality Noted Date Comments Celecoxib Medium 02/01/2017 Metformin Diarrhea 02/18/2023 Prochlorperazine 11/18/1998 Intol,compazine documented as of this encounter (statuses as of 02/14/2024) Medications OneTouch Delica Plus [id number] USE TO TEST BLOOD SUGAR 2 TIMES [...] A1c goal of less than 7.0% (HCC) USE TO TEST BLOOD SUGAR 2 TIMES [...] January 20, 2024. 28 Capsule 01/20/20 24 Active Zoster Vac Recomb Adjuvanted 50 [...] of less than 7.0% ([facility]) INJECT 0.25 MG UNDER THE SKIN ONCE A WEEK. THEN INCREASE TO 0.5 MG IF TOLERATED. 9 mL 3 01/31/20 Active documented as of this encounter (statuses as of 02/14/2024) Active Problems Patient Care Coordination No te [...] as of this encounter (statuses as of 02/14/2024) Resolved Problems Problem Noted Date Diagnosed Date [...] as of this encounter (statuses as of 02/14/2024) Immunizations Name Administration Dates Next Due COVID-19 mRNA, LNP-s, No Pre serve, 2-Dose Series (Moderna) 07/23/2020,06/18/2020 COVID-19 mRNA, LNP-s, No Pre serve, 2-Dose Series (Pfizer) 03/03/2021 HEPATITIS B VACCINE, RECOMB, 20 MCG/ML, ADULT (HEPLISAV-B) 01/21/2024 HIB Booster (Hiberix) 01/21/2024 Pneumococcal Conjugate Vacc, 13 Valent (Prevnar) 03/16/2019 Pneumococcal Conjugate Vacci ne, 20-valent ([id number]) 01/21/2024,02/08/2023(Deferred: Patient Refused - Pt thinks he [...] encounter Miscellaneous Notes * Telephone Encounter - Rajni Baez PHARM Tech - 02/09/2024 1:03 PM EST Patient calling in regarding LORazepam 1 MG Oral Tablet (Ativan) . This was last prescribed by PCP office, transferring caller to Medication Refill Line for further assistance. Thank you, Rajni Baez Pricing Analyst I [facility] 02/09/2024,1:03 PM documented in this encounter Plan of Treatment Upcoming Encounters Date Type Department Care Team (Late st Contact Info) Description 02/21/2024 7:40 AM EST Office Visit [facility] [address] [place] [phone] Patrick Zhao MD 226 [facility] [place] [address] 02/25/2024 9:00 AM EST Office Visit Pharmacy, [address] [place] [address] [place] [address] 02/28/2024 9:00 AM EST Office Visit Neurology [facility] [place] [address] [place] [address] Vicki Watson PA-C 200 [place] [address] 03/07/2024 8:30 AM EST Telemedicine Psychology [place] [address] [place] [address] Quentin Gupta, [facility] [address] [place] [address] 03/10/2024 9:00 AM EST Pharmacy Pharmacy Hematology Oncology [place] [address] [place] [address] [facility], [facility] Hem/Onc [facility] [place] [address] 03/21/2024 8:00 AM EST Laboratory Laboratory[address] [phone] [place] [address] [place] [address] 03/22/2024 8:15 AM EST Pharmacy Pharmacy Hematology Oncology [address] [address] [facility], [facility] Hem/Onc [facility] [place] [address] 03/22/2024 1:00 PM EST Immunization/Injection Hematology Oncology [place] [address] [place] [address] Nurse, Med 4 [address] [place] [address] 03/23/2024 12:00 PM EST Office Visit Hematology/Oncology Yarelis Woodson [place] [address] [place], [place] [address] Mallika Larios CRNP [address] [place] [address] 03/23/2024 12:30 PM EST Immunization/Injection Hematology/Oncology Treatment, [place] [address] [place] [address] Kandice, Chair 9 Hem Onc [facility] 200 [place] [address] 04/03/2024 9:00 AM EST Office Visit Nephrology, [facility] 200 [facility] [place], [place] [address] Addison Salas MD 400 [facility] [place] [address] 09/05/2024 10:20 AM EDT Office Visit [facility]at[facility], [facility] [address] [place] [address] Linda Mejia, PABrady [address] [place] [address] [place] [address] Health Maintenance Due Date Last Done Comments [...] patient or by statute hierarchy) Care Teams Fast Food Services Manager Relationship Specialty Start Date End Date Patrick Zhao MD [address] [facility] [place] [address] PCP - General Family Medicine 05/10/16 documented as of this encounter
--- OUTSIDE RECORDS SUMMARY | 2024-05-18 07:22 | External Medical Summary | Summary of Care ---
Author Name Unknown Organization [facility] Address [address] [facility] [place] [address] Phone [phone] Care Team Providers Care Senior Financial Analyst Name Role Phone Patrick Zhao MD Primary Care Provider [phone] Encounter Details Date Type Department Care Team (Late st Contact Info) Description 02/14/2024 Orders Only PATIENT PORTAL DO NOT DELETE THIS DEPT USED BY [place] [address] Allergies Active Allergy Reactions Criticality Noted Date Comments Celecoxib Medium 02/01/2017 Metformin Diarrhea 02/18/2023 Prochlorperazine 11/18/1998 Intol,compazine documented as of this encounter (statuses as of 02/14/2024) Medications OneTouch Delica Plus [id number] USE TO TEST BLOOD SUGAR 2 TIMES [...] Additional Information Patient not taking.Reported on 01/18/2024 Profusa In Vitro Strip (Glucose Blood)Indications: Type 2 diabetes mellitus with hemoglobin A1c goal of less than 7.0% ([facility]) USE TO TEST BLOOD SUGAR 2 TIMES [...] hemoglobin A1c goal of less than 7.0% ([facility]) INJECT 0.25 MG UNDER THE SKIN ONCE A WEEK. THEN INCREASE TO 0.5 MG IF TOLERATED. 9 mL 3 01/31/20 Active LORazepam 1 MG Oral Tablet (Ativan)Indication s:Anxiety state,Insomnia, unspecified type Take one at bedtime . May take 1/2- 1 tab during day as needed 45 Tablet 1 02/11/20 Active documented as of this encounter (statuses [...] (Prevnar) 03/16/2019 Pneumococcal Conjugate Vacci ne, 20-valent ([id number]) 01/21/2024,02/08/2023(Deferred: Patient Refused - Pt thinks he [...] No 09/13/2023 Does the household have a [facility]ension [facility] hospitalr source of income? (Household - for [...] Description 02/21/2024 7:40 AM EST Office Visit [facility] [place] [phone] Patrick Zhao MD [address] [facility] [place] [address] 02/25/2024 9:00 AM EST Office Visit Pharmacy, [address] [place] [address] [place] [address] 02/28/2024 9:00 AM EST Office Visit Neurology [facility] [place] 200 [facility] [place] [address] Vicki Watson PA-C 200 [facility] [place] [address] 03/07/2024 8:30 AM EST Telemedicine Psychology [address] [address] Quentin Gupta PsyD [facility] [address] 03/10/2024 9:00 AM EST Pharmacy Pharmacy Hematology Oncology [place] [address] [place] [address] [facility], [facility] Hem/Onc [address] [place] [address] 03/21/2024 8:00 AM EST Laboratory Laboratory, [facility] 226 [place] [address] [address] [address] 03/22/2024 8:15 AM EST Pharmacy Pharmacy Hematology Oncology [facility] [place] [address] [place] [address] [facility], [facility] Hem/Onc [address] [place] [address] 03/22/2024 1:00 PM EST Immunization/Injection Hematology Oncology [facility] [address] [place] [address] Nurse, Med [address] [place] [address] 03/23/2024 12:00 PM EST Office Visit Hematology/Oncology [facility] [place] 200 [facility] [place] [phone] Mallika Larios CRNP 400 [place] [address] 03/23/2024 12:30 PM EST Immunization/Injection Hematology/Oncology Treatment, [place] [address] [place] [address] Kandice, Chair 9 Hem Onc [facility] 200 [facility] [place], [place] [address] 04/03/2024 9:00 AM EST Office Visit Nephrology, [facility] 200 [facility] [place], [place] [address] Addison Salas MD 400 [place] [address] 09/05/2024 10:20 AM EDT Office Visit Dermatology, [address] [place] [address] Linda Mejia PA-C [address] [place] [address] [place] [phone] Health Maintenance Due Date Last Done Comments [...] or by statute hierarchy) Care Teams Senior Financial Analyst Relationship Specialty Start Date End Date Patrick Zhao MD [address] [place] [address] PCP - General Family Medicine 05/10/16 documented as of this encounter
--- OUTSIDE RECORDS SUMMARY | 2024-05-18 07:22 | External Medical Summary ---
Author Name Unknown Address Unknown Organization K01:[facility] [place] [facility] [address] [place] [address] Laboratory Report Ordering Provider Test Date Status WU ADORNO 02/07/2024 07:57:34 Final Observation Date Value Abnormality Reference (Units ) Status WBC, Total 02/07/2024 07:57:34 3.50 Below low normal 4.00-10.80 (K/uL) Final RBC 02/07/2024 07:57:34 3.99 4.50-5.25 (M/uL) Final Hemoglobin 02/07/2024 07:57:34 12.6 Below low normal 14.0-16.8 (g/dL) Final HCT 02/07/2024 07:57:34 38.6 Below low normal 40.0-48.4 (%) Final MCV 02/07/2024 07:57:34 96.7 82.0-99.5 (fL) Final MCH 02/07/2024 07:57:34 31.6 27.0-34.0 (pg) Final MCHC 02/07/2024 07:57:34 32.6 32.0-36.0 (g/dL) Final RDW 02/07/2024 07:57:34 13.2 11.5-15.5 (%) Final Platelets 02/07/2024 07:57:34 130 Below low normal 140-400 (K/uL) Final MPV 02/07/2024 07:57:34 9.4 6.6-11.1 (fL) Final Nucleated erythrocytes/100 leukocytes [Ratio] in Blood by Automated count 02/07/2024 07:57:34 0 <=0 (/100 WBCs) Final Performing Location [facility] [place] [facility] [place] [address]
--- OUTSIDE RECORDS SUMMARY | 2024-05-18 07:22 | External Medical Summary ---
Author Name Unknown Address Unknown Organization : Laboratory Report Ordering Provider Test Date Status ADALBERTO ALEGRE 02/07/2024 07:57:34 Final Observation Date Value Abnormality Reference (Units ) Status Beta-2 Microglobulin 02/07/2024 07:57:34 2.01 <=2.51 (mg/L) Final Test Performed at:
[facility]
[address] [facility]
[place] [address]
Hansel Resendez M.D., Ph.D.,Director of Laboratories Performing Location
--- OUTSIDE RECORDS SUMMARY | 2024-05-18 07:22 | External Medical Summary | Summary of Care ---
Author Name Unknown Organization [facility] Address [address] [place] [facility] [address] Phone [phone] Care Team Providers Care Renal Case Manager Name Role Phone Patrick Zhao MD Primary Care Provider [phone] Reason for Visit * Reason Comments Outpatient Testing Encounter Details Date Type Department Care Team (Late st Contact Info) Description 02/07/2024 8:00 AM EST Laboratory Laboratory, [facility] [address] [place] [phone] [facility] [address] [place], [place] [phone] Multiple myeloma not having achieved remission ([facility]); History of autologous stem cell transplant ([facility]); Type 2 diabetes mellitus with hemoglobin A1c goal of less than 7.0% ([facility]); Stem cells transplant status ([facility]); Multiple myeloma in remission ([facility]) Allergies Active Allergy Reactions Criticality Noted Date Comments Celecoxib Medium 02/01/2017 Metformin Diarrhea 02/18/2023 Prochlorperazine 11/18/1998 Intol,compazine documented as of this encounter (statuses as of 02/07/2024) Medications OneTouch Delica Plus [id number] USE TO TEST BLOOD SUGAR 2 TIMES [...] hemoglobin A1c goal of less than 7.0% ([facility]) USE TO TEST BLOOD SUGAR 2 TIMES DAILY DX E11.9 200 Strip 3 12/17/19 24 Active NovoFine Plus Pen Needle 32G X 4 MM (Insulin Pen Needle) Use to inject Ozempic once weekly 100 Each 3 12/17/19 Active Lenalidomide 10 MG Oral Capsule (Revlimid)Indicati [...] hemoglobin A1c goal of less than 7.0% ([facility]) INJECT 0.25 MG UNDER THE SKIN ONCE A WEEK. THEN INCREASE TO 0.5 MG IF TOLERATED. 9 mL 3 01/31/20 Active documented as of this encounter (statuses as of 02/07/2024) Active Problems Patient Care Coordination No te [...] as of this encounter (statuses as of 02/07/2024) Resolved Problems Problem Noted Date Diagnosed Date [...] as of this encounter (statuses as of 02/07/2024) Immunizations Name Administration Dates Next Due COVID-19 mRNA, LNP-s, No Pre serve, 2-Dose Series (Moderna) 07/23/2020,06/18/2020 COVID-19 mRNA, LNP-s, No Pre serve, 2-Dose Series (Pfizer) 03/03/2021 HEPATITIS B VACCINE, RECOMB, 20 MCG/ML, ADULT (HEPLISAV-B) 01/21/2024 HIB Booster (Hiberix) 01/21/2024 Pneumococcal Conjugate Vacc, 13 Valent (Prevnar) 03/16/2019 Pneumococcal Conjugate Vacci ne, 20-valent ([id number]) 01/21/2024,02/08/2023(Deferred: Patient Refused - Pt thinks he [...] 02/09/2024 9:30 AM EST Office Visit Hematology/Oncology [facility] [address] [facility] [place] [phone] Rae Berrios MD [address] [facility] [place] [address] 02/09/2024 10:00 AM EST Immunization/Injection Hematology/Oncology Treatment, [place] [address] [facility] [address] [place] [phone] Kandice, Chair 7 Hem Onc [facility] [address] [facility] [place] [address] 02/17/2024 8:00 AM EST Office Visit General Surgery, [facility] [address] [place] [address] Chris Chong MD [address] [place] [address] 02/21/2024 7:40 AM EST Office Visit [facility] [address] [place] [phone] Patrick Zhao MD [address] [place] [address] 02/25/2024 9:00 AM EST Office Visit Pharmacy, [address] [place] [address] [place] [address] 02/28/2024 9:00 AM EST Office Visit Neurology [facility] [address] [place] [address] Vicki Watson PA-C [address] [place] [address] 03/07/2024 8:30 AM EST Telemedicine Psychology [address] [address] Quentin Gupta PsyD [address] [place] [address] 03/10/2024 9:00 AM EST Pharmacy Pharmacy Hematology Oncology [place] [address] [place] [address] [facility] Hem/Onc [address] [place] [address] 03/22/2024 8:15 AM EST Pharmacy Pharmacy Hematology Oncology [place] [address] [place] [address] [facility] Hem/Onc [address] [place] [address] 03/22/2024 1:00 PM EST Immunization/Injection Hematology Oncology [facility] [address] [facility] [place] [address] Nurse, [facility] 4 [address] [place] [facility] [place] [address] 04/03/2024 9:00 AM EST Office Visit Nephrology, [address] [place] [address] Addison Salas MD 400 [facility] [place] [address] 09/05/2024 10:20 AM EDT Office Visit Dermatology, [place] [facility] [address] [facility] [place] [phone] Linda Mejia PA-C [address] [place] [address] [place] [address] Pending Results Name Type Priority Associated Diagnoses Date /Time CBC WITH WBC DIFFERENTIAL Lab STAT Multiple myeloma not having achieved remission (HCC) History of autologous stem cell transplant ([facility]) 02/07/2024 7:57 AM EST COMPREHENSIVE METABOLIC PANEL Lab STAT Multiple myeloma not having achieved remission (HCC) History of autologous stem cell transplant ([facility]) 02/07/2024 7:57 AM EST MAGNESIUM Lab STAT Multiple myeloma not having achieved remission (HCC) History of autologous stem cell transplant ([facility]) 02/07/2024 7:57 AM EST PHOSPHORUS Lab STAT Multiple myeloma not having achieved remission (HCC) History of autologous stem cell transplant ([facility]) 02/07/2024 7:57 AM EST HEMOGLOBIN A1C Lab Routine Type 2 diabetes mellitus with hemoglobin A1c goal of less than 7.0% ([facility]) 02/07/2024 7:57 AM EST [id number], SERUM Lab Routine Stem cells transplant status (HCC) Multiple myeloma in remission (HCC) 02/07/2024 7:57 AM EST IMMUNOGLOBULIN QUANTITATIVE Lab Routine Stem cells transplant status (HCC) Multiple myeloma in remission (HCC) 02/07/2024 7:57 AM EST SERUM PROTEIN ELECTROPHORESIS REFLEX PROFILE Lab Routine Stem cells transplant status (HCC) Multiple myeloma in remission (HCC) 02/07/2024 7:57 AM EST SERUM FREE LIGHT CHAINS Lab Routine Stem cells transplant status (HCC) Multiple myeloma in remission (HCC) 02/07/2024 7:57 AM EST CBC Lab STAT Multiple myeloma not having achieved remission (HCC) History of autologous stem cell transplant (HCC) 02/07/2024 7:57 AM EST DIFFERENTIAL, AUTOMATED Lab STAT Multiple myeloma not having achieved remission (HCC) History of autologous stem cell transplant (HCC) 02/07/2024 7:57 AM EST Health Maintenance Due Date Last Done Comments Cologuard 2001 Fecal Occult Blood Test 2001 Sigmoidoscopy 2001 Adult Wellness Visit 2022 COVID-19 Vaccine ( season) 2023 03/03/2021, 07/23/2020, 06/18/2020 Albumin/Creatinine Ratio 01/20/2024 023, 01/05/2022, 02/02/2018 Hepatitis B Vaccine (2 of 2 - CpG 2-dose series) 02/18/2024 01/21/2024 HbA1c 04/26/2024 10/25/2023, 05/06, 01/15/2023, Additional history exists Diabetic Eye Exam 08/26/2024 08/27/2023 (Do ne elsewhere), 12/16/2022, 03/10/2021, Additional history exists Depression Monitoring 09/12/2024 09/13/2023 Diabetic Foot Exam 09/13/2024 09/14/2023, 0 05/02/2020, 02/08/2019, Additional history exists DTap/Tdap Vaccines (2 - Td or Tdap) 12/06/2024 12/06/2014, 05/06/1998 GFR 01/17/2025 01/18/2024, 12/07, 12/27/2023, Additional history exists Colonoscopy 03/11/2028 03/11/2018 Colorectal [...] (HCC) Peripheral stem cells replaced by transplant Type 2 diabetes mellitus with hemoglobin A1c goal of less than 7.0% (HCC) Stem cells transplant status (HCC) Peripheral stem [...] patient or by statute hierarchy) Care Teams Renal Case Manager Relationship Specialty Start Date End Date Patrick Zhao MD [address] [place] [address] PCP - General Family Medicine 05/10/16 documented as of this encounter
--- OUTSIDE RECORDS SUMMARY | 2024-05-18 07:22 | External Medical Summary | Summary of Care ---
Author Name Unknown Organization [facility] Address [address] [place] [facility] [place] [address] Phone [phone] Care Team Providers Care Process Safety Specialist Name Role Phone Kervin Zhao MD Primary Care Provider [phone] Reason for Visit * Reason Comments eRx-Medication Refill Encounter Details Date Type Department Care Team (Late st Contact Info) Description 02/18/2024 Refill Family Medicine [address] [phone] Doyle Ma MD [address] [place] [address] [place] [address] Gastroesophageal reflux disease, unspecified whether esophagitis present Allergies Active Allergy Reactions Criticality Noted Date Comments Celecoxib Medium 02/01/2017 Metformin Diarrhea 02/18/2023 Prochlorperazine 11/18/1998 Intol,compazine documented as of this encounter (statuses as of 02/18/2024) Medications OneTouch Delica Plus [id number] USE TO TEST BLOOD SUGAR 2 TIMES DAILY DX E11.9 200 Each 3 023 Active Calcium Carb-Cholecalcife rol 600-20 MG-MCG Oral Tablet (Calcium 600+D3) Take by mouth 2 times a day. Patient reported Active Loperamide HCl 2 MG Oral Tablet (Imodium A-D) Take 1 Tablet by mouth 4 times a day as needed for Diarrhea. 30 Tablet 024 Active Additional Information Patient not taking.Reported [...] (HCC),History of autologous stem cell transplant ([facility]) Take 1 Tablet by mouth in the morning and 1 Tablet before bedtime. 180 Tablet 1 12/17/19 24 9:10 AM EDT 024 Active Additional Information Patient not taking.Reported on 01/18/2024 OneTouch Verio In Vitro Strip (Glucose Blood)Indications :Type 2 diabetes mellitus with hemoglobin A1c goal of less than 7.0% ([facility]) USE TO TEST BLOOD SUGAR 2 TIMES DAILY DX E11.9 200 Strip 3 Active NovoFine Plus Pen Needle 32G X 4 MM (Insulin Pen Needle) Use to inject Ozempic once weekly 100 Each 3 024 Active Zoster Vac Recomb Adjuvanted 50 MCG/0.5ML Intramuscular Suspension Reconstituted (Shingrix)Indicat ions:History of autologous stem cell transplant (HCC),Multiple myeloma not having achieved remission (HCC) Inject 0.5 mL into a large muscle now and repeat dose in 60 to 180 days 0.5 mL 024 Active Ozempic (0.25 or 0.5 MG/DOSE) 2 MG/3ML Solution Pen-injector (Semaglutide(0.25 or 0.5MG/DOS))Indica tions:Type 2 diabetes mellitus with hemoglobin A1c goal of less than 7.0% ([facility]) INJECT 0.25 MG UNDER THE SKIN ONCE A WEEK. THEN INCREASE TO 0.5 MG IF TOLERATED. 9 mL 3 024 Active LORazepam 1 MG Oral Tablet (Ativan)Indicatio ns:Anxiety state,Insomnia, unspecified type Take one at bedtime . May take 1/2- 1 tab during day as needed 45 Tablet 1 024 Active Lenalidomide 10 MG Oral Capsule (Revlimid)Indicat ions:Multiple myeloma not having achieved remission (HCC) Take 1 Capsule by mouth in the morning. For 28 days of a 28 day cycle. Take medication same time every day and consistently with or without food.. Do not start before February 17, 2024. 28 Capsule 024 Active Famotidine 20 MG Oral Tablet (Pepcid)Indicatio ns:Gastroesophage al reflux disease, unspecified whether esophagitis present TAKE 1 TABLET BY MOUTH EVERY DAY 30 Tablet 5 024 Active Famotidine 20 MG Oral Tablet (Pepcid)Indicatio ns:Gastroesophage al reflux disease, unspecified whether esophagitis present Take 1 Tablet by mouth daily. One daily 90 Tablet 3 024 2023 Discontinued documented as of this encounter (statuses as of 02/18/2024) Active Problems Patient Care Coordination No te [...] as of this encounter (statuses as of 02/18/2024) Resolved Problems Problem Noted Date Diagnosed Date [...] as of this encounter (statuses as of 02/18/2024) Immunizations Name Administration Dates Next Due COVID-19 mRNA, LNP-s, No Pre serve, 2-Dose Series (Moderna) 07/23/2020,06/18/2020 COVID-19 mRNA, LNP-s, No Pre serve, 2-Dose Series (Pfizer) 03/03/2021 HEPATITIS B VACCINE, RECOMB, 20 MCG/ML, ADULT (HEPLISAV-B) 01/21/2024 HIB Booster (Hiberix) 01/21/2024 Pneumococcal Conjugate Vacc, 13 Valent (Prevnar) 03/16/2019 Pneumococcal Conjugate Vacci ne, 20-valent ([id number]) 01/21/2024,02/08/2023(Deferred: Patient Refused - Pt thinks he [...] encounter Miscellaneous Notes * Telephone Encounter - Martell Pennington RPh - 02/18/2024 6:59 PM ESTSigned Prescriptions: Disp Refills Famotidine 20 MG Oral Tablet (Pepcid) 30 Tab*5 Sig: TAKE 1 TABLET BY MOUTH EVERY DAYAuthorizing Provider: KERVIN ZHAO User: MARTELL PENNINGTON--- documented in this encounter Plan of Treatment Upcoming Encounters Date Type Department Care Team (Late st Contact Info) Description 02/21/2024 7:40 AM EST Office Visit [facility] 226 [facility] [place] [address] Kervin Zhao MD [address] [place] [address] 02/25/2024 9:00 AM EST Office Visit Pharmacy, [address] [place] [address] [place] [address] 02/28/2024 9:00 AM EST Office Visit Neurology [facility] [address] [place] [address] Vicki Watson PA-C [address] [place] [address] 03/07/2024 8:30 AM EST Telemedicine Psychology [address] [address] Quentin Gupta PsyD [facility] [place] [address] 03/10/2024 9:00 AM EST Pharmacy Pharmacy Hematology Oncology [address] [address] [facility], [facility] Hem/Onc [address] [place] [address] 03/21/2024 8:00 AM EST Laboratory Laboratory, [facility] [address] [place] [address] [address] 03/22/2024 8:15 AM EST Pharmacy Pharmacy Hematology Oncology [address] [address] [facility], [facility] Hem/Onc [facility] [place] [address] 03/22/2024 1:00 PM EST Immunization/Injection Hematology Oncology [facility] [place] [facility], [place] [address] [place] [address] Nurse, [facility] [address] [place] [address] 03/23/2024 12:00 PM EST Office Visit Hematology/Oncology [facility] 200 [facility] [place] [address] Mallika Larios CRNP 400 [place] [address] 03/23/2024 12:30 PM EST Immunization/Injection Hematology/Oncology Treatment, [place] 200 [facility] [phone] Kandice, Chair 9 Hem Onc [address] [place] [address] 04/03/2024 9:00 AM EST Office Visit Nephrology, [facility] 200 [facility] [place] [address] Addison Salas MD 400 [place] [address] 09/05/2024 10:20 AM EDT Office Visit Dermatology, [place] [facility] [address] [facility] [place] [address] Linda Mejia PA-C [address] [place] [address] [place] [address] Health Maintenance Due Date Last Done Comments [...] as of this encounter Visit Diagnoses Diagnosis Gastroesophageal reflux disease, unspecified whether esophagitis present documented in this encounter Advance Directives * [...] patient or by statute hierarchy) Care Teams Process Safety Specialist Relationship Specialty Start Date End Date Kervin Zhao MD [address] [place] [address] PCP - General Family Medicine 05/10/16 documented as of this encounter
--- OUTSIDE RECORDS SUMMARY | 2024-05-18 07:22 | External Medical Summary | Summary of Care ---
Author Name Unknown Organization [facility] Address [address] [place] [address] Phone [phone] Care Team Providers Care Hospital Pharmacist Name Role Phone Patrick Zhao MD Primary Care Provider [phone] Encounter Details Date Type Department Care Team (Late st Contact Info) Description 02/04/2024 Telephone Hematology/Oncology, [facility] [address] [place] [address] Rae Berrios MD 200 [place] [address] Allergies Active Allergy Reactions Criticality Noted Date Comments Celecoxib Medium 02/01/2017 Metformin Diarrhea 02/18/2023 Prochlorperazine 11/18/1998 Intol,compazine documented as of this encounter (statuses as of 02/09/2024) Medications OneTouch Delica Plus [id number] USE TO TEST BLOOD SUGAR 2 TIMES [...] (HCC),Multiple myeloma not having achieved remission ([facility]) Inject 0.5 mL into a large muscle now and repeat dose in 60 to 180 days 0.5 mL 01/21/20 Active Ozempic (0.25 or 0.5 MG/DOSE) 2 MG/3ML Solution Pen-injector (Semaglutide(0.25 or 0.5MG/DOS))Indicat ions:Type 2 diabetes mellitus with hemoglobin A1c goal of less than 7.0% ([facility]) INJECT 0.25 MG UNDER THE [...] (Prevnar) 03/16/2019 Pneumococcal Conjugate Vacci ne, 20-valent ([id number]) 01/21/2024,02/08/2023(Deferred: Patient Refused - Pt thinks he [...] Assessment Author No 07/20/2023 8:11 AM EDT Grzegorz Vargas RN * Are you blind or do you have serious difficulty seeing, even when wearing glasses? Answer Date of Assessment Author No 07/20/2023 8:11 AM EDT Grzegorz Vargas RN * Do you have serious [...] EDMelinda Pulliam RN documented in this encounter Miscellaneous Notes * Telephone Encounter - Jada Bishop PHARM Tech - 02/04/2024 1:48 PM EST MEDICATION THERAPY MANAGEMENT LENALIDOMIDE TREATMENT PROGRESS NOTE Hernan Rodriguez [id number] Patient Phone Numbers Communication: Spoke to: Patient Treatment: Medication: Lenalidomide (Revlimid) Indication/Staging/Diagnosis Code: multiple myeloma / C90.00 Dose: 10mg daily x 2 years Administration: +/- food Start Date: 12/06/23 Primary Stave Log Ripsaw Operator/Oncologist: Dr. Berrios Patient calling in today stating that he is experiencing a pimply rash all over his body after taking his Revlimid. After teams discussion with [facility], patient is comfortable continuing to take Claritin and will apply hydrocortisone cream to "pimples" in rash. He will wait for follow up with Provider on 02/08. If symptoms become unbearable Patient will report to ED for further evaluation. ENOC Sinha Director Of Sports Medicine Hematology Oncology Oral Chemotherapy Clinic Medication Therapy Disease Management [facility] 02/04/24,2:01 PM Time Spent on Encounter: 6 - 10 minutes documented in this encounter Plan of Treatment Upcoming Encounters Date Type Department Care Team (Late st Contact Info) Description 02/09/2024 9:30 AM EST Office Visit Hematology/Oncology [facility] [place] [address] [place] [address] Rae Berrios MD [address] [place] [address] 02/09/2024 10:00 AM EST Immunization/Injection Hematology/Oncology Treatment, [place] 200 [facility] [place] [phone] Kandice, Chair 7 Hem Onc [facility] 200 [facility] [place] [address] 02/17/2024 8:00 AM EST Office Visit General Surgery, [facility] [address] [place] [address] Chris Chong MD 132 [facility] [place] [address] 02/21/2024 7:40 AM EST Office Visit Family Practice, [facility] 226 [facility] [place] [phone] Patrick Zhao MD 226 [facility] [place] [address] 02/25/2024 9:00 AM EST Office Visit Pharmacy, [address] [place] [address] [place] [address] 02/28/2024 9:00 AM EST Office Visit Neurology [facility] Kandice [place] [address] [place] [address] Vicki Watson PA-C [address] [place] [address] 03/07/2024 8:00 AM EST Laboratory Laboratory, [facility] [address] [place] [address] [facility] [address] [place] [address] 03/07/2024 8:30 AM EST Telemedicine Psychology [facility], [place] [address] [place], [place] [phone] Quentin Gupta PsyD [address] [place], [place] [phone] 03/09/2024 10:00 AM EST Immunization/Injection Hematology/Oncology Treatment, [place] 200 [facility] [place] [address] Kandice, Chair [address] Hem On[address] [place], [place] [address] 03/10/2024 9:00 AM EST Pharmacy Pharmacy Hematology Oncology [facility], [place] [address] [place] [address] [facility], [facility] Hem/Onc [address] [place] [address] 03/22/2024 8:15 AM EST Pharmacy Pharmacy Hematology Oncology [facility], [place] [address] [place] [address] [facility], [facility] Hem/Onc [address] [place] [address] 03/22/2024 1:00 PM EST Immunization/Injection Hematology Oncology [facility], [address] [phone] Nurse, Med [address] [place], [place] [phone] 04/03/2024 9:00 AM EST Office Visit Nephrology, [facility] 200 [place] [address] Addison Salas MD 400 [place] [address] 09/05/2024 10:20 AM EDT Office Visit Dermatology, [address] [place] [address] Linda Mejia PA-C [address] [place] [address] [place] [address] Health Maintenance Due Date Last Done Comments [...] patient or by statute hierarchy) Care Teams Hospital Pharmacist Relationship Specialty Start Date End Date Patrick Zhao MD [address] [place] [address] PCP - General Family Medicine 05/10/16 documented as of this encounter
--- OUTSIDE RECORDS SUMMARY | 2024-05-18 07:23 | External Medical Summary ---
Author Name Unknown Address Unknown Organization K01:LABORATORY [facility] - [address] [facility] [place] [address] Laboratory Report Ordering Provider Test Date Status WU ADORNO 02/07/2024 07:57:34 Final Observation Date Value Abnormality Reference (Units ) Status BUN 02/07/2024 07:57:34 15 6-20 (mg/dL) Final Creatinine 02/07/2024 07:57:34 0.9 0.6-1.2 (mg/dL) Final Glomerular filtration rate/1.73 sq M.predicted [Volume Rate/Area] in Serum, Plasma or Blood by Creatinine-based formula (CKD-EPI) 02/07/2024 07:57:34 >90 >=60 (mL/min) Final eGFR is calculated based on the CKD-EPI 2020 equation. Sodium 02/07/2024 07:57:34 139 135-146 (m mol/L) Final Potassium 02/07/2024 07:57:34 4.4 3.5-5.1 (m mol/L) Final Cl 02/07/2024 07:57:34 106 98-107 (mm ol/L) Final CO2 02/07/2024 07:57:34 23 22-32 (mmo l/L) Final Anion gap 02/07/2024 07:57:34 10 7-15 (mmol /L) Final Glucose 02/07/2024 07:57:34 162 Above high normal 70 -120 (mg/dL) Final Albumin 02/07/2024 07:57:34 4.3 3.8-5.0 (g /dL) Final AST (Aspartate aminotransferase) 02/07/2024 07:57:34 18 10-50 (U/L) Fin al Alk Phos 02/07/2024 07:57:34 73 35-130 (U/ L) Final Bilirubin, Total 02/07/2024 07:57:34 0.3 <=1 .2 (mg/dL) Final Calcium 02/07/2024 07:57:34 8.8 8.4-10.2 ( mg/dL) Final Protein 02/07/2024 07:57:34 6.6 6.0-8.3 (g /dL) Final ALT (Alanine aminotransferase) 02/07/2024 07:57:34 30 10-50 (U/L) Blake pinto Performing Location LABORATORY [facility] - [address] [facility] [address]
--- OUTSIDE RECORDS SUMMARY | 2024-05-18 07:23 | External Medical Summary ---
Author Name Unknown Address Unknown Organization K01:LABORATORY [facility] - [address] [place] [address] Laboratory Report Ordering Provider Test Date Status WU ADORNO 02/07/2024 07:57:34 Final Observation Date Value Abnormality Reference (Units ) Status Magnesium 02/07/2024 07:57:34 2.2 1.5-2.6 (m g/dL) Final Performing Location LAB[facility]ATORY [facility] - [address] [place] [address]
--- OUTSIDE RECORDS SUMMARY | 2024-05-18 07:23 | External Medical Summary | Summary of Care ---
Author Name Unknown Organization [facility] Address [address] [place] [address] Phone [phone] Care Team Providers Care Management Tech Name Role Phone Kervin Zhao MD Primary Care Provider Reason for Visit * Reason Comments eRx-Medication Refill Encounter Details Date Type Department Care Team (Late st Contact Info) Description 01/29/2024 Refill Pharmacy, [place] [address] [place] [address] Kervin Zhao MD [address] [place] [address] Type 2 diabetes mellitus with hemoglobin A1c goal of less than 7.0% ([facility]) Allergies Active Allergy Reactions Criticality Noted Date Comments Celecoxib Medium 02/01/2017 Metformin Diarrhea 02/18/2023 Prochlorperazine 11/18/1998 Intol,compazine documented as of this encounter (statuses as of 01/31/2024) Medications OneTouch Delica Plus [id number] USE TO TEST BLOOD SUGAR 2 TIMES DAILY DX E11.9 200 Each 3 023 Active Famotidine 20 MG Oral Tablet (Pepcid)Indicatio ns:Gastroesophage al reflux disease, unspecified whether esophagitis present Take 1 Tablet by mouth daily. One daily 90 Tablet 3 024 Active Calcium Carb-Cholecalcife rol 600-20 MG-MCG Oral [...] 1 Tablet before bedtime. 270 Tablet 3 024 Active LORazepam 1 MG Oral Tablet (Ativan)Indicatio ns:Anxiety state,Insomnia, unspecified type Take one at bedtime . May take 1/2- 1 tab during day as needed 45 Tablet 1 024 Active Acyclovir 800 MG Oral Tablet [...] hemoglobin A1c goal of less than 7.0% ([facility]) USE TO TEST BLOOD SUGAR 2 TIMES DAILY DX E11.9 200 Strip 3 Active NovoFine Plus Pen Needle 32G X 4 MM (Insulin Pen Needle) Use to inject Ozempic once weekly 100 Each 3 024 Active Lenalidomide 10 MG Oral Capsule (Revlimid)Indicat ions:Multiple myeloma not having achieved remission (HCC) Take 1 Capsule by mouth in the morning. For 28 days of a 28 day cycle. Take medication same time every day and consistently with or without food.. Do not start before January 20, 2024. 28 Capsule 024 Active Zoster Vac Recomb Adjuvanted 50 [...] hemoglobin A1c goal of less than 7.0% ([facility]) INJECT 0.25 MG UNDER THE SKIN ONCE A WEEK. THEN INCREASE TO 0.5 MG IF TOLERATED. 9 mL 3 024 Active Ozempic (0.25 or 0.5 MG/DOSE) 2 MG/3ML Solution Pen-injector (Semaglutide(0.25 or 0.5MG/DOS))Indica tions:Type 2 diabetes mellitus with hemoglobin A1c goal of less than 7.0% (HCC) INJECT 0.25 MG UNDER THE SKIN ONCE A WEEK. THEN INCREASE TO 0.5 MG IF TOLERATED. 9 mL 3 023 2023 Discontinued documented as of this encounter (statuses as of 01/31/2024) Active Problems Patient Care Coordination No te [...] as of this encounter (statuses as of 01/31/2024) Resolved Problems Problem Noted Date Diagnosed Date [...] as of this encounter (statuses as of 01/31/2024) Immunizations Name Administration Dates Next Due COVID-19 mRNA, LNP-s, No Pre serve, 2-Dose Series (Moderna) 07/23/2020,06/18/2020 COVID-19 mRNA, LNP-s, No Pre serve, 2-Dose Series (Pfizer) 03/03/2021 HEPATITIS B VACCINE, RECOMB, 20 MCG/ML, ADULT (HEPLISAV-B) 01/21/2024 HIB Booster (Hiberix) 01/21/2024 Pneumococcal Conjugate Vacc, 13 Valent (Prevnar) 03/16/2019 Pneumococcal Conjugate Vacci ne, 20-valent ([id number]) 01/21/2024,02/08/2023(Deferred: Patient Refused - Pt thinks he [...] encounter Miscellaneous Notes * Telephone Encounter - Wiliam English RPh - 01/31/2024 7:56 AM ESTSigned Prescriptions: Disp Refills Ozempic (0.25 or 0.5 MG/DOSE) 2 MG/3ML Kristine*9 mL 3 Sig: INJECT 0.25 MG UNDER THE SKIN ONCE A WEEK. THEN INCREASE TO 0.5 MG IF TOLERATED.Authorizing Provider: KERVIN ZHAO User: WILIAM ENGLISH documented in this encounter Plan of Treatment Upcoming Encounters Date Type Department Care Team (Late st Contact Info) Description 02/02/2024 10:00 AM EST Office Visit General Surgery, [facility] [address] [place] [address] Chris Chong MD [address] [place] [address] 02/07/2024 8:00 AM EST Laboratory Laboratory, [facility] [address] [facility] [phone] [facility] [address] [place] [facility] [place] [address] 02/09/2024 9:30 AM EST Office Visit Hematology/Oncology [facility] [place] [address] [facility] [place] [phone] Rae Berrios MD [address] [facility] [place] [address] 02/09/2024 10:00 AM EST Immunization/Injection Hematology/Oncology Treatment, [place] [address] [facility] [address] [place], [place] [phone] Kandice, Chair 7 Hem Onc [facility] [address] [facility] [place] [address] 02/21/2024 7:40 AM EST Office Visit Family Practice, [facility] [address] [facility] [place] [phone] Kervin Zhao MD [address] [place] [facility] [place] [address] 02/25/2024 9:00 AM EST Office Visit Pharmacy, [address] [place] [address] [place] [address] 02/28/2024 9:00 AM EST Office Visit Neurology [facility] [place] [address] [place], [place] [address] Vicki Watson PA-C [address] [place], [place] [address] 03/07/2024 8:30 AM EST Telemedicine Psychology [place] [address] [place] [address] Quentin Gupta [place] [facility] [place] [address] 03/10/2024 9:00 AM EST Pharmacy Pharmacy Hematology Oncology [place] [address] [place] [address] [facility] Hem[facility]Onc [address] [place] [address] 03/22/2024 8:15 AM EST Pharmacy Pharmacy Hematology Oncology [place] [address] [place] [address] [facility] Hem/[place] [facility] [place] [address] 03/22/2024 1:00 PM EST Immunization/Injection Hematology Oncology [facility] [address] [place] [address] Nurse, Med [address] [place] [address] 04/03/2024 9:00 AM EST Office Visit Nephrology, [facility] [address] [place], [place] [address] Addison [facility]as MD [address] [facility] [place] [address] 09/05/2024 10:20 AM EDT Office Visit Dermatology, [address] [place] [phone] Linda Mejia PA-C [address] [place] [address] [place] [address] Health Maintenance Due Date Last Done Comments [...] hemoglobin A1c goal of less than 7.0% ([facility]) documented in this encounter Advance Directives * [...] patient or by statute hierarchy) Care Teams Management Tech Relationship Specialty Start Date End Date Kervin Zhao MD [address] [place] [address] PCP - General Family Medicine 05/10/16 documented as of this encounter
--- OUTSIDE RECORDS SUMMARY | 2024-05-18 07:23 | External Medical Summary ---
Author Name Unknown Address Unknown Organization K01:[facility] [address] [place] [address] Laboratory Report Ordering Provider Test Date Status WU ADORNO 02/07/2024 07:57:34 Final Observation Date Value Abnormality Reference (Units ) Status Phosphate 02/07/2024 07:57:34 2.7 2.5-4.8 (m g/dL) Final Performing Location [facility] [address] [place] [address]
--- OUTSIDE RECORDS SUMMARY | 2024-05-18 07:23 | External Medical Summary | Summary of Care ---
Author Name Unknown Organization [facility] Address [address] [place] [address] Phone [phone] Care Team Providers Care Tube Winder Hand Name Role Phone Patrick Zhao MD Primary Care Provider [phone] Encounter Details Date Type Department Care Team (Latest Contact Info) Description 01/18/2024 8:08 AM EST - 01/18/2024 11:59 PM EST Hospital Encounter Radiology Film File [address], [place] [id number] Arrived Discharge Disposition: Home - Self Care Allergies Active Allergy Reactions Criticality Noted Date Comments Celecoxib Medium 02/01/2017 Metformin Diarrhea 02/18/2023 Prochlorperazine 11/18/1998 Intol,compazine documented as of this encounter (statuses as of 01/19/2024) Medications OneTouch Delica Plus [id number] USE TO TEST BLOOD SUGAR 2 TIMES DAILY DX E11.9 200 Each 3 12/05/19 23 Active Ozempic (0.25 or 0.5 MG/DOSE) 2 MG/3ML Solution Pen-injector (Semaglutide(0.25 or 0.5MG/DOS))Indicat ions:Type 2 diabetes mellitus with hemoglobin A1c goal of less than 7.0% ([facility]) INJECT 0.25 MG UNDER THE SKIN ONCE A WEEK. THEN INCREASE TO 0.5 MG IF TOLERATED. 9 mL 3 03/07/20 23 Active Famotidine 20 MG Oral Tablet [...] 1 Tablet before bedtime. 270 Tablet 3 11/23/19 24 Active LORazepam 1 MG Oral [...] day and consistently with or without food.. 28 Capsule 11/23/19 24 024 Discontin ued(Refil l) Lenalidomide 10 MG Oral Capsule (Revlimid)Indicati ons:Multiple myeloma not having achieved remission (HCC) Take 1 Capsule by mouth in the morning. For 28 days of a 28 day cycle. Take medication same time every day and consistently with or without food.. 28 Capsule 12/23/19 24 024 Discontin ued(Refil l) documented as of this encounter (statuses as of 01/19/2024) Active Problems Patient Care Coordination No te [...] as of this encounter (statuses as of 01/19/2024) Resolved Problems Problem Noted Date Diagnosed Date [...] as of this encounter (statuses as of 01/19/2024) Immunizations Name Administration Dates Next Due COVID-19 mRNA, LNP-s, No Pre serve, 2-Dose Series (Moderna) 07/23/2020,06/18/2020 COVID-19 mRNA, LNP-s, No Pre serve, 2-Dose Series (Crossborders) 03/03/2021 Pneumococcal Conjugate Vacc, 13 Valent (Prevnar) 03/16/2019 Pneumococcal Conjugate Vacci ne, 20-valent ([id number]) 02/08/2023(Deferred: Patient Refused - Pt thinks he already [...] and older)(Boostrix) 12/06/2014 Zoster Vaccine Recombinant (Shingrix) 08/09/2019 ,04/20/2019 documented as of this encounter Social History [...] Care Team (Late st Contact Info) Description 01/21/2024 12:00 PM EST Therapy Psychology [facility] [address] [place] [address] Quentin Gupta Ps [address] [place] [address] 01/21/2024 1:30 PM EST Immunization/Injecti on Hematology Oncology [place] [address] [place] [address] Nurse, [facility] [address] [place] [address] 02/02/2024 10:00 AM EST Office Visit General Surgery, [facility] [address] [facility] [place] [address] Chris Chong MD [address] [facility] [place] [address] 02/07/2024 8:00 AM EST Laboratory Laboratory, [facility] [address] [place] [address] [address] 02/09/2024 9:30 AM EST Office Visit Hematology/Oncology [facility] Kandice [place] [address] [place] [phone] Rae Berrios MD [address] [place] [address] 02/09/2024 10:00 AM EST Immunization/Injecti on Hematology/Oncology Treatment, [place] [address] [place] [phone] Kandice, Chair 7 Hem Onc [place] [address] [facility] [place] [address] 02/21/2024 7:40 AM EST Office Visit [address] [address] Patrick Zhao MD [address] [place] [address] 02/25/2024 9:00 AM EST Office Visit Pharmacy, [address] [place] [address] [place] [address] 02/28/2024 9:00 AM EST Office Visit Neurology [facility] [place] [address] [facility] [place] [address] Vicki Watson PA-C [address] [place] [address] 03/10/2024 9:00 AM EST Pharmacy Pharmacy Hematology Oncology [address] [address] [facility] Hem/[place]c [place] [address] 03/22/2024 8:15 AM EST Pharmacy Pharmacy Hematology Oncology [place] [address] [place] [address] [facility] [place] Hem/Onc [address] [place] [address] 04/03/2024 9:00 AM EST Office Visit Nephrology, [facility] [address] [place] [address] Addison Salas MD [address] [facility] [place] [phone] 09/05/2024 10:20 AM EDT Office Visit [address]ermatology, [address] [phone] Linda Mejia PA-C [address] [place] [address] [place] [address] Health Maintenance Due Date Last Done Comments Cologuard 2001 Fecal Occult Blood Test 2001 Sigmoidoscopy 2001 Pneumococcal Vaccine: 65+ Years (3 of 3 - PPSV23 or PCV20) 07/09/2021 03/16/2019, 07/09/2016 Adult Wellness Visit 2022 COVID-19 Vaccine ( season) 2023 03/03/2021, 07/23/2020, 06/18/2020 Albumin/Creatinine Ratio 01/20/2024 023, 01/05/2022, 02/02/2018 HbA1c 04/26/2024 10/25/2023, 05/06, 01/15/2023, Additional history [...] 10/24/2028 10/25/2023, 01/06, 01/05/2022, Additional history exists Zoster Vaccines Completed 08/09/2019, 04/20/2019 HPV (Gardasil) Vaccine Aged Out No lo nger eligible based on patient's age to complete this topic Hepatitis B Vaccine Aged Out No longe r eligible based on patient's age to complete this topic MENINGOCOCCAL (MENACTRA/MENVEO) Aged Out No longer eligible based on patient's age to complete this topic documented as of this encounter Medical Devices Not on filedocumented as of this encounter Procedures Procedure Name Priority Date/Time Associated Diagnosis Comments DERM EXAM - DERM (IMAGES ONLY, NO REPORT) Routine 01/18/2024 8:08 AM EST EIC (epidermal inclusion cyst) H/O psoriasis documented in this encounter Results * DERM EXAM - DERM (IMAGES ONLY, NO REPORT) (01/18/2024 8:08 AM EST) Narrative Scheduling, Silent - 01/18/2024 8:08 AM EST This is an imaging study not interpreted or resulted by a [facility] or [facility] contracted radiologist. Linda Mejia PA-C RADIOLOGY ([facility] ) Final Result documented in this encounter Advance Directives * [...] patient or by statute hierarchy) Care Teams Tube Winder Hand Relationship Specialty Start Date End Date Patrick Zhao MD [address] [facility] [place] [address] PCP - General Family Medicine 05/10/16 documented as of this encounter
--- OUTSIDE RECORDS SUMMARY | 2024-05-18 07:23 | External Medical Summary | Summary of Care ---
Author Name Unknown Organization [facility] Address [address] [facility] [place] [address] Phone [phone] Care Team Providers Care Concrete Pavement Installer Name Role Phone Patrick Zhao MD Primary Care Provider [phone] Reason for Visit * Reason Comments NEW PATIENT Epidermal inclusion cyst on back of neck for couple of years. * Evaluate & Treat - Unlimited Visits (Within 30 days (routine)) - Authorized Specialty Diagnoses / Procedures Referred By Fernando tarango Referred To Contact General Surgery Diagnoses EIC (epidermal inclusion cyst) Linda Mejia PA-C [address] [place] [address] [place] [address] Phone: tel: fax: Referral ID Status Reason Start Date Expiration Date Visits Requested Visits Authorized [id number] Authorized Specialty Services Required [phone] Encounter Details Date Type Department Care Team (Late st Contact Info) Description 02/02/2024 10:00 AM EST Office Visit General Surgery, [facility] [address] [address] Chris Chong MD [address] [address] Pilar cyst* Allergies Active Allergy Reactions Criticality Noted Date Comments Celecoxib Medium 02/01/2017 Metformin Diarrhea 02/18/2023 Prochlorperazine 11/18/1998 Intol,compazine documented as of this encounter (statuses as of 02/02/2024) Medications IshmaelTopam Elaine Plus [id number] USE TO TEST BLOOD SUGAR 2 TIMES [...] Additional Information Patient not taking.Reported on 01/18/2024 [employer] In Vitro Strip (Glucose Blood)Indications: Type 2 diabetes mellitus with hemoglobin A1c goal of less than 7.0% ([facility]) USE TO TEST BLOOD SUGAR 2 TIMES [...] hemoglobin A1c goal of less than 7.0% ([facility]) INJECT 0.25 MG UNDER THE SKIN ONCE A WEEK. THEN INCREASE TO 0.5 MG IF TOLERATED. 9 mL 3 01/31/20 Active documented as of this encounter (statuses as of 02/02/2024) Active Problems Patient Care Coordination No te [...] as of this encounter (statuses as of 02/02/2024) Resolved Problems Problem Noted Date Diagnosed Date [...] as of this encounter (statuses as of 02/02/2024) Immunizations Name Administration Dates Next Due COVID-19 mRNA, LNP-s, No Pre serve, 2-Dose Series (Moderna) 07/23/2020,06/18/2020 COVID-19 mRNA, LNP-s, No Pre serve, 2-Dose Series (Pfizer) 03/03/2021 HEPATITIS B VACCINE, RECOMB, 20 MCG/ML, ADULT (HEPLISAV-B) 01/21/2024 HIB Booster (Hiberix) 01/21/2024 Pneumococcal Conjugate Vacc, 13 Valent (Prevnar) 03/16/2019 Pneumococcal Conjugate Vacci ne, 20-valent ([id number]) 01/21/2024,02/08/2023(Deferred: Patient Refused - Pt thinks he [...] Sign Reading Time Taken Comments Blood Pressure 160/74 02/02/2024 9:21 AM EST Pulse 57 02/02/2024 9:21 AM EST Temperature - - Respiratory Rate - - Oxygen Saturation - - Inhaled Oxygen Concentration - - Weight 92.1 kg (203 lb) 02/02/2024 9:21 AM EST Height - - Body Mass Index 28.31 11/19/2023 9:46 AM EDT documented in this [...] documented in this encounter Progress Notes * Chris Chong MD - 02/02/2024 9:23 AM EST [facility] [address] [facility] [place] [address] [facility] Chief Complaint: Pt. c/o neck cyst HPI: Patient is seen in request of Linda Mejia PA-C. Hernan Rodriguez is a 68 year old male who presents with neck cyst, 1.5 cm. It has not been infected previously. Past Surgical History: Procedure Laterality Date ARTHROPLASTY KNEE TOTAL Right COLONOSCOPY, DIAGNOSTIC (RECTUM) 03/11/2018 COLONOSCOPY FLEXIBLE PROXIMAL DIAGNOSTIC performed by Nicole Olvera DO at ENDOSCOPY [facility] HEAD SURGERY PROCEDURE NEC Cluster headache nerve/blood vessel seperation INSERTION OF LENS PROSTHESIS Bilateral IR BIOPSY 02/08/2023 IR BIOPSY 06/28/2023 IR BIOPSY 10/25/2023 IR VENOUS ACCESS NON-MEDIPORT 07/12/2023 IR VENOUS ACCESS NON-MEDIPORT 08/09/2023 KNEE ARTHROSCOPY/SURGERY Right OTHER right knee surgery OTHER surgery for cluster headaches REMOVAL OF APPENDIX Past Medical History: Diagnosis Date Depression Diverticulitis of small intestine HTN (hypertension) Migraine without aura Current Outpatient Medications Medication Sig Dispense Refill OneTouch Delica Plus [id number] USE TO TEST BLOOD SUGAR 2 TIMES [...] No current facility-administered medications for this visit. History Social History Socioeconomic History Marital status: Tobacco Use Smoking status: Never Smokeless tobacco: Former Types: Snuff Vaping Use Vaping status: Never Used Substance and Sexual Activity Alcohol use: Not Currently Drug use: No Other Topics Concern Caffeine Concern Yes Comment: 1-2 cups Social Needs Financial Resource Strain: Low Risk (09/13/2023) Financial Resource Strain Do you have any trouble paying for your medications, or do you think you might in the future? (Adult - for ages 18 years and over): No Food Insecurity: No Food Insecurity (09/13/2023) Food Insecurity Do you need food for this week? (Adult - for ages 18 years and over): No Transportation Needs: No Transportation Needs (09/13/2023) Transportation Needs Do you have trouble getting a ride to medical visits or work? (Adult - for ages 18 years and over):Never True Has lack of transportation kept you from medical appointments, meetings, work, or from getting things needed for daily living? Check all that apply. (Adult - for ages 18 years and over): No Social Connections: Socially Integrated (09/13/2023) Social Connections How often do you feel lonely or isolated from those around you? (Adult - for ages 18 years and over): Sometimes Housing Stability: Low Risk (09/13/2023) Housing Stability Do you currently live in a penitentiary or have no steady place to sleep at night? (Adult - for ages 18 years and over): No Do you think you are at risk of becoming homeless? (Adult - for ages 18 years and over): No Are you homeless or worried that you might be in the future? (Adult - for ages 18 years and over): No Review of patient's allergies indicates: Review of patient's allergies indicates: Allergen Reactions Celecoxib Metformin Diarrhea Prochlorperazine Intol,compazine Patient Information Form Reviewed and Scanned. ROS EXAM: CONSTITUTIONAL: No change in weight, No weakness, and No fatigue NECK: No lumps or masses, No swollen glands, No recent swelling in thyroid area, No significant pain in neck, and No h/o goiter or thyroid disease PULMONARY: No cough, sputum, or hemoptysis, No wheezing, No rales, No shortness of breath, and No recent change in breathing CARDIOVASCULAR: No chest pain, No shortness of breath, No dyspnea on exertion, No orthopnea, No paroxysmal nocturnal dyspnea, No edema, No palpitations, and No syncope GASTROINTESTINAL: No abdominal pain, No change in bowel habits, No significant heartburn, No significant change in appetite, No nausea, vomiting, diarrhea, or constipation, No hematemesis, No blood in stools or black tarry stools, No abdominal bloating or early satiety, and No dysphagia HEMATOLOGIC: No coagulation disorder, No anemia, No abnormal bleeding, No chills, No bruising, No HIV risk factors, No night sweats, No swollen nodes, No weight loss, and No history of transfusion EXTREMITIES: No pain, redness or swelling on the joints SKIN/INTEGUMENTARY: No edema, No rash, and No itching NEUROLOGIC: Normal balance, No headaches, No seizures, and No weakness Physical Exam: BP 160/74 | Pulse 57 | Wt 92.1 kg (203 lb) | BMI 28.31 kg/m | BSA 2.15 m Constitutional: alert,healthy,well nourished Head: normocephalic,atraumatic Eyes: conjunctiva non-injected,sclera white,EOMI Ears: pinna normal shape and color Nose: no mucosal erythema,no mucosal edema,no purulent discharge Mouth: no exudate,no erythema,lips, mucosa, and tongue normal Neck: supple, neck cyst, 1.5 cm Lungs: clear to auscultation,breath sounds are equal and symmetric,no crepitus Heart: regular rate & rhythm,no murmur, gallops or rubs Abdomen: soft, non-tenderBack: normal curvature,normal ROM,no CVA tenderness Extremities: no joint deformities, effusion, or inflammation,no edema,no skin discoloration Neuro: alert,gait normal,motor normal Skin: no obvious rashes or significant lesions,warm and dry with good turgor IMPRESSION: Neck cyst PLAN: Will plan excision in office in near future Chris Chong MD 02/02/2024 9:32 AM documented in this encounter Nursing Notes * Genevieve Vega MED ASSIST - 02/02/2024 9:22 AM EST Chief Complaint Patient presents with NEW PATIENT Epidermal inclusion cyst on back of neck for couple of years. Verified patient. documented in this encounter Plan of Treatment Upcoming Encounters Date Type Department Care Team (Late st Contact Info) Description 02/07/2024 8:00 AM EST Laboratory Laboratory, [facility] [address] [place] [phone] [place], [facility] [address] [place] [address] 02/09/2024 9:30 AM EST Office Visit Hematology/Oncology [place] [facility] [place] [facility] [place] [phone] Rae Berrios MD 200 [facility] [place] [address] 02/09/2024 10:00 AM EST Immunization/Injection Hematology/Oncology Treatment, [place] [address] [place] [phone] Kandice, Chair [address] [place] [address] 02/17/2024 8:00 AM EST Office Visit General Surgery, [facility] [address] [place] [address] Chris Chong MD [address] [place] [address] 02/21/2024 7:40 AM EST Office Visit [facility] [address] [place] [address] Patrick Zhao MD [address] [place] [address] 02/25/2024 9:00 AM EST Office Visit Pharmacy, [address] [place] [address] [place] [address] 02/28/2024 9:00 AM EST Office Visit Neurology [facility] 200 [facility] [place] [address] Vicki Watson PA-C [address] [facility] [place] [address] 03/07/2024 8:30 AM EST Telemedicine Psychology [address] [address] Quentin Gupta PsyD [facility] [place] [address] 03/10/2024 9:00 AM EST Pharmacy Pharmacy Hematology Oncology [address] [address] [facility], [facility] Hem/Onc [address] [place] [address] 03/22/2024 8:15 AM EST Pharmacy Pharmacy Hematology Oncology [facility] [address] [place] [address] [facility], [facility] Hem/Onc [address] [place] [address] 03/22/2024 1:00 PM EST Immunization/Injection Hematology Oncology [facility] [address] [place] [address] Nurse, Med [address] [place] [address] 04/03/2024 9:00 AM EST Office Visit Nephrology, [facility] [address] [place] [address] Addison Salas MD [address] [place], [place] [phone] 09/05/2024 10:20 AM EDT Office Visit Dermatology, [facility] [address] [place] [address] Linda Mejia PA-C [address] [place] [address] [place] [phone] Scheduled Referrals Name Type Priority Associated Diagnoses Orde r Schedule SURGERY REFERRAL OP Referral Within 30 da ys (routine) EIC (epidermal inclusion cyst) Ordered: 01/18/2024 Health Maintenance Due Date Last Done Comments [...] as of this encounter Visit Diagnoses Diagnosis Pilar cyst- Primary documented in this encounter Advance Directives * Full Code (Latest Code Status on File) Date Activated Date Inactivated Comments 07/20/2023 8:15 AM 08/05/2023 5:03 PM This order r eflects the patients wishes and were consensually agreed upon. Question Answer Comments Discussion of Advance Directives occurred with: Patient Healthcare Agents on File Name Relationship Healthcare Agent [facility] Dori Hoover Adult Child Health Care Repr esentative (appointed verbally by patient or by statute hierarchy) Care Teams Concrete Pavement Installer Relationship Specialty Start Date End Date Patrick Zhao MD [address] [facility] [phone] PCP - General Family Medicine 05/10/16 documented as of this encounter"
--- OUTSIDE RECORDS SUMMARY | 2024-05-18 07:23 | External Medical Summary | Summary of Care ---
Author Name Unknown Organization [facility] Address [address] [place] [address] Phone [phone] Care Team Providers Care Channel Program Manager Name Role Phone Patrick hZao MD Primary Care Provider [phone] Encounter Details Date Type Department Care Team (Late st Contact Info) Description 01/21/2024 12:00 PM EST Therapy Psychology [facility] [address] [place] [address] Quentin Gupta PsyD [address] [place] [address] Adjustment disorder with anxious mood* Allergies Active Allergy Reactions Criticality Noted Date Comments Celecoxib Medium 02/01/2017 Metformin Diarrhea 02/18/2023 Prochlorperazine 11/18/1998 Intol,compazine documented as of this encounter (statuses as of 01/21/2024) Medications OneTouch Delica Plus [id number] USE TO TEST BLOOD SUGAR 2 TIMES DAILY DX E11.9 200 Each 3 12/05/19 23 Active Ozempic (0.25 or 0.5 MG/DOSE) 2 MG/3ML Solution Pen-injector (Semaglutide(0.25 or 0.5MG/DOS))Indicat ions:Type 2 diabetes mellitus with hemoglobin A1c goal of less than 7.0% ([facility]) INJECT 0.25 MG UNDER THE SKIN ONCE [...] goal of less than 7.0% ([facility]) USE TO TEST BLOOD SUGAR 2 TIMES [...] January 20, 2024. 28 Capsule 01/20/20 Active documented as of this encounter (statuses as of 01/21/2024) Active Problems Patient Care Coordination No te [...] as of this encounter (statuses as of 01/21/2024) Resolved Problems Problem Noted Date Diagnosed Date [...] as of this encounter (statuses as of 01/21/2024) Immunizations Name Administration Dates Next Due COVID-19 mRNA, LNP-s, No Pre serve, 2-Dose Series (Moderna) 07/23/2020,06/18/2020 COVID-19 mRNA, LNP-s, No Pre serve, 2-Dose Series (Pfizer) 03/03/2021 HEPATITIS B VACCINE, RECOMB, 20 MCG/ML, ADULT (HEPLISAV-B) 01/21/2024 HIB Booster (Hiberix) 01/21/2024 Pneumococcal Conjugate Vacc, 13 Valent (Prevnar) 03/16/2019 Pneumococcal Conjugate Vacci ne, 20-valent ([id number]) 01/21/2024,02/08/2023(Deferred: Patient Refused - Pt thinks he [...] Progress Notes * Quentin Gupta PsyD - 01/21/2024 12:00 PM EST BEHAVIORAL MEDICINE PROGRESS NOTE [facility] Psychology [place] [address] 01/21/2024 Patient location: CLINIC. After connecting, patient was verified with two unique identifiers. Patient (or authorized legal sales representative leather goods) was then informed that the exam was being conducted confidentially. My office door wasclosed. Patient acknowledged consent and understanding of privacy and security of this visit. I informed the patient that I have reviewed their record in [facility] and presented the opportunity for them to ask any questions regarding the visit today. The patient agreed to participate. Provider reviewed elements of Outpatient Services Description including limits of confidentiality, how to contact the department, risks and benefits of treatment and consent for treatment. Patient was last seen by me on: 01/21/2024 12/30/2023 Start Time: 11:40 AM Stop Time: 12:20 PM Total Time: 40 mins Type of Visit: Individual Visit Diagnosis: ICD-10-CM 1. Adjustment disorder with anxious mood F43.22 Cancer Diagnosis: multiple myeloma SUMMARY AND PLAN Hernan Rodriguez is a 67 year old male who was diagnosed with Multiple Myeloma in 02/2023. Per patient report, he has tolerated treatment w/ limited difficulty, with side effects including fatigue and nausea. Patient met with this underwriter for a psychosocial assessment for readiness for [...] continued adherence and follow up w/ oncology. Return: 6 weeks Action Plan: psychotherapeutic support, [...] on file Tobacco Use Smoking status: Never Smokeless tobacco: [...] Stability Do you currently live in a jail or have no steady place to sleep [...] Medication Sig Dispense Refill OneTouch Delica Plus [id number] USE TO TEST BLOOD SUGAR 2 TIMES DAILY DX E11.9 200 Each 3 Ozempic (0.25 or 0.5 MG/DOSE) 2 [...] before January 20, 2024. 28 Capsule 0 Haemophilus B Polysac Conj Vac 10 MCG [...] Route Frequency Provider Last Rate Last Admin Pneumococcal 20-Mildred Conj Vacc (Prevnar 20) inj 0.5 mL 0.5 mL Intramuscular Once Nick Moore MD hepatitis B vac Recomb Adj (Heplisav-B) intramuscular 20 mcg 0.5 mL Intramuscular Once Nick Moore MD MED CHANGES/SIDE EFFECTS - MENTAL STATUS AND BEHAVIORAL OBSERVATIONS: Appearance: within [...] Insight/Judgment: good SYMPTOMS Overall Status - Stable and Improving Anxiety - Feels less anxious No questionnaires available. Outpatient Adult Therapy Treatment Plan Treatment plan was developed on 09/20/2023, treatment will continue to focus on goals below; Treatment update will occur when clinically indicated or by 03/18/2024. Patient's goals captured in patient's words: "feel [...] Suicide and Crisis Lifeline - 988 and [employer] access to crisis numbers Patient/ Family Received Copy of Treatment Plan Duration of Treatment Frequency of Treatment Yes, sent via [employer] 5-7 sessions every other week Patient Identified Needs/Goals Interventions Objective/ Discharge Criteria Problem/Need 1: Adjustment to Stressor: Illness and Anxiety Cognitive Behavioral Therapy (CBT), which includes psychoeducation, cognitive restructuring, relaxation/diaphragmatic breathing, problem-solving, and behavioral activation and Motivational interviewing PHQ<5 and GALDINO<5 Treatment/Behavioral/Cognitive Goals: 1) Psychoeducation 2) Cognitive Behavioral Therapy and cognitive restructuring 3) Adaptive coping and pacing w/in SCT guidelines RISK ASSESSMENT: [place]-SUICIDE SEVERITY RATING SCALE Frequent Screener [place] Suicide Severity Rating Scale Results 09/14/2023 13:17 [...] provided with emergency phone numbers- TAPLINE and [facility] [place] [phone]. Encouraged to proceed to the nearest ER 24hrs/7days if symptoms worsen or patient feels out of control with plan or intent to act on thoughts. Agrees to call back to the clinic with any additional concerns or difficulties. Quentin Gupta PsyD Psychology [address] [address] 01/21/2024 documented in this encounter Plan of Treatment Upcoming Encounters Date Type Department Care Team (Latest Contact Info) Description 01/21/2024 1:30 PM EST Immunization/Injecti on Hematology Oncology [address] [address] Nurse, [address] [phone] History of autologous stem cell transplant (HCC)*; Multiple myeloma not having achieved remission (HCC) 02/02/2024 10:00 AM EST Office Visit General Surgery, [facility] [address] [place] [address] Chris Chong MD [address] [place] [address] 02/07/2024 8:00 AM EST Laboratory Laboratory, [address] [address] [facility] [address] [place] [address] 02/09/2024 9:30 AM EST Office Visit Hematology/Oncolog y [facility] [place] [address] [place] [phone] Rae Berrios MD [address] [place] [address] 02/09/2024 10:00 AM EST Immunization/Injecti on Hematology/Oncolog y Treatment, [place] [address] [place] [address] Kandice, Chair 7 Hem Onc [facility] 200 [facility] [place] [address] 02/21/2024 7:40 AM EST Office Visit Family [facility], [address] [address] Patrick Zhao MD [address] [place] [address] 02/25/2024 9:00 AM EST Office Visit Pharmacy, [address] [place] [address] [place] [address] 02/28/2024 9:00 AM EST Office Visit Neurology [facility] Kandice [place] [address] [place] [address] Vicki Watson PA-C [address] [place] [address] 03/07/2024 8:30 AM EST Telemedicine Psychology [place] [address] [place] [address] Quentin Gupta [place] [address] [place] [address] 03/10/2024 9:00 AM EST Pharmacy Pharmacy Hematology Oncology [place] [address] [place] [address] [facility] Hem/Onc [facility] [place] [address] 03/22/2024 8:15 AM EST Pharmacy Pharmacy Hematology Oncology [place] [address] [facility] [place] [address] [facility] Hem/Onc [facility] [place] [address] 04/03/2024 9:00 AM EST Office Visit Nephrology, [address], [place] [address] Addison Salas MD [address] [place], [place] [address] [address] 09/05/2024 10:20 AM EDT Office Visit Dermatology[address] [address] Linda Mejia PA-C [address] [place] [address] [place] [address] Health Maintenance Due Date Last Done Comments [...] myeloma, without mention of having achieved remission Adjustment disorder with anxious mood- Primary Adjustment [...] patient or by statute hierarchy) Care Teams Channel Program Manager Relationship Specialty Start Date End Date Patrick Zhao MD [address] [place] [address] PCP - General Family Medicine 05/10/16 documented as of this encounter
--- OUTSIDE RECORDS SUMMARY | 2024-05-18 07:23 | External Medical Summary | Summary of Care ---
Author Name Unknown Organization [facility] Address [address] [place] [address] Phone [phone] Care Team Providers Care Panman Name Role Phone Patrick Zhao MD Primary Care Provider [phone] Encounter Details Date Type Department Care Team (Late st Contact Info) Description 01/17/2024 Telephone Hematology/Oncology, [facility] [address] [place] [address] Rae Berrios MD [address] [place] [address] Allergies Active Allergy Reactions Criticality Noted Date Comments Celecoxib Medium 02/01/2017 Metformin Diarrhea 02/18/2023 Prochlorperazine 11/18/1998 Intol,compazine documented as of this encounter (statuses as of 01/25/2024) Medications OneTouch Delica Plus [id number] USE TO TEST BLOOD SUGAR 2 TIMES [...] 7.0% ([facility]) USE TO TEST BLOOD SUGAR 2 TIMES [...] as of this encounter (statuses as of 01/25/2024) Active Problems Patient Care Coordination No te [...] as of this encounter (statuses as of 01/25/2024) Resolved Problems Problem Noted Date Diagnosed Date [...] as of this encounter (statuses as of 01/25/2024) Immunizations Name Administration Dates Next Due COVID-19 mRNA, LNP-s, No Pre serve, 2-Dose Series (Moderna) 07/23/2020,06/18/2020 COVID-19 mRNA, LNP-s, No Pre serve, 2-Dose Series (Pfizer) 03/03/2021 Pneumococcal Conjugate Vacc, 13 Valent (Prevnar) 03/16/2019 Pneumococcal Conjugate Vacci ne, 20-valent ([id number]) 02/08/2023(Deferred: Patient Refused - Pt thinks he [...] No 09/13/2023 Does the household have a munson medical centerr source of income? (Household - for ages [...] 10:00 AM EST Office Visit General Surgery, [facility] [address] [place] [address] Chris Chong MD [address] [place] [address] 02/07/2024 8:00 AM EST Laboratory Laboratory, [facility] [address] [address] [address] 02/09/2024 9:30 AM EST Office Visit Hematology/Oncology [facility] [address] [facility] [place] [phone] Rae Berrios MD 200 [facility] [place] [address] 02/09/2024 10:00 AM EST Immunization/Injection Hematology/Oncology Treatment, [place] 200 [facility] [place] [address] Kandice, Chair 7 Hem Onc [address] [place] [address] 02/21/2024 7:40 AM EST Office [facility] [address] [place] [address] Patrick Zhao MD [address] [place] [address] 02/25/2024 9:00 AM EST Office Visit Pharmacy, [address] [place] [address] [place] [address] 02/28/2024 9:00 AM EST Office Visit Neurology [facility] 200 [facility] [place] [address] Vicki [place] PA-C [address] [place] [address] 03/07/2024 8:30 AM EST Telemedicine Psychology [address] [address] Quentin Gupta PsyD [address] [place] [address] 03/10/2024 9:00 AM EST Pharmacy Pharmacy Hematology Oncology [place] [address] [place] [address] [facility] Hem/Onc [address] [place] [address] 03/22/2024 8:15 AM EST Pharmacy Pharmacy Hematology Oncology [place] [address] [place] [address] [facility], [facility] Hem/Onc [address] [place] [address] 03/22/2024 1:00 PM EST Immunization/Injection Hematology Oncology [place] [address] [place], [place] [phone] Nurse, Med [address] [place] [address] 04/03/2024 9:00 AM EST Office Visit Nephrology, [facility] 200 [place] [address] Addison Salas MD [address] [place] [address] 09/05/2024 10:20 AM EDT Office Visit Dermatology, [place] [address] [address] [facility], [place] [phone] Linda Mejia PA-C [address] [place] [address] Dr [place], [place] [address] Health Maintenance Due Date Last Done [...] patient or by statute hierarchy) Care Teams Panman Relationship Specialty Start Date End Date Patrick Zhao MD [address] [place] [address] PCP - General Family Medicine 05/10/16 documented as of this encounter
--- OUTSIDE RECORDS SUMMARY | 2024-05-18 07:23 | External Medical Summary | Summary of Care ---
Author Name Unknown Organization [facility] Address [address] [facility] [place] [address] Phone [phone] Care Team Providers Care Film Editor Name Role Phone Patrick Zhao MD Primary Care Provider [phone] Reason for Visit * Reason Onset Date Comments Medication Refill 01/19/2024 Medication Update 01/19/2024 Encounter Details Date Type Department Care Team (Late st Contact Info) Description 01/19/2024 Telephone Hematology/Oncology [facility] [place] [address] [place] [phone] Rae Berrios MD 200 [facility] [place] [address] Medication Refill; Medication Update Allergies Active Allergy Reactions Criticality Noted Date Comments Celecoxib Medium 02/01/2017 Metformin Diarrhea 02/18/2023 Prochlorperazine 11/18/1998 Intol,compazine documented as of this encounter (statuses as of 01/21/2024) Medications OneTouch Delica Plus [id number] USE TO TEST BLOOD SUGAR 2 TIMES [...] Information Patient not taking.Reported on 01/18/2024 OneTouch Verkatty In Vitro Strip (Glucose Blood)Indications: Type 2 [...] 20, 2024. 28 Capsule 01/20/20 24 Active Lenalidomide 10 MG Oral Capsule [...] (Prevnar) 03/16/2019 Pneumococcal Conjugate Vacci ne, 20-valent ([id number]) 01/21/2024,02/08/2023(Deferred: Patient Refused - Pt thinks he [...] 07/20/2023 8:11 AM EDT Grzegorz Vargas RN documented as of this encounter Mental Status * Because of a physical, mental, or emotional condition, do you have serious difficulty concentrating, remembering, or making decisions? (5 years old or older) Answer Entry Date Author No 07/20/2023 8:11 AM EDT Melinda Vargas RN documented in this encounter Miscellaneous Notes * Telephone Encounter - Yasmeen Winter OSA - 01/21/2024 3:14 PM EST Revlimid shipping to local [employer] store and arriving on 01/25 RUSS De Santiago Marine Reporter Pharmacy Hematology Oncology Oral Chemotherapy Clinic Medication Therapy Disease Management [facility] 01/21/24 3:15 PM * Telephone Encounter - Apoorva Amezcua [facility] - 01/19/2024 10:00 AM EST Refill Request EPIC Note Clinical [...] months (12 months for MPN patients) Yes- 12/29/23 If the labs were completed per prescribing information recommendations or provider recommendations Yes - 01/18/24 If the labs were within normal limits or stable at baseline yes If the dose was correct and/or if the prescription sig reflects the current prescribed dose yes If there were any new drug interactions with the patient's oral chemotherapy no If there were any care gaps/baseline labs that need to be addressed no Apoorva Amezcua RP Ambulatory Clinical Pharmacist | Oral Chemotherapy Clinic [facility] 01/19/2024, 10:00 AM * Telephone Encounter - Caroline Rivero CPhT - 01/19/2024 8:47 AM EST PHARMACY REMS MEDICATION AUTHORIZATION Hernan Rodriguez [id number] Patient Phone Numbers Communication: Chart review Treatment: Medication: Lenalidomide (Revlimid) Indication/Staging/Diagnosis Code: multiple myeloma / C90.00 Dose: 10mg daily x 2 years Administration: +/- food Start Date: 12/06/23 Primary Fountain Attendant/Oncologist: Dr. Berrios Patient managed by Hem/Onc [facility] - Yes Patient is due for/had labs on 01/17 Prescriber survey complete; [employer] auth number [id number]. Upon new prescription being sent to [facility] specialty pharmacy, will follow up on [employer] website within 1-2 business days to confirm medication dispensed Caroline Rivero Construction And Maintenance Inspector III Hematology Oncology Oral Chemotherapy Clinic Medication Therapy Disease Management [facility] 01/19/2024 8:49 AM Time Spent on Encounter: < 5 minutes documented in this encounter Plan of Treatment Upcoming Encounters Date Type Department Care Team (Late st Contact Info) Description 02/02/2024 10:00 AM EST Office Visit General Surgery, [facility] [address] [place] [address] Chris Chong MD [address] [place] [address] 02/07/2024 8:00 AM EST Laboratory Laboratory, [facility] [address] [facility] [place] [address] [place], [facility] [address] [place] [facility] [place] [address] 02/09/2024 9:30 AM EST Office Visit Hematology/Oncology [facility] [place] [address] [place] [phone] Rae Berrios MD [address] [place] [address] 02/09/2024 10:00 AM EST Immunization/Injection Hematology/Oncology Treatment, [place] [address] [facility] [address] [place] [phone] Kandice, Chair 7 Hem Onc [address] [place] [address] 02/21/2024 7:40 AM EST Office Visit Family [facility] 226 [facility] [place] [address] Patrick Zhao MD [address] [facility] [address] 02/25/2024 9:00 AM EST Office Visit Pharmacy, [address] [place] [address] [place] [address] 02/28/2024 9:00 AM EST [facility] [address] [place] [address] Vicki [place] PA-C 200 [facility] [place], [place] [address] 03/07/2024 8:30 AM EST Telemedicine Psychology [facility] [address] [place] [address] Quentin Gupta, [facility] [address] [place], [place] [phone] 03/10/2024 9:00 AM EST Pharmacy Pharmacy Hematology Oncology [place] [address] [place] [address] [facility] Hem/Onc [address] [place] [address] 03/22/2024 8:15 AM EST Pharmacy Pharmacy Hematology Oncology [place] [address] [place] [address] [facility] Hem/Onc [address] [place] [address] 03/22/2024 1:00 PM EST Immunization/Injection Hematology Oncology [facility] [address] [place], [place] [phone] Nurse, [facility] [address] [place], [place] [address] 04/03/2024 9:00 AM EST Office Visit Nephrology, [facility] [address] [place], [place] [address] Addison Salas MD [address] [place], [place] [address] [address] 09/05/2024 10:20 AM EDT Office Visit Dermatology, [address] [address] Linda Mejia PA-C [address] [place] [address] [place] [address] Health Maintenance Due Date Last Done Comments [...] patient or by statute hierarchy) Care Teams Film Editor Relationship Specialty Start Date End Date Patrick Zhao MD [address] [place] [address] PCP - General Family Medicine 05/10/16 documented as of this encounter"
--- OUTSIDE RECORDS SUMMARY | 2024-05-18 07:23 | External Medical Summary | Summary of Care ---
Author Name Unknown Organization [facility] Address [address] [place] [address] Phone [phone] Care Team Providers Care Aquatics Director Name Role Phone Patrick Zhao MD Primary Care Provider [phone] Reason for Visit * Reason Comments Medication Administration BMT vaccines Encounter Details Date Type Department Care Team (Late st Contact Info) Description 01/21/2024 1:30 PM EST Immunization/I njection Hematology Oncology [facility] [address] [place], [place] [phone] Nurse, Med 4 [address] [place] [address] History of autologous stem cell transplant ([facility])*; Multiple myeloma not having achieved remission ([facility]) Allergies Active Allergy Reactions Criticality Noted Date Comments Celecoxib Medium 02/01/2017 Metformin Diarrhea 02/18/2023 Prochlorperazine 11/18/1998 Intol,compazine documented as of this encounter (statuses as of 01/21/2024) Medications OneTouch Delica Plus [id number] USE TO TEST BLOOD SUGAR 2 TIMES DAILY DX E11.9 200 Each 3 12/05/19 23 Active Ozempic (0.25 or 0.5 MG/DOSE) 2 MG/3ML Solution Pen-injector (Semaglutide(0.25 or 0.5MG/DOS))Indicat ions:Type 2 diabetes mellitus with hemoglobin A1c goal of less than 7.0% ([facility]) INJECT 0.25 MG UNDER THE [...] January 20, 2024. 28 Capsule 01/20/20 Active Haemophilus B Polysac Conj Vac 10 MCG Injection Solution Reconstituted (Hiberix)Indicatio ns:History of autologous stem cell transplant (HCC),Multiple myeloma not having achieved remission (HCC) Inject 0.5 mL into a large muscle once for 1 dose. 0.5 mL 01/21/20 24 024 Active Zoster Vac Recomb Adjuvanted 50 MCG/0.5ML Intramuscular Suspension Reconstituted (Shingrix)Indicati ons:History of autologous stem cell transplant (HCC),Multiple myeloma not having achieved remission (HCC) Inject 0.5 mL into a large muscle now and repeat dose in 60 to 180 days 0.5 mL 01/21/20 Active documented as of this encounter (statuses [...] (Prevnar) 03/16/2019 Pneumococcal Conjugate Vacci ne, 20-valent ([id number]) 01/21/2024,02/08/2023(Deferred: Patient Refused - Pt thinks he [...] Date Author No 07/20/2023 8:11 AM EDT VargasGrzegorz RN documented in this encounter Nursing Notes * Henri Archer - 01/21/2024 1:10 PM EST Patient here for BMT vaccines. Patient verified name and date of . Patient was given the following vaccines: Shingrix Hiberix Hep B Pneumoccal Patient tolerated vaccines well. Patient has no questions or concerns at this time. Patient will call pharmacy to pay applicable copays. documented in this encounter Plan of Treatment Upcoming Encounters Date Type Department Care Team (Late st Contact Info) Description 02/02/2024 10:00 AM EST Office Visit General Surgery, [facility] [address] [address] Chris Chong MD [address] [place] [address] 02/07/2024 8:00 AM EST Laboratory Laboratory, [address] [address] [facility] [address] [place] [address] 02/09/2024 9:30 AM EST Office Visit Hematology/Oncology [facility] Kandice [place] [address] [place] [address] Rae Berrios MD [address] [place] [address] 02/09/2024 10:00 AM EST Immunization/Injection Hematology/Oncology Treatment, [place] [address] [place] [address] Kandice, Chair 7 Hem Onc [facility] 200 [facility] [place] [address] 02/21/2024 7:40 AM EST Office Visit Family [facility], [address] [address] Patrick Zhao MD [address] [place] [address] 02/25/2024 9:00 AM EST Office Visit Pharmacy, [address] [place] [address] [place] [address] 02/28/2024 9:00 AM EST Office Visit Neurology [facility] [place] [address] [place] [address] Vicki [place] PA-C [address] [place] [address] 03/07/2024 8:30 AM EST Telemedicine Psychology [address] [address] Quentin Gupta PsyD [address] [place] [address] 03/10/2024 9:00 AM EST Pharmacy Pharmacy Hematology Oncology [facility] [address] [place] [address] [facility], [facility] Hem/Onc [address] [place] [address] 03/22/2024 8:15 AM EST Pharmacy Pharmacy Hematology Oncology [facility] [address] [place] [address] [facility] [place] [facility] Hem/Onc [address] [place] [address] 04/03/2024 9:00 AM EST Office Visit Nephrology, [address] [address] Addison Salas MD [address] [place] [id number] 09/05/2024 10:20 AM EDT Office Visit Dermatology[address] [address] Linda Mejia, [place] [address] [place] [address] [place] [address] Health Maintenance Due Date [...] Agents on File Name Relationship Healthcare Agent [facility] Communication Dori Hoover Adult Child Health Care Repr esentative (appointed verbally by patient or by statute hierarchy) Care Teams Aquatics Director Relationship Specialty Start Date End Date Patrick Zhao MD [address] [place] [address] PCP - General Family Medicine 05/10/16 documented as of this encounter
--- OUTSIDE RECORDS SUMMARY | 2024-05-18 07:23 | External Medical Summary | Summary of Care ---
Author Name Unknown Organization [facility] Address [address] [place] [address] Phone [phone] Care Team Providers Care Reliability Technologist Name Role Phone Patrick Zhao MD Primary Care Provider [phone] Reason for Visit * Reason Onset Date Comments Medication Question 01/27/2024 Encounter Details Date Type Department Care Team (Late st Contact Info) Description 01/27/2024 Telephone Hematology/Oncology, [facility] [address] [place] [address] Rae Berrios MD 200 [place] [address] Medication Question Allergies Active Allergy Reactions Criticality Noted Date Comments Celecoxib Medium 02/01/2017 Metformin Diarrhea 02/18/2023 Prochlorperazine 11/18/1998 Intol,compazine documented as of this encounter (statuses as of 01/27/2024) Medications OneTouch Delica Plus [id number] USE TO TEST BLOOD SUGAR 2 TIMES [...] (Shingrix)Indicati ons:History of autologous stem cell transplant ([facility]),Multiple myeloma not having achieved remission ([facility]) Inject 0.5 mL into a large muscle now and repeat dose in 60 to 180 days 0.5 mL 01/21/20 Active documented as of this encounter (statuses as of 01/27/2024) Active Problems Patient Care Coordination No te [...] as of this encounter (statuses as of 01/27/2024) Resolved Problems Problem Noted Date Diagnosed Date [...] as of this encounter (statuses as of 01/27/2024) Immunizations Name Administration Dates Next Due COVID-19 mRNA, LNP-s, No Pre serve, 2-Dose Series (Moderna) 07/23/2020,06/18/2020 COVID-19 mRNA, LNP-s, No Pre serve, 2-Dose Series (Pfizer) 03/03/2021 HEPATITIS B VACCINE, RECOMB, 20 MCG/ML, ADULT (HEPLISAV-B) 01/21/2024 HIB Booster (Hiberix) 01/21/2024 Pneumococcal Conjugate Vacc, 13 Valent (Prevnar) 03/16/2019 Pneumococcal Conjugate Vacci ne, 20-valent ([id number]) 01/21/2024,02/08/2023(Deferred: Patient Refused - Pt thinks he [...] Telephone Encounter - Yasmeen Winter OSA - 01/27/2024 8:29 AM EST MEDICATION THERAPY MANAGEMENT LENALIDOMIDE TREATMENT PROGRESS NOTE Hernan Rodriguez [id number] Patient Phone Numbers Communication: Spoke to: Patient Treatment: Medication: Lenalidomide (Revlimid) Indication/Staging/Diagnosis Code: multiple myeloma / C90.00 Dose: 10mg daily x 2 years Administration: +/- food Start Date: 12/06/23 Primary Exchange Operator/Oncologist: Dr. Berrios Patient calling in today stating that he is experiencing dizziness and tremors after taking his Revlimid. I reviewed patient's symptoms with [facility]. I asked patient if he is drinking enough water. Patientis only drinking about 3 bottles of water a day. Patient also wonders if being weaned off Ativan is causing him to shake. Patient does have OV with MD beginning of February. Advised patient can discuss his symptoms further at that time. Patient agreeable and will try to increase water intake RUSS De Santiago Parts Sales Associate Pharmacy Hematology Oncology Oral Chemotherapy Clinic Medication Therapy Disease Management [facility] 01/27/24 8:36 AM Time Spent on Encounter: 11 - 15 minutes documented in this encounter Plan of Treatment Upcoming Encounters Date Type Department Care Team (Late st Contact Info) Description 02/02/2024 10:00 AM EST Office Visit General Surgery, [facility] [address] [place] [address] Chris Chong MD [address] [place] [address] 02/07/2024 8:00 AM EST Laboratory Laboratory, [address] [place] [phone] [facility] [address] [facility] [place] [address] 02/09/2024 9:30 AM EST Office Visit Hematology/Oncology [facility] 200 [facility] [place] [phone] Rae Berrios MD 200 [facility] [place] [address] 02/09/2024 10:00 AM EST Immunization/Injection Hematology/Oncology Treatment, [place] [address] [facility] [place], [place] [phone] Kandice, Chair 7 Hem Onc [facility] 200 [facility] [place] [address] 02/21/2024 7:40 AM EST Office Visit Family Practice, [facility] [address] [place] [phone] Patrick Zhao MD [address] [place] [address] 02/25/2024 9:00 AM EST Office Visit Pharmacy, [address] [place] [address] [place] [address] 02/28/2024 9:00 AM EST Office Visit Neurology [place] [place] [address] [place], [place] [address] Vicki [place] PA-C [address] [place], [place] [address] 03/07/2024 8:30 AM EST Telemedicine Psychology [place] [address] [place] [address] Quentin Gupta PsyD [facility] [place] [address] 03/10/2024 9:00 AM EST Pharmacy Pharmacy Hematology Oncology [place] [address] [place] [address] [facility] [place], [facility] Hem/Onc [address] [place] [address] 03/22/2024 8:15 AM EST Pharmacy Pharmacy Hematology Oncology [place] [address] [place] [address] [facility] [place], [facility] Hem/Onc [address] [place] [address] 03/22/2024 1:00 PM EST Immunization/Injection Hematology Oncology [place] [address] [place] [address] Nurse, Med [address] [place] [address] 04/03/2024 9:00 AM EST [facility] [address] [place], [place] [address] Addison Salas MD 400 [facility] [place] [address] 09/05/2024 10:20 AM EDT Office Visit Dermatology, [address] [place] [phone] Linda Mejia PA-C [address] [place] [address] [place] [address] Health Maintenance Due Date [...] patient or by statute hierarchy) Care Teams Reliability Technologist Relationship Specialty Start Date End Date Patrick Zhao MD [address] [place] [address] PCP - General Family Medicine 05/10/16 documented as of this encounter
--- OUTSIDE RECORDS SUMMARY | 2024-05-18 07:23 | External Medical Summary ---
Author Name Unknown Address Unknown Organization [id number]:[facility] [place] [address] [place] [address] [place] [address] Laboratory Report Ordering Provider Test Date Status EVERETTMUSTAPHAMAIKEL 02/07/2024 07:57:34 Final Observation Date Value Abnormality Reference (Units ) Status HbA1C 02/07/2024 07:57:34 6.8 Above high normal 4. 0-5.6 (%) Final The use of HbA1c to monitor glycemic status is based on normal hemoglobin and HbA composition. This test should not be used in patients with abnormal hemoglobin that affects the half life of the red blood cell or the in vivo glycation rates. Glucose, estimated average 02/07/2024 07:57:34 148 Above high normal <126 (mg/dL) Blake pinto Performing Location [facility] [place] [address] [place] [address]
--- OUTSIDE RECORDS SUMMARY | 2024-05-18 07:23 | External Medical Summary ---
Author Name Unknown Address Unknown Organization [id number]:[facility] - [facility] [place] [address] Laboratory Report Ordering Provider Test Date Status ADALBERTO ALEGRE 02/07/2024 07:57:34 Final Observation Date Value Abnormality Reference (Units ) Status Hendrix light chains, Free, Serum 02/07/2024 07:57:34 38.96 Above high normal 3.30-19.40 (mg/L) Final Lambda light chains, free, Serum 02/07/2024 07:57:34 20.44 5.71-26.30 (mg/L) Final KAPPA LAMBDA FLC RATIO 02/07/2024 07:57:34 1.91 Above high normal 0.26-1.65 Final Performing Location [facility] - [facility] [place] [address]
--- OUTSIDE RECORDS SUMMARY | 2024-05-18 07:23 | External Medical Summary ---
Author Name Unknown Address Unknown Organization K01:LABORATORY C - [address] [place] [address] Laboratory Report Ordering Provider Test Date Status ADALBERTO ALEGRE 02/07/2024 07:57:34 Final Observation Date Value Abnormality Reference (Units ) Status IgG 02/07/2024 07:57:34 [phone] ( mg/dL) Final IgA 02/07/2024 07:57:34 33 Below low normal 70- 400 (mg/dL) Final IgM 02/07/2024 07:57:34 37 Below low normal 40- 230 (mg/dL) Final Performing Location LABORATORY C - [address] [place] [address]
--- OUTSIDE RECORDS SUMMARY | 2024-05-18 07:24 | External Medical Summary | Summary of Care ---
Author Name Unknown Organization [facility] Address [address] [facility] [address] Phone [phone] Care Team Providers Care Web Manager Name Role Phone Patrick Zhao MD Primary Care Provider [phone] Reason for Referral * Evaluate & Treat - Unlimited Visits (Within 30 days (routine)) - Authorized Specialty Diagnoses / Procedures Referred By Fernando tarango Referred To Contact General Surgery Diagnoses EIC (epidermal inclusion cyst) Linda Mejia PA-C [address] [place] [address] [place] [address] Phone: tel: fax: Referral ID Status Reason Start Date Expiration Date Visits Requested Visits Authorized [id number] Authorized Specialty Services Required 4 [phone] Question Answer Referral Priority Within 30 days (routine) Where should this appointment be scheduled? [facility] What condition is the patient being seen for? General Surgery Conditions What condition is the patient being seen for? Skin Lesions (SubQ Nodules) Comments EIC (2cm) on posterior neck Reason for Visit * Reason Comments Follow Up Pt here for 6 month f/u for psoriasis. No concerns/issues. Encounter Details Date Type Department Care Team ([facility] st Contact Info) Description 01/18/2024 8:20 AM EST Office Visit Dermatology[address] [place] [address] Linda Mejia PA-C [address] [place] [address] [place] [address] H/O psoriasis*; EIC (epidermal inclusion cyst) Allergies Active Allergy Reactions Criticality Noted Date Comments Celecoxib Medium 02/01/2017 Metformin Diarrhea 02/18/2023 Prochlorperazine 11/18/1998 Intol,compazine documented as of this encounter (statuses as of 01/18/2024) Medications OneTouch Delica Plus [id number] USE TO TEST BLOOD SUGAR 2 TIMES [...] morning. 90 Tablet 3 10/13/19 24 Active Lenalidomide 10 MG Oral Capsule (Revlimid)Indicati ons:Multiple myeloma not having achieved remission (HCC) Take 1 Capsule by mouth in the morning. For 28 days of a 28 day cycle. Take medication same time every day and consistently with or without food.. 28 Capsule 11/23/19 Active Additional Information Patient not taking.Reported on 01/18/2024 Propranolol HCl 20 MG Oral Tablet (Inderal) Take 1 Tablet by mouth in the morning and 1 Tablet at noon and 1 Tablet before bedtime. 270 Tablet 3 11/23/19 Active LORazepam 1 MG Oral Tablet (Ativan)Indication s:Anxiety state,Insomnia, unspecified type Take one at bedtime . May take 1/2- 1 tab during day as needed 45 Tablet 1 12/12/19 Active Acyclovir 800 MG Oral Tablet (Zovirax)Indicatio [...] with or without food.. 28 Capsule 12/23/19 Active documented as of this encounter (statuses as of 01/18/2024) Active Problems Patient Care Coordination No te [...] as of this encounter (statuses as of 01/18/2024) Resolved Problems Problem Noted Date Diagnosed Date [...] as of this encounter (statuses as of 01/18/2024) Immunizations Name Administration Dates Next Due COVID-19 mRNA, LNP-s, No Pre serve, 2-Dose Series (Moderna) 07/23/2020,06/18/2020 COVID-19 mRNA, LNP-s, No Pre serve, 2-Dose Series (Pfizer) 03/03/2021 Diptheria/Tetanus (Adult) 05/06/1998 Pneumococcal Conjugate Vacc, 13 Valent (Prevnar) 03/16/2019 Pneumococcal Conjugate Vacci ne, 20-valent ([id number]) 02/08/2023(Deferred: Patient Refused - Pt thinks he [...] this encounter Patient Instructions * Patient Instructions* Linda Mejia PA-C - 01/18/2024 8:00 AM EST The side effects of chronic topical steroid use were discussed with patient and include but are notlimited to telangiectasia (broken blood vessels), striae (stretch moore), atrophy (thin skin), purpura (bruising), allergic contact dermatitis, acneiform eruptions and medicine addiction (rebound rash after cessation), cataracts, suppression of the bodys ability to create its own cortisol, weight gain, poor height growth, and high blood sugar. Advocated avoidance of use nears eyes (glaucoma and cataracts) and skin folds (enhanced effect = atrophy) unless otherwise directed. Advised to use the medication only as needed. Our plan will alwaysbe to use the lowest potency possible and to use a regimen that employs intermittent rather than constant use of topical steroids. If the rash clears then stop and transition to CERAVE CREAM for maintenance. documented in this encounter Progress Notes * Cory Moore MD - 01/18/2024 11:53 AM EST I have seen and examined the patient via teledermatology review of chart note and photos with Linda Mejia PA-C. I have reviewed and agree with the assessment and plan. * Linda Mejia PA-C - 01/18/2024 8:20 AM EST SUBJECTIVE: History of Present Illness: Hernan Rodriguez is a 68 year old male seen today for follow up of psoriasis/dermatitis. Previous office visit: 03/25/2023 Last attempted treatments include: tacrolimus 1% ointment (not using), betamethasone dip ointment (not using), Cerave cream (still using) and Vaseline (not needed), never ended up getting home light unit. Blood work post cancer treatment has been doing well. Psoriasis cleared and has not returned, medication that caused condition was found to be Jardiance. Area on posterior neck, started as a "pimple" can become irritating to patient, "feels loose". Daughter tried to squeeze lesion a few times. REVIEW OF SYSTEMS: SKIN: No other new or changing moles. HEME/LYMPH: No new or enlarging lumps or bumps. CONSTITUTIONAL: No nausea, vomiting, fevers, chills, diarrhea. No recent unintended weight loss, night sweats, appetite or malaise. RESP: negative MSK/EXT: Negative or as per HPI GI: negative CV: Negative or as per HPI Rest of systems are negative or as per HPI SKIN CANCER HX: NONE Reviewed, same day as visit, 0 [facility] Dermatology lab work(s)/pathology report(s) as well as those sent by referring provider prior to seeing pt. MEDICA TIONS: Current Outpatient Medications Medication Sig Dispense Refill OneTouch Delica Plus [id number] USE TO TEST BLOOD SUGAR 2 TIMES [...] mouth 2 times a day. Patient reported Ondansetron HCl 8 MG Oral Tablet (Zofran) [...] during day as needed 45 Tablet 1 [place] [employer] Verio In Vitro Strip (Glucose Blood) USE [...] consistently with or without food.. 28 Capsule 0 Loperamide HCl 2 MG Oral Tablet (Imodium A-D) Take 1 Tablet by mouth 4 times a day as needed for Diarrhea. (Patient not taking: Reported on 01/18/2024) 30 Tablet 0 Lenalidomide 10 MG Oral Capsule (Revlimid) Take 1 Capsule by mouth in the morning. For 28 days of a28 day cycle. Take medication same time every day and consistently with or without food.. (Patient not taking: Reported on 01/18/2024) 28 Capsule 0 Acyclovir 800 MG Oral Tablet (Zovirax) Take 1 Tablet by mouth in the morning and 1 Tablet before bedtime. (Patient not taking: Reported on 01/18/2024) 180 Tablet 1 No current facility-administered medications for this visit. ALLERGIES: Celecoxib, Metformin, and Prochlorperazine OBJECT SCOT: GEN: alert, no distress, appears oriented, pleasant, and cooperative. SKIN: Detailed exam of chest, abdomen, back, bilateral upper ext. (arm, hand, fingers), bilateral lower ext. (leg, foot, toes), fingernails, toenails, and inguinal areas completed: Central posterior neck-2cm mobile cyst with central punctum. Palms/soles-No evidence of powdery scale on isolated areas of palms, no evidence of erythematous xerotic lichenified plaque without desquamation and no superficial fissures on arches of feet. No vesicles ever appeared on either site, per pt. Groin creases (not visualized)-No evidence of pink-red discoloration and some maceration with healed superficial fissure, per pt. ASSESS MENT/PLAN: Epidermoid inclusion cyst on central posterior neck-To be scheduled with general surgery for excision of lesion. 2-3. Plaque and inverse psoriasis on L lateral arch of foot and groin creases, BSA: 0%, Special Site: None; Status: resolved . -Found that Jardiance caused the psoriasis and now off the medication and psoriasis has not returned. -Can use tacrolimus or betamethasone dip ointment if flares in future. Patient alone today. Photo(s) of #1-3 taken, pt verbally consented to having photo(s) taken. Follow-up: 6 months for full skin exam Applicable photos (if any) and chart reviewed by Dr. Cory Moore. Presumed diagnoses, expected natural histories, and management options discussed with the patient at length. Questions were addressed and anticipatory guidance provided. They were instructed to contact me if additional questions, concerns, or problems develop in the interim. -There were no barriers to learning and no other pain was related to today's visit. The patient and/or person accompanying patient demonstrates understanding of the visit and treatment. Linda Mejia PA-C 01/18/2024 7:[address] [address] documented in this encounter Nursing Notes * Gillian Bella LPN - 01/18/2024 7:52 AM EST Patient identified by full name and date of Chief Complaint Patient presents with Follow Up Pt here for 6 month f/u for psoriasis. No concerns/issues. documented in this encounter Plan of Treatment Upcoming Encounters Date Type Department Care Team (Late st Contact Info) Description 01/19/2024 9:00 AM EST Pharmacy Pharmacy Hematology Oncology [address] [address] [facility] Clinic Hem/Onc [address] [place] [address] 01/21/2024 12:00 PM EST Therapy Psychology [address] [phone] Quentin Gupta PsyD [facility] [address] [place], [place] [phone] 01/21/2024 1:30 PM EST Immunization/Injecti on Hematology Oncology [address] [phone] Nurse, Med [facility] [address] [place], [place] [phone] 02/02/2024 10:00 AM EST Office Visit General Surgery, [facility] [address] [place] [address] Chris Chong MD [address] [place] [address] 02/07/2024 8:00 AM EST Laboratory Laboratory, [address], [facility] [address] [address] 02/09/2024 9:30 AM EST Office Visit Hematology/Oncology [facility] [place] [address] [place] [phone] Rae Berrios MD [address] [facility] [place] [address] 02/09/2024 10:00 AM EST Immunization/Injecti on Hematology/Oncology Treatment, [place] [address] [facility] [address] [place], [place] [address] Kandice, Chair 7 Hem Onc [address] [place] [address] 02/21/2024 7:40 AM EST Office Visit Family Practice, [address] [place] [address] Patrick Zhao MD [address] [address] 02/25/2024 9:00 AM EST Office Visit Pharmacy, [address] [place] [address] [place] [address] 02/28/2024 9:00 AM EST Office Visit Neurology [facility] [place] [address] [place] [address] Vicki Watson PA-C [address] [facility] [place] [address] 03/22/2024 8:15 AM EST Pharmacy Pharmacy Hematology Oncology [facility] [address] [place] [address] [facility] [place] Clinic Hem/Onc [address] [place] [address] 04/03/2024 9:00 AM EST Office Visit Nephrology, [facility] [address] [facility] [place] [address] Addison Salas MD [address] [place] [address] 09/05/2024 10:20 AM EDT Office Visit Dermatology[address] [address] Linda Mejia PA-C [address] [place] [address] [place] [address] Scheduled Referrals Name Type Priority Associated Diagnoses [...] Albumin/Creatinine Ratio 01/20/202401/19/ 023, 01/05/2022, 02/02/2018 HbA1c 04/26/2024 10/25/2023, 05/06, 01/15/2023, Additional history exists Diabetic Eye Exam 08/26/2024 08/27/2023 (Do ne elsewhere), 12/16/2022, 03/10/2021, Additional history exists Depression Monitoring 09/12/2024 09/13/2023 Diabetic Foot Exam 09/13/2024 09/14/2023, 0 05/02/2020, 02/08/2019, Additional history exists DTap/Tdap Vaccines (2 - Td or Tdap) 12/06/2024 12/06/2014, 05/06/1998 GFR 01/02/2025 01/03/2024, 12/07, 12/20/2023, Additional history exists Colonoscopy 03/11/2028 03/11/2018 Colorectal [...] study not interpreted or resulted by a [facility] or [facility] contracted radiologist. us Linda Mejia PA-C RADIOLOGY (RAD GENERAL ) Final Result documented in this encounter Visit Diagnoses Diagnosis H/O psoriasis- Primary Personal history of diseases of skin and subcutaneous tissue EIC (epidermal inclusion cyst) Sebaceous cyst documented in this encounter Advance Directives * [...] patient or by statute hierarchy) Care Teams Web Manager Relationship Specialty Start Date End Date Patrick Zhao MD [address] [place] [address] PCP - General Family Medicine 05/10/16 documented as of this encounter
--- OUTSIDE RECORDS SUMMARY | 2024-05-18 07:24 | External Medical Summary ---
Author Name Unknown Address Unknown Organization K01:[facility] [place] [facility] [address] [facility] [place] [address] Laboratory Report Ordering Provider Test Date Status ADALBERTO ALEGRE 01/18/2024 07:50:23 Final Observation Date Value Abnormality Reference (Units ) Status BUN 01/18/2024 07:50:23 19 6-20 (mg/dL) Final Creatinine 01/18/2024 07:50:23 1.0 0.6-1.2 (mg/dL) Final Glomerular filtration rate/1.73 sq M.predicted [Volume Rate/Area] in Serum, Plasma or Blood by Creatinine-based formula (CKD-EPI) 01/18/2024 07:50:23 87 >=60 (mL/min) Final eGFR is calculated based on the CKD-EPI 2020 equation. Sodium 01/18/2024 07:50:23 138 135-146 (m mol/L) Final Potassium 01/18/2024 07:50:23 4.4 3.5-5.1 (m mol/L) Final Cl 01/18/2024 07:50:23 105 98-107 (mm ol/L) Final CO2 01/18/2024 07:50:23 23 22-32 (mmo l/L) Final Anion gap 01/18/2024 07:50:23 10 7-15 (mmol /L) Final Glucose 01/18/2024 07:50:23 143 Above high normal 70 -120 (mg/dL) Final Albumin 01/18/2024 07:50:23 4.2 3.8-5.0 (g /dL) Final AST (Aspartate aminotransferase) 01/18/2024 07:50:23 18 10-50 (U/L) Fin al Alk Phos 01/18/2024 07:50:23 71 35-130 (U/ L) Final Bilirubin, Total 01/18/2024 07:50:23 0.4 <=1 .2 (mg/dL) Final Calcium 01/18/2024 07:50:23 8.7 8.4-10.2 ( mg/dL) Final Protein 01/18/2024 07:50:23 6.4 6.0-8.3 (g /dL) Final ALT (Alanine aminotransferase) 01/18/2024 07:50:23 35 10-50 (U/L) Blake pinto Performing Location [facility] [place] [facility] [address]. [facility] [address]
--- OUTSIDE RECORDS SUMMARY | 2024-05-18 07:24 | External Medical Summary | Summary of Care ---
Author Name Unknown Organization [facility] Address [address] [facility] [place] [address] Phone [phone] Care Team Providers Care Settlement Processor Name Role Phone Patrick Zhao MD Primary Care Provider [phone] Encounter Details Date Type Department Care Team (Late st Contact Info) Description 01/18/2024 Orders Only Hematology/Oncology Yarelis [place] 200 [facility] [place] [address] Rae Berrios MD [address] [place] [address] Allergies Active Allergy Reactions Criticality Noted Date Comments Celecoxib Medium 02/01/2017 Metformin Diarrhea 02/18/2023 Prochlorperazine 11/18/1998 Intol,compazine documented as of this encounter (statuses as of 01/18/2024) Medications OneTouch Delica Plus [id number] USE TO TEST BLOOD SUGAR 2 TIMES DAILY DX E11.9 200 Each 3 12/05/19 23 Active Ozempic (0.25 or 0.5 MG/DOSE) 2 MG/3ML Solution Pen-injector (Semaglutide(0.25 or 0.5MG/DOS))Indicat ions:Type 2 diabetes mellitus with hemoglobin A1c goal of less than 7.0% ([facility]) INJECT 0.25 MG UNDER THE [...] or without food.. 28 Capsule 11/23/19 24 Active Additional Information Patient not taking.Reported [...] (Prevnar) 03/16/2019 Pneumococcal Conjugate Vacci ne, 20-valent ([id number]) 02/08/2023(Deferred: Patient Refused - Pt thinks he [...] No 09/13/2023 Does the household have a [facility] source of income? (Household - for [...] 9:00 AM EST Pharmacy Pharmacy Hematology Oncology [place] [address] [place] [address] [facility] Hem/Onc [address] [place] [address] 01/21/2024 12:00 PM EST Therapy Psychology [address] [address] Quentin Gupta PsyD [address] [place] [address] 01/21/2024 1:30 PM EST Immunization/Injecti on Hematology Oncology [place] [address] [place] [address] Nurse, Med 4 [address] [place] [address] 02/02/2024 10:00 AM EST Office Visit General Surgery, [facility] [address] [place] [address] Chris Chong MD [address] [place] [address] 02/07/2024 8:00 AM EST Laboratory Laboratory, [facility] [address] [facility] [address] [place] [address] 02/09/2024 9:30 AM EST Office Visit Hematology/Oncology [facility] [place] [address] [place] [phone] Rae Berrios MD [address] [place] [address] 02/09/2024 10:00 AM EST Immunization/Injecti on Hematology/Oncology Treatment, [place] [address] [place] [phone] Kandice, Chair 7 Hem Onc [facility] 200 [facility] [place] [address] 02/21/2024 7:40 AM EST Office Visit [facility] [address] [place] [address] Patrick Zhao MD [address] [place] [address] 02/25/2024 9:00 AM EST Office Visit Pharmacy, [address] [place] [address] [place] [address] 02/28/2024 9:00 AM EST Office Visit Neurology [place] [address] [place] [address] Vicki Watson PA-C [address] [place] [address] 03/22/2024 8:15 AM EST Pharmacy Pharmacy Hematology Oncology [place] [address] [place] [address] [facility] Hem/Onc [facility] [place] [address] 04/03/2024 9:00 AM EST Office Visit Nephrology, [facility] [place] 200 [facility] [place] [place] [address] Addison Salas MD [address] [facility] [place] [address] 09/05/2024 10:20 AM EDT Office Visit Dermatology[address], [place] [address] Linda Mejia PA-C [address] [place] [address] [place] [phone] Health Maintenance Due Date Last Done Comments [...] patient or by statute hierarchy) Care Teams Settlement Processor Relationship Specialty Start Date End Date Patrick Zhao MD [address] [place] [address] PCP - General Family Medicine 05/10/16 documented as of this encounter
--- OUTSIDE RECORDS SUMMARY | 2024-05-18 07:24 | External Medical Summary | Summary of Care ---
Author Name Unknown Organization [facility] Address [address] [facility] [place] [address] Phone [phone] Care Team Providers Care Compensation Agent Name Role Phone Patrick Zhao MD Primary Care Provider [phone] Reason for Visit * Reason Comments Outpatient Testing Encounter Details Date Type Department Care Team (Late st Contact Info) Description 01/18/2024 8:00 AM EST Laboratory Laboratory, [place] [address] [place] [address] [place], Laboratory [address] [place] [address] Multiple myeloma not having achieved remission (HCC) Allergies Active Allergy Reactions Criticality Noted Date Comments Celecoxib Medium 02/01/2017 Metformin Diarrhea 02/18/2023 Prochlorperazine 11/18/1998 Intol,compazine documented as of this encounter (statuses as of 01/18/2024) Medications OneTouch Delica Plus [id number] USE TO TEST BLOOD SUGAR 2 TIMES [...] Active Additional Information Patient not taking.Reported on 10/25/2023 Ondansetron HCl 8 MG Oral Tablet (Zofran) [...] Active Additional Information Patient not taking.Reported on 12/01/2023 Propranolol HCl 20 MG Oral Tablet (Inderal) [...] 1 4 9:10 AM EDT 12/16/19 Active [employer] In Vitro Strip (Glucose Blood)Indications: Type [...] (Prevnar) 03/16/2019 Pneumococcal Conjugate Vacci ne, 20-valent ([id number]) 02/08/2023(Deferred: Patient Refused - Pt thinks he [...] Does the household have a [facility] source of income? (Household - for ages [...] 07/20/2023 8:11 AM EDT Melinda Varags RN documented as of this encounter Mental [...] Team (Late st Contact Info) Description 01/18/2024 8:20 AM EST Office Visit Dermatology, [place] [address] [place] [address] Linda Mejia PA-C [address] [place] [address] [place] [address] SUBJECTIVE: 01/19/2024 9:00 AM EST Pharmacy Pharmacy Hematology Oncology [facility] [address] [place] [address] [facility] Hem[facility]Onc [address] [place] [address] 01/21/2024 12:00 PM EST Therapy Psychology [facility] [address] [place], [place] [phone] Quentin Gupta PsyD [address] [place] [address] 01/21/2024 1:30 PM EST Immunization/Injecti on Hematology Oncology [facility] [address] [place] [address] Nurse, Med 4 [address] [place] [address] 02/07/2024 8:00 AM EST Laboratory Laboratory, [facility] [address] [facility] [address] [place] [address] 02/09/2024 9:30 AM EST Office Visit Hematology/Oncology [facility] Kand[place] [address] [place] [phone] Rae Berrios MD [address] [place] [address] 02/09/2024 10:00 AM EST Immunization/Injecti on Hematology/Oncology Treatment, [place] [address] [place] [phone] Kandice, Chair 7 Hem Onc [facility] 200 [facility] [place] [address] 02/21/2024 7:40 AM EST Office Visit [facility] [address] [place] [address] Patrick Zhao MD [address] [place] [address] 02/25/2024 9:00 AM EST Office Visit Pharmacy, [address] [place] [address] [place] [address] 02/28/2024 9:00 AM EST Office Visit Neurology [place] [address] [place] [address] Vicki Watson PA-C [address] [place] [address] 03/22/2024 8:15 AM EST Pharmacy Pharmacy Hematology Oncology [facility] [address] [place] [address] [facility] Hem/[place]c [place] [address] 04/03/2024 9:00 AM EST Office Visit Nephrology, [facility] 200 [place] [address] Addison Salas MD [address] [place] [address] Pending Results Name Type Priority Associated Diagnoses Date /Time CBC WITH WBC DIFFERENTIAL Lab STAT Multiple myeloma not having achieved remission (HCC) 01/18/2024 7:50 AM EST COMPREHENSIVE METABOLIC PANEL Lab STAT Multiple myeloma not having achieved remission (HCC) 01/18/2024 7:50 AM EST CBC Lab STAT Multiple myeloma not having achieved remission ([facility]) 01/18/2024 7:50 AM EST DIFFERENTIAL, AUTOMATED Lab STAT Multiple myeloma not having achieved remission (HCC) 01/18/2024 7:50 AM EST Health Maintenance Due Date Last Done Comments Cologuard 2001 Fecal Occult Blood Test 2001 Sigmoidoscopy 2001 Pneumococcal Vaccine: 65+ Years (3 of 3 - PPSV23 or PCV20) 07/09/2021 03/16/2019, 07/09/2016 Adult Wellness Visit 2022 COVID-19 Vaccine ( season) 2023 03/03/2021, 07/23/2020, 06/18/2020 Albumin/Creatinine Ratio 01/20/2024 023, 01/05/2022, 02/02/2018 HbA1c 04/26/2024 10/25/2023, 0305/2023, 01/15/2023, Additional history exists Diabetic Eye Exam [...] patient or by statute hierarchy) Care Teams Compensation Agent Relationship Specialty Start Date End Date Patrick Zhao MD [address] [place] [address] PCP - General Family Medicine 05/10/16 documented as of this encounter
--- OUTSIDE RECORDS SUMMARY | 2024-05-18 07:24 | External Medical Summary | Summary of Care ---
Author Name Unknown Organization [facility] Address [address] [address] Phone [phone] Care Team Providers Care Angle Shear Set Up Operator Name Role Phone Patrick Zhao MD Primary Care Provider [phone] Reason for Visit * Reason Onset Date Comments [facility]: Screening 01/19/2024 Encounter Details Date Type Department Care Team (Late st Contact Info) Description 01/19/2024 Telephone [facility], [facility] [address] [place] [address] Marilyn Chang, ARIANE [address] [place] [address] [facility]: Screening Allergies Active Allergy Reactions Criticality Noted Date Comments Celecoxib Medium 02/01/2017 Metformin Diarrhea 02/18/2023 Prochlorperazine 11/18/1998 Intol,compazine documented as of this encounter (statuses as of 01/19/2024) Medications OneTouch Delica Plus [id number] USE TO TEST BLOOD SUGAR 2 TIMES [...] (Revlimid)Indicati ons:Multiple myeloma not having achieved remission ([facility]) Take 1 Capsule by mouth [...] (Prevnar) 03/16/2019 Pneumococcal Conjugate Vacci ne, 20-valent ([id number]) 02/08/2023(Deferred: Patient Refused - Pt thinks he [...] No 09/13/2023 Does the household have a [facility] source of income? (Household - for [...] encounter Miscellaneous Notes * Telephone Encounter - Marilyn Chang LPN - 01/19/2024 9:25 AM EST Hernan Rodriguez was referred as a potential candidate for enrollment for [facility]. A review of this chart was completed and: Hernan does not meet criteria for enrollment into [facility]. Referral Source: Monthly Proactive Eligibility List Criteria for Ineligibility: Not Located in Service Area Referring care team was notified via : ZEB communication Resides in service area however Patient does not have 6 or more chronic conditions documented in this encounter Plan of Treatment Upcoming Encounters Date Type Department Care Team (Late st Contact Info) Description 01/21/2024 12:00 PM EST Therapy Psychology [facility], [address] [address] Quentin Gupta PsyD [address] [place] [address] 01/21/2024 1:30 PM EST Immunization/Injecti on Hematology Oncology [facility] [address] [place] [address] Nurse, [place] [address] [place] [address] 02/02/2024 10:00 AM EST Office Visit General Surgery, [address] [place] [address] Chris Chong MD [address] [place] [address] 02/07/2024 8:00 AM EST Laboratory Laboratory, [facility] [address] [place] [address] [facility] [address] [place] [address] 02/09/2024 9:30 AM EST Office Visit Hematology/Oncology [facility] [place] [address] [place] [address] Rae Berrios MD [address] [place] [address] 02/09/2024 10:00 AM EST Immunization/Injecti on Hematology/Oncology Treatment, [place] [address] [place] [address] Kandice, Chair 7 Hem Onc [facility] 200 [facility] [place] [address] 02/21/2024 7:40 AM EST Office Visit [facility] [address] [place] [address] Patrick Zhao MD [address] [place] [address] 02/25/2024 9:00 AM EST Office Visit Pharmacy, [address] [place] [address] [place] [address] 02/28/2024 9:00 AM EST Office Visit Neurology [facility] [place] [address] [place] [address] Vicki Watson PA-C [address] [place] [address] 03/22/2024 8:15 AM EST Pharmacy Pharmacy Hematology Oncology [facility] [address] [place] [address] [facility] Hem/Onc [address] [place] [address] 04/03/2024 9:00 AM EST Office Visit Nephrology, [facility] 200 [facility] [place] [address] Addison Salas MD 400 [place] [address] 09/05/2024 10:20 AM EDT Office Visit Dermatology[address] [id number] Linda Mejia PA-C [address] [place] [address] [place] [address] Health Maintenance Due Date Last Done Comments Cologuard 2001 Fecal Occult Blood Test 2001 Sigmoidoscopy 2001 Pneumococcal Vaccine: 65+ Years (3 of 3 - PPSV23 or PCV20) 07/09/2021 03/16/2019, 07/09/2016 Adult Wellness Visit 2022 COVID-19 Vaccine ( season) 2023 03/03/2021, 07/23/2020, 06/18/2020 Albumin/Creatinine Ratio 01/20/202401/19/2 023, 01/05/2022, 02/02/2018 HbA1c 04/26/2024 10/25/2023, 05/06, [...] patient or by statute hierarchy) Care Teams Angle Shear Set Up Operator Relationship Specialty Start Date End Date Patrick Zhao MD [address] [place] [address] PCP - General Family Medicine 05/10/16 documented as of this encounter
--- OUTSIDE RECORDS SUMMARY | 2024-05-18 07:24 | External Medical Summary ---
Author Name Unknown Address Unknown Organization K01:LABORATORY [facility] [place] - [address] [place] [address] Laboratory Report Ordering Provider Test Date Status ADALBERTO ALEGRE 01/18/2024 07:50:23 Final Mantel Cell Lymphoma - Every week [...] SYNC LEUKOCYTES IN BLOOD BY AUTOMATED COUNT 01/18/2024 07:50:23 3.87 Below low normal 4.00-10.80 (K/uL) Final Segs 01/18/2024 07:50:23 41.0 40.0-75.0 (%) Final Lymphs % 01/18/2024 07:50:23 40.1 18.0-42.0 (%) Final Monos 01/18/2024 07:50:23 14.0 Above high normal 1.0-11.0 (%) Final Eosinophils 01/18/2024 07:50:23 1.8 0.0-6.0 (%) Final Basos 01/18/2024 07:50:23 2.6 Above high normal 0.0-2.0 (%) Final Immature Granulocyte, Percent 01/18/2024 07:50:23 0.5 0.0-2.0 (%) Final Absolute Segs 01/18/2024 07:50:23 1.59 Below low normal 1.80-7.70 (K/uL) Final Lymphs, absolute 01/18/2024 07:50:23 1.55 1.00-4.80 (K/ul) Final Monos, Abs 01/18/2024 07:50:23 0.54 0.00-1.10 (K/uL) Final Eos, Abs 01/18/2024 07:50:23 0.07 0.00-0.70 (K/uL) Final Basos, Abs 01/18/2024 07:50:23 0.10 0.00-0.20 (K/uL) Final Immature Granulocytes, Number 01/18/2024 07:50:23 0.02 0.00-0.20 (K/uL) Final Performing Location LABORATORY [facility] [place] - [address] [facility] [address]
--- OUTSIDE RECORDS SUMMARY | 2024-05-18 07:24 | External Medical Summary | Summary of Care ---
Author Name Unknown Organization [facility] Address [address] [place] [address] Phone [phone] Care Team Providers Care Transition Assistant Name Role Phone Patrick Zhao MD Primary Care Provider [phone] Reason for Visit * Reason Comments Medication Management Encounter Details Date Type Department Care Team (Late st Contact Info) Description 01/17/2024 8:15 AM [facility] Pharmacy Pharmacy Hematology Oncology [facility] [address] [place] [address] [facility] Hem[facility]Onc [address] [place] [address] Multiple myeloma not having achieved remission (HCC)* Allergies Active Allergy Reactions Criticality Noted Date Comments Celecoxib Medium 02/01/2017 Metformin Diarrhea 02/18/2023 Prochlorperazine 11/18/1998 Intol,compazine documented as of this encounter (statuses as of 01/17/2024) Medications OneTouch Delica Plus [id number] USE TO TEST BLOOD SUGAR 2 TIMES [...] as of this encounter (statuses as of 01/17/2024) Active Problems Patient Care Coordination No te [...] as of this encounter (statuses as of 01/17/2024) Resolved Problems Problem Noted Date Diagnosed Date [...] as of this encounter (statuses as of 01/17/2024) Immunizations Name Administration Dates Next Due COVID-19 mRNA, LNP-s, No Pre serve, 2-Dose Series (Moderna) 07/23/2020,06/18/2020 COVID-19 mRNA, LNP-s, No Pre serve, 2-Dose Series (Pfizer) 03/03/2021 Pneumococcal Conjugate Vacc, 13 Valent (Prevnar) 03/16/2019 Pneumococcal Conjugate Vacci ne, 20-valent ([id number]) 02/08/2023(Deferred: Patient Refused - Pt thinks he [...] No 09/13/2023 Does the household have a [facility] source of income? (Household - for ages [...] documented in this encounter Progress Notes * Ana Burgess RPh - 01/17/2024 2:03 PM EST Patient scheduled for 6 month vaccines on 01/21/24. Will follow-up in 2 months to ensure patient scheduled for 8 month vaccines. Ana Burgess, PharmD, OP Ambulatory Clinical Pharmacist | Oral Chemotherapy Clinic [facility] 01/17/2024, 2:04 PM documented in this encounter Plan of Treatment Upcoming Encounters Date Type Department Care Team (Late st Contact Info) Description 01/18/2024 8:00 AM EST Laboratory Laboratory, [place] [address] [place] [phone] [place] [address] [place] [address] 01/18/2024 8:20 AM EST Office Visit Dermatology, [place] [address] [place] [address] Linda Mejia PA-C [address] [place] [address] [place] [address] 01/19/2024 9:00 AM EST Pharmacy Pharmacy Hematology Oncology [facility] [address] [place] [address] [facility] [place] Hem/Onc [address] [place] [address] 01/21/2024 12:00 PM EST Therapy Psychology [facility] [place] [address] [place] [address] Quentin Gupta PsyD [address] [place] [address] 01/21/2024 1:30 PM EST Immunization/Injecti on Hematology Oncology [facility] [place] [address] [place] [address] Nurse, [place] [address] [place] [address] 02/07/2024 8:00 AM EST Laboratory Laboratory, [address] [address] [facility] [address] [place] [address] 02/09/2024 9:30 AM EST Office Visit Hematology/Oncology [facility] 200 [place] [address] Rae Berrios MD [address] [place] [address], [place] [address] 02/09/2024 10:00 AM EST Immunization/Injecti on Hematology/Oncology Treatment, [place] 200 [facility] [place] [address] Kandice, Chair 7 Hem Onc [address] [place] [address] 02/21/2024 7:40 AM EST Office Visit Family Practice, [address] [address] Patrick Zhao MD [address] [place] [address] 02/25/2024 9:00 AM EST Office Visit Pharmacy, [address] [place] [address] [place] [address] 02/28/2024 9:00 AM EST Office Visit Neurology [facility] [address] [place] [address] Vicki Watson PA-C [address] [place] [address] 03/22/2024 8:15 AM EST Pharmacy Pharmacy Hematology Oncology [facility] [address] [place] [address] [facility] Hem/Onc [address] [place] [address] 04/03/2024 9:00 AM EST Office Visit Nephrology, [facility] [address] [place] [address] Addison Salas MD [address] [facility] [place], [place] [id number] Health Maintenance Due Date Last Done Comments [...] patient or by statute hierarchy) Care Teams Transition Assistant Relationship Specialty Start Date End Date Patrick Zhao MD [address] [place] [address] PCP - General Family Medicine 05/10/16 documented as of this encounter"
--- OUTSIDE RECORDS SUMMARY | 2024-05-18 07:24 | External Medical Summary | Summary of Care ---
Author Name Unknown Organization [facility] Address [address] [place] [address] Phone [phone] Care Team Providers Care Application Technical Designer Name Role Phone Patrick Zhao MD Primary Care Provider [phone] Reason for Visit * Reason Comments Medication Management Encounter Details Date Type Department Care Team (Late st Contact Info) Description 01/19/2024 9:00 AM [facility] Pharmacy Pharmacy Hematology Oncology [facility] [address] [place] [address] [facility] Hem/Onc [address] [place] [address] Multiple myeloma not having achieved remission (HCC)* Allergies Active Allergy Reactions Criticality Noted Date Comments Celecoxib Medium 02/01/2017 Metformin Diarrhea 02/18/2023 Prochlorperazine 11/18/1998 Intol,compazine documented as of this encounter (statuses as of 01/19/2024) Medications OneTouch Delica Plus [id number] USE TO TEST BLOOD SUGAR 2 TIMES [...] goal of less than 7.0% ([facility]) USE TO TEST BLOOD SUGAR 2 [...] (Prevnar) 03/16/2019 Pneumococcal Conjugate Vacci ne, 20-valent ([id number]) 02/08/2023(Deferred: Patient Refused - Pt thinks he [...] this encounter Progress Notes * Apoorva Amezcua, [facility] - 01/19/2024 9:57 AM EST MEDICATION THERAPY MANAGEMENT LENALIDOMIDE TREATMENT PROGRESS NOTE [place] [id number] Patient Phone Numbers Communication: Spoke to: Patient Treatment: Medication: Lenalidomide (Revlimid) Indication/Staging/Diagnosis Code: multiple myeloma / C90.00 Dose: 10mg daily x 2 years Administration: +/- food Start Date: 12/06/23 Primary Electric Motor Winder/Oncologist: Dr. Berrios Supportive Care Meds: Ondansetron Prophylactic Meds: Acyclovir 800mg BID See anticoagulant below Relevant Chronic Medications: Category Medications Pertinent Notes Antihypertensives Olmesartan 40mg daily Propranolol 10mg TID Per PCP Per neurology Antidiabetic Semaglutide Per DM MTDM Anticoagulation ASA 81mg daily Pt hx Treatment History: 03/17/23-06/01/23: DaraVRd 07/21/23: BMT Interval History: Per TE 01/17/24, pt advised to increase fluid intake to help with dizziness and vertigo and apply hydrocortisone cream to armpits for pruritus management Continues to apply hydrocortisone to armpit and elbow as needed for pruritus management Reports dry skin resolved with Eucerin States loratadine keeping other areas pruritus free and will continue antihistamine Continues to defer lenalidomide dose increase due to concerns of ill effects. States his energy has increased and is able to do work Requests if dose increase needed to wait after holidays No other concerns, tolerating therapy well Changes to medication list since last visit? No Upcoming surgeries or procedures? No Assessment and Plan: ANC declining at grade 1 neutropenia Per PI, no dose adjustment recommended for ANC > 500 Will monitor closely Hgb low but improving All other labs stable Continue Eucerin for dry skin management. Educated pt DM can cause dry skin and emphasized importance of daily moisturizing regimen in winter to protect skin barrier. Pt replied with understanding Advised pt to continue hydrocortisone cream as needed for occasional pruritus flares Continue loratadine for pruritus ppx Continue current therapy Advised pt to discuss lenalidomide DI concerns at upcoming OV RX refill sent to pharmacy Repeat labs in 3 weeks with OV Lab monitoring can be extended to monthly thereafter - pt will schedule monthly labs for 03/2024 after OV Assessment of compliance: compliant Assessment of adverse effects attributed to drug therapy: DVT - absent Rash - absent Diarrhea/Constipation - absent Edema - absent Dose adjustment needed based on lab or adverse drug reaction? No Follow up: 3 weeks OV/labs; 7 weeks MTM Apoorva Amezcua, PharmD, BCOP Clinical Pharmacist, [facility] Oral Chemotherapy [facility] 01/19/2024, 10:33 AM Monitoring Parameters: Estimated CrCl Serum creatinine: 1 mg/dL 01/18/24 0750 Estimated creatinine clearance: 83 mL/min Hepatitis panel Latest Reference Range & Units 10/25/23 08:44 Hepatitis B Surface Antibody, Quantitative mIU/mL <3.5 HEPATITIS B SURFACE ANTIBODY Rpt Hepatitis B Surface Antibody, Interpretation NOT immune to Hepatitis B Virus Hepatitis B Surface Antibody, Qualitative Negative Suggested lab monitoring Suggested labs (multiple myeloma): CBCd q1wk x 2 cycles, D1 and D15 of cycle 3, then q4wk thereafter; SCr/LFTs/TSH baseline, then q2-3mo; tests 2 negative test 10 to 14 days prior to initiation and w/in 24hr of treatment initiation, q1wk x 1 mo, then q2-4wk through 4 weeks after therapy d/c Is patient a woman of child-bearing potential or having sex with one? No On prophylactic anticoagulation? yes IMPEDE score: 5 SAVED score: 1 Date TSH Free T4 Current thyroid meds Next Due Date 10/25/23 3.6 N/A 01/202412/13/23 2.6 Treatment Parameters ANC > 500, PLT > 30K Pertinent labs: Latest Reference Range & Units 12/27/23 07:41 01/03/24 07:51 01/18/24 07:50 WBC 4.00 - 10.80 K/uL 3.80 (L) 4.03 3.87 (L) RBC 4.50 - 5.25 M/uL 3.57 3.89 3.79 HGB 14.0 - 16.8 g/dL 11.5 (L) 12.8 (L) 12.1 (L) HCT 40.0 - 48.4 % 34.6 (L) 38.9 (L) 37.1 (L) MCV 82.0 - 99.5 fL 96.9 100.0 97.9 MCH 27.0 - 34.0 pg 32.2 32.9 31.9 MCHC 32.0 - 36.0 g/dL 33.2 32.9 32.6 RDW 11.5 - 15.5 % 12.9 13.0 13.0 PLT 140 - 400 K/uL 140 150 151 MPV 6.6 - 11.1 fL 8.8 8.9 9.5 CBC WITH WBC DIFFERENTIAL Rpt ! Rpt ! Rpt ! Absolute Neutrophils 1.80 - 7.70 K/uL 1.74 (L) 1.79 (L) 1.59 (L) Latest Reference Range & Units 12/27/23 07:41 01/03/24 07:51 01/18/24 07:50 Albumin 3.8 - 5.0 g/dL 4.3 4.4 4.2 AST 10 - 50 U/L 21 19 18 ALT 10 - 50 U/L 27 34 35 Alkaline Phosphatase 35 - 130 U/L 73 68 71 Bilirubin, Total <=1.2 mg/dL 0.3 0.3 0.4 Time Spent on Encounter: 21 - 25 minutes Encounter Group: Hematology Encounter Interventions Item Category: Oral Chemotherapy Lenalidomide Problem/Rationale: Safety: Needs additional monitoring - Medication Requires monitoring Pharmacist Intervention(s): Lab monitoring, Non-pharmacological intervention provided, Refill sent,and Toxicity monitoring Magnitude of Intervention: Modification of medication for asymtomatic patients (Level 2) Second Item Second Item Category: Topicals Hydrocortisone Problem/Rationale: Effectiveness: Needs additional monitoring - Medication Requires monitoring Pharmacist Intervention(s): Non-pharmacological intervention provided and Toxicity monitoring Magnitude of Intervention: Monitoring with direction (Level 1) Third Item Third Item Category: Antihistamine Loratidine Problem/Rationale: Effectiveness: Needs additional monitoring - Medication Requires monitoring Pharmacist Intervention(s): Toxicity monitoring Magnitude of Intervention: Monitoring with direction (Level 1) documented in this encounter Plan of Treatment Upcoming Encounters Date Type Department Care Team (Late st Contact Info) Description 01/21/2024 12:00 PM EST Therapy Psychology [address] [address] Belf[place] Quentin, [place] [address] [place] [address] 01/21/2024 1:30 PM EST Immunization/Injecti on Hematology Oncology [facility] [address] [place] [address] Nurse, [facility] [address] [place], [place] [phone] 02/02/2024 10:00 AM EST Office Visit General Surgery, [facility] [address] [facility] [place] [address] Chris Chong MD [address] [place] [address] 02/07/2024 8:00 AM EST Laboratory Laboratory, [place] [address] [place] [address] [place], [address] [address] 02/09/2024 9:30 AM EST Office Visit Hematology/Oncology [facility] [place] 200 [facility] [place] [id number] Rae Berrios MD 200 [facility] [place] [address] 02/09/2024 10:00 AM EST Immunization/Injecti on Hematology/Oncology Treatment, [place] [address] [place] [address] Kandice, Chair 7 Hem Onc [facility] 200 [facility] [place] [address] 02/21/2024 7:40 AM EST Office Visit Family Practice, [place] [facility] [address] [facility] [place] [place] [address] Patrick Zhao MD [address] [place] [address] 02/25/2024 9:00 AM EST Office Visit Pharmacy, [address] [place] [address] [place] [address] 02/28/2024 9:00 AM EST Office Visit Neurology [facility] 200 [facility] [place] [address] Vicki Watson PA-C 200 [facility] [place] [address] 03/10/2024 9:00 AM EST Pharmacy Pharmacy Hematology Oncology [place] [address] [place] [address] [facility] Hem/Onc [address] [place] [address] 03/22/2024 8:15 AM EST Pharmacy Pharmacy Hematology Oncology [place] [address] [place] [address] [facility], [facility] Hem/Onc [address] [place] [address] 04/03/2024 9:00 AM EST Office Visit Nephrology, [facility] [address] [place] [address] Addison Salas MD [address] [facility], [place] [id number] 09/05/2024 10:20 AM EDT Office Visit Dermatology, [place] [address] [place] [address] Linda Mejia PA-C [address] [place] [address] [place] [address] Health Maintenance Due Date Last Done Comments [...] Agents on File Name Relationship Healthcare Agent [facility] Communication Dori Hoover Adult Child Health Care Repr esentative (appointed verbally by patient or by statute hierarchy) Care Teams Application Technical Designer Relationship Specialty Start Date End Date Patrick Zhao MD [address] [place] [address] PCP - General Family Medicine 05/10/16 documented as of this encounter
--- OUTSIDE RECORDS SUMMARY | 2024-05-18 07:24 | External Medical Summary ---
Author Name Unknown Address Unknown Organization K01:LABORATORY C - [address] [place] [address] Laboratory Report Ordering Provider Test Date Status [...] Abnormality Reference (Units ) Status WBC, Total 01/18/2024 07:50:23 3.87 Below low normal 4.00-10.80 (K/uL) Final RBC 01/18/2024 07:50:23 3.79 4.50-5.25 (M/uL) Final Hemoglobin 01/18/2024 07:50:23 12.1 Below low normal 14.0-16.8 (g/dL) Final HCT 01/18/2024 07:50:23 37.1 Below low normal 40.0-48.4 (%) Final MCV 01/18/2024 07:50:23 97.9 82.0-99.5 (fL) Final MCH 01/18/2024 07:50:23 31.9 27.0-34.0 (pg) Final MCHC 01/18/2024 07:50:23 32.6 32.0-36.0 (g/dL) Final RDW 01/18/2024 07:50:23 13.0 11.5-15.5 (%) Final Platelets 01/18/2024 07:50:23 151 140-400 (K/uL) Final MPV 01/18/2024 07:50:23 9.5 6.6-11.1 (fL) Final Nucleated erythrocytes/100 leukocytes [Ratio] in Blood by Automated count 01/18/2024 07:50:23 0 <=0 (/100 WBCs) Final Performing Location LAB[facility]ATORY [facility] [place] [address] [facility] [place] [address]
--- OUTSIDE RECORDS SUMMARY | 2024-05-18 07:24 | External Medical Summary | Summary of Care ---
Author Name Unknown Organization [facility] Address [address] [facility] [place] [address] Phone [phone] Care Team Providers Care Adviser Sales Name Role Phone Patrick Zhao MD Primary Care Provider [phone] Reason for Visit * Reason Onset Date Comments Medication Refill 01/19/2024 Encounter Details Date Type Department Care Team (Late st Contact Info) Description 01/19/2024 Telephone Hematology/Oncology [facility] [place] [address] [place] [phone] Rae Berrios MD [address] [place] [address] Medication Refill Allergies Active Allergy Reactions Criticality Noted Date Comments Celecoxib Medium 02/01/2017 Metformin Diarrhea 02/18/2023 Prochlorperazine 11/18/1998 Intol,compazine documented as of this encounter (statuses as of 01/19/2024) Medications OneTouch Delica Plus [id number] USE TO TEST BLOOD SUGAR 2 TIMES DAILY DX E11.9 200 Each 3 12/05/19 23 Active Ozempic (0.25 or 0.5 MG/DOSE) 2 MG/3ML Solution Pen-injector (Semaglutide(0.25 or 0.5MG/DOS))Indicat ions:Type 2 diabetes mellitus with hemoglobin A1c goal of less than 7.0% ([facility]) INJECT 0.25 MG UNDER THE SKIN [...] goal of less than 7.0% ([facility]) USE TO TEST BLOOD SUGAR 2 [...] 2023 History of autologous stem cell transplant 05/15 /2024 Overview (07/21/2023): Date of Admission: 07/20/23 Date [...] (Prevnar) 03/16/2019 Pneumococcal Conjugate Vacci ne, 20-valent ([id number]) 02/08/2023(Deferred: Patient Refused - Pt thinks he [...] 8:11 AM EDT Meilnda Vargas RN * Are you blind or [...] Miscellaneous Notes * Telephone Encounter - Apoorva Amezcua RPh - 01/19/2024 10:00 AM EST Refill Request [...] Ambulatory Clinical Pharmacist | Oral Chemotherapy Clinic [facility] 01/19/2024, 10:00 AM * Telephone Encounter - Caroline Rivero CPhT - 01/19/2024 8:47 AM EST PHARMACY REMS MEDICATION AUTHORIZATION Hernan Rodriguez [phone] Patient Phone Numbers Communication: Chart review Treatment: Medication: Lenalidomide (Revlimid) Indication/Staging/Diagnosis Code: multiple myeloma / C90.00 Dose: 10mg daily x 2 years Administration: +/- food Start Date: 12/06/23 Primary Cut Out And Marking Machine Operator/Oncologist: Dr. Berrios Patient managed by Hem/Onc MTDM - Yes Patient is due for/had labs on 01/17 Prescriber survey complete; [employer] auth number [id number]. Upon new prescription being sent to [facility] specialty pharmacy, will follow up on [employer] website within 1-2 business days to confirm medication dispensed Caroline Rivero Clinic Receptionist III Hematology Oncology Oral Chemotherapy Clinic Medication Therapy Disease Management [facility] 01/19/2024 8:49 AM Time Spent on Encounter: < 5 minutes documented in this encounter Plan of Treatment Upcoming Encounters Date Type Department Care Team (Late st Contact Info) Description 01/21/2024 12:00 PM EST Therapy Psychology [facility] [address] [place] [address] Quentin Gupta PsyD [address] [place] [address] 01/21/2024 1:30 PM EST Immunization/Injecti on Hematology Oncology [facility] [address] [place], [place] [id number] Nurse, Med [address] [place], [place] [id number] 02/02/2024 10:00 AM EST Office Visit General Surgery, [facility] [address] [facility] [place] [address] Chris Chong MD 132 [facility] [place] [address] 02/07/2024 8:00 AM EST Laboratory Laboratory, [facility] [address] [place] [address] [facility] [address] [place] [address] 02/09/2024 9:30 AM EST Office Visit Hematology/Oncology [facility] [place] 200 [facility] [place] [phone] Rae Berrios MD 200 [facility] [place] [address] 02/09/2024 10:00 AM EST Immunization/Injecti on Hematology/Oncology Treatment, [place] [address] [facility] [address] [place] [phone] Kandice, Chair 7 Hem Onc [facility] 200 [facility] [place] [address] 02/21/2024 7:40 AM EST Office Visit Family [facility], [facility] [address] [place] [address] Patrick Zhao MD [address] [place] [address] 02/25/2024 9:00 AM EST Office Visit Pharmacy, [address] [place] [address] [place] [address] 02/28/2024 9:00 AM EST Office Visit Neurology [facility] [place] [address] [place] [address] Vicki Watson PA-C [address] [place] [address] 03/22/2024 8:15 AM EST Pharmacy Pharmacy Hematology Oncology [facility] [address] [place] [address] [facility], [facility] Hem/Onc [address] [place] [address] 04/03/2024 9:00 AM EST Office Visit Nephrology, [facility] [address] Addison Salas MD 400 [facility] [place] [address] 09/05/2024 10:20 AM EDT Office Visit Dermatology, [address] [address] Linda Mejia PA-C [address] [place] [address] [place] [address] Health Maintenance Due Date Last Done Comments [...] patient or by statute hierarchy) Care Teams Adviser Sales Relationship Specialty Start Date End Date Patrick Zhao MD [address] [place] [address] PCP - General Family Medicine 05/10/16 documented as of this encounter"
--- OUTSIDE RECORDS SUMMARY | 2024-05-18 07:24 | External Medical Summary | Summary of Care ---
Author Name Unknown Organization [facility] Address [address] [facility] [address] Phone [phone] Care Team Providers Care Corporate Officer Name Role Phone Patrick Zhao MD Primary Care Provider [phone] Reason for Referral * Evaluate & Treat - Unlimited Visits (Within 30 days (routine)) - Authorized Specialty Diagnoses / Procedures Referred By Fernando tarango Referred To Contact General Surgery Diagnoses EIC (epidermal inclusion cyst) Linda Mejia PA-C [address] [place] [address] [place] [address] Phone: tel: fax: Referral ID Status Reason Start Date Expiration Date Visits Requested Visits Authorized [id number] Authorized Specialty Services Required 4 [phone] [...] Encounter Details Date Type Department Care Team ([facility] st Contact Info) Description 01/18/2024 8:20 AM EST Office Visit Dermatology[address] [place] [address] Linda Mejia PA-C [address] [place] [address] [place] [address] H/O psoriasis*; EIC (epidermal inclusion cyst) Allergies Active Allergy Reactions Criticality Noted Date Comments Celecoxib Medium 02/01/2017 Metformin Diarrhea 02/18/2023 Prochlorperazine 11/18/1998 Intol,compazine documented as of this encounter (statuses as of 01/18/2024) Medications OneTouch Delica Plus [id number] USE TO TEST BLOOD SUGAR 2 TIMES [...] (Prevnar) 03/16/2019 Pneumococcal Conjugate Vacci ne, 20-valent ([id number]) 02/08/2023(Deferred: Patient Refused - Pt thinks he [...] documented in this encounter Progress Notes * Linda Mejia PA-C - 01/18/2024 8:20 [...] NONE Reviewed, same day as visit, 0 [facility] Dermatology lab work(s)/pathology report(s) as well as those sent by referring provider prior to seeing pt. MEDICA TIONS: Current Outpatient Medications Medication Sig Dispense Refill OneTouch Delica Plus [id number] USE TO TEST BLOOD SUGAR 2 TIMES [...] during day as needed 45 Tablet 1 OneTouch Verio In Vitro Strip [...] treatment. Linda Mejia PA-C 01/18/2024 7:[address] [place] [address] documented in this encounter Nursing Notes * [...] 9:00 AM EST Pharmacy Pharmacy Hematology Oncology [place] [address] [place] [address] [facility], [facility] Hem/Onc [address] [place] [address] 01/21/2024 12:00 PM EST Therapy Psychology [place] [address] [place] [address] Quentin Gupta PsyD [address] [place] [address] 01/21/2024 1:30 PM EST Immunization/Injecti on Hematology Oncology [place] [address] [place] [address] Nurse, Med [address] [place] [address] 02/02/2024 10:00 AM EST Office Visit General Surgery, [facility] [address] [place] [address] Chris Chong MD 132 [place] [address] 02/07/2024 8:00 AM EST Laboratory Laboratory, [place] [facility] [address] [place] [address] [facility] [address] [place] [address] 02/09/2024 9:30 AM EST Office Visit Hematology/Oncology [facility] [place] [address] [place] [phone] Rae Berrios MD [address] [place] [address] 02/09/2024 10:00 AM EST Immunization/Injecti on Hematology/Oncology Treatment, [place] [address] [place] [phone] Kandice, Chair 7 Hem Onc [facility] 200 [facility] [place] [address] 02/21/2024 7:40 AM EST Office Visit [facility] [address] [place] [address] Patrick Zhao MD [address] [place] [address] 02/25/2024 9:00 AM EST Office Visit Pharmacy, [address] [place] [address] [place] [address] 02/28/2024 9:00 AM EST Office Visit Neurology [facility] [place] 200 [facility] [place] [address] Vicki Watson PA-C 200 [facility] [place] [address] 03/22/2024 8:15 AM EST Pharmacy Pharmacy Hematology Oncology [facility] [address] [place] [place] [address] [facility] Hem[facility]Onc [facility] [address] 04/03/2024 9:00 AM EST Office Visit Nephrology, [facility] 200 [facility] [address] Addison Salas MD [address] [place] [address] Scheduled Referrals Name Type Priority Associated Diagnoses [...] study not interpreted or resulted by a Legend Power Systemser or StoryBlender contracted radiologist. Linda Mejia PA-C RADIOLOGY ([facility] ) Final Result documented in this [...] patient or by statute hierarchy) Care Teams Corporate Officer Relationship Specialty Start Date End Date Patrick Zhao MD [address] [place] [address] PCP - General Family Medicine 05/10/16 documented as of this encounter
--- OUTSIDE RECORDS SUMMARY | 2024-05-18 07:25 | External Medical Summary | Summary of Care ---
Author Name Unknown Organization [facility] Address [address] [place] [address] Phone [phone] Care Team Providers Care Manager Demand Name Role Phone Patrick Zhao MD Primary Care Provider [phone] Reason for Visit * Reason Comments Medication Management Encounter Details Date Type Department Care Team (Late st Contact Info) Description 01/04/2024 9:00 AM EDT Pharmacy Pharmacy Hematology Oncology [facility] [address] [place] [address] [facility], [facility] Hem/Onc [address] [place] [address] Multiple myeloma not having achieved remission (HCC)* Allergies Active Allergy Reactions Criticality Noted Date Comments Celecoxib Medium 02/01/2017 Metformin Diarrhea 02/18/2023 Prochlorperazine 11/18/1998 Intol,compazine documented as of this encounter (statuses as of 01/04/2024) Medications Medication Sig Dispensed Refills Start Date End Date Status OneTouch Delica Plus [id number] USE TO TEST BLOOD SUGAR 2 TIMES DAILY DX E11.9 200 Each 3 12/04/2022 Active Ozempic (0.25 or 0.5 MG/DOSE) 2 MG/3ML Solution Pen-injector (Semaglutide(0.25 or 0.5MG/DOS))Indicatio ns:Type 2 diabetes mellitus with hemoglobin A1c goal of less than 7.0% (HCC) INJECT 0.25 MG UNDER THE SKIN ONCE A WEEK. THEN INCREASE TO 0.5 MG IF TOLERATED. 9 mL 3 03/07/2023 Active Famotidine 20 MG Oral Tablet (Pepcid)Indications: Gastroesophageal reflux disease, unspecified whether esophagitis present Take 1 Tablet by mouth daily. One daily 90 Tablet 3 03/10/2023 Active Calcium Carb-Cholecalciferol 600-20 MG-MCG Oral Tablet (Calcium 600+D3) Take by mouth 2 times a day. Patient reported Active Loperamide HCl 2 MG Oral Tablet (Imodium A-D) Take 1 Tablet by mouth 4 times a day as needed for Diarrhea. 30 Tablet 08/07/2023 Active Additional Information Patient not taking.Reported on 10/25/2023 Ondansetron HCl 8 MG Oral Tablet (Zofran) Take 1 Tablet by mouth every 8 hours as needed for Nausea. 30 Tablet 2 08/09/2023 Active Aspirin 81 MG Oral Capsule Take by mouth. Active Polyethylene Glycol 3350 17 GM Oral Packet (MiraLax) Take 1 Packet by mouth in the morning. Active Atorvastatin Calcium 20 MG Oral Tablet (Lipitor)Indications :Other hyperlipidemia TAKE 1 TABLET BY MOUTH EVERY DAY 100 Tablet 1 09/03/2023 Active Olmesartan Medoxomil 40 MG Oral Tablet (Benicar) Take 1 Tablet by mouth in the morning. 90 Tablet 3 10/13/2023 Active Lenalidomide 10 MG Oral Capsule (Revlimid)Indication s:Multiple myeloma not having achieved remission (HCC) Take 1 Capsule by mouth in the morning. For 28 days of a 28 day cycle. Take medication same time every day and consistently with or without food.. 28 Capsule 11/23/2023 Active Additional Information Patient not taking.Reported on 12/01/2023 Propranolol HCl 20 MG Oral Tablet (Inderal) Take 1 Tablet by mouth in the morning and 1 Tablet at noon and 1 Tablet before bedtime. 270 Tablet 3 11/23/2023 Active LORazepam 1 MG Oral Tablet (Ativan)Indications: Anxiety state,Insomnia, unspecified type Take one at bedtime . May take 1/2- 1 tab during day as needed 45 Tablet 1 12/12/2023 Active Acyclovir 800 MG Oral Tablet (Zovirax)Indications :Multiple myeloma in remission (HCC),History of autologous stem cell transplant (HCC) Take 1 Tablet by mouth in the morning and 1 Tablet before bedtime. 180 Tablet 1 12/16/2023 Active OneTouch Verio In Vitro Strip (Glucose Blood)Indications:Ty pe 2 diabetes mellitus with hemoglobin A1c goal of less than 7.0% ([facility]) USE TO TEST BLOOD SUGAR 2 TIMES DAILY DX E11.9 200 Strip 3 12/17/2023 Active NovoFine Plus Pen Needle 32G X 4 MM (Insulin Pen Needle) Use to inject Ozempic once weekly 100 Each 3 12/17/2023 Active Lenalidomide 10 MG Oral Capsule (Revlimid)Indication s:Multiple myeloma not having achieved remission (HCC) Take 1 Capsule by mouth in the morning. For 28 days of a 28 day cycle. Take medication same time every day and consistently with or without food.. 28 Capsule 12/23/2023 Active documented as of this encounter (statuses as of 01/04/2024) Active Problems Patient Care Coordination No te [...] History of autologous stem cell transplant 07/20 Overview: Date of Admission: 07/20/23 Date of Transplant: [...] A1c goal of less than 7.0% 06/12/2016 ADVANCE DIRECTIVE INFORMATION 09/22/2004 Overview: No, Advance Directive brochure given to patient. ACUTE STRESS 07/21/2004 Cervicalgia 06/13/2001 BACKACHE NOS 06/13/2001 Enthesopathy of knee 06/13/2001 Elevated blood pressure, situational 03/15/2001 PLANTAR FASCIITIS 08/18/1999 DIVERTICULITIS SM INTEST documented as of this encounter (statuses as of 01/04/2024) Resolved Problems Problem Noted Date Diagnosed Date Resolved Date Stem cell transplant candidate 05/07/2023 07/21/2023 Migraine 02/05/2023 02/05/2023 Major depressive disorder, r ecurrent episode, moderate 07/21/2004 02/05/2023 ACUTE SINUSITIS NOS 03/15/2001 04/26/19 09 Overview: Resolved per Benign Acute Dxs Protocol #3 ACUTE URI NOS 03/15/2001 04/26/2008 Overview: Resolved per Benign Acute Dxs Protocol #3 Sunburn 08/18/1999 07/10/2022 PAIN IN FOOT 08/18/1999 12/15/2022 Major depressive disorder 01/08/1999 Overview: ICD-10 update of inactive term Anxiety 12/17/1998 09/22/2023 documented as of this encounter (statuses as of 01/04/2024) Immunizations Name Administration Dates Next Due COVID-19 mRNA, LNP-s, No Pre serve, 2-Dose Series (Moderna) 07/23/2020,06/18/2020 COVID-19 mRNA, LNP-s, No Pre serve, 2-Dose Series (Pfizer) 03/03/2021 Pneumococcal Conjugate Vacc, 13 Valent (Prevnar) 03/16/2019 Pneumococcal Conjugate Vacci ne, 20-valent ([id number]) 02/08/2023(Deferred: Patient Refused - Pt thinks he [...] Answer Date Recorded PHQ Adult Total Score 0 08/06/2023 Hunger Vital Sign Answer Date Recorded Within [...] Assigned at Male 08/02/2018 7:28 AM EDT Gender Identity Male 08/02/2018 7:28 AM EDT Sexual Orientation Straight 08/02/2018 7: 28 AM EDT Job Start Date Occupation Industry Not on file Not on file Not on file documented as of this encounter Functional Status Functional Status Response Date of Assess ment Are you deaf or do you have serious difficulty h earing? No 07/20/2023 Are you blind or do you have serious difficulty seeing, even when wearing glasses? No 07/20/2023 Do you have serious difficul ty walking or climbing stairs? (5 years old or older) No 07/20/2023 Do you have difficulty dress ing or bathing? (5 years old or older) No 07/20/2023 Because of a physical, menta l, or emotional condition, do you have difficulty doing errands alone such as visiting a doctor s office or shopping? (15 years old or older) No 07/20/19 Cognitive Status Response Date of Assessm ent Because of a physical, menta l, or emotional condition, do you have serious difficulty concentrating, remembering, or making decisions? (5 years old or older) No 07/20/2023 documented as of this encounter Progress Notes * Apoorva Amezcua, [facility] - 01/04/2024 10:50 AM EDT MEDICATION THERAPY MANAGEMENT LENALIDOMIDE TREATMENT PROGRESS NOTE Hernan Rodriguez [id number] Patient Phone Numbers Communication: Spoke to: Patient Treatment: Medication: Lenalidomide (Revlimid) Indication/Staging/Diagnosis Code: multiple myeloma / C90.00 Dose: 10mg daily x 2 years Administration: +/- food Start Date: 12/06/23 Primary Content Coordinator/Oncologist: Dr. Berrios Supportive Care Meds: Ondansetron Prophylactic Meds: Acyclovir 800mg BID See anticoagulant below Relevant Chronic Medications: Category Medications Pertinent Notes Antihypertensives Olmesartan 40mg daily Propranolol 10mg TID Per PCP Per neurology Antidiabetic Semaglutide Per DM MTDM Anticoagulation ASA 81mg daily Pt hx Treatment History: 03/17/23-06/01/23: DaraVRd 07/21/23: BMT Interval History: Per TE 12/31/23, pt reports rash secondary to laundry detergent change - states rash is improving States pruritus resolved with loratadine and is continuing therapy for pruritus ppx Inquiring why Dr. Berrios would want to increase lenalidomide dose to 15mg daily when he is tolerating 10mg dose well No other concerns, tolerating therapy well Changes to medication list since last visit? No Upcoming surgeries or procedures? No Assessment and Plan: ANC declining to grade 1 neutropenia Per PI, no dose adjustment recommended for ANC > 500 Will monitor closely PLT improving to WNL Per PI, no dose adjustment recommended for PLT > 30K Will monitor closely Hgb low but improving All other labs stable Continue loratadine for pruritus ppx Advised pt to follow up with Dr. Berrios regarding lenalidomide dose at next OV. Advised pt to mention he is tolerating current dose well and does not want to change unless it is necessary Continue current therapy Advised pt to repeat labs in 2 weeks (scheduled 01/17 @0800) Assessment of compliance: compliant Assessment of adverse effects attributed to drug therapy: DVT - absent Rash - absent Diarrhea/Constipation - absent Edema - absent Dose adjustment needed based on lab or adverse drug reaction? No Follow up: 2 weeks Apoorva Amezcua, PharmD, BCOP Clinical Pharmacist, [facility] Oral Chemotherapy [facility] 01/04/2024, 11:09 AM Monitoring Parameters: Estimated CrCl Serum creatinine: 1 mg/dL 01/03/24 0751 Estimated creatinine clearance: 83 mL/min Hepatitis panel [...] Pertinent labs: Latest Reference Range & Units 12/20/23 07:46 12/27/23 07:41 01/03/24 07:51 WBC 4.00 - 10.80 K/uL 5.26 3.80 (L) 4.03 RBC 4.50 - 5.25 M/uL 3.59 3.57 3.89 HGB 14.0 - 16.8 g/dL 11.5 (L) 11.5 (L) 12.8 (L) HCT 40.0 - 48.4 % 35.2 (L) 34.6 (L) 38.9 (L) MCV 82.0 - 99.5 fL 98.1 96.9 100.0 MCH 27.0 - 34.0 pg 32.0 32.2 32.9 MCHC 32.0 - 36.0 g/dL 32.7 33.2 32.9 RDW 11.5 - 15.5 % 12.7 12.9 13.0 PLT 140 - 400 K/uL 120 (L) 140 150 MPV 6.6 - 11.1 fL 8.9 8.8 8.9 CBC WITH WBC DIFFERENTIAL Rpt ! Rpt ! Rpt ! Absolute Neutrophils 1.80 - 7.70 K/uL 3.05 1.74 (L) 1.79 (L) Latest Reference Range & Units 12/20/23 07:46 12/27/23 07:41 01/03/24 07:51 Albumin 3.8 - 5.0 g/dL 4.2 4.3 4.4 AST 10 - 50 U/L 15 21 19 ALT 10 - 50 U/L 26 27 34 Alkaline Phosphatase 35 - 130 U/L 68 73 68 Bilirubin, Total <=1.2 mg/dL 0.3 0.3 0.3 Time Spent on Encounter: 16 - 20 minutes Encounter Group: Hematology Encounter Interventions Item Category: Oral Chemotherapy Lenalidomide Problem/Rationale: Safety: Needs additional monitoring - Medication Requires monitoring Education: Patient question Pharmacist Intervention(s): Care coordination, Education provided, Lab monitoring, and Toxicity monitoring Magnitude of Intervention: Monitoring with direction (Level 1) Second Item Second Item Category: Antihistamine Loratidine Problem/Rationale: Effectiveness: Needs additional monitoring - Medication Requires monitoring Pharmacist Intervention(s): Toxicity monitoring Magnitude of Intervention: Monitoring with direction (Level 1) documented in this encounter Plan of Treatment Upcoming Encounters Date Type Department Care Team (Late st Contact Info) Description 01/17/2024 8:15 AM EST Pharmacy Pharmacy Hematology Oncology [facility] [address] [place] [address] [facility] Hem/Onc [address] [place] [address] 01/18/2024 8:00 AM EST Laboratory Laboratory, [address] [phone] [place], Laboratory [facility] [place] [address] 01/18/2024 8:20 AM EST Office Visit Dermatology, [place] [address] [place] [address] Linda Mejia PA-C [address] [place] [address] [place] [address] 01/19/2024 9:00 AM EST Pharmacy Pharmacy Hematology Oncology [facility] [address] [place] [address] [facility] Hem[facility]Onc [address] [place] [address] 01/21/2024 12:00 PM EST Therapy Psychology [address] [address] Quentin Gupta PsyD [address] [place] [address] 01/21/2024 1:30 PM EST Immunization/Injecti on Hematology Oncology [place] [address] [place] [address] [facility] [place] [address] 02/07/2024 8:00 AM EST Laboratory Laboratory, [address] [phone] [phone] 02/09/2024 9:30 AM EST Office Visit Hematology/Oncology [facility] [place] [facility] [place] [phone] Rae Berrios MD [address] [facility] [place] [address] 02/09/2024 10:00 AM EST Immunization/Injecti on Hematology/Oncology Treatment, [place] [address] [place] [phone] Kandice, Chair 7 Hem Onc [facility] [address] [place] [address] 02/21/2024 7:40 AM EST Office Visit Family [place] [address] [place] [phone] Patrick Zhao MD [address] [place] [address] 02/25/2024 9:00 AM EST Office Visit Pharmacy, [address] [place] [address] [place] [address] 02/28/2024 9:00 AM EST [facility] [place] [address] [facility] [address] [place] [address] Vicki Watson PA-C [address] [place] [address] 04/03/2024 9:00 AM EST Office Visit Nephrology, [facility] [address] [place] [address] Addison Salas MD 400 [facility] [place] [address] Health Maintenance Due Date Last Done Comments [...] patient or by statute hierarchy) Care Teams Manager Demand Relationship Specialty Start Date End Date Patrick Zhao MD [address] [facility] [place] [address] PCP - General Family Medicine 05/10/16 documented as of this encounter
--- OUTSIDE RECORDS SUMMARY | 2024-05-18 07:25 | External Medical Summary | Summary of Care ---
Author Name Unknown Organization [facility] Address [address] [place] [address] Phone [phone] Care Team Providers Care Pulpwood Contractor Name Role Phone Patrick Zhao MD Primary Care Provider [phone] Encounter Details Date Type Department Care Team (Late st Contact Info) Description 01/06/2024 Orders Only Hematology Oncology [facility] [address] [place] [address] Nick Moore MD [address] [place] [address] Allergies Active Allergy Reactions Criticality Noted Date Comments Celecoxib Medium 02/01/2017 Metformin Diarrhea 02/18/2023 Prochlorperazine 11/18/1998 Intol,compazine documented as of this encounter (statuses as of 01/06/2024) Medications Medication Sig Dispensed Refills Start Date End Date Status OneTouch Delica Plus [id number] USE TO TEST BLOOD SUGAR 2 TIMES [...] as of this encounter (statuses as of 01/06/2024) Active Problems Patient Care Coordination No te [...] as of this encounter (statuses as of 01/06/2024) Resolved Problems Problem Noted Date Diagnosed Date [...] as of this encounter (statuses as of 01/06/2024) Immunizations Name Administration Dates Next Due COVID-19 mRNA, LNP-s, No Pre serve, 2-Dose Series (Moderna) 07/23/2020,06/18/2020 COVID-19 mRNA, LNP-s, No Pre serve, 2-Dose Series (Pfizer) 03/03/2021 Pneumococcal Conjugate Vacc, 13 Valent (Prevnar) 03/16/2019 Pneumococcal Conjugate Vacci ne, 20-valent ([id number]) 02/08/2023(Deferred: Patient Refused - Pt thinks he [...] No 07/20/2023 documented as of this encounter Plan of Treatment Upcoming Encounters Date Type Department Care Team (Late st Contact Info) Description 01/17/2024 8:15 AM [facility] Pharmacy Pharmacy Hematology Oncology [address] [address] [facility] Hem/Onc [address] [place] [address] 01/18/2024 8:00 AM EST Laboratory Laboratory, [place] [address] [place] [phone] [place], Laboratory [address] [place] [address] 01/18/2024 8:20 AM EST Office Visit Dermatology, [place] [address] [place] [address] Linda Mejia PA-C [address] [place] [address] [place] [address] 01/19/2024 9:00 AM EST Pharmacy Pharmacy Hematology Oncology [place] [address] [place] [address] [facility], [facility] Hem/Onc [address] [place] [address] 01/21/2024 12:00 PM EST Therapy Psychology [place] [address] [place] [address] Quentin Gupta PsyD [address] [place] [address] 01/21/2024 1:30 PM EST Immunization/Injecti on Hematology Oncology [facility] [address] [place] [address] Nurse, Med 4 [address] [place] [address] 02/07/2024 8:00 AM EST Laboratory Laboratory, [place] [address] [place] [phone] [place], Laboratory [address] [place], [place] [phone] 02/09/2024 9:30 AM EST Office Visit Hematology/Oncology [facility] [place] [address] [facility] [place] [address] Rae Berrios MD 200 [facility] [place] [address] 02/09/2024 10:00 AM EST Immunization/Injecti on Hematology/Oncology Treatment, [place] [address] [facility] [address] [place] [address] Kandice, Chair 7 Hem Onc [facility] 200 [facility] [place] [address] 02/21/2024 7:40 AM EST Office Visit [facility] [address] [place] [phone] Patrick Zhao MD [address] [place] [address] 02/25/2024 9:00 AM EST Office Visit Pharmacy, [address] [place] [address] [place] [address] 02/28/2024 9:00 AM EST [facility] [employer] [address] [facility] [place] [address] Vicki Watson PA-C 200 [facility] [place] [address] 04/03/2024 9:00 AM EST Office Visit Nephrology, [facility] [address] [facility] [place] [address] Addison Salas MD [address] [place] [phone] Health Maintenance Due Date Last Done Comments [...] Agents on File Name Relationship Healthcare Agent [facility] Communication Dori Hoover Adult Child Health Care Repr esentative (appointed verbally by patient or by statute hierarchy) Care Teams Pulpwood Contractor Relationship Specialty Start Date End Date Patrick Zhao MD [address] [place] [address] PCP - General Family Medicine 05/10/16 documented as of this encounter
--- OUTSIDE RECORDS SUMMARY | 2024-05-18 07:25 | External Medical Summary ---
Author Name Unknown Address Unknown Organization K01:[facility] [address] [place] [address] Laboratory Report Ordering Provider Test Date Status ADALBERTO ALEGRE 01/03/2024 07:51:44 Final Mantel Cell Lymphoma - Every week [...] Abnormality Reference (Units ) Status WBC, Total 01/03/2024 07:51:44 4.03 4.00-10.80 (K/uL) Final RBC 01/03/2024 07:51:44 3.89 4.50-5.25 (M/uL) Final Hemoglobin 01/03/2024 07:51:44 12.8 Below low normal 14.0-16.8 (g/dL) Final HCT 01/03/2024 07:51:44 38.9 Below low normal 40.0-48.4 (%) Final MCV 01/03/2024 07:51:44 100.0 82.0-99.5 (fL) Final MCH 01/03/2024 07:51:44 32.9 27.0-34.0 (pg) Final MCHC 01/03/2024 07:51:44 32.9 32.0-36.0 (g/dL) Final RDW 01/03/2024 07:51:44 13.0 11.5-15.5 (%) Final Platelets 01/03/2024 07:51:44 150 140-400 (K/uL) Final MPV 01/03/2024 07:51:44 8.9 6.6-11.1 (fL) Final Nucleated erythrocytes/100 leukocytes [Ratio] in Blood by Automated count 01/03/2024 07:51:44 0 <=0 (/100 WBCs) Final Performing Location LABORATORY [facility] - [address] [facility] [address]
--- OUTSIDE RECORDS SUMMARY | 2024-05-18 07:25 | External Medical Summary ---
Author Name Unknown Address Unknown Organization K01:[facility] - [address] [facility] [address] [place] [address] Laboratory Report Ordering Provider Test Date Status [...] SYNC LEUKOCYTES IN BLOOD BY AUTOMATED COUNT 01/03/2024 07:51:44 4.03 4.00-10.80 (K/uL) Final Segs 01/03/2024 07:51:44 44.5 40.0-75.0 (%) Final Lymphs % 01/03/2024 07:51:44 34.5 18.0-42.0 (%) Final Monos 01/03/2024 07:51:44 15.1 Above high normal 1.0-11.0 (%) Final Eosinophils 01/03/2024 07:51:44 4.0 0.0-6.0 (%) Final Basos 01/03/2024 07:51:44 1.2 0.0-2.0 (%) Final Immature Granulocyte, Percent 01/03/2024 07:51:44 0.7 0.0-2.0 (%) Final Absolute Segs 01/03/2024 07:51:44 1.79 Below low normal 1.80-7.70 (K/uL) Final Lymphs, absolute 01/03/2024 07:51:44 1.39 1.00-4.80 (K/ul) Final Monos, Abs 01/03/2024 07:51:44 0.61 0.00-1.10 (K/uL) Final Eos, Abs 01/03/2024 07:51:44 0.16 0.00-0.70 (K/uL) Final Basos, Abs 01/03/2024 07:51:44 0.05 0.00-0.20 (K/uL) Final Immature Granulocytes, Number 01/03/2024 07:51:44 0.03 0.00-0.20 (K/uL) Final Performing Location LABORATORY [facility] - [facility] [address]. [facility] [address]
--- OUTSIDE RECORDS SUMMARY | 2024-05-18 07:25 | External Medical Summary | Summary of Care ---
Author Name Unknown Organization [facility] Address [address] [facility] [place] [address] Phone [phone] Care Team Providers Care Migration Specialist Name Role Phone Patrick Zhao MD Primary Care Provider [phone] Reason for Visit * Reason Onset Date Comments Advice 01/03/2024 Dr. Berrios Encounter Details Date Type Department Care Team (Late st Contact Info) Description 01/03/2024 Telephone Hematology/Oncology [facility] [place] [address] [place] [phone] Rae Berrios MD [address] [place] [address] Advice (Dr. Berrios ) Allergies Active Allergy Reactions Criticality Noted Date Comments Celecoxib Medium 02/01/2017 Metformin Diarrhea 02/18/2023 Prochlorperazine 11/18/1998 Intol,compazine documented as of this encounter (statuses as of 01/03/2024) Medications Medication Sig Dispensed Refills Start Date End Date Status OneTouch Delica Plus [id number] USE TO TEST BLOOD SUGAR 2 TIMES DAILY DX E11.9 200 Each 3 12/04/2022 Active Ozempic (0.25 or 0.5 MG/DOSE) 2 MG/3ML Solution Pen-injector (Semaglutide(0.25 or 0.5MG/DOS))Indicatio ns:Type 2 diabetes mellitus with hemoglobin A1c goal of less than 7.0% ([facility]) INJECT 0.25 MG UNDER THE SKIN ONCE [...] as of this encounter (statuses as of 01/03/2024) Active Problems Patient Care Coordination No te [...] as of this encounter (statuses as of 01/03/2024) Resolved Problems Problem Noted Date Diagnosed Date [...] as of this encounter (statuses as of 01/03/2024) Immunizations Name Administration Dates Next Due COVID-19 mRNA, LNP-s, No Pre serve, 2-Dose Series (Moderna) 07/23/2020,06/18/2020 COVID-19 mRNA, LNP-s, No Pre serve, 2-Dose Series (Pfizer) 03/03/2021 Pneumococcal Conjugate Vacc, 13 Valent (Prevnar) 03/16/2019 Pneumococcal Conjugate Vacci ne, 20-valent ([id number]) 02/08/2023(Deferred: Patient Refused - Pt thinks he [...] No 07/20/2023 documented as of this encounter Miscellaneous Notes * Telephone Encounter - Marilyn Swift OSA - 01/03/2024 3:55 PM EDT Patient called to advise he had a tooth pulled today by his dentist. He was advised to call once hehad this pulled because of his xgexa injection on 01/25 and was told that this would need to be completely healed before his injection. He was inquiring if 01/25 would be too soon. Please contact pt at [phone] and he advised if he doesn't answer he asked for you to leave a message. Thank you. documented in this encounter Plan of Treatment Upcoming Encounters Date Type Department Care Team (Late st Contact Info) Description 01/04/2024 9:00 AM EDT Pharmacy Pharmacy Hematology Oncology [address] [address] [facility] Hem/Onc [address] [place] [address] 01/17/2024 8:15 AM EST Pharmacy Pharmacy Hematology Oncology [address] [address] [facility] Hem/Onc [address] [place] [address] 01/18/2024 8:20 AM EST Office Visit [address] [phone] Linda Mejia PA-C [address] [place] [address] [place] [phone] 01/21/2024 12:00 PM EST Therapy Psychology [address] [phone] Quentin Gupta PsyD [address] [place] [phone] 01/21/2024 1:30 PM EST Immunization/Injecti on Hematology Oncology [address] [address] Nurse, Med 4 [address] [place] [address] 01/25/2024 8:00 AM EST Laboratory Laboratory, [place] [address] [place] [facility] [place] [phone] [facility] [address] [facility] [place] [phone] 01/26/2024 8:30 AM EST Immunization/Injecti on Hematology/Oncology Treatment, [place] [address] [facility] [address] [place] [phone] Kandice, Chair 7 Hem Onc [facility] [address] [facility] [place] [address] 02/07/2024 8:00 AM EST Laboratory Laboratory, [place] [address] [place] [facility] [place] [address] [facility] [address] [facility] [place] [phone] 02/09/2024 9:30 AM EST Office Visit Hematology/Oncology [facility] [place] [address] [place] [phone] Rae Berrios MD 200 [place] [address] 02/21/2024 7:40 AM EST Office Visit Family Practice, [place] [address] [facility] [address] Patrick Zhao MD [address] [facility] [address] 02/25/2024 9:00 AM EST Office Visit Pharmacy, [address] [place] [address] [place] [address] 02/28/2024 9:00 AM EST Office Visit Neurology [facility] [place] [address] [facility] [place] [address] Vicki Watson PA-C [address] [facility] [place] [address] 04/03/2024 9:00 AM EST Office Visit Nephrology, [facility] [address] [facility] [place] [address] Addison Salas MD 400 [facility] [place] [address] Health Maintenance [...] Td or Tdap) 12/06/2024 12/06/2014, 05/06/1998 GFR 12/26/2024 12/27/2023, 12/06, 12/13/2023, Additional history exists Colonoscopy 03/11/2028 03/11/2018 Colorectal [...] patient or by statute hierarchy) Care Teams Migration Specialist Relationship Specialty Start Date End Date Patrick Zhao MD [address] [place] [address] PCP - General Family Medicine 05/10/16 documented as of this encounter
--- OUTSIDE RECORDS SUMMARY | 2024-05-18 07:25 | External Medical Summary | Summary of Care ---
Author Name Unknown Organization [facility] Address [address] [place] [address] Phone [phone] Care Team Providers Care Underwear Welter Name Role Phone Patrick Zhao MD Primary Care Provider [phone] Reason for Visit * Reason Onset Date Comments Advice 01/17/2024 Oral chemo side effect Encounter Details Date Type Department Care Team (Late st Contact Info) Description 01/17/2024 Telephone Hematology Oncology [facility] [address] [place] [address] Services, Scheduling [address] [place] [address] Advice (Oral chemo side effect) Allergies Active Allergy Reactions Criticality Noted Date Comments Celecoxib Medium 02/01/2017 Metformin Diarrhea 02/18/2023 Prochlorperazine 11/18/1998 Intol,compazine documented as of this encounter (statuses as of 01/17/2024) Medications OneTouch Delica Plus [id number] USE TO TEST BLOOD SUGAR 2 TIMES DAILY DX E11.9 200 Each 3 12/05/19 23 Active Ozempic (0.25 or 0.5 MG/DOSE) 2 MG/3ML Solution Pen-injector (Semaglutide(0.25 or 0.5MG/DOS))Indicat ions:Type 2 diabetes mellitus with hemoglobin A1c goal of less than 7.0% ([facility]) INJECT 0.25 MG UNDER [...] 1 4 9:10 AM EDT 12/16/19 Active OneTouch Verio In Vitro Strip (Glucose Blood)Indications: Type 2 diabetes mellitus with hemoglobin A1c goal of less than 7.0% ([facility]) USE TO TEST BLOOD [...] mRNA, LNP-s, No Pre serve, 2-Dose Series (KeenSkim) 03/03/2021 Pneumococcal Conjugate Vacc, 13 Valent (Prevnar) 03/16/2019 Pneumococcal Conjugate Vacci ne, 20-valent ([id number]) 02/08/2023(Deferred: Patient Refused - Pt thinks he [...] encounter Miscellaneous Notes * Telephone Encounter - Rain Cisneros OSA - 01/17/2024 9:59 AM EST Patient calling in- he states he takes a chemo pill & he believes it is causing him dizziness & his equilibrium issues to be 20 to 25 percent worse- call was warm transferred to oral chemotherapy clinic documented in this encounter Plan of Treatment Upcoming Encounters Date Type Department Care Team (Late st Contact Info) Description 01/18/2024 8:00 AM EST Laboratory Laboratory, [place] [address] [place] [address] [place] [address] [place] [address] 01/18/2024 8:20 AM EST Office Visit Dermatology, [place] [address] [place] [address] Linda Mejia PA-C [address] [place] [address] [place] [address] 01/19/2024 9:00 AM EST Pharmacy Pharmacy Hematology Oncology [address] [address] [facility] Hem/Onc [facility] [place] [address] 01/21/2024 12:00 PM EST Therapy Psychology [address] [address] Quentin Gupta PsyD [address] [place] [address] 01/21/2024 1:30 PM EST Immunization/Injecti on Hematology Oncology [facility] [address] [place] [address] Nurse, [facility] [address] [place] [address] 02/07/2024 8:00 AM EST Laboratory Laboratory, [facility] [address] [place] [address] [place] [address] [place] [address] 02/09/2024 9:30 AM EST Office Visit Hematology/Oncology [facility] [place] [address] [place] [address] Rae Berrios MD 200 [facility] [place] [address] 02/09/2024 10:00 AM EST Immunization/Injecti on Hematology/Oncology Treatment, [place] [address] [place] [phone] Kandice, Chair 7 Hem Onc [facility] 200 [facility] [place] [address] 02/21/2024 7:40 AM EST Office Visit Family Practice, [address] [address] Patrick Zhao MD [address] [place], [place] [phone] 02/25/2024 9:00 AM EST Office Visit Pharmacy, [address] [place] [address] [place] [address] 02/28/2024 9:00 AM EST Office Visit Neurology [facility] 200 [facility] [place] [address] Vicki Watson PA-C 200 [facility] [place] [address] 04/03/2024 9:00 AM EST Office Visit Nephrology, [facility] 200 [facility] [place] [address] Addison Salas MD 400 [facility] [place], [place] [phone] Health Maintenance Due Date Last Done Comments [...] patient or by statute hierarchy) Care Teams Underwear Welter Relationship Specialty Start Date End Date Patrick Zhao MD [address] [place] [address] PCP - General Family Medicine 05/10/16 documented as of this encounter
--- OUTSIDE RECORDS SUMMARY | 2024-05-18 07:25 | External Medical Summary | Summary of Care ---
Author Name Unknown Organization [facility] Address [address] [place] [address] Phone [phone] Care Team Providers Care Traffic Representative Name Role Phone Patrick Zhao MD Primary Care Provider [phone] Encounter Details Date Type Department Care Team (Late st Contact Info) Description 01/17/2024 Telephone Hematology/Oncology, [facility] [address] [place] [address] Rae Berrios MD [address] [place] [address] Allergies Active Allergy Reactions Criticality Noted Date Comments Celecoxib Medium 02/01/2017 Metformin Diarrhea 02/18/2023 Prochlorperazine 11/18/1998 Intol,compazine documented as of this encounter (statuses as of 01/17/2024) Medications OneTouch Delica Plus [id number] USE TO TEST BLOOD SUGAR 2 TIMES DAILY DX E11.9 200 Each 3 12/05/19 23 Active Ozempic (0.25 or 0.5 MG/DOSE) 2 MG/3ML Solution Pen-injector (Semaglutide(0.25 or 0.5MG/DOS))Indicat ions:Type 2 diabetes mellitus with hemoglobin A1c goal of less than 7.0% ([facility]) INJECT 0.25 MG UNDER THE [...] mRNA, LNP-s, No Pre serve, 2-Dose Series (Newsy) 03/03/2021 Pneumococcal Conjugate Vacc, 13 Valent (Prevnar) 03/16/2019 Pneumococcal Conjugate Vacci ne, 20-valent ([id number]) 02/08/2023(Deferred: Patient Refused - Pt thinks he [...] Miscellaneous Notes * Telephone Encounter - Ana Burgess RPh - 01/17/2024 12:41 PM EST Spoke to patient. He reports he has been experiencing more dizziness since started lenalidomide. He does have historyof dizziness/vertigo prior to starting lenalidomide. Reports he is not drinking as much water as heshould. Dicussed dizziness can be a side effect of lenalidomide. Recommended to increase water intake to see if this helps with dizziness. Reports rash has improved with use of loratadine. Reports he is still itchy on side and in armpit area. Advised to start hydrocortisone cream in these areas. Will follow-up with labs in 2 days. Ana Burgess PharmD, BCOP Ambulatory Clinical Pharmacist | Oral Chemotherapy Clinic [facility] 01/17/2024, 12:44 PM * Telephone Encounter - Jada Bishop PHARM Tech - 01/17/2024 10:02 AM EST MEDICATION THERAPY MANAGEMENT Lenalidomide (Revlimid) TREATMENT STATUS NOTE Hernan Rodriguez [id number] Patient Phone Numbers Communication: Spoke to Caller Treatment: Medication: Lenalidomide (Revlimid) Indication/Staging/Diagnosis Code: multiple myeloma / C90.00 Dose: 10mg daily x 2 years Administration: +/- food Start Date: 12/06/23 Primary Second Time Worker/Oncologist: Dr. Berrios Caller: Patient Incoming Request: Patient experiencing side effects Action: Forwarded call to pharmacist Additional Notes: ENOC Sinha Health And Safety Advisor Hematology Oncology Oral Chemotherapy Clinic Medication Therapy Disease Management [facility] 01/17/24,10:05 AM Time Spent on Encounter: < 5 minutes documented in this encounter Plan of Treatment Upcoming Encounters Date Type Department Care Team (Late st Contact Info) Description 01/18/2024 8:00 AM EST Laboratory Laboratory, [place] [address] [place] [address] [place], [facility] [address] [place] [address] 01/18/2024 8:20 AM EST Office Visit Dermatology, [place] [address] [place] [address] Linda Mejia PA-C [address] [place] [address] [place] [address] 01/19/2024 9:00 AM EST Pharmacy Pharmacy Hematology Oncology [facility] [address] [place] [address] [facility] Hem/Onc [address] [place] [address] 01/21/2024 12:00 PM EST Therapy Psychology [facility] [address] [place] [address] Quentin Gupta PsyD [address] [place] [address] 01/21/2024 1:30 PM EST Immunization/Injecti on Hematology Oncology [facility] [address] [place], [place] [phone] Nurse, Med [address] [place] [address] 02/07/2024 8:00 AM EST Laboratory Laboratory, [facility] [address] [facility] [place] [address] [facility] [address] [place] [address] 02/09/2024 9:30 AM EST Office Visit Hematology/Oncology [facility] [place] [address] [place] [phone] Rae Berrios MD [address] [place] [address] 02/09/2024 10:00 AM EST Immunization/Injecti on Hematology/Oncology Treatment, [place] [address] [facility] [address] [place] [address] Kandice, Chair 7 Hem Onc [facility] 200 [facility] [place] [address] 02/21/2024 7:40 AM EST Office Visit [address] [address] Patrick Zhao MD [address] [place] [address] 02/25/2024 9:00 AM EST Office Visit Pharmacy, [address] [place] [address] [place] [address] 02/28/2024 9:00 AM EST Office Visit Neurology [facility] [place] 200 [facility] [place] [address] Vicki Watson PA-C 200 [facility] [place] [address] 04/03/2024 9:00 AM EST Office Visit Nephrology, [facility] 200 [facility] [place] [address] Addison Salas MD [address] [place] [address] Health Maintenance Due Date Last Done Comments [...] or by statute hierarchy) Care Teams Traffic Representative Relationship Specialty Start Date End Date Patrick Zhao MD [address] [place] [address] PCP - General Family Medicine 05/10/16 documented as of this encounter"
--- OUTSIDE RECORDS SUMMARY | 2024-05-18 07:25 | External Medical Summary | Summary of Care ---
Author Name Unknown Organization [facility] Address [address] [facility] [place] [address] Phone [phone] Care Team Providers Care Education Manager Name Role Phone Patrick Zhao MD Primary Care Provider [phone] Reason for Visit * Reason Comments eRx-Medication Refill Encounter Details Date Type Department Care Team (Late st Contact Info) Description 01/09/2024 Refill Neurology Yarelis Woodson [place] [address] [place] [address] Vicki Watson PA-C [address] [place] [address] Allergies Active Allergy Reactions Criticality Noted Date Comments Celecoxib Medium 02/01/2017 Metformin Diarrhea 02/18/2023 Prochlorperazine 11/18/1998 Intol,compazine documented as of this encounter (statuses as of 01/10/2024) Medications Medication Sig Dispensed Refills Start Date End Date Status OneTouch Delica Plus [id number] USE TO TEST BLOOD SUGAR 2 TIMES [...] as of this encounter (statuses as of 01/10/2024) Active Problems Patient Care Coordination No te [...] as of this encounter (statuses as of 01/10/2024) Resolved Problems Problem Noted Date Diagnosed Date [...] as of this encounter (statuses as of 01/10/2024) Immunizations Name Administration Dates Next Due COVID-19 mRNA, LNP-s, No Pre serve, 2-Dose Series (Moderna) 07/23/2020,06/18/2020 COVID-19 mRNA, LNP-s, No Pre serve, 2-Dose Series (Pfizer) 03/03/2021 Pneumococcal Conjugate Vacc, 13 Valent (Prevnar) 03/16/2019 Pneumococcal Conjugate Vacci ne, 20-valent ([id number]) 02/08/2023(Deferred: Patient Refused - Pt thinks he [...] Miscellaneous Notes * Telephone Encounter - Sol Luis, [facility] - 01/10/2024 1:36 PM ESTRefused Prescriptions: Disp Refills Propranolol HCl 10 MG Oral Tablet (Inderal)270 Ta*2 Sig: TAKE 1TABLET BY MOUTH THREE TIMES A DAYRefused By: SOL LUIS for Refusal: Refill Not Appropria te documented in this encounter Plan of Treatment Upcoming Encounters Date Type Department Care Team (Late st Contact Info) Description 01/17/2024 8:15 AM EST Pharmacy Pharmacy Hematology Oncology [address] [address] [facility] [place] Hem/Onc [address] [place] [address] 01/18/2024 8:00 AM EST Laboratory Laboratory, [place] [address] [place] [address] [place], Laboratory [address] [place] [address] 01/18/2024 8:20 AM EST Office Visit Dermatology, [place] [address] [place] [address] Linda Mejia PA-C [address] [place] [address] [place] [address] 01/19/2024 9:00 AM EST Pharmacy Pharmacy Hematology Oncology [address] [address] [facility], [facility] Hem/Onc [address] [place] [address] 01/21/2024 12:00 PM EST Therapy Psychology [address] [address] Quentin Gupta PsyD [address] [place] [address] 01/21/2024 1:30 PM EST Immunization/Injecti on Hematology Oncology [facility] [address] [place] [address] Nurse, [facility] [address] [place] [address] 02/07/2024 8:00 AM EST Laboratory Laboratory, [address] [address] [place] [address] [place] [address] 02/09/2024 9:30 AM EST Office Visit Hematology/Oncology [facility] 200 [facility] [place] [phone] Rae Berrios MD 200 [facility] [place], [place] [address] 02/09/2024 10:00 AM EST Immunization/Injecti on Hematology/Oncology Treatment, [place] [address] [address] Kandice, Chair 7 Hem Onc [address] [place] [address] 02/21/2024 7:40 AM EST Office Visit Family Practice, [address] [address] Patrick Zhao MD [address] [place] [address] 02/25/2024 9:00 AM EST Office Visit Pharmacy, [address] [place] [address] [place] [address] 02/28/2024 9:00 AM EST Office Visit Neurology [facility] [address] [facility] [place] [address] Vicki Watson PA-C [address] [facility] [place] [address] 04/03/2024 9:00 AM EST Office Visit Nephrology, [facility] [address] [facility] [place] [address] Addison Salas MD 400 [facility] [place] [address] Health Maintenance [...] File Name Relationship Healthcare Agent [facility] Communication Dori Hoover Adult Child Health Care Repr esentative (appointed verbally by patient or by statute hierarchy) Care Teams Education Manager Relationship Specialty Start Date End Date Patrick Zhao MD [address] [place] [address] PCP - General Family Medicine 05/10/16 documented as of this encounter
--- OUTSIDE RECORDS SUMMARY | 2024-05-18 07:25 | External Medical Summary | Summary of Care ---
Author Name Unknown Organization [facility] Address [address] [facility] [place] [address] Phone [phone] Care Team Providers Care Senior Director Finance Name Role Phone Patrick Zhao MD Primary Care Provider [phone] Reason for Visit * Reason Onset Date Comments Advice 12/31/2023 Rash Encounter Details Date Type Department Care Team (Late st Contact Info) Description 12/31/2023 Telephone Hematology/Oncology [facility] [place] [address] [place] [address] Rae Berrios MD [address] [place] [address] Advice (Rash) Allergies Active Allergy Reactions Criticality Noted Date Comments Celecoxib Medium 02/01/2017 Metformin Diarrhea 02/18/2023 Prochlorperazine 11/18/1998 Intol,compazine documented as of this encounter (statuses as of 12/31/2023) Medications Medication Sig Dispensed Refills Start Date End Date Status OneTouch Delica Plus [id number] USE TO TEST BLOOD SUGAR 2 TIMES [...] hemoglobin A1c goal of less than 7.0% ([facility]) USE TO TEST BLOOD SUGAR 2 TIMES [...] as of this encounter (statuses as of 12/31/2023) Active Problems Patient Care Coordination No te [...] as of this encounter (statuses as of 12/31/2023) Resolved Problems Problem Noted Date Diagnosed Date [...] as of this encounter (statuses as of 12/31/2023) Immunizations Name Administration Dates Next Due COVID-19 mRNA, LNP-s, No Pre serve, 2-Dose Series (Moderna) 07/23/2020,06/18/2020 COVID-19 mRNA, LNP-s, No Pre serve, 2-Dose Series (Pfizer) 03/03/2021 Pneumococcal Conjugate Vacc, 13 Valent (Prevnar) 03/16/2019 Pneumococcal Conjugate Vacci ne, 20-valent ([id number]) 02/08/2023(Deferred: Patient Refused - Pt thinks he [...] Notes * Telephone Encounter - Apoorva Amezcua [facility] - 12/31/2023 10:46 AM EDT Returned call and spoke to pt Pt states rash is on arms and trunk area. States he was speaking with [facility] nurse who determined rash is due to change in laundry detergent. Pt continues to endorse good tolerability to lenalidomide as he has not developed rash in the past on treatment Advised pt to continue loratadine daily for pruritus ppx and apply hydrocortisone cream to rash if needed. Advised pt to switch detergent to previously used to prevent additional skin reactions. Pt replied with understanding and had no further questions MTM to follow up 01/03 with weekly labs (scheduled 01/02 @0810) Dr. Berrios: ZAHRA Time Spent on Encounter: 11 - 15 minutes Encounter Group: Hematology Encounter Interventions Item Category: Oral Chemotherapy Lenalidomide Problem/Rationale: Safety: Adverse medication event - Undesirable effect Pharmacist Intervention(s): Care coordination, Non-pharmacological intervention provided, and Toxicity monitoring Magnitude of Intervention: Monitoring with direction (Level 1) * Telephone Encounter - Hansel Walton RN - 12/31/2023 10:04 AM EDT Received TT from Rad Onc that patient has a generalized rash on his body they believe may be from Revlimid. This RN advised that we only have 1 provider in office on half day and already overbooked, asked iftheir provider would be able to review the rash and advise further. Rad Onc advised "Our provider did see him, this isn't radiation related." Advised them to have patient go home and we will call him to follow up. MTM- Please follow up with patient in regards to rash. Currently taking Revlimid. Thank you. documented in this encounter Plan of Treatment Upcoming Encounters Date Type Department Care Team (Late st Contact Info) Description 01/03/2024 8:10 AM EDT Laboratory Laboratory, [place] [address] [facility] [place] [address] [place], Laboratory [address] [place] [facility] [place] [address] 01/04/2024 9:00 AM EDT Pharmacy Pharmacy Hematology Oncology [facility] [place] [address] [place] [address] [facility] Hem/Onc [address] [place] [address] 01/17/2024 8:15 AM EST Pharmacy Pharmacy Hematology Oncology [facility], [place] [address] [place] [address] [facility] Hem/Onc [address] [place] [address] 01/18/2024 8:20 AM EST Office Visit Dermatology, [place] [address] [place] [address] Linda Mejia PA-C [address] [place] [address] [place] [address] 01/21/2024 12:00 PM EST Therapy Psychology [facility] [address] [place] [address] Quentin Gupta PsyD [address] [place] [address] 01/21/2024 1:30 PM EST Immunization/Injecti on Hematology Oncology [facility] [address] [place] [address] Nurse, Med [address] [place] [address] 01/25/2024 8:00 AM EST Laboratory Laboratory, [place] [address] [place] [phone] [place], [facility] [address] [place] [address] 01/26/2024 8:30 AM EST Immunization/Injecti on Hematology/Oncology Treatment, [place] [address] [place] [phone] Kandice, Chair 7 Hem Onc [facility] 200 [facility] [place] [address] 02/07/2024 8:00 AM EST Laboratory Laboratory, [place] [address] [facility], [place] [address] [facility] [address] [place] [facility] [place] [address] 02/09/2024 9:30 AM EST Office Visit [facility]ematology/On[facility] [place] [address] [place] [address] Rae Berrios MD [address] [place] [address] 02/21/2024 7:40 AM EST Office Visit Family Practice, [place] [address] [facility], [place] [address] Patrick Zhao MD [address] [place] [address] 02/25/2024 9:00 AM EST Office Visit Pharmacy, [address] [place] [address] [place] [address] 02/28/2024 9:00 AM EST Office Visit Neurology [place] [facility] [place] [address] [place] [address] Vicki Watson PA-C 200 [facility] [place] [address] 04/03/2024 9:00 AM EST Office Visit Nephrology, [facility] [address] [place] [address] Addison Salas MD [address] [place] [address] [place] [phone] Health Maintenance Due Date Last Done Comments [...] or by statute hierarchy) Care Teams Senior Director Finance Relationship Specialty Start Date End Date Patrick Zhao MD [address] [place] [address] PCP - General Family Medicine 05/10/16 documented as of this encounter
--- OUTSIDE RECORDS SUMMARY | 2024-05-18 07:25 | External Medical Summary | Summary of Care ---
Author Name Unknown Organization [facility] Address [address] [facility] [place] [address] Phone [phone] Care Team Providers Care Manager Of Regulatory Affairs Name Role Phone Patrick Zhao MD Primary Care Provider [phone] Reason for Visit * Reason Onset Date Comments Advice 01/03/2024 Dr. Berrios Encounter Details Date Type Department Care Team (Late st Contact Info) Description 01/03/2024 Telephone Hematology/Oncology [facility] [place] [address] [place] [phone] Rae Berrios MD [address] [place] [address] Advice (Dr. Berrios ) Allergies Active Allergy Reactions Criticality Noted Date Comments Celecoxib Medium 02/01/2017 Metformin Diarrhea 02/18/2023 Prochlorperazine 11/18/1998 Intol,compazine documented as of this encounter (statuses as of 01/04/2024) Medications Medication Sig Dispensed Refills Start Date End Date Status OneTouch Delica Plus [id number] USE TO TEST BLOOD SUGAR 2 TIMES DAILY DX E11.9 200 Each 3 12/04/2022 Active Ozempic (0.25 or 0.5 MG/DOSE) 2 MG/3ML Solution Pen-injector (Semaglutide(0.25 or 0.5MG/DOS))Indicatio ns:Type 2 diabetes mellitus with hemoglobin A1c goal of less than 7.0% ([facility]) INJECT 0.25 MG UNDER THE SKIN ONCE [...] (Prevnar) 03/16/2019 Pneumococcal Conjugate Vacci ne, 20-valent ([id number]) 02/08/2023(Deferred: Patient Refused - Pt thinks he [...] as of this encounter Miscellaneous Notes * Addendum Note - Miracle Walton RN - 01/04/2024 9:44 AM EDTAddended by: MIRACLE WALTON on: 01/04/2024 09:44 AM Modules accepted: Orders * Telephone Encounter - Miracle Walton RN - 01/04/2024 9:40 AM EDT Called patient, states he had his tooth pulled by his Dentist on 01/02. Advised we typically wait amonth after dental procedures to proceed with Xgeva to allow for healing. Per patient, he would like to receive his injection when he comes to see Dr. Berrios for follow up on02/08. Scheduling- Please do the following: - Cancel lab apt on 01/24 - Cancel injection apt on 01/25 - Add labs "CBCD,CMP,Phos" to lab note on 02/06 - Schedule patient for 15 min injection apt "Xgeva" after follow up with Dr. Berrios on 02/08. Thank you! * Telephone Encounter - Marilyn Swift OSA [...] be too soon. Please contact pt at [phone] and he advised if he doesn't answer he asked for you to leave a message. Thank you. documented in this encounter Plan of Treatment Upcoming Encounters Date Type Department Care Team (Late st Contact Info) Description 01/17/2024 8:15 AM [facility] Pharmacy Pharmacy Hematology Oncology [place] [address] [place] [address] [facility], [facility] Hem/Onc [address] [place] [address] 01/18/2024 8:20 AM EST Office Visit Dermatology, [place] [address] [place] [address] Linda Mejia PA-C [address] [place] [address] Dr [place], [place] [address] 01/21/2024 12:00 PM EST Therapy Psychology [facility] [place] [address] [place] [address] Quentin Gupta Ps [address] [place], [place] [phone] 01/21/2024 1:30 PM EST Immunization/Injecti on Hematology Oncology [place] [address] [place] [address] Nurse, [facility] [address] [place] [address] 01/25/2024 8:00 AM EST Laboratory Laboratory, [place] [address] [facility] [address] [facility] [address] [place] [address] 01/26/2024 8:30 AM EST Immunization/Injecti on Hematology/Oncology Treatment, [place] [address] [place], [place] [phone] Kandice, Chair 7 Hem Onc [place] [address] [facility] [place] [address] 02/07/2024 8:00 AM EST Laboratory Laboratory, [place] [address] [place] [phone] [facility] [address] [facility] [place] [address] 02/09/2024 9:30 AM EST Office Visit [facility] [employer] [address] [place] [phone] Rae Berrios MD [address] [place] [address] 02/21/2024 7:40 AM EST Office Visit [facility] [address] [place] [address] Patrick Zhao MD [address] [place] [address] 02/25/2024 9:00 AM EST Office Visit Pharmacy, [address] [place] [address] [place] [address] 02/28/2024 9:00 AM EST Office Visit Neurology [employer] [address] [place] [address] Vicki Watson PA-C 200 [facility] [place] [address] 04/03/2024 9:00 AM EST Office Visit Nephrology, [facility] 200 [facility] [place] [address] Addison Salas MD [address] [place] [address] Health Maintenance Due Date Last Done Comments [...] or by statute hierarchy) Care Teams Manager Of Regulatory Affairs Relationship Specialty Start Date End Date Patrick Zhao MD [address] [place] [address] PCP - General Family Medicine 05/10/16 documented as of this encounter
--- OUTSIDE RECORDS SUMMARY | 2024-05-18 07:25 | External Medical Summary ---
Author Name Unknown Address Unknown Organization K01:[facility] [place] [address] [place] [address] Laboratory Report Ordering Provider Test Date Status ADALBERTO ALEGRE 01/03/2024 07:51:44 Final Baseline then every 2-3 isamar hs Observation Date Value Abnormality Reference (Units ) Status TSH 01/03/2024 07:51:44 2.01 0.27-4.20 (uIU/mL) Final Performing Location [facility] [place] [address] [place] [address]
--- OUTSIDE RECORDS SUMMARY | 2024-05-18 07:25 | External Medical Summary ---
Author Name Unknown Address Unknown Organization K01:[facility] - [address] [place] [address] Laboratory Report Ordering Provider Test Date Status ADALBERTO ALEGRE 01/03/2024 07:51:44 Final Observation Date Value Abnormality Reference (Units ) Status BUN 01/03/2024 07:51:44 14 6-20 (mg/dL) Final Creatinine 01/03/2024 07:51:44 1.0 0.6-1.2 (mg/dL) Final Glomerular filtration rate/1.73 sq M.predicted [Volume Rate/Area] in Serum, Plasma or Blood by Creatinine-based formula (CKD-EPI) 01/03/2024 07:51:44 82 >=60 (mL/min) Final eGFR is calculated based on the CKD-EPI 2020 equation. Sodium 01/03/2024 07:51:44 139 135-146 (m mol/L) Final Potassium 01/03/2024 07:51:44 4.5 3.5-5.1 (m mol/L) Final Cl 01/03/2024 07:51:44 106 98-107 (mm ol/L) Final CO2 01/03/2024 07:51:44 21 Below low normal 22- 32 (mmol/L) Final Anion gap 01/03/2024 07:51:44 12 7-15 (mmol /L) Final Glucose 01/03/2024 07:51:44 141 Above high normal 70 -120 (mg/dL) Final Albumin 01/03/2024 07:51:44 4.4 3.8-5.0 (g /dL) Final AST (Aspartate aminotransferase) 01/03/2024 07:51:44 19 10-50 (U/L) Fin al Alk Phos 01/03/2024 07:51:44 68 35-130 (U/ L) Final Bilirubin, Total 01/03/2024 07:51:44 0.3 <=1 .2 (mg/dL) Final Calcium 01/03/2024 07:51:44 8.7 8.4-10.2 ( mg/dL) Final Protein 01/03/2024 07:51:44 6.8 6.0-8.3 (g /dL) Final ALT (Alanine aminotransferase) 01/03/2024 07:51:44 34 10-50 (U/L) Blake pinto Performing Location [facility] - [facility] [address] [facility] [address]
--- OUTSIDE RECORDS SUMMARY | 2024-05-18 07:25 | External Medical Summary | Summary of Care ---
Author Name Unknown Organization [facility] Address [address] [facility] [place] [address] Phone [phone] Care Team Providers Care Dietary Services Director Name Role Phone Patrick Zhao MD Primary Care Provider [phone] Reason for Visit * Reason Comments Outpatient Testing Encounter Details Date Type Department Care Team (Late st Contact Info) Description 01/03/2024 8:10 AM EDT Laboratory Laboratory, [place] [address] [place] [address] [place], Laboratory [address] [place] [address] Multiple myeloma not having achieved remission (HCC) Allergies Active Allergy Reactions Criticality Noted Date Comments Celecoxib Medium 02/01/2017 Metformin Diarrhea 02/18/2023 Prochlorperazine 11/18/1998 Intol,compazine documented as of this encounter (statuses as of 01/03/2024) Medications Medication Sig Dispensed Refills Start Date End Date Status OneTouch Delica Plus [id number] USE TO TEST BLOOD SUGAR 2 TIMES [...] (Prevnar) 03/16/2019 Pneumococcal Conjugate Vacci ne, 20-valent ([id number]) 02/08/2023(Deferred: Patient Refused - Pt thinks he [...] 9:00 AM EDT Pharmacy Pharmacy Hematology Oncology [address] [address] [facility] Hem/Onc [address] [place] [address] 01/17/2024 8:15 AM EST Pharmacy Pharmacy Hematology Oncology [facility] [address] [place] [address] [facility] Hem/Onc [address] [place] [address] 01/18/2024 8:20 AM EST Office Visit Dermatology, [place] [address] [place] [address] Linda Mejia, PA-Cheli [address] [place] [address] [place] [address] 01/21/2024 12:00 PM EST Therapy Psychology [facility] [address] [place] [facility] [address] Quentin Gupta, [place] [address] [place] [address] 01/21/2024 1:30 PM EST Immunization/Injecti on Hematology Oncology [facility] [address] [place] [address] Nurse, Med 4 [address] [place] [address] 01/25/2024 8:00 AM EST Laboratory Laboratory, [place] [address] [place] [address] [place], [facility] [address] [place] [address] 01/26/2024 8:30 AM EST Immunization/Injecti on Hematology/Oncology Treatment, [place] [address] [place] [address] Kandice, Chair 7 Hem Onc [place] [address] [place] [address] 02/07/2024 8:00 AM EST Laboratory Laboratory, [place] [address] [place] [facility] [place] [phone] [facility] [address] [place] [address] 02/09/2024 9:30 AM EST Office Visit Hematology/Oncology [facility] [place] [address] [place] [phone] Rae Berrios MD [address] [place] [address] 02/21/2024 7:40 AM EST Office Visit Family [facility], [place] [address] [place] [address] Patrick Zhao MD [address] [place] [address] 02/25/2024 9:00 AM EST Office Visit Pharmacy, [address] [place] [address] [place] [address] 02/28/2024 9:00 AM EST Office Visit Neurology [place] Mercedes Delarosa [address] [place] [address] Vicki Watson PA-C [address] [place] [address] 04/03/2024 9:00 AM EST Office Visit Nephrology, [facility] [address] [place] [address] Addison Salas MD [address] [place] [address] [place] [phone] Pending Results Name Type Priority Associated Diagnoses Date /Time CBC WITH WBC DIFFERENTIAL Lab STAT Multiple myeloma not having achieved remission (HCC) 01/03/2024 7:51 AM EDT COMPREHENSIVE METABOLIC PANEL Lab STAT Multiple myeloma not having achieved remission (HCC) 01/03/2024 7:51 AM EDT TSH WITH FREE T4 IF INDICATED Lab STAT Multiple myeloma not having achieved remission (HCC) 01/03/2024 7:51 AM EDT CBC Lab STAT Multiple myeloma not having achieved remission (HCC) 01/03/2024 7:51 AM EDT DIFFERENTIAL, AUTOMATED Lab STAT Multiple myeloma not having achieved remission (HCC) 01/03/2024 7:51 AM EDT Health Maintenance Due Date Last [...] patient or by statute hierarchy) Care Teams Dietary Services Director Relationship Specialty Start Date End Date Patrick Zhao MD [address] [place] [address] PCP - General Family Medicine 05/10/16 documented as of this encounter
[2024-05-18] MEDS: ACETAMINOPHEN 325 MG TAB PO PRN (07:26)
[2024-05-18] MEDS: ONDANSETRON INJ 2 MG/ML 2 ML VIAL IV PRN (07:27)
[2024-05-18 07:30] LABS: Basophils # (auto) 0.01 K/uL (0.00-0.20); Basophils % (auto) 0.2 %; Eosinophils # (auto) 0.02 K/uL (0.00-0.50); Eosinophils % (auto) 0.3 %; Immature Granulocytes # (auto) 0.03 K/uL (0.01-0.20); Immature Granulocytes % (auto) 0.5 %; Lymphocytes # (auto) 0.59 K/uL (1.20-3.40); Lymphocytes % (auto) 9.8 %; Monocytes # (auto) 0.76 K/uL (0.11-0.59); Monocytes % (auto) 12.6 %; Neutrophils % (auto) 76.6 %
[2024-05-18] MEDS: INSULIN ASPART PER UNIT CHARGE SC SCH (07:37)
--- OUTSIDE RECORDS SUMMARY | 2024-05-18 08:36 | External Medical Summary | Summary of Care ---
Author Name Unknown Organization [facility] Address [address] [facility] [place] [address] Phone [phone] Care Team Providers Care Weatherization Operations Manager Name Role Phone Patrick Zhao MD Primary Care Provider [phone] Encounter Details Date Type Department Care Team (Late st Contact Info) Description [facility] [place] [address] [facility] [place] [phone] Jose Antonio Le PA-C [address] [place] [address] Allergies Active Allergy Reactions Criticality Noted Date Comments Celecoxib Medium 02/01/2017 Metformin Diarrhea 02/18/2023 Prochlorperazine 11/18/1998 Intol,compazine documented as of this encounter (statuses as of 05/18/2024) Medications OneTouch Delica Plus [id number] USE TO TEST BLOOD SUGAR 2 TIMES [...] hemoglobin A1c goal of less than 7.0% ([facility]) USE TO TEST BLOOD SUGAR [...] hemoglobin A1c goal of less than 7.0% ([facility]) INJECT 0.25 MG UNDER THE [...] (Shingrix)Indicati ons:History of autologous stem cell transplant ([facility]) Inject 0.5 mL into a [...] hemoglobin A1c goal of less than 7.0% ([facility]) Use to inject Ozempic once [...] until gone 6 Tablet 05/18/19 25 Active Oseltamivir Phosphate 75 MG Oral Capsule (Tamiflu)Indicatio ns:Influenza A Take 1 Capsule by mouth in the morning and 1 Capsule before bedtime. Do all this for 5 days. For 5 days.. 10 Capsule 05/18/19 25 025 Active documented as of this encounter (statuses as of 05/18/2024) Active Problems Patient Care Coordination No te [...] as of this encounter (statuses as of 05/18/2024) Resolved Problems Problem Noted Date Diagnosed Date [...] as of this encounter (statuses as of 05/18/2024) Immunizations Name Administration Dates Next Due COVID-19 mRNA, LNP-s, No Pre serve, 2-Dose Series (Moderna) 07/23/2020,06/18/2020 COVID-19 mRNA, LNP-s, No Pre serve, 2-Dose Series (Pfizer) 03/03/2021 HEPATITIS B VACCINE, RECOMB, 20 MCG/ML, ADULT (HEPLISAV-B) 03/22/2024,01/21/2024 HIB Booster (Hiberix) 03/22/2024,01/21/2024 Pneumococcal Conjugate Vacc, 13 Valent (Prevnar) 03/16/2019 Pneumococcal Conjugate Vacci ne, 20-valent ([id number]) 03/22/2024,01/21/2024,02/08/2023(Defe rred: Patient Refused - Pt thinks [...] encounter Miscellaneous Notes * Telephone Encounter - Jose Antonio Le PA-C - 05/17/2024 6:14 PM EDT Flu A positive Sent tamiflu documented in this encounter Plan of Treatment Upcoming Encounters Date Type Department Care Team (Late st Contact Info) Description 05/22/2024 8:00 AM EDT Laboratory Laboratory, [facility] [address] [place] [phone] Mohan Hernandez [address] [place] [address] 05/24/2024 9:00 AM EDT Telemedicine Psychology [facility] [address] [place] [address] Quentin Gupta [facility] [address] [place] [address] 05/24/2024 10:00 AM EDT Immunization/Injection Hematology/Oncology Treatment, [place] [address] [place] [address] Kandice, Chair 10 Hem On[facility] [address] [place] [address] 06/07/2024 8:00 AM EDT Laboratory Laboratory, Mary [facility]bert [address] [place] [phone] Mohan Hernandez [address] [place] [address] 06/12/2024 10:00 AM EDT Office Visit Hematology/Oncology [facility] [place] [address] [facility] [address] Rae Berrios MD [address] [facility] [place], [place] [address] 06/22/2024 8:20 AM EDT Office Visit Family Practice, [facility] [address] [place] [phone] Patrick Zhao MD [address] [place] [address] 07/20/2024 10:30 AM EDT Office Visit Hematology Oncology [facility], [place] [address] [place] [address] Nick Moore MD [address] [place] [address] 07/20/2024 11:00 AM EDT Immunization/Injection Hematology Oncology [facility], [place] [address], [place] [id number] Nurse, Med [address] [place] [address] 08/15/2024 7:00 AM EDT Office Visit Neurology [facility] [place] [address] [facility] [place] [address] Yvonne Panchal PA-C [address] [facility] [place] [id number] 08/25/2024 9:00 AM EDT Office Visit Pharmacy, [address] [place] [address] [place] [address] 09/05/2024 10:20 AM EDT Office Visit [facility]at[facility], [facility] [address] [facility] [phone] Linda Mejia PA-C [address] [place] [address] [place] [address] 01/15/2025 9:00 AM EST Office Visit Nephrology, [facility] [address] [facility] [place] [address] Addison Salas [facility] [address] [facility] [id number] Health Maintenance Due Date Last Done Comments [...] as of this encounter Visit Diagnoses Diagnosis Influenza A- Primary Influenza with other respiratory manifestations documented in this encounter Additional Health Concerns Infection Onset Date Last Indicated Resolved Time Influenza (seasonal) 05/17/2024 05/17/2024 documented as of this encounter Advance Directives * [...] patient or by statute hierarchy) Care Teams Weatherization Operations Manager Relationship Specialty Start Date End Date Patrick Zhao MD [address] [facility] [place] [address] PCP - General Family Medicine 02/28/24 documented as of this encounter
[2024-05-18] MEDS: PIPERACILLIN/TAZOBACTAM 4.5 GM/100 ML BAG IV STA (08:46)
[2024-05-18] MEDS: ATORVASTATIN 20 MG TAB PO SCH (08:48)
[2024-05-18] MEDS: ACYCLOVIR 400 MG TAB PO SCH (08:48)
[2024-05-18] MEDS: LOSARTAN POTASSIUM 50 MG TAB PO SCH (08:48)
[2024-05-18] MEDS: ASPIRIN 81 MG ECTAB PO SCH (08:49)
[2024-05-18] MEDS: LORATADINE 10 MG TAB PO SCH (08:49)
[2024-05-18] MEDS: PROPRANOLOL HCL 20 MG TAB PO SCH (08:49)
[2024-05-18] MEDS: OSELTAMIVIR PHOSPHATE 75 MG CAP PO SCH (08:49)
[2024-05-18] MEDS: ENOXAPARIN INJ 40 MG/0.4 ML SYR SQ SCH (08:49)
[2024-05-18] MEDS: CALCIUM 600MG + VIT D 400 IU TAB PO SCH (08:49)
[2024-05-18] MEDS: DOXYCYCLINE HYCLATE 100 MG in DEXTROSE 5% MINI-B 100 ML IV SCH (09:30)
[2024-05-18 09:56] LABS: Estimated Average Glucose 154 mg/dl
--- NOTE | 2024-05-18 12:12 | Communication Note ---
Date of Service: May 18, 2024 Patient seen and examined Reports feeling better. No vomiting today. Nausea is improving. Diarrhea is improving Reports cough Reports dizziness is improved Continue tamiflu, zosyn and doxycycline Currently on RA. Monitor Continue IVF for today and reassess Other plans as detailed in H&P this AM
[2024-05-18] MEDS: PIPERACILLIN/TAZOBACTAM 4.5 GM/100 ML BAG IV SCH (13:45)
[2024-05-18 19:32] VITALS: RESP 16
[2024-05-18] MEDS: LORazepam 1 MG TAB PO SCH (20:50)
[2024-05-18] MEDS ORDERED: cefTRIAXone SODIUM 2,000 MG/50 ML BAG IV SCH (21:00)
--- NOTE | 2024-05-19 05:47 | Electrocardiogram Report ---
Test Reason : Blood Pressure : */* mmHG Vent. Rate : 102 BPM Atrial Rate : 102 BPM P-R Int : 210 ms QRS Dur : 102 ms QT Int : 356 ms P-R-T Axes : 58 27 54 degrees QTcB Int : 463 ms Sinus tachycardia with 1st degree A-V block Otherwise normal ECG When compared with ECG of 16-Feb-2019 12:19, No significant change was found Confirmed by Serg Davis ([id number]) on 05/19/2024 5:47:24 AM Referred By: REFERRED SELF Confirmed By: Serg Davis
[2024-05-19 08:08] LABS: Hematocrit (blood only) 31.5 % (42.0-52.0); Hemoglobin 10.4 g/dl (14.0-18.0); Mean Corpuscular Hemoglobin 31.4 pg (25.0-34.0); Mean Corpuscular Volume 95.2 fL (80.0-100.0); Mean Platelet Volume 8.3 fL (9.4-12.4); Platelet Count 78 K/uL (130-400); RDW Coefficient of Variation 14.5 % (11.5-14.5); RDW Standard Deviation 50.7 fL (36.4-46.3); Red Blood Count 3.31 M/uL (4.70-6.10); White Blood Count 5.35 K/ul (4.8-10.8)
[2024-05-19 08:25] LABS: BUN Creatinine Ratio 12.3 (10-20); Calcium 8.7 mg/dl (8.6-10.3); Creatinine Clr Calc Pharmacy 79.6 ml/min
--- NOTE | 2024-05-19 10:46 | Hospitalist Progress Note ---
Date of Service May 19, 2024 Assessment & Plan (1) Influenza A: Plan: 68-year-old male with past medical history significant for type 2 diabetes, hyperlipidemia, hypertension, chemotherapy-induced diarrhea, cervicalgia, history of schwannoma of cranial nerve, migraine, benign paroxysmal positional vertigo, chemotherapy-induced peripheral neuropathy, history of multiple myeloma, history of autologous stem cell transplant, mucositis due to chemotherapy, diverticulitis, anxiety and depression, presents with not feeling well and found to have flu and possible pneumonia. Pneumonia Influenza A Hypoxia CTA chest noted RLL consolidation, lytic lesion of left 3rd rib, T6 and T9 unchanged Continue tamiflu Continue zosyn Weaned off oxygen Mucinex 600mg q12h Supportive care History of multiple myeloma Patient received radiation therapy to left third rib area Status post chemotherapy Patient also underwent High-Dose Chemotherapy Followed by stem cell transplant on 07/2023 Was on Revlimid maintenance Diabetes Hold Ozempic Sliding scale Monitor Hyperlipidemia On statin Hypertension On olmesartan and propranolol Will monitor Diarrhea chemo induced/ Patient thinks Zoloft causing it Thrombocytopenia Platelets 78 We will follow labs DVT prophylaxis Lovenox Monitor platelets Full code I spent a total of 50 minutes coordinating, documenting and providing care for this patient excluding time spent in performance of separately billed services Admission and Anticipated Discharge Date Admission Date: May 18, 2024 Subjective Patient seen and examined Reports cough associated with mild low rib pain Denied any SOB Denied any other complaints Physical Exam Constitutional: + well hydrated; no acute distress Eyes: PERRL, conjunctivae normal, anicteric sclerae ENMT: external ear and nose normal, oropharynx normal Respiratory: normal respiratory effort; no respiratory distress Reduced breath sounds Cardiovascular: Rate/Rhythm: regular rate and regular rhythm Gastrointestinal (Abdomen): normal bowel sounds, soft, nontender, no hepatosplenomegaly Musculoskeletal: No pedal edema Neurologic: PERRL, EOMI, accommodation nl, no face palsy, no dysarthria Psychiatric: A+Ox3, euthymic affect Results & Data Results & Data Vital Signs (Past 12 Hours) Vital Signs Temp Pulse Resp BP Pulse Ox O2 Del Method 05/19/24 07:24 36.6 C 78 16 116/72 94 Room Air Laboratory Results Abnormal lab results 05/18/24 05/18/24 05/19/24 Range/Units 16:32 20:33 07:29 RBC 3.31 L (4.70-6.10) M/uL Hgb 10.4 L (14.0-18.0) g/dl Hct 31.5 L (42.0-52.0) % RDW Std Deviation 50.7 H (36.4-46.3) fL Plt Count 78 L (130-400) K/uL MPV 8.3 L (9.4-12.4) fL Chloride 110 H (98-107) mmol/L Glucose 120 H (70-99(Fasting)) mg/dl POC Glucose 163 H 103 H (70-99) mg/dl 05/19/24 05/19/24 Range/Units 07:40 11:36 RBC (4.70-6.10) M/uL Hgb (14.0-18.0) g/dl Hct (42.0-52.0) % RDW Std Deviation (36.4-46.3) fL Plt Count (130-400) K/uL MPV (9.4-12.4) fL Chloride (98-107) mmol/L Glucose (70-99(Fasting)) mg/dl POC Glucose 122 H 148 H (70-99) mg/dl
[2024-05-19] MEDS: guaiFENesin 600 MG TABCR PO SCH (11:27)
[2024-05-20 06:31] LABS: Hematocrit (blood only) 32.9 % (42.0-52.0); Hemoglobin 11.2 g/dl (14.0-18.0); Mean Corpuscular Hemoglobin 32.4 pg (25.0-34.0); Mean Corpuscular Volume 95.1 fL (80.0-100.0); Mean Platelet Volume 8.2 fL (9.4-12.4); Platelet Count 81 K/uL (130-400); RDW Coefficient of Variation 14.2 % (11.5-14.5); RDW Standard Deviation 49.4 fL (36.4-46.3); Red Blood Count 3.46 M/uL (4.70-6.10)
[2024-05-20 06:58] LABS: Calcium 9.1 mg/dl (8.6-10.3); Creatinine Clr Calc Pharmacy 73.3 ml/min
[2024-05-20 08:34] VITALS: BP 125/84; PULSE 76; TEMP 97.9
[2024-05-20 09:55] VITALS: O2SAT 97
[2024-05-20] MEDS: DOXYCYCLINE HYCLATE 100 MG CAP PO SCH (10:46)
--- NOTE | 2024-05-20 10:50 | Discharge Summary ---
Date of Service May 20, 2024 Admission HPI Per Admitting Provider 68-year-old male with past medical history significant for type 2 diabetes, hyperlipidemia, hypertension, chemotherapy-induced diarrhea, cervicalgia, history of schwannoma of cranial nerve, migraine, benign paroxysmal positional vertigo, chemotherapy-induced peripheral neuropathy, history of multiple myeloma, history of autologous stem cell transplant, mucositis due to chemotherapy, diverticulitis, anxiety and depression, presents as was not feeling well and found to have flu and possible pneumonia. Patient was having cough, sore throat, chest pain from cough, dizziness, imbalance and runny nose and went to urgent care and was positive for flu and chest x-ray showed possible pneumonia he was prescribed Tamiflu and azithromycin and short course of steroids but patient has not started taking them. As the symptoms are getting worse and was feeling weak and not able to walk today came to the ER. In the ER he was saturating 89% on room air and requiring oxygen. Patient states he is feeling somewhat better now. Shortness of breath symptoms improved. Had abdominal pain but that is improved now. Vision is somewhat blurry. Had several episodes of vomiting today. Denies diarrhea. Micturating okay. No rash. Currently resting comfortably. Somewhat hard of hearing. Past medical history. As mentioned above Past surgical history. Right total knee arthroplasty. Colonoscopy. Had surgery. IR biopsy. Appendectomy. Social history. No smoking. No alcohol use. No drug use. Family history. Mother had diabetes, hypertension. Father had lung cancer. Sister has arthritis. Admission Exam Per Admitting Provider General- Not in distress. Head- atraumatic Eyes- PERRL. ENT- oropharynx clear Neck- supple, no JVD. Lungs- clear to auscultation no wheezing or crackles. Heart- regular rhythm; no murmur, no gallop. Abdomen- normal bowel sounds, soft, nontender, no distension Extremities- no pretibial edema, no erythema seen Neuro- alert, oriented PERRL, no facial palsy; no dysarthria; moves extremities Principal Diagnosis Acute respiratory failure with hypoxia Influenza Pneumonia Discharge Exam Constitutional + well hydrated; no acute distress Eyes PERRL, conjunctivae normal, anicteric sclerae ENMT external ear and nose normal, oropharynx normal Respiratory normal respiratory effort; no respiratory distress Diminished breath sounds. On room air Cardiovascular Rate/Rhythm: regular rate and regular rhythm Gastrointestinal (Abdomen) normal bowel sounds, soft, nontender, no hepatosplenomegaly Musculoskeletal no cyanosis or clubbing, extremities motor strength 5/5 Neurologic PERRL, EOMI, accommodation nl, no face palsy, no dysarthria Psychiatric A+Ox3, euthymic affect Discharge Data Allergies Allergy/AdvReac Type Severity Reaction Status Date / Time prochlorperazine Allergy Unknown INCREASES Unverified 06/29/23 14:27 ANXIETY Consultations 05/17/24 23:44 ED Decision to Admit Stat Ordered Studies 05/18/24 04:56 CT angio chest PE protocol Urgent Hospital Course (1) Influenza A: 68-year-old male with past medical history significant for type 2 diabetes, hyperlipidemia, hypertension, chemotherapy-induced diarrhea, cervicalgia, history of schwannoma of cranial nerve, migraine, benign paroxysmal positional vertigo, chemotherapy-induced peripheral neuropathy, history of multiple myeloma, history of autologous stem cell transplant, mucositis due to chemotherapy, diverticulitis, anxiety and depression, presents with not feeling well and found to have flu and possible pneumonia. Pneumonia Influenza A Hypoxia CTA chest noted RLL consolidation, lytic lesion of left 3rd rib, T6 and T9 unchanged Patient was started on zosyn and tamiflu He initially required oxygen which was successfully weaned off Patient's symptoms improved 2 step today does not show any oxygen requirement Patient discharged home. 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 Patient to take tamiflu and po cefpodoxime/doxycycline for next 3 days to complete treatment History of multiple myeloma Patient received radiation therapy to left third rib area Status post chemotherapy Patient also underwent High-Dose Chemotherapy Followed by stem cell transplant on 07/2023 Was on Revlimid maintenance Diabetes Continue home meds Hyperlipidemia On statin Hypertension On olmesartan and propranolol Total Time Total Time Spent Total Time Spent (In Minutes): 35 Total Time Includes: Examination of the Patient, Discharge Planning and Medication Reconciliation Discharge Plan Discharge Items Patient Disposition: Home - Self-Care Reason For Visit: FLU,PNEUMONIA Discharge Diagnosis: Acute respiratory failure with hypoxia Influenza Pneumonia Activity: Resume your previous activity Non-emergency contact: Primary Care Provider Call non-emergency contact if: you have any medication questions Follow-up/Referrals: Patrick Zhao MD [Primary Care Provider] - (Date & Time 05/25/2024 10:20 AM Provider: Patrick Zhao MD [facility] [place] ) Diet: Heart Healthy Addtl Attending Provider Instructions: Mr Rodriguez You were managed in the hospital for the above listed diagnoses. Please continue your tamiflu at home for next 3 days to complete treatment. You are being discharged on antibiotics (cefpodoxime and doxycycline) to complete treatment. It was a pleasure taking care of you. Pending Studies at Discharge: No Stand-Alone Forms: My [facility], Smoking Cessation Medications and DC Order Prescriptions: New guaifenesin [Mucinex] 600 mg Tablet Extended Release 12hr 600 mg PO Q12 Qty: 6 0RF doxycycline hyclate 100 mg Capsule 100 mg PO BID Qty: 5 0RF cefpodoxime 200 mg tablet 200 mg PO BID Qty: 5 0RF Rx Instructions: must administer with a meal/food Continued Ozempic 0.25 mg or 0.5 mg (2 mg/3 mL) pen injector 0.5 mg subcut WK famotidine 20 mg tablet 20 mg PO DAILY PRN (Reason: Heartburn) lorazepam 1 mg tablet 1 mg PO HS Rx Instructions: MAY TAKE 1/2-1 TAB DURING DAY IF NEEDED olmesartan 40 mg tablet 40 mg PO QAM calcium carbonate-vitamin D3 [Calcium with Vitamin D] 600 mg-10 mcg (400 unit) tablet 1 tab PO BID loperamide [Imodium A-D] 2 mg capsule 2 mg PO QID PRN (Reason: Diarrhea) loratadine [Claritin] 10 mg tablet 10 mg PO QAM atorvastatin 20 mg tablet 20 mg PO DAILY ondansetron HCl 8 mg tablet 8 mg PO Q8H PRN (Reason: Nausea) propranolol 20 mg Tablet 20 mg PO TID sertraline 50 mg tablet 25 mg PO QAM Rx Instructions: WEANING OFF...HAS 1 WEEK LEFT ON 25 MG HOPEFULLY albuterol sulfate 90 mcg/actuation HFA aerosol inhaler 2 puff INHALATION Q4 PRN (Reason: DYPNEA OR WHEEZING) acyclovir 800 mg tablet 800 mg PO [facility] aspirin 81 mg Capsule 81 mg PO QAM prednisone 20 mg tablet 20 mg PO UD Rx Instructions: ORDERED 05/17/24 Q AM FOR 5 DAYS BUT PT HAS NOT STARTED YET Changed oseltamivir [Tamiflu] 75 mg Capsule 75 mg PO BID 3 Days Qty: 6 0RF Rx Instructions: ORDERED 05/17/24 [facility] BUT HAS NOT STARTED YET Discontinued azithromycin 250 mg Tablet 0 mg PO .COMPLEX Rx Instructions: For 250 mg dose pack: take 500 mg today (day 1), then 250 mg for 4 days (days 2-5) HAS NOT STARTED YET ORDERED ON 05/17/24 Discharge Orders: Discharge Order (Routine); Ordered 05/20/24 Ordered By: Terese Lino/Other Patient Handouts: The Flu (Influenza), ED Pneumonia (Adult) Admission Data Admit Date/Time: 05/18/24 03:45 Attending Provider: Terese Dorman I. Admit Provider: Polo Brooke Primary Care Provider: Patrick Zhao Other Providers: Polo Brooke Other Interventions: Discharge Summary Assessment (RN) Last Done: 05/20/24 11:45
== END 2024-05-20 12:41 | disposition home or self-care (01) | DRG 193 ==
LOC: ED 20:36 → EDINP 05-18 03:45 → 3E 05-18 14:29